=== PATIENT | female | born 2000 | race Caucasian/White ===

== ENCOUNTER → 2023-11-25 12:58 | Outpatient (CLI) | payer OTHER, MEDICAID, SELFPAY ==
--- NOTE | 2023-11-25 13:00 | DI.US.S_ITS ---
PROCEDURE: US THYROID INDICATIONS: Hx of thyroid nodules TECHNIQUE: Real-time scanning was performed of the thyroid gland, with image documentation. COMPARISON: None. FINDINGS: Right: Thyroid lobe measures 5.7 x 1.5 x 1.9 cm, and is homogeneous in echotexture. Left: Thyroid lobe measures 5.4 x 1.6 x 1.0 cm, and is homogenous in echotexture. Isthmus: 1.5 cm thick. IMPRESSION: No nodules for follow-up identified. ACR TI-RADS definitions and recommendations: TI-RADS 1 (benign): 0 points. FNA not needed. TI-RADS 2 (not suspicious): 2 points. FNA not needed. TI-RADS 3 (mildly suspicious): 3 points. * FNA if 2.5 cm or larger, follow up if 1.5 cm or larger (at 1, 3, and 5 years). TI-RADS 4 (moderately suspicious): 4-6 points. * FNA if 1.5 cm or larger, follow up if 1 cm or larger (at 1, 2, 3, and 5 years). TI-RADS 5 (highly suspicious): 7 points or more. * FNA if 1 cm or larger, follow up if 0.5 cm or larger (every year for 5 years). Dictated by: Terri Bolivar M.D. on 11/25/2023 at 16:39 Approved by: Terri Bolivar M.D. on 11/25/2023 at 16:56
== END ==
PROVIDERS: Family Provider Registered Nurse; PCP Family Medicine; Referring Provider Family Medicine; Visit Provider Family Medicine
DX: E04.1 Nontoxic single thyroid nodule (principal)
CPT/HCPCS: 76536

== ENCOUNTER → 2024-05-28 14:07 | Outpatient (CLI) | payer OTHER, MEDICAID, SELFPAY ==
[2024-05-28 15:11] LABS: Add Manual Diff / Slide Review NO; Basophils Absolute Auto 0 /uL (0-100); Basophils Percent Auto 0.5 % (0-2); Eosinophils Absolute Auto 100 /uL (0-450); Eosinophils Percent Auto 1.1 % (2-4); Hematocrit 38.1 % (36-46); Hemoglobin 13.2 g/dL (12.0-16.0); Lymphocytes Absolute Auto 2400 /uL (1100-4500); Lymphocytes Percent Auto 34.6 % (25-40); Mean Corpuscular HGB Conc 34.7 % (30-36); Mean Corpuscular Hemoglobin 29.9 PG (26-34); Mean Corpuscular Volume 86.2 fL (80-100); Monocytes Absolute Auto 500 /uL (0-900); Monocytes Percent Auto 7.1 % (3-14); Neutrophils Absolute Auto 3800 /uL (1500-7000); Neutrophils Percent Auto 56.7 % (50-75); Platelet Count 253 X10^3/uL (150-400); Red Blood Cell Count 4.42 X10^6/uL (4.0-5.2); White Blood Cell Count 6.8 X10^3/uL (4.5-11.0)
[2024-05-28 15:26] LABS: HEMOLYSIS < 15 (0-50); Iron 80 ug/dL (37-170)
[2024-05-28 15:31] LABS: C-Reactive Protein Quant < 0.5 mg/dL (<1.0)
[2024-05-28 15:34] LABS: Transferrin 256 mg/dL (206-381)
[2024-05-28 15:44] LABS: Prolactin 19.6 ng/mL (3.0-18.6)
[2024-05-28 16:20] LABS: Erythrocyte Sedimentation Rate 41 MM/HR (0-20)
[2024-05-30 03:12] LABS: Percent Iron Saturation 24 % (15-50); Total Iron Binding Capacity 338 ug/dL (265-497)
== END ==
LOC: LAB 14:08
PROVIDERS: Family Provider Registered Nurse; PCP Family Medicine; Referring Provider Family Medicine; Visit Provider Family Medicine
DX: R79.89 Other specified abnormal findings of blood chemistry (principal); E04.1 Nontoxic single thyroid nodule; R79.82 Elevated C-reactive protein (CRP); R70.0 Elevated erythrocyte sedimentation rate; F41.9 Anxiety disorder, unspecified; R55 Syncope and collapse
CPT/HCPCS: 83540; 83550; 84146; 85025; 85651; 86140

== ENCOUNTER → 2024-07-13 08:08 | Outpatient (CLI) | payer OTHER, MEDICAID, SELFPAY ==
--- NOTE | 2024-07-13 08:09 | DI.RAD.S_ITS ---
PROCEDURE: XR HIP W PEL IF DONE RT 2V INDICATIONS: right hip pain TECHNIQUE: AP pelvis with lateral view of the right hip. COMPARISON: None. FINDINGS: 4 mm round calcific density projected at the level of the right ischial superior-laterally commonly may represent enostosis/bone island versus soft tissue or other calcification. T-shaped metallic intrauterine device projects at the central aspect of the pelvis. No radiographic evidence of fracture, dislocation. Bilateral hip joint space is within normal limits without joint space narrowing or osteophytes. IMPRESSION: No radiographic evidence of acute abnormality as discussed above. If symptoms persist or worsen, MRI could be performed . Dictated by: Gunnar Pepe M.D. on 07/13/2024 at 9:14 Approved by: Gunnar Pepe M.D. on 07/13/2024 at 9:20
== END ==
PROVIDERS: Family Provider Registered Nurse; PCP Family Medicine; Referring Provider Family Medicine; Visit Provider Family Medicine
DX: M25.551 Pain in right hip (principal)
CPT/HCPCS: 73502

== ENCOUNTER 2024-07-13 10:30 | Outpatient (RCR) | payer OTHER, MEDICAID, SELFPAY ==
--- NOTE | 2023-12-04 17:05 | PT.OIE ---
Current Diagnoses Other specified postprocedural states (12/04/23) Past Medical History (Last Updated 12/03/23 @ 20:21 by Cammie Quezada) Anxiety (~2015) Flat feet Past Surgical History (Last Updated 12/03/23 @ 20:21 by Cammie Quezada) (~11/2022) Anesthesia S/P ACL surgery (~06/2023) Visit Care Team Role Provider Type LUCIEN Palmer Family Provider Advanced Pathology Tech Specialty: Emergency Medicine Address: [address] [place] [address], [facility], [place], [address] Email: [email or web address] Kerry Thomas DO Attending Provider Physician Primary Care Provider Referring Provider Specialty: Family Practice Address: [address] [place] [address], [address], [place], [address] Email: [email or web address] Physical Therapy Initial Evaluation PT-OP-A Visit Information Start: 11/28/23 10:13 Freq: Status: Active Protocol: Document 12/04/23 14:31 NM (Rec: 12/04/23 16:19 NM [id number]) Out-Patient Physical Therapy Visit Information Visit Information Visit Type Initial Evaluation Visit Note 12 visits max Visit Start Time 14:31 Visit Stop Time 15:20 Visit Number 1 Evaluation Information Evaluation Date 12/04/23 Precautions Precautions L ACL Hamstring graft, DOS 06/14 5 months: 12/13/23, 6 months: 01/13/24 PT-OP-B Current Condition Start: 11/28/23 10:13 Freq: Status: Active Protocol: Document 12/04/23 14:31 NM (Rec: 12/04/23 16:19 NM [id number]) Current Condition History of Current Condition Onset Date June 2023 Current Complaints knee flexion ROM, stiffness, pain with exercise, return to function History of Current Condition Pt had L knee ACL reconstruction in June 14, 2023 with hamstring graft. She tore her ACL while performing a ninja warrior course when moving laterally into L knee extension. No complications she's aware of with surgery, no complications with previous PT. She just moved to [facility]. She has been compliant with HEP since stopping PT in August when she moved. Prior to ACL tear, pt was not very active and did not exercise regularly. Currently, she is walking daily (1/4 mi). She is having a 2nd x ray follow up to assess surgical results and pt reported new bony prominence of L tibial plateau . Pt reports pain with supine quad sets laterally/ant knee, stiff when sitting for too long. 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 Pt states knee feels stable, no instances of locking/popping/giving out Prior Treatments and Tests Prior PT post op until move in 08/2023. Provided protocol from surgeon in [place], Dr. 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, lifting up to 20#) Functional Limitations- Recreation/ Hiking Hobbies PT-OP-C Subjective Start: 11/28/23 10:13 Freq: Status: Active Protocol: Document 12/04/23 14:31 NM (Rec: 12/04/23 16:19 NM [id number]) OP-PT Subjective Patient Comments Patient Comments see hx above for pt report Patient Questionnaires Lower Extremity Functional Scale LEFS Score 61/80 OP-PT Pain Assessment Pain Assessment Grid Paper Pain Assessment Grid Completed Yes Location L knee Pain Location Details lateral near ITB, anterior tibial plateau Intensity 1 Scale Used Numeric (0 - 10) Description Pressure,Sharp Description- Other 2 (worst pain with activity) Frequency Intermittent Pain Duration with reps Pain Aggravating Factors Exercise,Sitting Pain Alleviating Factors None Home Pain Medication Use Pain Medications Used No PT-OP-D Balance Start: 11/28/23 10:13 Freq: Status: Active Protocol: Document 12/04/23 14:31 NM (Rec: 12/04/23 16:19 NM [id number]) Balance Tests Single Limb Standing Single Limb- Right 30 sec Single Limb- Left 15 sec; not painful, increased ankle sway PT-OP-E Functional Tests Start: 11/28/23 10:13 Freq: Status: Active Protocol: Document 12/04/23 14:31 NM (Rec: 12/04/23 16:19 NM [id number]) Functional Tests Squat Test Score 10 Comments slight R deviation at hips/ knees, no valgus, no heel rise Single Leg Squat Test Score 1 Comment L knee valgus, trendelenburg, decreased hip hinge, not painful; UE support PT-OP-F Manual Assessment Start: 11/28/23 10:13 Freq: Status: Active Protocol: Document 12/04/23 14:31 NM (Rec: 12/04/23 16:19 NM [id number]) Manual Assessments Soft Tissue Assessment Soft Tissue Mobility Assessment L calf atrophy, minimal quad atrophy Joint Mobility Assessment Joint Mobility Assessment No clicking, locking, or other signs of L knee instability PT-OP-G Mobility & Gait Start: 11/28/23 10:13 Freq: Status: Active Protocol: Document 12/04/23 14:31 NM (Rec: 12/04/23 16:19 NM [id number]) OP Gait Assessment Gait Gait Assistance Required: Independent Distance (Feet) 200 Assistive Devices Assistive Device None Gait Deviations General Gait Pattern Within Normal Limits,Narrow Based Gait Factors Limiting Gait Function Factors Limiting Gait Function Decreased Activity Tolerance, Decreased Sensation,Limited Range of Motion Comments Gait Comments Gait is not quad avoidant. Slight trunk deviation toward L side with stance, in addition to slight LLE circumduction vs L knee flexion. Stair Climbing Evaluation Evaluation Level of Assist On Stairs Independent Devices Stair Climbing Assistive Devices None Technique/Endurance Stair Climbing Direction Ascend and Descend Stair Climbing Technique Step Over Step Number of Steps Climbed 4 Stair Climbing Set # Repetitions (reps) 2 Comments Stair Climbing Comments Slight R hip drop with L eccentric step down. Not painful. L knee translation directly over L foot. Able to lead with LLE ascending PT-OP-H Neuro Start: 11/28/23 10:13 Freq: Status: Active Protocol: Document 12/04/23 14:31 NM (Rec: 12/04/23 16:19 NM [id number]) Sensation Evaluation Gross Sensation Gross Sensation Left LE Impaired Comments Summary Comments Decreased light touch sensation of LLE along anterior tibia, scars PT-OP-J Posture/Palpation/Skin Start: 11/28/23 10:13 Freq: Status: Active Protocol: Document 12/04/23 14:31 NM (Rec: 12/04/23 16:19 NM [id number]) Posture Evaluation Position Standing Head/C-Spine Posture Forward Head L-Spine Posture Increased Lordosis Pelvis Posture Anteriorly Tilted Weight Distribution Balanced Hip Posture (L) Externally Rotated,(R) Externally Rotated Knee Posture (L) Genu Valgus,(R) Genu Valgus Patellar Posture (L) Superior,(R) Superior Ankle/Foot Posture (L) Pronated,(R) Pronated Comments Posture Comments R knee hyperextension in stance. L knee neutral extension Palpation Assessment Location L knee Palpation Location posterior knee, anterior knee, joint lines, femoral condyles , ITB Palpation Findings Tenderness Palpation Details Minimal tenderness along posterior knee near popliteal fold. No tenderness along joint lines. Minimal tenderness at anterior tibia and tibial tubercle, lateral femoral condyle. No tenderness along ITB despite pt reports Skin Assessment Incisional Assessment Incision Appearance/Comments Incisions intact, not infected . Minimal adhesion to underlying skin PT-OP-K Range of Motion Start: 11/28/23 10:13 Freq: Status: Active Protocol: Document 12/04/23 14:31 NM (Rec: 12/04/23 16:19 NM [id number]) Hip Goniometric Range of Motion Hip Left Flexion w/Knee Flexed 95 Extension 8 Abduction 25 Right Flexion w/Knee Flexed 95 Extension 8 Abduction 25 Knee Goniometric Range of Motion Knee Right Flexion Active (degrees) 133 Flexion Passive (degrees) 135 Hyper-Extension Active 5 Left Flexion Active (degrees) 122 Flexion Passive (degrees) 127 Extension Active (degrees) 0 Hyper-Extension Active 2 Comments Pain in posterior knee with end range passive extension Knee ROM Limitations Knee ROM Limitations Soft Tissue Tightness Comments L knee flexion limited PT-OP-M Strength Start: 11/28/23 10:13 Freq: Status: Active Protocol: Document 12/04/23 14:31 NM (Rec: 12/04/23 16:19 NM [id number]) Hip Strength Hip Manual Muscle Testing Right Flexion (L2) 4+ Good+ Extension (S1) 4 Good Abduction 4 Good Adduction 4+ Good+ External Rotation 4+ Good+ Internal Rotation 4+ Good+ Left Flexion (L2) 4+ Good+ Extension (S1) 4 Good Abduction 4 Good Adduction 4+ Good+ External Rotation 4+ Good+ Internal Rotation 4+ Good+ Knee Strength Knee Manual Muscle Testing Right Flexion (S2) 4+ Good+ Extension (L3) 4+ Good+ Left Flexion (S2) 4 Good Extension (L3) 4- Good- Comments no pain with resisted motion Ankle/Foot Strength Ankle and Foot Manual Muscle Testing Right Dorsiflexion (L4) 4+ Good+ Plantarflexion (S1) 4 Good Comments 5 single heel raises with UE support Left Dorsiflexion (L4) 4+ Good+ Plantarflexion (S1) 4 Good Comments 5 single heel raises with UE support PT-OP-Q Treatments Start: 11/28/23 10:13 Freq: Status: Active Protocol: Document 12/04/23 14:31 NM (Rec: 12/04/23 16:19 NM [id number]) Therapeutic Exercises Supine Exercises single leg bridge Side left Resistance AROM Equipment Used mat on floor Reps/Minutes 1x10 Comments cued for level pelvis, foot on floor; monitored for pain Sitting Exercises LAQ Side left Resistance lvl 3 iqugmiut green band Reps/Minutes 1x10 Comments no pain with knee ext; cued full TKE; monitored for pain Standing Exercises Monster walks Standing Exercise Name forward and retro walking Side bilateral Resistance iqugmiut green lvl 3 band Equipment Used around ankles Reps/Minutes 2x10 ft Comments cued for squat position; monitored for pain side steps Side bilateral Resistance iqugmiut green lvl 3 band Equipment Used around ankles Reps/Minutes 2x10 ft Comments cued for squat position; monitored for pain Self-Care/Home Management Treatment Education Patient Education Home Exercise Program,Joint Protection,Safety Other Education Educated on exam findings, POC , current HEP. Review pt protocol and past HEP, discontinued except for seated flexion stretch, side steps. HEP: single leg bridge with foot on floor, LAQ with low resistance band, fwd and reverse monster walk. Pt verbalizes understanding. 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 Short Term Goal (STG) Pt will demonstrate ability to lift 20# from squat position with good body mechanics and ambulate x 20 ft without knee pain or compensation in order to perform all functions of job STG Duration 5 weeks Mailer Goal (LTG) Pt will report no difficulty with performing job functions due to L knee pain in order to demonstrate return to PLOF LTG Duration 10 weeks Four Impairment strength, plyometrics Short Term Goal (STG) Pt will be able to perform at least 10 reps of double leg hop from floor without compensation or pain and safe landing in order to demonstrate improved L knee strength and control during plyometrics STG Duration 5 weeks Mailer Goal (LTG) Pt will be able to perform vertical jump test or single leg hop test at least 80% of R leg if appropriate in order to demonstrate improved L knee strength and control during plyometrics LTG Duration 10 weeks Three Impairment strength Impairment 1 L single leg squat Short Term Goal (STG) Pt will perform at least 8 single leg squats using LLE without pain or compensation in order to demonstrate improved L quad control and strength for return to PLOF STG Duration 5 weeks Residential Goal (LTG) Pt will perform at least 10 single leg squats using LLE without pain or compensation in order to demonstrate improved L quad control and strength for return to PLOF LTG Duration 10 weeks Two Impairment activity Impairment LEFS 61/80 Short Term Goal (STG) Pt will improve LEFS score to >65/80 in order to demonstrate improved activity tolerance and return to higher level of function STG Duration 5 weeks Mailer Goal (LTG) Pt will improve LEFS score to >70/80 (1 MCID) in order to demonstrate improved activity tolerance and return to higher level of function LTG Duration 10 weeks One Impairment AROM Impairment L knee flex 127 deg Residential Goal (LTG) Pt will improve L knee flexion AROM to > 130 deg without compensation in order to be comparable to R knee flexion for bike and stairs. LTG Duration 10 weeks Assessment Summary Assessment Pt is a 23 y.o. female s/p L ACL repair with hamstring graft in June 2023. She is currently 5.5 months post- op (25 weeks). Pt recently moved from [place], and is getting established with PT; she attended PT until August 2023 in [place] and reports compliance with previous PT HEP. Pt provided surgeon's protocol and HEP. Currently, pt reports 1/10 lateral and anterior L knee pain with quad sets; occasionally, pt reports pain in same area with activity (e.g. single leg bridges, squats) but decreased as number of repetitions occurs. Currently, pt has 127 deg L knee AROM and 0 deg L knee ext. R knee hyperextends and is 133 deg flexion. She also has decreased L quad and hamstring strength compared to RLE (4-/5) with MMT, but no pain with resisted motion. Pt demos slight L quad and calf atrophy compared to RLE. Pt able to perform bilateral squats with slight deviation to R side and is challenged by L single leg squat with increased knee valgus and trendelenburg compensations. Gait is near normal mechanics with quad function, however demonstrates slight LLE circumduction. Initiated single leg bridges, forward/ retro and side steps, and LAQ with light resistance band. PT educated pt on exam findings, POC, attendance policy, and issued HEP. Due to limitations from insurance (12 visits), pt will have fewer visits with longer POC unless can receive more visits. Pt would benefit from skilled PT for progressive LLE strengthening, mobility, and stabilization training for improved activity tolerance and return to PLOF. Physical Therapy Plan Frequency and Duration Frequency of Treatment 1-2/wk Duration of treatment (weeks) 10 Plan of Care Start Date 12/04/23 Plan of Care End Date 02/14/24 Therapeutic Interventions Therapeutic Interventions Aquatic Therapy,Balance Training,Coordination Training ,Gait Training,Home Exercise Program,Joint Mobilizations, Manual Therapy,Neuromuscular Re-education,Orthotic/ Prosthetic Management,Patient/ Caregiver Education,Self-Care/ Home Management,Sensory Integration,Soft Tissue Mobilization,Taping, Therapeutic Activities, Therapeutic Exercises Modalities Biofeedback,Cold Pack/Ice Massage,Electric Stimulation, Hot Packs,Ultrasound, Vasopneumatic Devices Next Visit Focus/Plan Next Note Type Treatment Note Next Visit Plan Progress per protocol Initiate leg press, bike vs elliptical, open chain strengthening, deadlift AROM, single leg squat, B squat, lunge
--- NOTE | 2023-12-04 17:06 | PT.OPPOC ---
Physical, Occupational & Speech Therapy At [facility] Current Diagnoses Other specified postprocedural states (12/04/23) Visit Care Team Role Provider Type LUCIEN Palmer Family Provider Advanced Foot Drill Operator Specialty: Emergency Medicine Address: [address] [facility], [address], [place], [address] Email: [email or web address] Kerry Thomas DO Attending Provider Physician Primary Care Provider Referring Provider Specialty: Family Practice Address: [address] [place] [address], [address], [place], [address] Email: [email or web address] Plan Of Care PT-OP-T Assessment and Plan Start: 11/28/23 10:13 Freq: Status: Active Protocol: Document 12/04/23 14:31 NM (Rec: 12/04/23 16:19 NM [id number]) Physical Therapy Assessment Rehab Potential Rehabilitation Potential Good Evaluation Complexity Number of Personal Factors/Comorbidities 1-2 Number of Body Systems Impaired 1-2 Clinical Presentation at Evaluation Stable Impairments Impairments Activity Tolerance,Balance, Coordination,Edema,Functional Activities,Functional Mobility ,Gait,Integument,Pain,Posture, ROM,Sensation,Soft Tissue Mobility,Strength Goals Five Impairment 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 Short Term Goal (STG) Pt will demonstrate ability to lift 20# from squat position with good body mechanics and ambulate x 20 ft without knee pain or compensation in order to perform all functions of job STG Duration 5 weeks Harp Regulator Goal (LTG) Pt will report no difficulty with performing job functions due to L knee pain in order to demonstrate return to PLOF LTG Duration 10 weeks Four Impairment strength, plyometrics Short Term Goal (STG) Pt will be able to perform at least 10 reps of double leg hop from floor without compensation or pain and safe landing in order to demonstrate improved L knee strength and control during plyometrics STG Duration 5 weeks Harp Regulator Goal (LTG) Pt will be able to perform vertical jump test or single leg hop test at least 80% of R leg if appropriate in order to demonstrate improved L knee strength and control during plyometrics LTG Duration 10 weeks Three Impairment strength Impairment 1 L single leg squat Short Term Goal (STG) Pt will perform at least 8 single leg squats using LLE without pain or compensation in order to demonstrate improved L quad control and strength for return to PLOF STG Duration 5 weeks Harp Regulator Goal (LTG) Pt will perform at least 10 single leg squats using LLE without pain or compensation in order to demonstrate improved L quad control and strength for return to PLOF LTG Duration 10 weeks Two Impairment activity Impairment LEFS 61/80 Short Term Goal (STG) Pt will improve LEFS score to >65/80 in order to demonstrate improved activity tolerance and return to higher level of function STG Duration 5 weeks Long-Term Goal (LTG) Pt will improve LEFS score to >70/80 (1 MCID) in order to demonstrate improved activity tolerance and return to higher level of function LTG Duration 10 weeks One Impairment AROM Impairment L knee flex 127 deg Harp Regulator Goal (LTG) Pt will improve L knee flexion AROM to > 130 deg without compensation in order to be comparable to R knee flexion for bike and stairs. LTG Duration 10 weeks Assessment Summary Assessment Pt is a 23 y.o. female s/p L ACL repair with hamstring graft in June 2023. She is currently 5.5 months post- op (25 weeks). Pt recently moved from [place], and is getting established with PT; she attended PT until August 2023 in [place] and reports compliance with previous PT HEP. Pt provided surgeon's protocol and HEP. Currently, pt reports 1/10 lateral and anterior L knee pain with quad sets; occasionally, pt reports pain in same area with activity (e.g. single leg bridges, squats) but decreased as number of repetitions occurs. Currently, pt has 127 deg L knee AROM and 0 deg L knee ext. R knee hyperextends and is 133 deg flexion. She also has decreased L quad and hamstring strength compared to RLE (4-/5) with MMT, but no pain with resisted motion. Pt demos slight L quad and calf atrophy compared to RLE. Pt able to perform bilateral squats with slight deviation to R side and is challenged by L single leg squat with increased knee valgus and trendelenburg compensations. Gait is near normal mechanics with quad function, however demonstrates slight LLE circumduction. Initiated single leg bridges, forward/ retro and side steps, and LAQ with light resistance band. PT educated pt on exam findings, POC, attendance policy, and issued HEP. Due to limitations from insurance (12 visits), pt will have fewer visits with longer POC unless can receive more visits. Pt would benefit from skilled PT for progressive LLE strengthening, mobility, and stabilization training for improved activity tolerance and return to PLOF. Physical Therapy Plan Frequency and Duration Frequency of Treatment 1-2/wk Duration of treatment (weeks) 10 Plan of Care Start Date 12/04/23 Plan of Care End Date 02/14/24 Therapeutic Interventions Therapeutic Interventions Aquatic Therapy,Balance Training,Coordination Training ,Gait Training,Home Exercise Program,Joint Mobilizations, Manual Therapy,Neuromuscular Re-education,Orthotic/ Prosthetic Management,Patient/ Caregiver Education,Self-Care/ Home Management,Sensory Integration,Soft Tissue Mobilization,Taping, Therapeutic Activities, Therapeutic Exercises Modalities Biofeedback,Cold Pack/Ice Massage,Electric Stimulation, Hot Packs,Ultrasound, Vasopneumatic Devices Next Visit Focus/Plan Next Note Type Treatment Note Next Visit Plan Progress per protocol Initiate leg press, bike vs elliptical, open chain strengthening, deadlift AROM, single leg squat, B squat, lunge Plan of Care Dates Plan of Care Start Date 12/04/23 Plan of Care End Date 02/14/24 Electronically Signed by: Roxann Trinidad, PT 12/05/23 1936 If you are in agreement with this Plan of Care, please return a signed and dated copy. I have reviewed this Plan of Care and certify that the skilled therapy services above are required to meet the patient?s needs. Physician Signature Date Printed Name and Credentials Clinical Instructor Signature Printed Name and Credentials
--- NOTE | 2023-12-06 17:06 | PT.OTN ---
Current Diagnoses Other abnormalities of gait and mobility (12/06/23) Weakness (12/06/23) Other specified postprocedural states (12/06/23) Physical Therapy Treatment Note PT-OP-A Visit Information Start: 11/28/23 10:13 Freq: Status: Active Protocol: Document 12/06/23 09:01 NM (Rec: 12/06/23 09:50 NM [id number]) Out-Patient Physical Therapy Visit Information Visit Information Visit Type Treatment Note Visit Note 12 visits max Visit Start Time 09:03 Visit Stop Time 09:45 Visit Number 11/25 Evaluation Information Evaluation Date 12/04/23 Precautions Precautions L ACL Hamstring graft, DOS 06/14 5 months: 12/13/23, 6 months: 01/13/24 PT-OP-B Current Condition Start: 11/28/23 10:13 Freq: Status: Active Protocol: Document 12/04/23 14:31 NM (Rec: 12/04/23 16:19 NM [id number]) Current Condition History of Current Condition Onset Date June 2023 Current Complaints knee flexion ROM, stiffness, pain with exercise, return to function History of Current Condition Pt had L knee ACL reconstruction in June 14, 2023 with hamstring graft. She tore her ACL while performing a [place] course when moving laterally into L knee extension. No complications she's aware of with surgery, no complications with previous PT. She just moved to [facility]. She has been compliant with HEP since stopping PT in August when she moved. Prior to ACL tear, pt was not very active and did not exercise regularly. Currently, she is walking daily (1/4 mi). She is having a 2nd x ray follow up to assess surgical results and pt reported new bony prominence of L tibial plateau . Pt reports pain with supine quad sets laterally/ant knee, stiff when sitting for too long. 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 Pt states knee feels stable, no instances of locking/popping/giving out Prior Treatments and Tests Prior PT post op until move in 08/2023. Provided protocol from surgeon in [place], Dr. 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 Reports no pain with any exercises, but has questions so will review. She is planning on starting her job soon. She states she reread her employment requirements again, and it's actually 50# PT-OP-D Balance Start: 11/28/23 10:13 Freq: Status: Active Protocol: Document 12/04/23 14:31 NM (Rec: 12/04/23 16:19 NM [id number]) Balance Tests Single Limb Standing Single Limb- Right 30 sec Single Limb- Left 15 sec; not painful, increased ankle sway PT-OP-E Functional Tests Start: 11/28/23 10:13 Freq: Status: Active Protocol: Document 12/04/23 14:31 NM (Rec: 12/04/23 16:19 NM [id number]) Functional Tests Squat Test Score 10 Comments slight R deviation at hips/ knees, no valgus, no heel rise Single Leg Squat Test Score 1 Comment L knee valgus, trendelenburg, decreased hip hinge, not painful; UE support PT-OP-F Manual Assessment Start: 11/28/23 10:13 Freq: Status: Active Protocol: Document 12/04/23 14:31 NM (Rec: 12/04/23 16:19 NM [id number]) Manual Assessments Soft Tissue Assessment Soft Tissue Mobility Assessment L calf atrophy, minimal quad atrophy Joint Mobility Assessment Joint Mobility Assessment No clicking, locking, or other signs of L knee instability PT-OP-G Mobility & Gait Start: 11/28/23 10:13 Freq: Status: Active Protocol: Document 12/04/23 14:31 NM (Rec: 12/04/23 16:19 NM [id number]) OP Gait Assessment Gait Gait Assistance Required: Independent Distance (Feet) 200 Assistive Devices Assistive Device None Gait Deviations General Gait Pattern Within Normal Limits,Narrow Based Gait Factors Limiting Gait Function Factors Limiting Gait Function Decreased Activity Tolerance, Decreased Sensation,Limited Range of Motion Comments Gait Comments Gait is not quad avoidant. Slight trunk deviation toward L side with stance, in addition to slight LLE circumduction vs L knee flexion. Stair Climbing Evaluation Evaluation Level of Assist On Stairs Independent Devices Stair Climbing Assistive Devices None Technique/Endurance Stair Climbing Direction Ascend and Descend Stair Climbing Technique Step Over Step Number of Steps Climbed 4 Stair Climbing Set # Repetitions (reps) 2 Comments Stair Climbing Comments Slight R hip drop with L eccentric step down. Not painful. L knee translation directly over L foot. Able to lead with LLE ascending PT-OP-H Neuro Start: 11/28/23 10:13 Freq: Status: Active Protocol: Document 12/04/23 14:31 NM (Rec: 12/04/23 16:19 NM [id number]) Sensation Evaluation Gross Sensation Gross Sensation Left LE Impaired Comments Summary Comments Decreased light touch sensation of LLE along anterior tibia, scars PT-OP-J Posture/Palpation/Skin Start: 11/28/23 10:13 Freq: Status: Active Protocol: Document 12/04/23 14:31 NM (Rec: 12/04/23 16:19 NM [id number]) Posture Evaluation Position Standing Head/C-Spine Posture Forward Head L-Spine Posture Increased Lordosis Pelvis Posture Anteriorly Tilted Weight Distribution Balanced Hip Posture (L) Externally Rotated,(R) Externally Rotated Knee Posture (L) Genu Valgus,(R) Genu Valgus Patellar Posture (L) Superior,(R) Superior Ankle/Foot Posture (L) Pronated,(R) Pronated Comments Posture Comments R knee hyperextension in stance. L knee neutral extension Palpation Assessment Location L knee Palpation Location posterior knee, anterior knee, joint lines, femoral condyles , ITB Palpation Findings Tenderness Palpation Details Minimal tenderness along posterior knee near popliteal fold. No tenderness along joint lines. Minimal tenderness at anterior tibia and tibial tubercle, lateral femoral condyle. No tenderness along ITB despite pt reports Skin Assessment Incisional Assessment Incision Appearance/Comments Incisions intact, not infected . Minimal adhesion to underlying skin PT-OP-K Range of Motion Start: 11/28/23 10:13 Freq: Status: Active Protocol: Document 12/04/23 14:31 NM (Rec: 12/04/23 16:19 NM [id number]) Hip Goniometric Range of Motion Hip Left Flexion w/Knee Flexed 95 Extension 8 Abduction 25 Right Flexion w/Knee Flexed 95 Extension 8 Abduction 25 Knee Goniometric Range of Motion Knee Right Flexion Active (degrees) 133 Flexion Passive (degrees) 135 Hyper-Extension Active 5 Left Flexion Active (degrees) 122 Flexion Passive (degrees) 127 Extension Active (degrees) 0 Hyper-Extension Active 2 Comments Pain in posterior knee with end range passive extension Knee ROM Limitations Knee ROM Limitations Soft Tissue Tightness Comments L knee flexion limited PT-OP-M Strength Start: 11/28/23 10:13 Freq: Status: Active Protocol: Document 12/04/23 14:31 NM (Rec: 12/04/23 16:19 NM [id number]) Hip Strength Hip Manual Muscle Testing Right Flexion (L2) 4+ Good+ Extension (S1) 4 Good Abduction 4 Good Adduction 4+ Good+ External Rotation 4+ Good+ Internal Rotation 4+ Good+ Left Flexion (L2) 4+ Good+ Extension (S1) 4 Good Abduction 4 Good Adduction 4+ Good+ External Rotation 4+ Good+ Internal Rotation 4+ Good+ Knee Strength Knee Manual Muscle Testing Right Flexion (S2) 4+ Good+ Extension (L3) 4+ Good+ Left Flexion (S2) 4 Good Extension (L3) 4- Good- Comments no pain with resisted motion Ankle/Foot Strength Ankle and Foot Manual Muscle Testing Right Dorsiflexion (L4) 4+ Good+ Plantarflexion (S1) 4 Good Comments 5 single heel raises with UE support Left Dorsiflexion (L4) 4+ Good+ Plantarflexion (S1) 4 Good Comments 5 single heel raises with UE support PT-OP-Q Treatments Start: 11/28/23 10:13 Freq: Status: Active Protocol: Document 12/06/23 09:01 NM (Rec: 12/06/23 09:50 NM [id number]) Cardio Equipment Bicycle (Upright) Duration (Minutes) 5 Resistance 0 Seat Position 3 Other warm up Therapeutic Exercises Sitting Exercises LAQ Side left Resistance AROM> 2# ankle weight, trialed 4# Reps/Minutes 1x12 with 3 hold AROM>1x12 wtih 3 2#, 1x5 with 3 4# Comments has TKE with cueing, fatiguing but good form Standing Exercises step downs Standing Exercise Name step backs Side left Resistance AROM Equipment Used 4 step, lvl 3 band around thighs for lvl hips, mirror for vc Reps/Minutes 2x10 Comments cued for lvl hips, no L trunk tilt step ups Standing Exercise Name 6 Side left Resistance AROM Equipment Used lvl 3 band around thighs for lvl hips Reps/Minutes 2x10 Comments cued for lvl hips, upright posture, center knee over ankle to dec valgus squat Standing Exercise Name to chair (tap) Side bilateral Resistance lvl 3 band around thighs Equipment Used mirror for visual cues Reps/Minutes 2x10 Comments cued to prevent R shift with descent HSC Standing Exercise Name trialed 2# ankle weight but reports pain, none with AROM or light blue band Side left Resistance AROM > lvl 1 light blue tb around ankles Equipment Used hand support on table, no pain with reps Reps/Minutes 1x10 AROM, 2x10 band Comments cued more hip ext vs hip flex, kick ot butt, controlled motion side steps Side bilateral Resistance [facility] lvl 3 band Equipment Used around ankles Reps/Minutes 2x10 ft Comments cued for squat position, increased glute activation; monitored for pain Neuro Re-Education Treatment Balance Activities SLS Surface stable Equipment no UE support Reps/Duration 2x30 Comments for time Self-Care/Home Management Treatment Education Patient Education Home Exercise Program Other Education 3 minutes- reviewed previous HEP, issued current HEP: B squat to chair, standing hamstring curls, step up, single leg stance, side steps with band at ankles PT-OP-T Assessment and Plan Start: 11/28/23 10:13 Freq: Status: Active Protocol: Document 12/06/23 09:01 NM (Rec: 12/06/23 09:50 NM [id number]) Physical Therapy Assessment Goals Five Impairment 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 Short Term Goal (STG) Pt will demonstrate ability to lift 20# from squat position with good body mechanics and ambulate x 20 ft without knee pain or compensation in order to perform all functions of job STG Duration 5 weeks [employer] Goal (LTG) Pt will report no difficulty with performing job functions due to L knee pain in order to demonstrate return to PLOF LTG Duration 10 weeks Four Impairment strength, plyometrics Short Term Goal (STG) Pt will be able to perform at least 10 reps of double leg hop from floor without compensation or pain and safe landing in order to demonstrate improved L knee strength and control during plyometrics STG Duration 5 weeks [employer] Goal (LTG) Pt will be able to perform vertical jump test or single leg hop test at least 80% of R leg if appropriate in order to demonstrate improved L knee strength and control during plyometrics LTG Duration 10 weeks Three Impairment strength Impairment 1 L single leg squat Short Term Goal (STG) Pt will perform at least 8 single leg squats using LLE without pain or compensation in order to demonstrate improved L quad control and strength for return to PLOF STG Duration 5 weeks [employer] Goal (LTG) Pt will perform at least 10 single leg squats using LLE without pain or compensation in order to demonstrate improved L quad control and strength for return to PLOF LTG Duration 10 weeks Two Impairment activity Impairment LEFS 61/80 Short Term Goal (STG) Pt will improve LEFS score to >65/80 in order to demonstrate improved activity tolerance and return to higher level of function STG Duration 5 weeks [employer] Goal (LTG) Pt will improve LEFS score to >70/80 (1 MCID) in order to demonstrate improved activity tolerance and return to higher level of function LTG Duration 10 weeks One Impairment AROM Impairment L knee flex 127 deg [employer] Goal (LTG) Pt will improve L knee flexion AROM to > 130 deg without compensation in order to be comparable to R knee flexion for bike and stairs. LTG Duration 10 weeks Assessment Summary Assessment Pt tolerated session well, no reports of pain; however, requires increased time with activities. Continued bilateral squats to chair. Mirror for visual cues and PT cueing pt to limit R weight shift. Improved with reps. Initiated 6 step up and 4 step down for improved quad and glute control. Band for tactile cue to limit knee valgus and for level pelvis to prevent hip drop. PT providing verbal cues; pt with better form with visual cues. Pt would benefit from further glute and quad strengthening before progressing to more single leg activities. Initiated single leg stance without UE assist for balance; pt with good stability, will progress balance as pt quad/ glute strength progress. No pain with resisted hamstring curls. Pt complains of lateral knee pain with initial LAQ but decreased with reps using isometric without resistance. Pt would benefit from skilled PT for progressive LLE quad/ glute strengthening for improved control, stability and return to PLOF. Physical Therapy Plan Frequency and Duration Frequency of Treatment 1-2/wk Duration of treatment (weeks) 10 Plan of Care Start Date 12/04/23 Plan of Care End Date 02/14/24 Therapeutic Interventions Therapeutic Interventions Aquatic Therapy,Balance Training,Coordination Training ,Gait Training,Home Exercise Program,Joint Mobilizations, Manual Therapy,Neuromuscular Re-education,Orthotic/ Prosthetic Management,Patient/ Caregiver Education,Self-Care/ Home Management,Sensory Integration,Soft Tissue Mobilization,Taping, Therapeutic Activities, Therapeutic Exercises Modalities Biofeedback,Cold Pack/Ice Massage,Electric Stimulation, Hot Packs,Ultrasound, Vasopneumatic Devices Next Visit Focus/Plan Next Note Type Treatment Note Next Visit Plan Progress per protocol (see folder) Initiate leg press B and U squat (limit knee flex AROM to at/above 90 deg, resistance to tolerance), step up/down/ lateral, initiate single leg squat as able, open chain exercises
--- NOTE | 2023-12-12 11:32 | PT.OTN ---
Current Diagnoses Other abnormalities of gait and mobility (12/12/23) Weakness (12/12/23) Other specified postprocedural states (12/12/23) Physical Therapy Treatment Note PT-OP-A Visit Information Start: 11/28/23 10:13 Freq: Status: Active Protocol: Document 12/12/23 10:32 NM (Rec: 12/12/23 11:32 NM [id number]) Out-Patient Physical Therapy Visit Information Visit Information Visit Type Treatment Note Visit Note 12 visits max Visit Start Time 10:32 Visit Stop Time 11:15 Visit Number 3/12 Evaluation Information Evaluation Date 12/04/23 PT-OP-B Current Condition Start: 11/28/23 10:13 Freq: Status: Active Protocol: Document 12/04/23 14:31 NM (Rec: 12/04/23 16:19 NM [id number]) Current Condition History of Current Condition Onset Date June 2023 Current Complaints knee flexion ROM, stiffness, pain with exercise, return to function History of Current Condition Pt had L knee ACL reconstruction in June 14, 2023 with hamstring graft. She tore her ACL while performing a [employer] course when moving laterally into L knee extension. No complications she's aware of with surgery, no complications with previous PT. She just moved to [facility]. She has been compliant with HEP since stopping PT in August when she moved. Prior to ACL tear, pt was not very active and did not exercise regularly. Currently, she is walking daily (1/4 mi). She is having a 2nd x ray follow up to assess surgical results and pt reported new bony prominence of L tibial plateau . Pt reports pain with supine quad sets laterally/ant knee, stiff when sitting for too long. 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 Pt states knee feels stable, no instances of locking/popping/giving out Prior Treatments and Tests Prior PT post op until move in 08/2023. Provided protocol from surgeon in [place], Dr. 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 She has begun training for her job. She reports no difficulty with the exercises. PT-OP-D Balance Start: 11/28/23 10:13 Freq: Status: Active Protocol: Document 12/04/23 14:31 NM (Rec: 12/04/23 16:19 NM [id number]) Balance Tests Single Limb Standing Single Limb- Right 30 sec Single Limb- Left 15 sec; not painful, increased ankle sway PT-OP-E Functional Tests Start: 11/28/23 10:13 Freq: Status: Active Protocol: Document 12/04/23 14:31 NM (Rec: 12/04/23 16:19 NM [id number]) Functional Tests Squat Test Score 10 Comments slight R deviation at hips/ knees, no valgus, no heel rise Single Leg Squat Test Score 1 Comment L knee valgus, trendelenburg, decreased hip hinge, not painful; UE support PT-OP-F Manual Assessment Start: 11/28/23 10:13 Freq: Status: Active Protocol: Document 12/04/23 14:31 NM (Rec: 12/04/23 16:19 NM [id number]) Manual Assessments Soft Tissue Assessment Soft Tissue Mobility Assessment L calf atrophy, minimal quad atrophy Joint Mobility Assessment Joint Mobility Assessment No clicking, locking, or other signs of L knee instability PT-OP-G Mobility & Gait Start: 11/28/23 10:13 Freq: Status: Active Protocol: Document 12/04/23 14:31 NM (Rec: 12/04/23 16:19 NM [id number]) OP Gait Assessment Gait Gait Assistance Required: Independent Distance (Feet) 200 Assistive Devices Assistive Device None Gait Deviations General Gait Pattern Within Normal Limits,Narrow Based Gait Factors Limiting Gait Function Factors Limiting Gait Function Decreased Activity Tolerance, Decreased Sensation,Limited Range of Motion Comments Gait Comments Gait is not quad avoidant. Slight trunk deviation toward L side with stance, in addition to slight LLE circumduction vs L knee flexion. Stair Climbing Evaluation Evaluation Level of Assist On Stairs Independent Devices Stair Climbing Assistive Devices None Technique/Endurance Stair Climbing Direction Ascend and Descend Stair Climbing Technique Step Over Step Number of Steps Climbed 4 Stair Climbing Set # Repetitions (reps) 2 Comments Stair Climbing Comments Slight R hip drop with L eccentric step down. Not painful. L knee translation directly over L foot. Able to lead with LLE ascending PT-OP-H Neuro Start: 11/28/23 10:13 Freq: Status: Active Protocol: Document 12/04/23 14:31 NM (Rec: 12/04/23 16:19 NM [id number]) Sensation Evaluation Gross Sensation Gross Sensation Left LE Impaired Comments Summary Comments Decreased light touch sensation of LLE along anterior tibia, scars PT-OP-J Posture/Palpation/Skin Start: 11/28/23 10:13 Freq: Status: Active Protocol: Document 12/04/23 14:31 NM (Rec: 12/04/23 16:19 NM [id number]) Posture Evaluation Position Standing Head/C-Spine Posture Forward Head L-Spine Posture Increased Lordosis Pelvis Posture Anteriorly Tilted Weight Distribution Balanced Hip Posture (L) Externally Rotated,(R) Externally Rotated Knee Posture (L) Genu Valgus,(R) Genu Valgus Patellar Posture (L) Superior,(R) Superior Ankle/Foot Posture (L) Pronated,(R) Pronated Comments Posture Comments R knee hyperextension in stance. L knee neutral extension Palpation Assessment Location L knee Palpation Location posterior knee, anterior knee, joint lines, femoral condyles , ITB Palpation Findings Tenderness Palpation Details Minimal tenderness along posterior knee near popliteal fold. No tenderness along joint lines. Minimal tenderness at anterior tibia and tibial tubercle, lateral femoral condyle. No tenderness along ITB despite pt reports Skin Assessment Incisional Assessment Incision Appearance/Comments Incisions intact, not infected . Minimal adhesion to underlying skin PT-OP-K Range of Motion Start: 11/28/23 10:13 Freq: Status: Active Protocol: Document 12/04/23 14:31 NM (Rec: 12/04/23 16:19 NM [id number]) Hip Goniometric Range of Motion Hip Left Flexion w/Knee Flexed 95 Extension 8 Abduction 25 Right Flexion w/Knee Flexed 95 Extension 8 Abduction 25 Knee Goniometric Range of Motion Knee Right Flexion Active (degrees) 133 Flexion Passive (degrees) 135 Hyper-Extension Active 5 Left Flexion Active (degrees) 122 Flexion Passive (degrees) 127 Extension Active (degrees) 0 Hyper-Extension Active 2 Comments Pain in posterior knee with end range passive extension Knee ROM Limitations Knee ROM Limitations Soft Tissue Tightness Comments L knee flexion limited PT-OP-M Strength Start: 11/28/23 10:13 Freq: Status: Active Protocol: Document 12/04/23 14:31 NM (Rec: 12/04/23 16:19 NM [id number]) Hip Strength Hip Manual Muscle Testing Right Flexion (L2) 4+ Good+ Extension (S1) 4 Good Abduction 4 Good Adduction 4+ Good+ External Rotation 4+ Good+ Internal Rotation 4+ Good+ Left Flexion (L2) 4+ Good+ Extension (S1) 4 Good Abduction 4 Good Adduction 4+ Good+ External Rotation 4+ Good+ Internal Rotation 4+ Good+ Knee Strength Knee Manual Muscle Testing Right Flexion (S2) 4+ Good+ Extension (L3) 4+ Good+ Left Flexion (S2) 4 Good Extension (L3) 4- Good- Comments no pain with resisted motion Ankle/Foot Strength Ankle and Foot Manual Muscle Testing Right Dorsiflexion (L4) 4+ Good+ Plantarflexion (S1) 4 Good Comments 5 single heel raises with UE support Left Dorsiflexion (L4) 4+ Good+ Plantarflexion (S1) 4 Good Comments 5 single heel raises with UE support PT-OP-Q Treatments Start: 11/28/23 10:13 Freq: Status: Active Protocol: Document 12/12/23 10:32 NM (Rec: 12/12/23 11:32 NM [id number]) Cardio Equipment Bicycle (Upright) Duration (Minutes) 3 Resistance 5 Seat Position 2 Other warm up Gym Equipment Shuttle Recovery R squat Resistance 50# (2 navy) Shuttle Recovery Platform Stable Reps/Time 1x10 L squat Details cued TKE w/o locking; medium- hard @ 63# Resistance 50# (2 navy), 63# Shuttle Recovery Platform Stable Reps/Time 1x10 50#, 1x10 63# B squat Details cued TKE w/o locking; medium difficulty Resistance 75# (3 navy) > 88# 2nd set Shuttle Recovery Platform Stable Reps/Time 2x12 Therapeutic Exercises Standing Exercises kickstand RDL Standing Exercise Name trialed Side left Resistance 5# Equipment Used mirror visual cue; RLE kickstand at toe Reps/Minutes 1x8 Comments difficulty coordinating; regressed to bilateral deadlift deadlift Standing Exercise Name knees slightly flexed Side bilateral Resistance 5# db Equipment Used lvl 1 tb around thighs for abd cue to limit valgus; mirror for visual cue Reps/Minutes 2x10 Comments cued for neutral spine, hinge; PT facilitating at hips calf stretch Side left Equipment Used foot elevated, heel on ground Reps/Minutes 2x30 slider Standing Exercise Name Y: fwd, lateral/ext, ext/add Side left Resistance lvl 1 tb around thighs for cue limit valgus Equipment Used mirror for visual cue; slider under R foot Reps/Minutes 1x10 ea direction Comments cued for lvl pelvis, squat/ hinge, knee over midfoot step downs Standing Exercise Name 1. step back, 2. eccentric step fwd Side left Resistance AROM Equipment Used 4 step, lvl 1 tb around thighs; mirror visual cues Reps/Minutes 1x15 ea Comments cued level hips, PT hand on lateral L knee for stability cue step ups Standing Exercise Name 8 fwd, 6 lateral Side left Resistance AROM Equipment Used mirror for visual cues Reps/Minutes 2x10 ea Comments cued to limit knee valgus, center knee over ankle for stability Monster walks Standing Exercise Name HEP review Side bilateral Resistance chitina green lvl 3 band Equipment Used around ankles Reps/Minutes 1x20 ft Comments cued for squat position; monitored for pain PT-OP-T Assessment and Plan Start: 11/28/23 10:13 Freq: Status: Active Protocol: Document 12/12/23 10:32 NM (Rec: 12/12/23 11:32 NM [id number]) Physical Therapy Assessment Goals Five Impairment 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 Short Term Goal (STG) Pt will demonstrate ability to lift 20# from squat position with good body mechanics and ambulate x 20 ft without knee pain or compensation in order to perform all functions of job STG Duration 5 weeks [employer] Worker Goal (LTG) Pt will report no difficulty with performing job functions due to L knee pain in order to demonstrate return to PLOF LTG Duration 10 weeks Four Impairment strength, plyometrics Short Term Goal (STG) Pt will be able to perform at least 10 reps of double leg hop from floor without compensation or pain and safe landing in order to demonstrate improved L knee strength and control during plyometrics STG Duration 5 weeks [employer] Worker Goal (LTG) Pt will be able to perform vertical jump test or single leg hop test at least 80% of R leg if appropriate in order to demonstrate improved L knee strength and control during plyometrics LTG Duration 10 weeks Three Impairment strength Impairment 1 L single leg squat Short Term Goal (STG) Pt will perform at least 8 single leg squats using LLE without pain or compensation in order to demonstrate improved L quad control and strength for return to PLOF STG Duration 5 weeks [employer] Tr[employer] Worker Goal (LTG) Pt will perform at least 10 single leg squats using LLE without pain or compensation in order to demonstrate improved L quad control and strength for return to PLOF LTG Duration 10 weeks Two Impairment activity Impairment LEFS 61/80 Short Term Goal (STG) Pt will improve LEFS score to >65/80 in order to demonstrate improved activity tolerance and return to higher level of function STG Duration 5 weeks [employer] Worker Goal (LTG) Pt will improve LEFS score to >70/80 (1 MCID) in order to demonstrate improved activity tolerance and return to higher level of function LTG Duration 10 weeks One Impairment AROM Impairment L knee flex 127 deg [employer]ing [employer] Worker Goal (LTG) Pt will improve L knee flexion AROM to > 130 deg without compensation in order to be comparable to R knee flexion for bike and stairs. LTG Duration 10 weeks Assessment Summary Assessment Pt tolerated session well with no reports of L knee pain during or after session. Requires increased time with activities. Initiated bilateral and unilateral resisted squats on leg press; pt cued for terminal knee extension without locking L knee. Reports no knee pain or hamstring discomfort with activity. Will progress resistance in future sessions, but pt demos signs of fatigue at current resistance/sets. Continued with step ups for glute/quad strengthening, initiated lateral step ups for hip abduction strengthening. Pt cued for knee stability, center over ankle and bands used to limit knee valgus. Pt with hip abduction weakness, demonstrates R hip drop with LLE activity. Initiated deadlift for hamstring lengthening and strengthening. Unable to progress to kickstand RDL for increased challenge due to lack of coordination of hinge, knee stability with slight single leg squat. HEP added: calf stretch, lateral step up and step backs. Pt would benefit from skilled PT for progressive L knee strengthening and stability in order to improve activity tolerance and return to PLOF. Physical Therapy Plan Frequency and Duration Frequency of Treatment 1-2/wk Duration of treatment (weeks) 10 Plan of Care Start Date 12/04/23 Plan of Care End Date 02/14/24 Therapeutic Interventions Therapeutic Interventions Aquatic Therapy,Balance Training,Coordination Training ,Gait Training,Home Exercise Program,Joint Mobilizations, Manual Therapy,Neuromuscular Re-education,Orthotic/ Prosthetic Management,Patient/ Caregiver Education,Self-Care/ Home Management,Sensory Integration,Soft Tissue Mobilization,Taping, Therapeutic Activities, Therapeutic Exercises Modalities Biofeedback,Cold Pack/Ice Massage,Electric Stimulation, Hot Packs,Ultrasound, Vasopneumatic Devices Next Visit Focus/Plan Next Note Type Treatment Note Next Visit Plan Progress per protocol (see folder) Continue and progress leg press B and U squat (limit knee flex AROM to at/above 90 deg, resistance to tolerance), step up/down/lateral, single leg squat as able, open chain exercises (progress LAQ). Take knee AROM. Y drill/slider. Trial elliptical
--- NOTE | 2023-12-17 15:27 | PT.OTN ---
Current Diagnoses Other abnormalities of gait and mobility (12/17/23) Weakness (12/17/23) Other specified postprocedural states (12/17/23) Physical Therapy Treatment Note PT-OP-A Visit Information Start: 11/28/23 10:13 Freq: Status: Active Protocol: Document 12/17/23 10:34 NM (Rec: 12/17/23 11:16 NM [id number]) Out-Patient Physical Therapy Visit Information Visit Information Visit Type Treatment Note Visit Note 12 visits max Visit Start Time 10:32 Visit Stop Time 11:15 Visit Number 4 Evaluation Information Evaluation Date 12/04/23 Precautions Precautions L ACL Hamstring graft, DOS 06/14 6 months: 12/13/23 PT-OP-B Current Condition Start: 11/28/23 10:13 Freq: Status: Active Protocol: Document 12/04/23 14:31 NM (Rec: 12/04/23 16:19 NM [id number]) Current Condition History of Current Condition Onset Date June 2023 Current Complaints knee flexion ROM, stiffness, pain with exercise, return to function History of Current Condition Pt had L knee ACL reconstruction in June 14, 2023 with hamstring graft. She tore her ACL while performing a [employer] course when moving laterally into L knee extension. No complications she's aware of with surgery, no complications with previous PT. She just moved to [facility]. She has been compliant with HEP since stopping PT in August when she moved. Prior to ACL tear, pt was not very active and did not exercise regularly. Currently, she is walking daily (1/4 mi). She is having a 2nd x ray follow up to assess surgical results and pt reported new bony prominence of L tibial plateau . Pt reports pain with supine quad sets laterally/ant knee, stiff when sitting for too long. 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 Pt states knee feels stable, no instances of locking/popping/giving out Prior Treatments and Tests Prior PT post op until move in 08/2023. Provided protocol from surgeon in [place], Dr. 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 Reports compliance with HEP. Feels single leg bridges in back not glutes PT-OP-D Balance Start: 11/28/23 10:13 Freq: Status: Active Protocol: Document 12/04/23 14:31 NM (Rec: 12/04/23 16:19 NM [id number]) Balance Tests Single Limb Standing Single Limb- Right 30 sec Single Limb- Left 15 sec; not painful, increased ankle sway PT-OP-E Functional Tests Start: 11/28/23 10:13 Freq: Status: Active Protocol: Document 12/04/23 14:31 NM (Rec: 12/04/23 16:19 NM [id number]) Functional Tests Squat Test Score 10 Comments slight R deviation at hips/ knees, no valgus, no heel rise Single Leg Squat Test Score 1 Comment L knee valgus, trendelenburg, decreased hip hinge, not painful; UE support PT-OP-F Manual Assessment Start: 11/28/23 10:13 Freq: Status: Active Protocol: Document 12/04/23 14:31 NM (Rec: 12/04/23 16:19 NM [id number]) Manual Assessments Soft Tissue Assessment Soft Tissue Mobility Assessment L calf atrophy, minimal quad atrophy Joint Mobility Assessment Joint Mobility Assessment No clicking, locking, or other signs of L knee instability PT-OP-G Mobility & Gait Start: 11/28/23 10:13 Freq: Status: Active Protocol: Document 12/04/23 14:31 NM (Rec: 12/04/23 16:19 NM [id number]) OP Gait Assessment Gait Gait Assistance Required: Independent Distance (Feet) 200 Assistive Devices Assistive Device None Gait Deviations General Gait Pattern Within Normal Limits,Narrow Based Gait Factors Limiting Gait Function Factors Limiting Gait Function Decreased Activity Tolerance, Decreased Sensation,Limited Range of Motion Comments Gait Comments Gait is not quad avoidant. Slight trunk deviation toward L side with stance, in addition to slight LLE circumduction vs L knee flexion. Stair Climbing Evaluation Evaluation Level of Assist On Stairs Independent Devices Stair Climbing Assistive Devices None Technique/Endurance Stair Climbing Direction Ascend and Descend Stair Climbing Technique Step Over Step Number of Steps Climbed 4 Stair Climbing Set # Repetitions (reps) 2 Comments Stair Climbing Comments Slight R hip drop with L eccentric step down. Not painful. L knee translation directly over L foot. Able to lead with LLE ascending PT-OP-H Neuro Start: 11/28/23 10:13 Freq: Status: Active Protocol: Document 12/04/23 14:31 NM (Rec: 12/04/23 16:19 NM [id number]) Sensation Evaluation Gross Sensation Gross Sensation Left LE Impaired Comments Summary Comments Decreased light touch sensation of LLE along anterior tibia, scars PT-OP-J Posture/Palpation/Skin Start: 11/28/23 10:13 Freq: Status: Active Protocol: Document 12/04/23 14:31 NM (Rec: 12/04/23 16:19 NM [id number]) Posture Evaluation Position Standing Head/C-Spine Posture Forward Head L-Spine Posture Increased Lordosis Pelvis Posture Anteriorly Tilted Weight Distribution Balanced Hip Posture (L) Externally Rotated,(R) Externally Rotated Knee Posture (L) Genu Valgus,(R) Genu Valgus Patellar Posture (L) Superior,(R) Superior Ankle/Foot Posture (L) Pronated,(R) Pronated Comments Posture Comments R knee hyperextension in stance. L knee neutral extension Palpation Assessment Location L knee Palpation Location posterior knee, anterior knee, joint lines, femoral condyles , ITB Palpation Findings Tenderness Palpation Details Minimal tenderness along posterior knee near popliteal fold. No tenderness along joint lines. Minimal tenderness at anterior tibia and tibial tubercle, lateral femoral condyle. No tenderness along ITB despite pt reports Skin Assessment Incisional Assessment Incision Appearance/Comments Incisions intact, not infected . Minimal adhesion to underlying skin PT-OP-K Range of Motion Start: 11/28/23 10:13 Freq: Status: Active Protocol: Document 12/04/23 14:31 NM (Rec: 12/04/23 16:19 NM [id number]) Hip Goniometric Range of Motion Hip Left Flexion w/Knee Flexed 95 Extension 8 Abduction 25 Right Flexion w/Knee Flexed 95 Extension 8 Abduction 25 Knee Goniometric Range of Motion Knee Right Flexion Active (degrees) 133 Flexion Passive (degrees) 135 Hyper-Extension Active 5 Left Flexion Active (degrees) 122 Flexion Passive (degrees) 127 Extension Active (degrees) 0 Hyper-Extension Active 2 Comments Pain in posterior knee with end range passive extension Knee ROM Limitations Knee ROM Limitations Soft Tissue Tightness Comments L knee flexion limited PT-OP-M Strength Start: 11/28/23 10:13 Freq: Status: Active Protocol: Document 12/04/23 14:31 NM (Rec: 12/04/23 16:19 NM [id number]) Hip Strength Hip Manual Muscle Testing Right Flexion (L2) 4+ Good+ Extension (S1) 4 Good Abduction 4 Good Adduction 4+ Good+ External Rotation 4+ Good+ Internal Rotation 4+ Good+ Left Flexion (L2) 4+ Good+ Extension (S1) 4 Good Abduction 4 Good Adduction 4+ Good+ External Rotation 4+ Good+ Internal Rotation 4+ Good+ Knee Strength Knee Manual Muscle Testing Right Flexion (S2) 4+ Good+ Extension (L3) 4+ Good+ Left Flexion (S2) 4 Good Extension (L3) 4- Good- Comments no pain with resisted motion Ankle/Foot Strength Ankle and Foot Manual Muscle Testing Right Dorsiflexion (L4) 4+ Good+ Plantarflexion (S1) 4 Good Comments 5 single heel raises with UE support Left Dorsiflexion (L4) 4+ Good+ Plantarflexion (S1) 4 Good Comments 5 single heel raises with UE support PT-OP-Q Treatments Start: 11/28/23 10:13 Freq: Status: Active Protocol: Document 12/17/23 10:34 NM (Rec: 12/17/23 11:16 NM [id number]) Cardio Equipment Elliptical Duration (Minutes) 3 Resistance 0 Other trialed: warm up; cued more LLE propulsion Gym Equipment Shuttle Recovery L squat Details cued TKE w/o locking; medium , fatigues Resistance 63# (2 navy) Shuttle Recovery Platform Stable Reps/Time 2x10 B squat Details cued TKE w/o locking; medium difficulty Resistance 88# (3 navy) Shuttle Recovery Platform Stable Reps/Time 2x10 Therapeutic Exercises Supine Exercises straight leg raise Supine Exercise Name 1. neutral hip, 2. hip IR Side left Resistance AROM Reps/Minutes 1x8 ea Comments for ITB; cued TKE entire set single leg bridge Supine Exercise Name HEP review Side bilateral Resistance AROM Equipment Used mat on floor Reps/Minutes 1x10 ea Comments cued ppt for more glute involvement Sidelying Exercises quad stretch Sidelying Exercise Name initiated in PT Side left Equipment Used R assisting L with strap, L sidelying Reps/Minutes 2x30 Comments cued hip ext with stretch, no hip rotation, decreased ROM Standing Exercises single leg heel raise Standing Exercise Name initiated in PT Side left Equipment Used 1 hand support for balance Reps/Minutes 1x15 Comments cued for full AROM; for calf atrophy single leg squat Standing Exercise Name trialed Side left Resistance AROM Equipment Used R hand support (flat) on chair , mirror for visual cues Reps/Minutes 2x5 Comments cued level pelvis (R), no valgus at knee, sit back as if chair kickstand RDL Standing Exercise Name trialed single leg RDL Side left Resistance 5# db in hands Equipment Used mirror visual cue, prn PT facilitation at hips Reps/Minutes 1x8 Comments improved 1 leg vs kickstand, challenged coord deadlift Standing Exercise Name knees slightly flexed Side bilateral Resistance 5# db Equipment Used lvl 1 tb around thighs for abd cue to limit valgus; mirror for visual cue Reps/Minutes 1x15 Comments cued for neutral spine, hinge; PT facilitating at hips slider Standing Exercise Name Y: fwd, lateral/ext, ext/add Side left Resistance lvl 1 tb around thighs for cue limit valgus Equipment Used mirror for visual cue; slider under R foot Reps/Minutes 1x5 ea direction Comments cued for lvl pelvis, squat for glute, knee over midfoot; improved SL squat Other Exercises stretch Other Exercise Name pretzel/piriformis Side left Reps/Minutes 1x60 Comments for ITB; reports good stretch Foam roller Other Exercise Name HS/calf, glute, TFL Side left Equipment Used foam roller, mat Reps/Minutes 2 Comments for ITB, soft tissue release Self-Care/Home Management Treatment Education Patient Education Home Exercise Program,Joint Protection,Pain Management, Posture Other Education 8 minutes: Educated on foam rolling for soft tissue relief . Educated on joint protection , safety during upcoming start to job. PT educated pt on safety during activities (e.g. 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 Pt verbalizes understanding. Estabilished current HEP. Educated on glute vs quad activation for squat, cues for form. HEP: IT band pretzel stretch, Y drill, bilateral dumbbell deadlift. 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 Short Term Goal (STG) Pt will demonstrate ability to lift 20# from squat position with good body mechanics and ambulate x 20 ft without knee pain or compensation in order to perform all functions of job STG Duration 5 weeks Appliance Service Technician Goal (LTG) Pt will report no difficulty with performing job functions due to L knee pain in order to demonstrate return to PLOF LTG Duration 10 weeks Four Impairment strength, plyometrics Short Term Goal (STG) Pt will be able to perform at least 10 reps of double leg hop from floor without compensation or pain and safe landing in order to demonstrate improved L knee strength and control during plyometrics STG Duration 5 weeks Longterm Goal (LTG) Pt will be able to perform vertical jump test or single leg hop test at least 80% of R leg if appropriate in order to demonstrate improved L knee strength and control during plyometrics LTG Duration 10 weeks Three Impairment strength Impairment 1 L single leg squat Short Term Goal (STG) Pt will perform at least 8 single leg squats using LLE without pain or compensation in order to demonstrate improved L quad control and strength for return to PLOF STG Duration 5 weeks Longterm Goal (LTG) Pt will perform at least 10 single leg squats using LLE without pain or compensation in order to demonstrate improved L quad control and strength for return to PLOF LTG Duration 10 weeks Two Impairment activity Impairment LEFS 61/80 Short Term Goal (STG) Pt will improve LEFS score to >65/80 in order to demonstrate improved activity tolerance and return to higher level of function STG Duration 5 weeks Longterm Goal (LTG) Pt will improve LEFS score to >70/80 (1 MCID) in order to demonstrate improved activity tolerance and return to higher level of function LTG Duration 10 weeks One Impairment AROM Impairment L knee flex 127 deg Longterm Goal (LTG) Pt will improve L knee flexion AROM to > 130 deg without compensation in order to be comparable to R knee flexion for bike and stairs. LTG Duration 10 weeks Assessment Summary Assessment Pt tolerated session well without any pain during activity. Now 6 months out from surgery. She is beginning her job tomorrow, so PT educated pt on safety during activities (e.g. 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 Pt verbalizes understanding. Session emphasis on improving L glute/hip abd/quad strength. Initiated L single leg squats with chair for hand support; pt cued verbally and visually for level pelvis, no knee valgus. Demos improved quad control with reps, but continues to emphasize quad activation vs utilizing glutes . Continues to be challenged by single leg RDL, particularly with coordination . Cued for deadlift execution, hip hinge. Would benefit from further hamstring strengthening as well. Progressed resistance on leg press for bilateral and unilateral squat. Pt also exhibiting likely IT band related discomfort along lateral knee; educated on foam rolling muscles related to IT band, stretching, and continued strengthening. Trialed elliptical for increased ROM, impact, reciprocal motion; pt able to perform without pain or discomfort in L knee. Pt would benefit from skilled PT for progressive LLE strengthening, stability, and balance in order to improve activity tolerance, return to PLOF. Physical Therapy Plan Frequency and Duration Frequency of Treatment 1-2/wk Duration of treatment (weeks) 10 Plan of Care Start Date 12/04/23 Plan of Care End Date 02/14/24 Therapeutic Interventions Therapeutic Interventions Aquatic Therapy,Balance Training,Coordination Training ,Gait Training,Home Exercise Program,Joint Mobilizations, Manual Therapy,Neuromuscular Re-education,Orthotic/ Prosthetic Management,Patient/ Caregiver Education,Self-Care/ Home Management,Sensory Integration,Soft Tissue Mobilization,Taping, Therapeutic Activities, Therapeutic Exercises Modalities Biofeedback,Cold Pack/Ice Massage,Electric Stimulation, Hot Packs,Ultrasound, Vasopneumatic Devices Next Visit Focus/Plan Next Note Type Treatment Note Next Visit Plan Progress per protocol (see folder) Elliptical warm up; Continue and progress leg press B and U squat (limit knee flex AROM to at/above 90 deg, resistance to tolerance), step up/down/ lateral, lateral touch down, single leg squat, Y drill/ slider > clock. Manual PRN: patellar mobilizations, ITB
--- NOTE | 2023-12-25 11:46 | PT.OTN ---
Current Diagnoses Other abnormalities of gait and mobility (12/25/23) Weakness (12/25/23) Other specified postprocedural states (12/25/23) Physical Therapy Treatment Note PT-OP-A Visit Information Start: 11/28/23 10:13 Freq: Status: Active Protocol: Document 12/25/23 09:02 AB (Rec: 12/25/23 11:45 AB [id number]) Out-Patient Physical Therapy Visit Information Visit Information Visit Type Treatment Note Visit Note 12 visit max Visit Start Time 10:42 Visit Stop Time 11:15 Visit Number 02/22 Evaluation Information Evaluation Date 12/04/23 Precautions Precautions L ACL Hamstring graft, DOS 06/14 6 months: 12/13/23 PT-OP-B Current Condition Start: 11/28/23 10:13 Freq: Status: Active Protocol: Document 12/04/23 14:31 NM (Rec: 12/04/23 16:19 NM [id number]) Current Condition History of Current Condition Onset Date June 2023 Current Complaints knee flexion ROM, stiffness, pain with exercise, return to function History of Current Condition Pt had L knee ACL reconstruction in June 14, 2023 with hamstring graft. She tore her ACL while performing a Nordicplan course when moving laterally into L knee extension. No complications she's aware of with surgery, no complications with previous PT. She just moved to [facility]. She has been compliant with HEP since stopping PT in August when she moved. Prior to ACL tear, pt was not very active and did not exercise regularly. Currently, she is walking daily (1/4 mi). She is having a 2nd x ray follow up to assess surgical results and pt reported new bony prominence of L tibial plateau . Pt reports pain with supine quad sets laterally/ant knee, stiff when sitting for too long. 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 Pt states knee feels stable, no instances of locking/popping/giving out Prior Treatments and Tests Prior PT post op until move in 08/2023. Provided protocol from surgeon in [place], Dr. 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 minimal dynamic valgus with SLS PT-OP-D Balance Start: 11/28/23 10:13 Freq: Status: Active Protocol: Document 12/04/23 14:31 NM (Rec: 12/04/23 16:19 NM [id number]) Balance Tests Single Limb Standing Single Limb- Right 30 sec Single Limb- Left 15 sec; not painful, increased ankle sway PT-OP-E Functional Tests Start: 11/28/23 10:13 Freq: Status: Active Protocol: Document 12/04/23 14:31 NM (Rec: 12/04/23 16:19 NM [id number]) Functional Tests Squat Test Score 10 Comments slight R deviation at hips/ knees, no valgus, no heel rise Single Leg Squat Test Score 1 Comment L knee valgus, trendelenburg, decreased hip hinge, not painful; UE support PT-OP-F Manual Assessment Start: 11/28/23 10:13 Freq: Status: Active Protocol: Document 12/04/23 14:31 NM (Rec: 12/04/23 16:19 NM [id number]) Manual Assessments Soft Tissue Assessment Soft Tissue Mobility Assessment L calf atrophy, minimal quad atrophy Joint Mobility Assessment Joint Mobility Assessment No clicking, locking, or other signs of L knee instability PT-OP-G Mobility & Gait Start: 11/28/23 10:13 Freq: Status: Active Protocol: Document 12/04/23 14:31 NM (Rec: 12/04/23 16:19 NM [id number]) OP Gait Assessment Gait Gait Assistance Required: Independent Distance (Feet) 200 Assistive Devices Assistive Device None Gait Deviations General Gait Pattern Within Normal Limits,Narrow Based Gait Factors Limiting Gait Function Factors Limiting Gait Function Decreased Activity Tolerance, Decreased Sensation,Limited Range of Motion Comments Gait Comments Gait is not quad avoidant. Slight trunk deviation toward L side with stance, in addition to slight LLE circumduction vs L knee flexion. Stair Climbing Evaluation Evaluation Level of Assist On Stairs Independent Devices Stair Climbing Assistive Devices None Technique/Endurance Stair Climbing Direction Ascend and Descend Stair Climbing Technique Step Over Step Number of Steps Climbed 4 Stair Climbing Set # Repetitions (reps) 2 Comments Stair Climbing Comments Slight R hip drop with L eccentric step down. Not painful. L knee translation directly over L foot. Able to lead with LLE ascending PT-OP-H Neuro Start: 11/28/23 10:13 Freq: Status: Active Protocol: Document 12/04/23 14:31 NM (Rec: 12/04/23 16:19 NM [id number]) Sensation Evaluation Gross Sensation Gross Sensation Left LE Impaired Comments Summary Comments Decreased light touch sensation of LLE along anterior tibia, scars PT-OP-J Posture/Palpation/Skin Start: 11/28/23 10:13 Freq: Status: Active Protocol: Document 12/04/23 14:31 NM (Rec: 12/04/23 16:19 NM [id number]) Posture Evaluation Position Standing Head/C-Spine Posture Forward Head L-Spine Posture Increased Lordosis Pelvis Posture Anteriorly Tilted Weight Distribution Balanced Hip Posture (L) Externally Rotated,(R) Externally Rotated Knee Posture (L) Genu Valgus,(R) Genu Valgus Patellar Posture (L) Superior,(R) Superior Ankle/Foot Posture (L) Pronated,(R) Pronated Comments Posture Comments R knee hyperextension in stance. L knee neutral extension Palpation Assessment Location L knee Palpation Location posterior knee, anterior knee, joint lines, femoral condyles , ITB Palpation Findings Tenderness Palpation Details Minimal tenderness along posterior knee near popliteal fold. No tenderness along joint lines. Minimal tenderness at anterior tibia and tibial tubercle, lateral femoral condyle. No tenderness along ITB despite pt reports Skin Assessment Incisional Assessment Incision Appearance/Comments Incisions intact, not infected . Minimal adhesion to underlying skin PT-OP-K Range of Motion Start: 11/28/23 10:13 Freq: Status: Active Protocol: Document 12/04/23 14:31 NM (Rec: 12/04/23 16:19 NM [id number]) Hip Goniometric Range of Motion Hip Left Flexion w/Knee Flexed 95 Extension 8 Abduction 25 Right Flexion w/Knee Flexed 95 Extension 8 Abduction 25 Knee Goniometric Range of Motion Knee Right Flexion Active (degrees) 133 Flexion Passive (degrees) 135 Hyper-Extension Active 5 Left Flexion Active (degrees) 122 Flexion Passive (degrees) 127 Extension Active (degrees) 0 Hyper-Extension Active 2 Comments Pain in posterior knee with end range passive extension Knee ROM Limitations Knee ROM Limitations Soft Tissue Tightness Comments L knee flexion limited PT-OP-M Strength Start: 11/28/23 10:13 Freq: Status: Active Protocol: Document 12/04/23 14:31 NM (Rec: 12/04/23 16:19 NM [id number]) Hip Strength Hip Manual Muscle Testing Right Flexion (L2) 4+ Good+ Extension (S1) 4 Good Abduction 4 Good Adduction 4+ Good+ External Rotation 4+ Good+ Internal Rotation 4+ Good+ Left Flexion (L2) 4+ Good+ Extension (S1) 4 Good Abduction 4 Good Adduction 4+ Good+ External Rotation 4+ Good+ Internal Rotation 4+ Good+ Knee Strength Knee Manual Muscle Testing Right Flexion (S2) 4+ Good+ Extension (L3) 4+ Good+ Left Flexion (S2) 4 Good Extension (L3) 4- Good- Comments no pain with resisted motion Ankle/Foot Strength Ankle and Foot Manual Muscle Testing Right Dorsiflexion (L4) 4+ Good+ Plantarflexion (S1) 4 Good Comments 5 single heel raises with UE support Left Dorsiflexion (L4) 4+ Good+ Plantarflexion (S1) 4 Good Comments 5 single heel raises with UE support PT-OP-Q Treatments Start: 11/28/23 10:13 Freq: Status: Active Protocol: Document 12/25/23 09:02 AB (Rec: 12/25/23 11:45 AB [id number]) Therapeutic Exercises Sitting Exercises hamstring stretch Reps/Minutes 60 seconds X 2 Comments post manual therapy, verbal and visual cues Standing Exercises glute med activation Standing Exercise Name standing at wall Side bilateral Reps/Minutes one minute each side Comments Verbal and visual cues slider Standing Exercise Name Y: fwd, lateral/ext, ext/add Side left Reps/Minutes 1x3 ea direction Comments minimal drop end ROM squat Standing Exercise Name to chair (tap) raised to height to prevent flexion past 90 deg Side bilateral Resistance lvl 3 band around thighs 5 lb in each UE Reps/Minutes 3x10 Comments monitored for pain. Patient ed to perform every other day Therapeutic Activity Therapeutic Activity lift Reps/Minutes X4 Comments without weight, verbal and visual cues and review of self tactile cues for hip hinge, monitored for form squat with hip hinge Reps/Minutes X3 Comments Patient ed use of self tactile cues for hip hinge lunges Reps/Minutes X10 Comments Patient ed rationale of using lunge alternating when reaching for items on low shelf, Verbal and visual cues for hip hinge. Patient ed able to reach ~ one foot from floor without flexing Manual Therapy Treatment Soft Tissue Mobilization STM left knee Body Location hamstring, lateral knee and quad Mobilization Type Cross-Friction,Rolling Intensity/Depth Moderate Body Position Hooklying Comments monitored for pain, patient ed to perform self STM to area of increased tissue density decreased tissue mobility Self-Care/Home Management Treatment Activities Self-Care/Home Management Activities Standing glute med activation added to HEP as well as mini lunge 3X a week with instructions to skip if lunging at work for work duties. 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 Short Term Goal (STG) Pt will demonstrate ability to lift 20# from squat position with good body mechanics and ambulate x 20 ft without knee pain or compensation in order to perform all functions of job STG Duration 5 weeks Correction Goal (LTG) Pt will report no difficulty with performing job functions due to L knee pain in order to demonstrate return to PLOF LTG Duration 10 weeks Four Impairment strength, plyometrics Short Term Goal (STG) Pt will be able to perform at least 10 reps of double leg hop from floor without compensation or pain and safe landing in order to demonstrate improved L knee strength and control during plyometrics STG Duration 5 weeks Correction Goal (LTG) Pt will be able to perform vertical jump test or single leg hop test at least 80% of R leg if appropriate in order to demonstrate improved L knee strength and control during plyometrics LTG Duration 10 weeks Three Impairment strength Impairment 1 L single leg squat Short Term Goal (STG) Pt will perform at least 8 single leg squats using LLE without pain or compensation in order to demonstrate improved L quad control and strength for return to PLOF STG Duration 5 weeks Correction Goal (LTG) Pt will perform at least 10 single leg squats using LLE without pain or compensation in order to demonstrate improved L quad control and strength for return to PLOF LTG Duration 10 weeks Two Impairment activity Impairment LEFS 61/80 Short Term Goal (STG) Pt will improve LEFS score to >65/80 in order to demonstrate improved activity tolerance and return to higher level of function STG Duration 5 weeks Sterile Preparation Technician Goal (LTG) Pt will improve LEFS score to >70/80 (1 MCID) in order to demonstrate improved activity tolerance and return to higher level of function LTG Duration 10 weeks One Impairment AROM Impairment L knee flex 127 deg Sterile Preparation Technician Goal (LTG) Pt will improve L knee flexion AROM to > 130 deg without compensation in order to be comparable to R knee flexion for bike and stairs. LTG Duration 10 weeks Assessment Summary Assessment Very slight dynamic valgus left LE with single leg squat post glute med activation, good return demonstration for hip hinge with lunge, squat and lift. Physical Therapy Plan Frequency and Duration Frequency of Treatment 1-2/wk Duration of treatment (weeks) 10 Plan of Care Start Date 12/04/23 Plan of Care End Date 02/14/24 Next Visit Focus/Plan Next Note Type Treatment Note Next Visit Plan Progress per protocol (see folder) Elliptical warm up; Continue and progress leg press B and U squat (limit knee flex AROM to at/above 90 deg, resistance to tolerance), step up/down/ lateral, lateral touch down, single leg squat, Y drill/ slider > clock. Manual PRN: patellar mobilizations, ITB Possibly trial of bilateral jump slow jog if able to perform single leg squat X 5 without dynamic valgus or single leg squat with band to HEP.
--- NOTE | 2023-12-25 11:47 | PT.OTN ---
Current Diagnoses Other abnormalities of gait and mobility (12/25/23) Weakness (12/25/23) Other specified postprocedural states (12/25/23) Physical Therapy Treatment Note PT-OP-A Visit Information Start: 11/28/23 10:13 Freq: Status: Active Protocol: Document 12/25/23 09:02 AB (Rec: 12/25/23 11:45 AB [id number]) Out-Patient Physical Therapy Visit Information Visit Information Visit Type Treatment Note Visit Note 12 visit max Visit Start Time 10:42 Visit Stop Time 11:15 Visit Number 02/22 Evaluation Information Evaluation Date 12/04/23 Precautions Precautions L ACL Hamstring graft, DOS 06/14 6 months: 12/13/23 PT-OP-B Current Condition Start: 11/28/23 10:13 Freq: Status: Active Protocol: Document 12/04/23 14:31 NM (Rec: 12/04/23 16:19 NM [id number]) Current Condition History of Current Condition Onset Date June 2023 Current Complaints knee flexion ROM, stiffness, pain with exercise, return to function History of Current Condition Pt had L knee ACL reconstruction in June 14, 2023 with hamstring graft. She tore her ACL while performing a Flaviar course when moving laterally into L knee extension. No complications she's aware of with surgery, no complications with previous PT. She just moved to [facility]. She has been compliant with HEP since stopping PT in August when she moved. Prior to ACL tear, pt was not very active and did not exercise regularly. Currently, she is walking daily (1/4 mi). She is having a 2nd x ray follow up to assess surgical results and pt reported new bony prominence of L tibial plateau . Pt reports pain with supine quad sets laterally/ant knee, stiff when sitting for too long. 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 Pt states knee feels stable, no instances of locking/popping/giving out Prior Treatments and Tests Prior PT post op until move in 08/2023. Provided protocol from surgeon in [place], Dr. 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 minimal dynamic valgus with SLS PT-OP-D Balance Start: 11/28/23 10:13 Freq: Status: Active Protocol: Document 12/04/23 14:31 NM (Rec: 12/04/23 16:19 NM [id number]) Balance Tests Single Limb Standing Single Limb- Right 30 sec Single Limb- Left 15 sec; not painful, increased ankle sway PT-OP-E Functional Tests Start: 11/28/23 10:13 Freq: Status: Active Protocol: Document 12/04/23 14:31 NM (Rec: 12/04/23 16:19 NM [id number]) Functional Tests Squat Test Score 10 Comments slight R deviation at hips/ knees, no valgus, no heel rise Single Leg Squat Test Score 1 Comment L knee valgus, trendelenburg, decreased hip hinge, not painful; UE support PT-OP-F Manual Assessment Start: 11/28/23 10:13 Freq: Status: Active Protocol: Document 12/04/23 14:31 NM (Rec: 12/04/23 16:19 NM [id number]) Manual Assessments Soft Tissue Assessment Soft Tissue Mobility Assessment L calf atrophy, minimal quad atrophy Joint Mobility Assessment Joint Mobility Assessment No clicking, locking, or other signs of L knee instability PT-OP-G Mobility & Gait Start: 11/28/23 10:13 Freq: Status: Active Protocol: Document 12/04/23 14:31 NM (Rec: 12/04/23 16:19 NM [id number]) OP Gait Assessment Gait Gait Assistance Required: Independent Distance (Feet) 200 Assistive Devices Assistive Device None Gait Deviations General Gait Pattern Within Normal Limits,Narrow Based Gait Factors Limiting Gait Function Factors Limiting Gait Function Decreased Activity Tolerance, Decreased Sensation,Limited Range of Motion Comments Gait Comments Gait is not quad avoidant. Slight trunk deviation toward L side with stance, in addition to slight LLE circumduction vs L knee flexion. Stair Climbing Evaluation Evaluation Level of Assist On Stairs Independent Devices Stair Climbing Assistive Devices None Technique/Endurance Stair Climbing Direction Ascend and Descend Stair Climbing Technique Step Over Step Number of Steps Climbed 4 Stair Climbing Set # Repetitions (reps) 2 Comments Stair Climbing Comments Slight R hip drop with L eccentric step down. Not painful. L knee translation directly over L foot. Able to lead with LLE ascending PT-OP-H Neuro Start: 11/28/23 10:13 Freq: Status: Active Protocol: Document 12/04/23 14:31 NM (Rec: 12/04/23 16:19 NM [id number]) Sensation Evaluation Gross Sensation Gross Sensation Left LE Impaired Comments Summary Comments Decreased light touch sensation of LLE along anterior tibia, scars PT-OP-J Posture/Palpation/Skin Start: 11/28/23 10:13 Freq: Status: Active Protocol: Document 12/04/23 14:31 NM (Rec: 12/04/23 16:19 NM [id number]) Posture Evaluation Position Standing Head/C-Spine Posture Forward Head L-Spine Posture Increased Lordosis Pelvis Posture Anteriorly Tilted Weight Distribution Balanced Hip Posture (L) Externally Rotated,(R) Externally Rotated Knee Posture (L) Genu Valgus,(R) Genu Valgus Patellar Posture (L) Superior,(R) Superior Ankle/Foot Posture (L) Pronated,(R) Pronated Comments Posture Comments R knee hyperextension in stance. L knee neutral extension Palpation Assessment Location L knee Palpation Location posterior knee, anterior knee, joint lines, femoral condyles , ITB Palpation Findings Tenderness Palpation Details Minimal tenderness along posterior knee near popliteal fold. No tenderness along joint lines. Minimal tenderness at anterior tibia and tibial tubercle, lateral femoral condyle. No tenderness along ITB despite pt reports Skin Assessment Incisional Assessment Incision Appearance/Comments Incisions intact, not infected . Minimal adhesion to underlying skin PT-OP-K Range of Motion Start: 11/28/23 10:13 Freq: Status: Active Protocol: Document 12/04/23 14:31 NM (Rec: 12/04/23 16:19 NM [id number]) Hip Goniometric Range of Motion Hip Left Flexion w/Knee Flexed 95 Extension 8 Abduction 25 Right Flexion w/Knee Flexed 95 Extension 8 Abduction 25 Knee Goniometric Range of Motion Knee Right Flexion Active (degrees) 133 Flexion Passive (degrees) 135 Hyper-Extension Active 5 Left Flexion Active (degrees) 122 Flexion Passive (degrees) 127 Extension Active (degrees) 0 Hyper-Extension Active 2 Comments Pain in posterior knee with end range passive extension Knee ROM Limitations Knee ROM Limitations Soft Tissue Tightness Comments L knee flexion limited PT-OP-M Strength Start: 11/28/23 10:13 Freq: Status: Active Protocol: Document 12/04/23 14:31 NM (Rec: 12/04/23 16:19 NM [id number]) Hip Strength Hip Manual Muscle Testing Right Flexion (L2) 4+ Good+ Extension (S1) 4 Good Abduction 4 Good Adduction 4+ Good+ External Rotation 4+ Good+ Internal Rotation 4+ Good+ Left Flexion (L2) 4+ Good+ Extension (S1) 4 Good Abduction 4 Good Adduction 4+ Good+ External Rotation 4+ Good+ Internal Rotation 4+ Good+ Knee Strength Knee Manual Muscle Testing Right Flexion (S2) 4+ Good+ Extension (L3) 4+ Good+ Left Flexion (S2) 4 Good Extension (L3) 4- Good- Comments no pain with resisted motion Ankle/Foot Strength Ankle and Foot Manual Muscle Testing Right Dorsiflexion (L4) 4+ Good+ Plantarflexion (S1) 4 Good Comments 5 single heel raises with UE support Left Dorsiflexion (L4) 4+ Good+ Plantarflexion (S1) 4 Good Comments 5 single heel raises with UE support PT-OP-Q Treatments Start: 11/28/23 10:13 Freq: Status: Active Protocol: Document 12/25/23 09:02 AB (Rec: 12/25/23 11:45 AB [id number]) Therapeutic Exercises Sitting Exercises hamstring stretch Reps/Minutes 60 seconds X 2 Comments post manual therapy, verbal and visual cues Standing Exercises glute med activation Standing Exercise Name standing at wall Side bilateral Reps/Minutes one minute each side Comments Verbal and visual cues slider Standing Exercise Name Y: fwd, lateral/ext, ext/add Side left Reps/Minutes 1x3 ea direction Comments minimal drop end ROM squat Standing Exercise Name to chair (tap) raised to height to prevent flexion past 90 deg Side bilateral Resistance lvl 3 band around thighs 5 lb in each UE Reps/Minutes 3x10 Comments monitored for pain. Patient ed to perform every other day Therapeutic Activity Therapeutic Activity lift Reps/Minutes X4 Comments without weight, verbal and visual cues and review of self tactile cues for hip hinge, monitored for form squat with hip hinge Reps/Minutes X3 Comments Patient ed use of self tactile cues for hip hinge lunges Reps/Minutes X10 Comments Patient ed rationale of using lunge alternating when reaching for items on low shelf, Verbal and visual cues for hip hinge. Patient ed able to reach ~ one foot from floor without flexing Manual Therapy Treatment Soft Tissue Mobilization STM left knee Body Location hamstring, lateral knee and quad Mobilization Type Cross-Friction,Rolling Intensity/Depth Moderate Body Position Hooklying Comments monitored for pain, patient ed to perform self STM to area of increased tissue density decreased tissue mobility Self-Care/Home Management Treatment Activities Self-Care/Home Management Activities Standing glute med activation added to HEP as well as mini lunge 3X a week with instructions to skip if lunging at work for work duties. 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 Short Term Goal (STG) Pt will demonstrate ability to lift 20# from squat position with good body mechanics and ambulate x 20 ft without knee pain or compensation in order to perform all functions of job STG Duration 5 weeks Fpc Goal (LTG) Pt will report no difficulty with performing job functions due to L knee pain in order to demonstrate return to PLOF LTG Duration 10 weeks Four Impairment strength, plyometrics Short Term Goal (STG) Pt will be able to perform at least 10 reps of double leg hop from floor without compensation or pain and safe landing in order to demonstrate improved L knee strength and control during plyometrics STG Duration 5 weeks Fpc Goal (LTG) Pt will be able to perform vertical jump test or single leg hop test at least 80% of R leg if appropriate in order to demonstrate improved L knee strength and control during plyometrics LTG Duration 10 weeks Three Impairment strength Impairment 1 L single leg squat Short Term Goal (STG) Pt will perform at least 8 single leg squats using LLE without pain or compensation in order to demonstrate improved L quad control and strength for return to PLOF STG Duration 5 weeks Fpc Goal (LTG) Pt will perform at least 10 single leg squats using LLE without pain or compensation in order to demonstrate improved L quad control and strength for return to PLOF LTG Duration 10 weeks Two Impairment activity Impairment LEFS 61/80 Short Term Goal (STG) Pt will improve LEFS score to >65/80 in order to demonstrate improved activity tolerance and return to higher level of function STG Duration 5 weeks Strategy Specialist Goal (LTG) Pt will improve LEFS score to >70/80 (1 MCID) in order to demonstrate improved activity tolerance and return to higher level of function LTG Duration 10 weeks One Impairment AROM Impairment L knee flex 127 deg Strategy Specialist Goal (LTG) Pt will improve L knee flexion AROM to > 130 deg without compensation in order to be comparable to R knee flexion for bike and stairs. LTG Duration 10 weeks Assessment Summary Assessment Very slight dynamic valgus left LE with single leg squat post glute med activation, good return demonstration for hip hinge with lunge, squat and lift. Physical Therapy Plan Frequency and Duration Frequency of Treatment 1-2/wk Duration of treatment (weeks) 10 Plan of Care Start Date 12/04/23 Plan of Care End Date 02/14/24 Next Visit Focus/Plan Next Note Type Treatment Note Next Visit Plan Progress per protocol (see folder) Elliptical warm up; Continue and progress leg press B and U squat (limit knee flex AROM to at/above 90 deg, resistance to tolerance), step up/down/ lateral, lateral touch down, single leg squat, Y drill/ slider > clock. Manual PRN: patellar mobilizations, ITB Possibly trial of bilateral jump slow jog if able to perform single leg squat X 5 without dynamic valgus or single leg squat with band to HEP.
--- NOTE | 2023-12-25 16:38 | PT-OP ANOTE ---
Phoned patient regarding letter she requested regarding her appointments for physical therapy. Spoke with Alessandra and she has been made aware her letter will be at the [employer] [facility] [employer].
--- NOTE | 2024-01-01 12:57 | PT.OTN ---
Current Diagnoses Other abnormalities of gait and mobility (01/01/24) Weakness (01/01/24) Other specified postprocedural states (01/01/24) Physical Therapy Treatment Note PT-OP-A Visit Information Start: 11/28/23 10:13 Freq: Status: Active Protocol: Document 01/01/24 09:45 NM (Rec: 01/01/24 10:30 NM [id number]) Out-Patient Physical Therapy Visit Information Visit Information Visit Type Treatment Note Visit Note 12 visit max Visit Start Time 09:46 Visit Stop Time 10:30 Visit Number 03/25 Evaluation Information Evaluation Date 12/04/23 Precautions Precautions L ACL Hamstring graft, DOS 06/14 6 months: 12/13/23 PT-OP-B Current Condition Start: 11/28/23 10:13 Freq: Status: Active Protocol: Document 12/04/23 14:31 NM (Rec: 12/04/23 16:19 NM [id number]) Current Condition History of Current Condition Onset Date June 2023 Current Complaints knee flexion ROM, stiffness, pain with exercise, return to function History of Current Condition Pt had L knee ACL reconstruction in June 14, 2023 with hamstring graft. She tore her ACL while performing a Cardiovascular Simulation course when moving laterally into L knee extension. No complications she's aware of with surgery, no complications with previous PT. She just moved to [facility]. She has been compliant with HEP since stopping PT in August when she moved. Prior to ACL tear, pt was not very active and did not exercise regularly. Currently, she is walking daily (1/4 mi). She is having a 2nd x ray follow up to assess surgical results and pt reported new bony prominence of L tibial plateau . Pt reports pain with supine quad sets laterally/ant knee, stiff when sitting for too long. 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 Pt states knee feels stable, no instances of locking/popping/giving out Prior Treatments and Tests Prior PT post op until move in 08/2023. Provided protocol from surgeon in [place], Dr. 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 States no L knee pain. Reports clicking return with LAQ PT-OP-D Balance Start: 11/28/23 10:13 Freq: Status: Active Protocol: Document 12/04/23 14:31 NM (Rec: 12/04/23 16:19 NM [id number]) Balance Tests Single Limb Standing Single Limb- Right 30 sec Single Limb- Left 15 sec; not painful, increased ankle sway PT-OP-E Functional Tests Start: 11/28/23 10:13 Freq: Status: Active Protocol: Document 12/04/23 14:31 NM (Rec: 12/04/23 16:19 NM [id number]) Functional Tests Squat Test Score 10 Comments slight R deviation at hips/ knees, no valgus, no heel rise Single Leg Squat Test Score 1 Comment L knee valgus, trendelenburg, decreased hip hinge, not painful; UE support PT-OP-F Manual Assessment Start: 11/28/23 10:13 Freq: Status: Active Protocol: Document 12/04/23 14:31 NM (Rec: 12/04/23 16:19 NM [id number]) Manual Assessments Soft Tissue Assessment Soft Tissue Mobility Assessment L calf atrophy, minimal quad atrophy Joint Mobility Assessment Joint Mobility Assessment No clicking, locking, or other signs of L knee instability PT-OP-G Mobility & Gait Start: 11/28/23 10:13 Freq: Status: Active Protocol: Document 12/04/23 14:31 NM (Rec: 12/04/23 16:19 NM [id number]) OP Gait Assessment Gait Gait Assistance Required: Independent Distance (Feet) 200 Assistive Devices Assistive Device None Gait Deviations General Gait Pattern Within Normal Limits,Narrow Based Gait Factors Limiting Gait Function Factors Limiting Gait Function Decreased Activity Tolerance, Decreased Sensation,Limited Range of Motion Comments Gait Comments Gait is not quad avoidant. Slight trunk deviation toward L side with stance, in addition to slight LLE circumduction vs L knee flexion. Stair Climbing Evaluation Evaluation Level of Assist On Stairs Independent Devices Stair Climbing Assistive Devices None Technique/Endurance Stair Climbing Direction Ascend and Descend Stair Climbing Technique Step Over Step Number of Steps Climbed 4 Stair Climbing Set # Repetitions (reps) 2 Comments Stair Climbing Comments Slight R hip drop with L eccentric step down. Not painful. L knee translation directly over L foot. Able to lead with LLE ascending PT-OP-H Neuro Start: 11/28/23 10:13 Freq: Status: Active Protocol: Document 12/04/23 14:31 NM (Rec: 12/04/23 16:19 NM [id number]) Sensation Evaluation Gross Sensation Gross Sensation Left LE Impaired Comments Summary Comments Decreased light touch sensation of LLE along anterior tibia, scars PT-OP-J Posture/Palpation/Skin Start: 11/28/23 10:13 Freq: Status: Active Protocol: Document 12/04/23 14:31 NM (Rec: 12/04/23 16:19 NM [id number]) Posture Evaluation Position Standing Head/C-Spine Posture Forward Head L-Spine Posture Increased Lordosis Pelvis Posture Anteriorly Tilted Weight Distribution Balanced Hip Posture (L) Externally Rotated,(R) Externally Rotated Knee Posture (L) Genu Valgus,(R) Genu Valgus Patellar Posture (L) Superior,(R) Superior Ankle/Foot Posture (L) Pronated,(R) Pronated Comments Posture Comments R knee hyperextension in stance. L knee neutral extension Palpation Assessment Location L knee Palpation Location posterior knee, anterior knee, joint lines, femoral condyles , ITB Palpation Findings Tenderness Palpation Details Minimal tenderness along posterior knee near popliteal fold. No tenderness along joint lines. Minimal tenderness at anterior tibia and tibial tubercle, lateral femoral condyle. No tenderness along ITB despite pt reports Skin Assessment Incisional Assessment Incision Appearance/Comments Incisions intact, not infected . Minimal adhesion to underlying skin PT-OP-K Range of Motion Start: 11/28/23 10:13 Freq: Status: Active Protocol: Document 12/04/23 14:31 NM (Rec: 12/04/23 16:19 NM [id number]) Hip Goniometric Range of Motion Hip Left Flexion w/Knee Flexed 95 Extension 8 Abduction 25 Right Flexion w/Knee Flexed 95 Extension 8 Abduction 25 Knee Goniometric Range of Motion Knee Right Flexion Active (degrees) 133 Flexion Passive (degrees) 135 Hyper-Extension Active 5 Left Flexion Active (degrees) 122 Flexion Passive (degrees) 127 Extension Active (degrees) 0 Hyper-Extension Active 2 Comments Pain in posterior knee with end range passive extension Knee ROM Limitations Knee ROM Limitations Soft Tissue Tightness Comments L knee flexion limited PT-OP-M Strength Start: 11/28/23 10:13 Freq: Status: Active Protocol: Document 12/04/23 14:31 NM (Rec: 12/04/23 16:19 NM [id number]) Hip Strength Hip Manual Muscle Testing Right Flexion (L2) 4+ Good+ Extension (S1) 4 Good Abduction 4 Good Adduction 4+ Good+ External Rotation 4+ Good+ Internal Rotation 4+ Good+ Left Flexion (L2) 4+ Good+ Extension (S1) 4 Good Abduction 4 Good Adduction 4+ Good+ External Rotation 4+ Good+ Internal Rotation 4+ Good+ Knee Strength Knee Manual Muscle Testing Right Flexion (S2) 4+ Good+ Extension (L3) 4+ Good+ Left Flexion (S2) 4 Good Extension (L3) 4- Good- Comments no pain with resisted motion Ankle/Foot Strength Ankle and Foot Manual Muscle Testing Right Dorsiflexion (L4) 4+ Good+ Plantarflexion (S1) 4 Good Comments 5 single heel raises with UE support Left Dorsiflexion (L4) 4+ Good+ Plantarflexion (S1) 4 Good Comments 5 single heel raises with UE support PT-OP-Q Treatments Start: 11/28/23 10:13 Freq: Status: Active Protocol: Document 01/01/24 09:45 NM (Rec: 01/01/24 10:30 NM [id number]) Cardio Equipment Elliptical Duration (Minutes) 3 Resistance 0 Other warm up; cued more LLE propulsion Gym Equipment Shuttle Recovery R squat Details testing: max number performed Resistance 63# (2 navy) Reps/Time 27 L squat Details testing: max number performed at 1 time Resistance 63# (2 navy) Reps/Time 12 Therapeutic Exercises Standing Exercises shuffling Standing Exercise Name feet on 1 ft squares Side bilateral Resistance slow shuffle Reps/Minutes 3x10ft Comments not cutting, slower speed; knee stays over foot lunges Standing Exercise Name 1. fwd stationary, 2. walking, 3. reverse Side bilateral Reps/Minutes 1. AROM 1x5 ea, 2. 2x10 ft, 3. 1x5 ea Comments cued both knee flex, wider DUC for stability glute med activation Standing Exercise Name standing at wall Side bilateral Reps/Minutes 60 ea side Comments demos fatigue; cued not to support at trunk, only hips single leg squat Standing Exercise Name performed 5 with R but hip drop/knee valgus Side bilateral Resistance AROM Reps/Minutes 1x5 Comments cued level pelvis; improved w cue to abd R thigh, wt on heel deadlift Standing Exercise Name knees slightly flexed Side bilateral Resistance 8# db Reps/Minutes 2x10 Comments cued for neutral spine, hinge; PT facilitating at hips slider Standing Exercise Name hip flex, abd, ext Side left Resistance lvl 3 tb around thighs Equipment Used mirror for visual feedback Reps/Minutes 1x5 ea Comments improved level pelvis, in valgus if R hip remains abd Self-Care/Home Management Treatment Education Patient Education Body Mechanics,Home Exercise Program,Joint Protection Other Education HEP: walking lunge, progress side steps to band around toes , single leg squat with hand support on chair 4 minutes: Educated on body mechanics for job, emphasizing hip hinge with lifting from lower surfaces and limiting any twisting movement at knee, using squat form PT-OP-T Assessment and Plan Start: 11/28/23 10:13 Freq: Status: Active Protocol: Document 01/01/24 09:45 NM (Rec: 01/01/24 10:30 NM [id number]) Physical Therapy Assessment Goals Five Impairment 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 Short Term Goal (STG) Pt will demonstrate ability to lift 20# from squat position with good body mechanics and ambulate x 20 ft without knee pain or compensation in order to perform all functions of job STG Duration 5 weeks Penitentiary Goal (LTG) Pt will report no difficulty with performing job functions due to L knee pain in order to demonstrate return to PLOF LTG Duration 10 weeks Four Impairment strength, plyometrics Short Term Goal (STG) Pt will be able to perform at least 10 reps of double leg hop from floor without compensation or pain and safe landing in order to demonstrate improved L knee strength and control during plyometrics STG Duration 5 weeks Penitentiary Goal (LTG) Pt will be able to perform vertical jump test or single leg hop test at least 80% of R leg if appropriate in order to demonstrate improved L knee strength and control during plyometrics LTG Duration 10 weeks Three Impairment strength Impairment 1 L single leg squat Short Term Goal (STG) Pt will perform at least 8 single leg squats using LLE without pain or compensation in order to demonstrate improved L quad control and strength for return to PLOF STG Duration 5 weeks Penitentiary Goal (LTG) Pt will perform at least 10 single leg squats using LLE without pain or compensation in order to demonstrate improved L quad control and strength for return to PLOF LTG Duration 10 weeks Two Impairment activity Impairment LEFS 61/80 Short Term Goal (STG) Pt will improve LEFS score to >65/80 in order to demonstrate improved activity tolerance and return to higher level of function STG Duration 5 weeks Engineering Professor Goal (LTG) Pt will improve LEFS score to >70/80 (1 MCID) in order to demonstrate improved activity tolerance and return to higher level of function LTG Duration 10 weeks One Impairment AROM Impairment L knee flex 127 deg Engineering Professor Goal (LTG) Pt will improve L knee flexion AROM to > 130 deg without compensation in order to be comparable to R knee flexion for bike and stairs. LTG Duration 10 weeks Assessment Summary Assessment Pt demos improved knee control with single leg squat; however, continues to demo glute medius weakness with single leg squat. Improved with cueing to maintain wider DUC. Performed comparison testing using leg press, LLE currently <50% strength of RLE glute/quad; however, performed following standing single leg activities so more predisposed to fatigue. Progressed to walking and reverse lunges to improve quad /glute strength. Pt demos good quad control during walking lunges, pain free during activities. Trialed shuffling to challenge stability during lateral movement without cutting or impact. Pt challenged with speed but demos good mechanics and stability. Pt would benefit from skilled PT for progressive LLE strengthening and stabilization in order to improve activity tolerance and return to PLOF. Physical Therapy Plan Frequency and Duration Frequency of Treatment 1-2/wk Duration of treatment (weeks) 10 Plan of Care Start Date 12/04/23 Plan of Care End Date 02/14/24 Therapeutic Interventions Therapeutic Interventions Aquatic Therapy,Balance Training,Coordination Training ,Gait Training,Home Exercise Program,Joint Mobilizations, Manual Therapy,Neuromuscular Re-education,Orthotic/ Prosthetic Management,Patient/ Caregiver Education,Self-Care/ Home Management,Sensory Integration,Soft Tissue Mobilization,Taping, Therapeutic Activities, Therapeutic Exercises Modalities Biofeedback,Cold Pack/Ice Massage,Electric Stimulation, Hot Packs,Ultrasound, Vasopneumatic Devices Next Visit Focus/Plan Next Note Type Progress Note Next Visit Plan Progress per protocol (see folder) Elliptical warm up; Continue and progress leg press B and U squat (limit knee flex AROM to at/above 90 deg, resistance to tolerance), step up/down/ lateral, lateral touch down, single leg squat, Y drill/ slider > clock. Manual PRN: patellar mobilizations, ITB Possibly trial of bilateral jump slow jog if able to perform single leg squat X 5 without dynamic valgus or single leg squat with band to HEP.
--- NOTE | 2024-01-09 15:41 | PT.OTN ---
Current Diagnoses Other abnormalities of gait and mobility (01/09/24) Weakness (01/09/24) Other specified postprocedural states (01/09/24) Physical Therapy Treatment Note PT-OP-A Visit Information Start: 11/28/23 10:13 Freq: Status: Active Protocol: Document 01/09/24 14:33 NM (Rec: 01/09/24 15:41 NM [id number]) Out-Patient Physical Therapy Visit Information Visit Information Visit Type Progress Note Visit Note 12 visit max Visit Start Time 14:33 Visit Stop Time 15:15 Visit Number 7 Evaluation Information Evaluation Date 12/04/23 Precautions Precautions L ACL Hamstring graft, DOS 06/14 6 months: 12/13/23 PT-OP-B Current Condition Start: 11/28/23 10:13 Freq: Status: Active Protocol: Document 12/04/23 14:31 NM (Rec: 12/04/23 16:19 NM [id number]) Current Condition History of Current Condition Onset Date June 2023 Current Complaints knee flexion ROM, stiffness, pain with exercise, return to function History of Current Condition Pt had L knee ACL reconstruction in June 14, 2023 with hamstring graft. She tore her ACL while performing a [employer] course when moving laterally into L knee extension. No complications she's aware of with surgery, no complications with previous PT. She just moved to [facility]. She has been compliant with HEP since stopping PT in August when she moved. Prior to ACL tear, pt was not very active and did not exercise regularly. Currently, she is walking daily (1/4 mi). She is having a 2nd x ray follow up to assess surgical results and pt reported new bony prominence of L tibial plateau . Pt reports pain with supine quad sets laterally/ant knee, stiff when sitting for too long. 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 Pt states knee feels stable, no instances of locking/popping/giving out Prior Treatments and Tests Prior PT post op until move in 08/2023. Provided protocol from surgeon in [place], Dr. 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 Pt has no pain at rest, but she has galloway pain with single leg RDLs. She reports she does not have any limitations related to her knee at work, but she does get soreness sometimes. PT-OP-D Balance Start: 11/28/23 10:13 Freq: Status: Active Protocol: Document 12/04/23 14:31 NM (Rec: 12/04/23 16:19 NM [id number]) Balance Tests Single Limb Standing Single Limb- Right 30 sec Single Limb- Left 15 sec; not painful, increased ankle sway PT-OP-E Functional Tests Start: 11/28/23 10:13 Freq: Status: Active Protocol: Document 12/04/23 14:31 NM (Rec: 12/04/23 16:19 NM [id number]) Functional Tests Squat Test Score 10 Comments slight R deviation at hips/ knees, no valgus, no heel rise Single Leg Squat Test Score 1 Comment L knee valgus, trendelenburg, decreased hip hinge, not painful; UE support PT-OP-F Manual Assessment Start: 11/28/23 10:13 Freq: Status: Active Protocol: Document 12/04/23 14:31 NM (Rec: 12/04/23 16:19 NM [id number]) Manual Assessments Soft Tissue Assessment Soft Tissue Mobility Assessment L calf atrophy, minimal quad atrophy Joint Mobility Assessment Joint Mobility Assessment No clicking, locking, or other signs of L knee instability PT-OP-G Mobility & Gait Start: 11/28/23 10:13 Freq: Status: Active Protocol: Document 12/04/23 14:31 NM (Rec: 12/04/23 16:19 NM [id number]) OP Gait Assessment Gait Gait Assistance Required: Independent Distance (Feet) 200 Assistive Devices Assistive Device None Gait Deviations General Gait Pattern Within Normal Limits,Narrow Based Gait Factors Limiting Gait Function Factors Limiting Gait Function Decreased Activity Tolerance, Decreased Sensation,Limited Range of Motion Comments Gait Comments Gait is not quad avoidant. Slight trunk deviation toward L side with stance, in addition to slight LLE circumduction vs L knee flexion. Stair Climbing Evaluation Evaluation Level of Assist On Stairs Independent Devices Stair Climbing Assistive Devices None Technique/Endurance Stair Climbing Direction Ascend and Descend Stair Climbing Technique Step Over Step Number of Steps Climbed 4 Stair Climbing Set # Repetitions (reps) 2 Comments Stair Climbing Comments Slight R hip drop with L eccentric step down. Not painful. L knee translation directly over L foot. Able to lead with LLE ascending PT-OP-H Neuro Start: 11/28/23 10:13 Freq: Status: Active Protocol: Document 12/04/23 14:31 NM (Rec: 12/04/23 16:19 NM [id number]) Sensation Evaluation Gross Sensation Gross Sensation Left LE Impaired Comments Summary Comments Decreased light touch sensation of LLE along anterior tibia, scars PT-OP-J Posture/Palpation/Skin Start: 11/28/23 10:13 Freq: Status: Active Protocol: Document 12/04/23 14:31 NM (Rec: 12/04/23 16:19 NM [id number]) Posture Evaluation Position Standing Head/C-Spine Posture Forward Head L-Spine Posture Increased Lordosis Pelvis Posture Anteriorly Tilted Weight Distribution Balanced Hip Posture (L) Externally Rotated,(R) Externally Rotated Knee Posture (L) Genu Valgus,(R) Genu Valgus Patellar Posture (L) Superior,(R) Superior Ankle/Foot Posture (L) Pronated,(R) Pronated Comments Posture Comments R knee hyperextension in stance. L knee neutral extension Palpation Assessment Location L knee Palpation Location posterior knee, anterior knee, joint lines, femoral condyles , ITB Palpation Findings Tenderness Palpation Details Minimal tenderness along posterior knee near popliteal fold. No tenderness along joint lines. Minimal tenderness at anterior tibia and tibial tubercle, lateral femoral condyle. No tenderness along ITB despite pt reports Skin Assessment Incisional Assessment Incision Appearance/Comments Incisions intact, not infected . Minimal adhesion to underlying skin PT-OP-K Range of Motion Start: 11/28/23 10:13 Freq: Status: Active Protocol: Document 01/09/24 14:33 NM (Rec: 01/09/24 15:41 NM [id number]) Knee Goniometric Range of Motion Knee Left Flexion Active (degrees) 122 Flexion Passive (degrees) 127 Extension Active (degrees) 0 Hyper-Extension Active 2 Comments Pain in posterior knee with end range passive extension 01/09/24: 0 deg ext, 120 deg flexion pre-stretch, 130 deg post stretching quad PT-OP-M Strength Start: 11/28/23 10:13 Freq: Status: Active Protocol: Document 01/09/24 14:33 NM (Rec: 01/09/24 15:41 NM [id number]) Hip Strength Hip Manual Muscle Testing Left Flexion (L2) 4+ Good+ Extension (S1) 4 Good Abduction 4 Good Adduction 4+ Good+ External Rotation 4+ Good+ Internal Rotation 4+ Good+ Comments 01/09/24: 4/5 ext, 4+ for all others; pain free Knee Strength Knee Manual Muscle Testing Left Flexion (S2) 4 Good Extension (L3) 4- Good- Comments no pain with resisted motion 01/09/24: 4+/5 flex, 4/5 extension; pain free PT-OP-Q Treatments Start: 11/28/23 10:13 Freq: Status: Active Protocol: Document 01/09/24 14:33 NM (Rec: 01/09/24 15:41 NM [id number]) Gym Equipment Shuttle Recovery L squat Details testing max Resistance 63# (2 navy) Reps/Time 30 B squat Details cued TKE w/o locking; medium difficulty Resistance 88# (3 navy)> 112# (4 navy) Shuttle Recovery Platform Stable Reps/Time 2x10 at 88#, 1x10 at 112# Therapeutic Exercises Standing Exercises standing clam Side bilateral Resistance lvl 2 tb at thigh Reps/Minutes 1x30 ea side Comments good knee stability, cued for form, pain free single leg RDL Side left Resistance AROM Equipment Used 2 finger support on chair for form Reps/Minutes 2x8 Comments pain free, improved form, lot easier this way single leg squat Standing Exercise Name performed 5 with R but hip drop/knee valgus Side bilateral Resistance AROM Reps/Minutes 2x5 Comments cued level pelvis; improved w cue to abd R thigh, wt on heel kickstand RDL Standing Exercise Name see single leg RDL squat Standing Exercise Name 20# box crab picker from floor > carry x20 ft ea (1 rep) Side bilateral Resistance 20# Equipment Used crate Reps/Minutes 1x10 reps squat, then 1 rep carry x 40 ft Comments pain free, demos good form w/o compensation in squat, carry Manual Therapy Treatment Soft Tissue Mobilization STM left knee Body Location hamstring, lateral knee and quad, calf Mobilization Type Instrument Assisted,Rolling Intensity/Depth Moderate Body Position Hooklying Comments Rolling of quad, hamstring, ITB, calf. Tightness of L quad , limits AROM. Reduced post mobilization, pain free. Manual Techniques quad stretch Body Position Sidelying Reps/Duration 1x60 Comments PT blocking hip, monitored for pain. Pt reports feels good, no anterior knee pain after stretching with knee flexion; performed STM Self-Care/Home Management Treatment Education Patient Education Body Mechanics,Home Exercise Program,Joint Protection Other Education Education on soft tissue mobilization prior to stretching, stretching more frequently to eliminate anterior galloway pain. 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 Short Term Goal (STG) Pt will demonstrate ability to lift 20# from squat position with good body mechanics and ambulate x 20 ft without knee pain or compensation in order to perform all functions of job 01/09/24: 20# squat box lift from floor, 1x10, then able to carry x20 ft STG Duration 5 weeks MET Mcc Goal (LTG) Pt will report no difficulty with performing job functions due to L knee pain in order to demonstrate return to PLOF LTG Duration 10 weeks Four Impairment strength, plyometrics Short Term Goal (STG) Pt will be able to perform at least 10 reps of double leg hop from floor without compensation or pain and safe landing in order to demonstrate improved L knee strength and control during plyometrics 01/09/24: not appropriate at this time STG Duration 5 weeks Mcc Goal (LTG) Pt will be able to perform vertical jump test or single leg hop test at least 80% of R leg if appropriate in order to demonstrate improved L knee strength and control during plyometrics LTG Duration 10 weeks Three Impairment strength Impairment 1 L single leg squat Short Term Goal (STG) Pt will perform at least 8 single leg squats using LLE without pain or compensation in order to demonstrate improved L quad control and strength for return to PLOF 01/09/24: 8 single leg squats without pain, occasional opp hip drop but improved form today, using chair for 2 finger support STG Duration 5 weeks PARTIALLY MET Mcc Goal (LTG) Pt will perform at least 10 single leg squats using LLE without pain or compensation in order to demonstrate improved L quad control and strength for return to PLOF LTG Duration 10 weeks Two Impairment activity Impairment LEFS 61/80 Short Term Goal (STG) Pt will improve LEFS score to >65/80 in order to demonstrate improved activity tolerance and return to higher level of function 01/09/24: 62/80 STG Duration 5 weeks NOT MET Mcc Goal (LTG) Pt will improve LEFS score to >70/80 (1 MCID) in order to demonstrate improved activity tolerance and return to higher level of function LTG Duration 10 weeks One Impairment AROM Impairment L knee flex 127 deg Mcc Goal (LTG) Pt will improve L knee flexion AROM to > 130 deg without compensation in order to be comparable to R knee flexion for bike and stairs. 01/09/24: 130 deg knee flex LTG Duration 10 weeks MET Assessment Summary Assessment Pt tolerated session well without any anterior knee pain or gallwoay pain after stretching and soft tissue mobilization to L quad/hamstring. PT educated pt on importance of creating muscle elongation prior to stretch and exercise, especially if painful; pt verbalizes understanding. Manual treatment consisting of rolling L thigh muscles especially quad to create relaxation and elongation, then manual stretching of L quad. Demos improved and pain free knee flexion AROM after stretching. Continued with strengthening glutes for stability and overall BLE strength. Progressed resistance on B squats and number of reps on L squat. Demos improved form with leg press, single leg squat; no instances of knee valgus and occasional R hip drop with single leg squat. Initiated single leg wall clam isometric for balance and hip abduction to create pelvic stability. Pt has been seen x6 visits since IE in 2023, she is 6 months post op (nearly 7 months). Pt demos improved knee flexion AROM and continues to have TKE. She does not report instances of instability at knee, and she is progressing with hip/knee strength. Pt continues to have less quad/glute strength on LLE than RLE during squats, deadlifts, and stairs. She is progressing toward goals and reports no difficulties at work related to her knee. At this time, she is not appropriate to begin running/ jumping until L quad stability improves and pt able to tolerate impact training. Pt would benefit from skilled PT for progressive L knee strengthening, stabilization, balance training in order to improve activity tolerance and return to PLOF. Physical Therapy Plan Frequency and Duration Frequency of Treatment 1-2/wk Duration of treatment (weeks) 10 Plan of Care Start Date 12/04/23 Plan of Care End Date 02/14/24 Therapeutic Interventions Therapeutic Interventions Aquatic Therapy,Balance Training,Coordination Training ,Gait Training,Home Exercise Program,Joint Mobilizations, Manual Therapy,Neuromuscular Re-education,Orthotic/ Prosthetic Management,Patient/ Caregiver Education,Self-Care/ Home Management,Sensory Integration,Soft Tissue Mobilization,Taping, Therapeutic Activities, Therapeutic Exercises Modalities Biofeedback,Cold Pack/Ice Massage,Electric Stimulation, Hot Packs,Ultrasound, Vasopneumatic Devices Next Visit Focus/Plan Next Note Type Treatment Note Next Visit Plan Progress per protocol (see folder) Elliptical warm up; Continue and progress leg press B and U squat, step up/down/lateral, lateral touch down, single leg squat, single leg RDL, balance (foam, rocker) Manual PRN: patellar mobilizations, ITB Possibly trial of bilateral jump slow jog if able to perform single leg squat X 5 without dynamic valgus or single leg squat with band to HEP.
--- NOTE | 2024-01-15 15:57 | PT.OTN ---
Current Diagnoses Other abnormalities of gait and mobility (01/15/24) Weakness (01/15/24) Other specified postprocedural states (01/15/24) Physical Therapy Treatment Note PT-OP-A Visit Information Start: 11/28/23 10:13 Freq: Status: Active Protocol: Document 01/15/24 09:49 NM (Rec: 01/15/24 10:31 NM [id number]) Out-Patient Physical Therapy Visit Information Visit Information Visit Type Treatment Note Visit Note 12 visit max Visit Start Time 09:50 Visit Stop Time 10:30 Visit Number 8/ PT-OP-B Current Condition Start: 11/28/23 10:13 Freq: Status: Active Protocol: Document 12/04/23 14:31 NM (Rec: 12/04/23 16:19 NM [id number]) Current Condition History of Current Condition Onset Date June 2023 Current Complaints knee flexion ROM, stiffness, pain with exercise, return to function History of Current Condition Pt had L knee ACL reconstruction in June 14, 2023 with hamstring graft. She tore her ACL while performing a [place] course when moving laterally into L knee extension. No complications she's aware of with surgery, no complications with previous PT. She just moved to [facility]. She has been compliant with HEP since stopping PT in August when she moved. Prior to ACL tear, pt was not very active and did not exercise regularly. Currently, she is walking daily (1/4 mi). She is having a 2nd x ray follow up to assess surgical results and pt reported new bony prominence of L tibial plateau . Pt reports pain with supine quad sets laterally/ant knee, stiff when sitting for too long. 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 Pt states knee feels stable, no instances of locking/popping/giving out Prior Treatments and Tests Prior PT post op until move in 08/2023. Provided protocol from surgeon in [place], Dr. 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 PT-OP-D Balance Start: 11/28/23 10:13 Freq: Status: Active Protocol: Document 12/04/23 14:31 NM (Rec: 12/04/23 16:19 NM [id number]) Balance Tests Single Limb Standing Single Limb- Right 30 sec Single Limb- Left 15 sec; not painful, increased ankle sway PT-OP-E Functional Tests Start: 11/28/23 10:13 Freq: Status: Active Protocol: Document 12/04/23 14:31 NM (Rec: 12/04/23 16:19 NM [id number]) Functional Tests Squat Test Score 10 Comments slight R deviation at hips/ knees, no valgus, no heel rise Single Leg Squat Test Score 1 Comment L knee valgus, trendelenburg, decreased hip hinge, not painful; UE support PT-OP-F Manual Assessment Start: 11/28/23 10:13 Freq: Status: Active Protocol: Document 12/04/23 14:31 NM (Rec: 12/04/23 16:19 NM [id number]) Manual Assessments Soft Tissue Assessment Soft Tissue Mobility Assessment L calf atrophy, minimal quad atrophy Joint Mobility Assessment Joint Mobility Assessment No clicking, locking, or other signs of L knee instability PT-OP-G Mobility & Gait Start: 11/28/23 10:13 Freq: Status: Active Protocol: Document 12/04/23 14:31 NM (Rec: 12/04/23 16:19 NM [id number]) OP Gait Assessment Gait Gait Assistance Required: Independent Distance (Feet) 200 Assistive Devices Assistive Device None Gait Deviations General Gait Pattern Within Normal Limits,Narrow Based Gait Factors Limiting Gait Function Factors Limiting Gait Function Decreased Activity Tolerance, Decreased Sensation,Limited Range of Motion Comments Gait Comments Gait is not quad avoidant. Slight trunk deviation toward L side with stance, in addition to slight LLE circumduction vs L knee flexion. Stair Climbing Evaluation Evaluation Level of Assist On Stairs Independent Devices Stair Climbing Assistive Devices None Technique/Endurance Stair Climbing Direction Ascend and Descend Stair Climbing Technique Step Over Step Number of Steps Climbed 4 Stair Climbing Set # Repetitions (reps) 2 Comments Stair Climbing Comments Slight R hip drop with L eccentric step down. Not painful. L knee translation directly over L foot. Able to lead with LLE ascending PT-OP-H Neuro Start: 11/28/23 10:13 Freq: Status: Active Protocol: Document 12/04/23 14:31 NM (Rec: 12/04/23 16:19 NM [id number]) Sensation Evaluation Gross Sensation Gross Sensation Left LE Impaired Comments Summary Comments Decreased light touch sensation of LLE along anterior tibia, scars PT-OP-J Posture/Palpation/Skin Start: 11/28/23 10:13 Freq: Status: Active Protocol: Document 12/04/23 14:31 NM (Rec: 12/04/23 16:19 NM [id number]) Posture Evaluation Position Standing Head/C-Spine Posture Forward Head L-Spine Posture Increased Lordosis Pelvis Posture Anteriorly Tilted Weight Distribution Balanced Hip Posture (L) Externally Rotated,(R) Externally Rotated Knee Posture (L) Genu Valgus,(R) Genu Valgus Patellar Posture (L) Superior,(R) Superior Ankle/Foot Posture (L) Pronated,(R) Pronated Comments Posture Comments R knee hyperextension in stance. L knee neutral extension Palpation Assessment Location L knee Palpation Location posterior knee, anterior knee, joint lines, femoral condyles , ITB Palpation Findings Tenderness Palpation Details Minimal tenderness along posterior knee near popliteal fold. No tenderness along joint lines. Minimal tenderness at anterior tibia and tibial tubercle, lateral femoral condyle. No tenderness along ITB despite pt reports Skin Assessment Incisional Assessment Incision Appearance/Comments Incisions intact, not infected . Minimal adhesion to underlying skin PT-OP-K Range of Motion Start: 11/28/23 10:13 Freq: Status: Active Protocol: Document 01/09/24 14:33 NM (Rec: 01/09/24 15:41 NM [id number]) Knee Goniometric Range of Motion Knee Left Flexion Active (degrees) 122 Flexion Passive (degrees) 127 Extension Active (degrees) 0 Hyper-Extension Active 2 Comments Pain in posterior knee with end range passive extension 01/09/24: 0 deg ext, 120 deg flexion pre-stretch, 130 deg post stretching quad PT-OP-M Strength Start: 02/15/24 10:13 Freq: Status: Active Protocol: Document 01/09/24 14:33 NM (Rec: 01/09/24 15:41 NM [id number]) Hip Strength Hip Manual Muscle Testing Left Flexion (L2) 4+ Good+ Extension (S1) 4 Good Abduction 4 Good Adduction 4+ Good+ External Rotation 4+ Good+ Internal Rotation 4+ Good+ Comments 01/09/24: 4/5 ext, 4+ for all others; pain free Knee Strength Knee Manual Muscle Testing Left Flexion (S2) 4 Good Extension (L3) 4- Good- Comments no pain with resisted motion 01/09/24: 4+/5 flex, 4/5 extension; pain free PT-OP-Q Treatments Start: 11/28/23 10:13 Freq: Status: Active Protocol: Document 01/15/24 09:49 NM (Rec: 01/15/24 10:31 NM [id number]) Therapeutic Exercises Standing Exercises single leg RDL Side left Resistance AROM Equipment Used to 8 step Reps/Minutes 2x8 Comments improved hip hinge with target , improved stability single leg squat Side left Resistance AROM Reps/Minutes 1x10 Comments improved pelvic control, but R drop with inc depth calf stretch Side left Equipment Used foot elevated, heel on ground Reps/Minutes 1x60 Comments pain free, post balance step downs Standing Exercise Name lateral tap down 4 Side left Resistance AROM Reps/Minutes 2x10 Comments cued level hips Other Exercises hamstring curl Other Exercise Name eccentric control (kneeling on pad, ~reverse nordic) Side bilateral Equipment Used to chair, PT stabilizing BLE Reps/Minutes 1x5 Comments challening; poor core strength , difficulty maintainign no hinge stretch Other Exercise Name 1/2 kneel hip flexor/quad stretch with strap Side bilateral Equipment Used foam pad under knee Reps/Minutes 1x60 Comments pain free, feels good to bend knee Manual Therapy Treatment Soft Tissue Mobilization STM left knee Body Location hamstring, lateral knee and quad, calf Mobilization Type Instrument Assisted,Rolling Intensity/Depth Moderate Body Position Hooklying Comments Rolling of quad, hamstring, ITB, calf. Tightness of L quad , limits AROM, sartorius thickened/blocked with rolling Joint Mobilizations L knee Joint patellar Direction Lat>/med, medial tilts, sup/ inf Grade III Body Position Supine Reps/Duration 1x10 ea Comments pain free, improved patellar mobility Neuro Re-Education Treatment Balance Activities bosu squats Details blue side up Surface unstable Reps/Duration 1x12 Comments use of PT hands to step on. pain free but requires cues for anterior weight shift. Requires increased time due to steadying, maintaining DUC SLS Surface stable Equipment no UE support Comments 1. stable, 1x60 ea 2. foam, 1x60 ea- requires prn hand support to stabilize Cued DUC over midfoot. 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 Short Term Goal (STG) Pt will demonstrate ability to lift 20# from squat position with good body mechanics and ambulate x 20 ft without knee pain or compensation in order to perform all functions of job 01/09/24: 20# squat box lift from floor, 1x10, then able to carry x20 ft STG Duration 5 weeks MET Alf Goal (LTG) Pt will report no difficulty with performing job functions due to L knee pain in order to demonstrate return to PLOF LTG Duration 10 weeks Four Impairment strength, plyometrics Short Term Goal (STG) Pt will be able to perform at least 10 reps of double leg hop from floor without compensation or pain and safe landing in order to demonstrate improved L knee strength and control during plyometrics 01/09/24: not appropriate at this time STG Duration 5 weeks Alf Goal (LTG) Pt will be able to perform vertical jump test or single leg hop test at least 80% of R leg if appropriate in order to demonstrate improved L knee strength and control during plyometrics LTG Duration 10 weeks Three Impairment strength Impairment 1 L single leg squat Short Term Goal (STG) Pt will perform at least 8 single leg squats using LLE without pain or compensation in order to demonstrate improved L quad control and strength for return to PLOF 01/09/24: 8 single leg squats without pain, occasional opp hip drop but improved form today, using chair for 2 finger support STG Duration 5 weeks PARTIALLY MET Pyrometer Mechanic Goal (LTG) Pt will perform at least 10 single leg squats using LLE without pain or compensation in order to demonstrate improved L quad control and strength for return to PLOF LTG Duration 10 weeks Two Impairment activity Impairment LEFS 61/80 Short Term Goal (STG) Pt will improve LEFS score to >65/80 in order to demonstrate improved activity tolerance and return to higher level of function 01/09/24: 62/80 STG Duration 5 weeks NOT MET Pyrometer Mechanic Goal (LTG) Pt will improve LEFS score to >70/80 (1 MCID) in order to demonstrate improved activity tolerance and return to higher level of function LTG Duration 10 weeks One Impairment AROM Impairment L knee flex 127 deg Alf Goal (LTG) Pt will improve L knee flexion AROM to > 130 deg without compensation in order to be comparable to R knee flexion for bike and stairs. 01/09/24: 130 deg knee flex LTG Duration 10 weeks MET Assessment Summary Assessment Pt demonstrates improvements in LLE stability with single leg RDL and single leg squat. She has occasional opposite hip drop, indicating glute medius weakness. However, improved hip hinge with external cues. Pt's medial knee discomfort not present during single leg activity today. Manual treatment to promote improved patellar mobility, decrease quad tightness. Pt demos less patellar mobility into medial direction. Trialed half kneel stretch for quad to assess kneeling, HS strength with eccentric lowering. Pt challenged with eccentric hamstring strength, maintaining stable core and good form. No pain with kneeling; improvements in quad length, tightness post manual treatment/stretching. Pt would benefit from skilled PT for L knee stabilization, proprioception, strengthening in order to return to PLOF. Physical Therapy Plan Frequency and Duration Frequency of Treatment 1-2/wk Duration of treatment (weeks) 10 Plan of Care Start Date 12/04/23 Plan of Care End Date 02/14/24 Therapeutic Interventions Therapeutic Interventions Aquatic Therapy,Balance Training,Coordination Training ,Gait Training,Home Exercise Program,Joint Mobilizations, Manual Therapy,Neuromuscular Re-education,Orthotic/ Prosthetic Management,Patient/ Caregiver Education,Self-Care/ Home Management,Sensory Integration,Soft Tissue Mobilization,Taping, Therapeutic Activities, Therapeutic Exercises Modalities Biofeedback,Cold Pack/Ice Massage,Electric Stimulation, Hot Packs,Ultrasound, Vasopneumatic Devices Next Visit Focus/Plan Next Note Type Treatment Note Next Visit Plan Progress per protocol (see folder) Next session: SL RDL, prioception training, single leg training, leg press ( increase reps/resistance), trial B hopping (low, on ground)/impact Elliptical warm up; Continue and progress leg press B and U squat, step up/down/lateral, lateral touch down, single leg squat, single leg RDL, balance (foam, rocker) Manual PRN: patellar mobilizations, ITB Possibly trial of bilateral jump slow jog if able to perform single leg squat X 5 without dynamic valgus or single leg squat with band to HEP.
--- NOTE | 2024-01-16 13:08 | PT-OP ANOTE ---
PT called pt at [phone] and left voicemail to inform pt about requesting more PT visits from PW. Informed pt that usually 12 is max, but sometimes the insurance company makes an exception if pt is post-operative. Recommended pt schedule remaining visits out of the 12, and PT informed pt that PT will inform pt yari if visits are approved
--- NOTE | 2024-01-22 11:37 | PT-OP ANOTE ---
NO SHOW- PT called pt at [phone] and left voicemail about missed appt today. Reminded pt of upcoming appt on 01/28 at 1030 and reminded pt of attendance policy. Additionally, informed pt that PT has not heard back about additional visits so likely limited to 12 at this time but will inform pt if find out otherwise
--- NOTE | 2024-01-29 13:39 | PT.OTN ---
Current Diagnoses Other abnormalities of gait and mobility (01/29/24) Weakness (01/29/24) Other specified postprocedural states (01/29/24) Physical Therapy Treatment Note PT-OP-A Visit Information Start: 11/28/23 10:13 Freq: Status: Active Protocol: Document 01/29/24 10:32 NM (Rec: 01/29/24 11:17 NM [id number]) Out-Patient Physical Therapy Visit Information Visit Information Visit Type Progress Note Visit Note 12 visit max Visit Start Time 10:33 Visit Stop Time 11:15 Visit Number 10 Evaluation Information Evaluation Date 12/04/23 Precautions Precautions L ACL Hamstring graft, DOS 06/14 6 months: 12/13/23 PT-OP-B Current Condition Start: 11/28/23 10:13 Freq: Status: Active Protocol: Document 12/04/23 14:31 NM (Rec: 12/04/23 16:19 NM [id number]) Current Condition History of Current Condition Onset Date June 2023 Current Complaints knee flexion ROM, stiffness, pain with exercise, return to function History of Current Condition Pt had L knee ACL reconstruction in June 14, 2023 with hamstring graft. She tore her ACL while performing a [employer] course when moving laterally into L knee extension. No complications she's aware of with surgery, no complications with previous PT. She just moved to [facility]. She has been compliant with HEP since stopping PT in August when she moved. Prior to ACL tear, pt was not very active and did not exercise regularly. Currently, she is walking daily (1/4 mi). She is having a 2nd x ray follow up to assess surgical results and pt reported new bony prominence of L tibial plateau . Pt reports pain with supine quad sets laterally/ant knee, stiff when sitting for too long. 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 Pt states knee feels stable, no instances of locking/popping/giving out Prior Treatments and Tests Prior PT post op until move in 08/2023. Provided protocol from surgeon in [place], Dr. 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 Wanting to continue PT, ok with scheduling out longer for last 2 visits. Reports pain on either side of patella with single leg squats, single leg RDL, clam, HS stretch in RDL. PT-OP-D Balance Start: 11/28/23 10:13 Freq: Status: Active Protocol: Document 12/04/23 14:31 NM (Rec: 12/04/23 16:19 NM [id number]) Balance Tests Single Limb Standing Single Limb- Right 30 sec Single Limb- Left 15 sec; not painful, increased ankle sway PT-OP-E Functional Tests Start: 11/28/23 10:13 Freq: Status: Active Protocol: Document 12/04/23 14:31 NM (Rec: 12/04/23 16:19 NM [id number]) Functional Tests Squat Test Score 10 Comments slight R deviation at hips/ knees, no valgus, no heel rise Single Leg Squat Test Score 1 Comment L knee valgus, trendelenburg, decreased hip hinge, not painful; UE support PT-OP-F Manual Assessment Start: 11/28/23 10:13 Freq: Status: Active Protocol: Document 12/04/23 14:31 NM (Rec: 12/04/23 16:19 NM [id number]) Manual Assessments Soft Tissue Assessment Soft Tissue Mobility Assessment L calf atrophy, minimal quad atrophy Joint Mobility Assessment Joint Mobility Assessment No clicking, locking, or other signs of L knee instability PT-OP-G Mobility & Gait Start: 11/28/23 10:13 Freq: Status: Active Protocol: Document 12/04/23 14:31 NM (Rec: 12/04/23 16:19 NM [id number]) OP Gait Assessment Gait Gait Assistance Required: Independent Distance (Feet) 200 Assistive Devices Assistive Device None Gait Deviations General Gait Pattern Within Normal Limits,Narrow Based Gait Factors Limiting Gait Function Factors Limiting Gait Function Decreased Activity Tolerance, Decreased Sensation,Limited Range of Motion Comments Gait Comments Gait is not quad avoidant. Slight trunk deviation toward L side with stance, in addition to slight LLE circumduction vs L knee flexion. Stair Climbing Evaluation Evaluation Level of Assist On Stairs Independent Devices Stair Climbing Assistive Devices None Technique/Endurance Stair Climbing Direction Ascend and Descend Stair Climbing Technique Step Over Step Number of Steps Climbed 4 Stair Climbing Set # Repetitions (reps) 2 Comments Stair Climbing Comments Slight R hip drop with L eccentric step down. Not painful. L knee translation directly over L foot. Able to lead with LLE ascending PT-OP-H Neuro Start: 11/28/23 10:13 Freq: Status: Active Protocol: Document 12/04/23 14:31 NM (Rec: 12/04/23 16:19 NM [id number]) Sensation Evaluation Gross Sensation Gross Sensation Left LE Impaired Comments Summary Comments Decreased light touch sensation of LLE along anterior tibia, scars PT-OP-J Posture/Palpation/Skin Start: 11/28/23 10:13 Freq: Status: Active Protocol: Document 12/04/23 14:31 NM (Rec: 12/04/23 16:19 NM [id number]) Posture Evaluation Position Standing Head/C-Spine Posture Forward Head L-Spine Posture Increased Lordosis Pelvis Posture Anteriorly Tilted Weight Distribution Balanced Hip Posture (L) Externally Rotated,(R) Externally Rotated Knee Posture (L) Genu Valgus,(R) Genu Valgus Patellar Posture (L) Superior,(R) Superior Ankle/Foot Posture (L) Pronated,(R) Pronated Comments Posture Comments R knee hyperextension in stance. L knee neutral extension Palpation Assessment Location L knee Palpation Location posterior knee, anterior knee, joint lines, femoral condyles , ITB Palpation Findings Tenderness Palpation Details Minimal tenderness along posterior knee near popliteal fold. No tenderness along joint lines. Minimal tenderness at anterior tibia and tibial tubercle, lateral femoral condyle. No tenderness along ITB despite pt reports Skin Assessment Incisional Assessment Incision Appearance/Comments Incisions intact, not infected . Minimal adhesion to underlying skin PT-OP-K Range of Motion Start: 11/28/23 10:13 Freq: Status: Active Protocol: Document 01/29/24 10:32 NM (Rec: 01/29/24 12:52 NM [id number]) Knee Goniometric Range of Motion Knee Left Flexion Active (degrees) 122 Flexion Passive (degrees) 127 Extension Active (degrees) 0 Hyper-Extension Active 2 Comments Pain in posterior knee with end range passive extension 01/09/24: 0 deg ext, 120 deg flexion pre-stretch, 130 deg post stretching quad 01/29/24: 125 deg flexion, 0 deg extension PT-OP-M Strength Start: 11/28/23 10:13 Freq: Status: Active Protocol: Document 01/29/24 10:32 NM (Rec: 01/29/24 12:52 NM [id number]) Hip Strength Hip Manual Muscle Testing Left Flexion (L2) 4+ Good+ Extension (S1) 4 Good Abduction 4 Good Adduction 4+ Good+ External Rotation 4+ Good+ Internal Rotation 4+ Good+ Comments 01/09/24: 4/5 ext, 4+ for all others; pain free 01/29/24: 4+/5 for hip flex/ext /abd; pain free Knee Strength Knee Manual Muscle Testing Left Flexion (S2) 4 Good Extension (L3) 4- Good- Comments no pain with resisted motion 01/09/24: 4+/5 flex, 4/5 extension; pain free 01/29/24: 4+/5 flex and extension; pain free PT-OP-Q Treatments Start: 11/28/23 10:13 Freq: Status: Active Protocol: Document 01/29/24 10:32 NM (Rec: 01/29/24 11:17 NM [id number]) Gym Equipment Shuttle Recovery L squat Details testing # reps Resistance 63# (2 navy) Reps/Time 20 total (end of session) Therapeutic Exercises Sitting Exercises HSC Sitting Exercise Name cables Side left Resistance lvl 3 plate Reps/Minutes 2x10 Comments pain free but challenging LAQ Sitting Exercise Name cables Side left Resistance lvl 1 cable Reps/Minutes 2x10 Comments challenging; cued TKE Standing Exercises single leg RDL Side left Resistance AROM Equipment Used to 8 step Reps/Minutes 2x10 PT tactile cue to ant L knee to prevent movement bwd Comments improved hip hinge with target , improved stability and form lunges Standing Exercise Name fwd stationary Side bilateral Reps/Minutes 1x10 ea Comments cued both knee flex, wider DUC for stability ~split squat single leg squat Side left Resistance AROM Equipment Used 2 finger support on chair Reps/Minutes 2x10 Comments improved pelvic control, but slight knee valgus w/ increased depth step ups Standing Exercise Name 1. step up with hip flexion, 2 . lateral Side bilateral Equipment Used 8 Reps/Minutes 1x8 ea Comments pain free, level hips side steps Standing Exercise Name 1. hip 3 way/ Y drill. 2. (did not perform but inc band lvl w/ HEP) Side bilateral Resistance lvl 2 Equipment Used single leg Reps/Minutes 1x5 ea Comments improved knee stab Therapeutic Activity Therapeutic Activity hopping/jumping Reps/Minutes 2x5 Comments Trialed in PT Pt using hip hinge, B squat positiong and performing small bilateral squats from ground qith equal landing. Cued to maintain equal weightbearing btwn BLE with landing, less with more hip hinge and less knee over toes. Mirror for visual cues, band around thighs for tactile cues to prevent knee valgus. Educated not to perform outside of PT at this time. Slight patellar discomfort at end of 2nd set Manual Therapy Treatment Joint Mobilizations L knee Joint patellar, flexion A-P with tibial IR Direction Lat>/med, medial tilts, sup/ inf Grade III Body Position Supine Reps/Duration 1x10 ea Comments Pain free, improved patellar mobility with mobilization. 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 Short Term Goal (STG) Pt will demonstrate ability to lift 20# from squat position with good body mechanics and ambulate x 20 ft without knee pain or compensation in order to perform all functions of job 01/09/24: 20# squat box lift from floor, 1x10, then able to carry x20 ft STG Duration 5 weeks MET Snf Goal (LTG) Pt will report no difficulty with performing job functions due to L knee pain in order to demonstrate return to PLOF 01/28/24: reports no limitations LTG Duration 10 weeks MET Four Impairment strength, plyometrics Short Term Goal (STG) Pt will be able to perform at least 10 reps of double leg hop from floor without compensation or pain and safe landing in order to demonstrate improved L knee strength and control during plyometrics 01/09/24: not appropriate at this time 01/29/24: Initiated today, 2x5 B hops with band for glute STG Duration 5 weeks PROGRESSING Au Pair Goal (LTG) Pt will be able to perform vertical jump test or single leg hop test at least 80% of R leg if appropriate in order to demonstrate improved L knee strength and control during plyometrics LTG Duration 10 weeks NOT APPROPRIATE AT THIS TIME Three Impairment strength Impairment 1 L single leg squat Short Term Goal (STG) Pt will perform at least 8 single leg squats using LLE without pain or compensation in order to demonstrate improved L quad control and strength for return to PLOF 01/09/24: 8 single leg squats without pain, occasional opp hip drop but improved form today, using chair for 2 finger support 01/29/24: 10 single leg squats with 2 finger support for balance, no pain during squat STG Duration 5 weeks MET Snf Goal (LTG) Pt will perform at least 10 single leg squats using LLE without pain or compensation in order to demonstrate improved L quad control and strength for return to PLOF 01/29/24: 10 single leg squats with 2 finger support for balance, no pain during squat but prn cues to prevent knee valgus with increased depth LTG Duration 10 weeks PROGRESSING Two Impairment activity Impairment LEFS 61/80 Short Term Goal (STG) Pt will improve LEFS score to >65/80 in order to demonstrate improved activity tolerance and return to higher level of function 01/09/24: 62/80 01/29/24: 62/80 STG Duration 5 weeks NOT MET Au Pair Goal (LTG) Pt will improve LEFS score to >70/80 (1 MCID) in order to demonstrate improved activity tolerance and return to higher level of function 01/29/24: 62/80 LTG Duration 10 weeks NOT MET One Impairment AROM Impairment L knee flex 127 deg Snf Goal (LTG) Pt will improve L knee flexion AROM to > 130 deg without compensation in order to be comparable to R knee flexion for bike and stairs. 01/09/24: 130 deg knee flex 01/29/24: 125 deg flex LTG Duration 10 weeks MET Assessment Summary Assessment Pt tolerated session well without peripatellar pain during single leg activities. She demonstrates improved single leg squat form, able to perform more reps but demos slight knee valgus with increased squat depth. Pt was performing single leg RDLs with extraneous knee flex/ext today with hip hinge; decreased when PT provided cue at anterior knee as target. Continues demonstrate decreased L single leg stability at knee/hip/ankle during static single leg activities; not present during step ups. Pt able to perform more reps of single leg squat on leg press more comparable to RLE at end of session; will address in further sessions. Added step ups with hip flexion at end range to further promote single leg stability. She has good patellar mobility with mobilization. Performed knee flexion mobilization in sitting with tibial IR to improve knee flexion mechanics and to address pt concerns in standing with less knee flexion LLE compared to RLE. PT educated pt on adding lifting at gym to supplement HEP since planning to decrease frequency of PT visits to maximize insurance benefits. Pt would benefit from skilled PT for LLE strengthening and to improve single leg stability. Physical Therapy Plan Frequency and Duration Frequency of Treatment 1x/Week Duration of treatment (weeks) 10 Plan of Care Start Date 01/29/24 Plan of Care End Date 04/10/24 Therapeutic Interventions Therapeutic Interventions Aquatic Therapy,Balance Training,Coordination Training ,Gait Training,Home Exercise Program,Joint Mobilizations, Manual Therapy,Neuromuscular Re-education,Orthotic/ Prosthetic Management,Patient/ Caregiver Education,Self-Care/ Home Management,Sensory Integration,Soft Tissue Mobilization,Taping, Therapeutic Activities, Therapeutic Exercises Modalities Biofeedback,Cold Pack/Ice Massage,Electric Stimulation, Hot Packs,Ultrasound, Vasopneumatic Devices Next Visit Focus/Plan Next Note Type Treatment Note Next Visit Plan Progress per protocol (see folder)- ISSUE GOOD/UPDATE HEP B/C LONGER BTWN SESSIONS Next session: SL RDL, prioception training, single leg training, leg press ( increase reps/resistance), trial B hopping (low, on ground)/impact Elliptical warm up; Continue and progress leg press B and U squat, step up/down/lateral, lateral touch down, single leg squat, single leg RDL, balance (foam, rocker) Manual PRN: patellar mobilizations, ITB Possibly trial of bilateral jump slow jog if able to perform single leg squat X 5 without dynamic valgus or single leg squat with band to HEP.
--- NOTE | 2024-01-29 13:39 | PT.OPPOC ---
Physical, Occupational & Speech Therapy At [facility] Current Diagnoses Other abnormalities of gait and mobility (01/29/24) Weakness (01/29/24) Other specified postprocedural states (01/29/24) Visit Care Team Role Provider Type LUCIEN Palmer Family Provider Advanced Armored Vehicle Officer Specialty: Emergency Medicine Address: [address] [place] [address], [address], [place], [address] Email: [email or web address] Attending Provider Physician Primary Care Provider Referring Provider Specialty: Family Practice Address: [address] [place] [address], [address], [place], [address] Email: [email or web address] Plan Of Care PT-OP-T Assessment and Plan Start: 11/28/23 10:13 Freq: Status: Active Protocol: Document 01/29/24 10:32 NM (Rec: 01/29/24 11:17 NM [id number]) Physical Therapy Assessment Goals Five Impairment 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 Short Term Goal (STG) Pt will demonstrate ability to lift 20# from squat position with good body mechanics and ambulate x 20 ft without knee pain or compensation in order to perform all functions of job 01/09/24: 20# squat box lift from floor, 1x10, then able to carry x20 ft STG Duration 5 weeks MET Mcfp Goal (LTG) Pt will report no difficulty with performing job functions due to L knee pain in order to demonstrate return to PLOF 01/28/24: reports no limitations LTG Duration 10 weeks MET Four Impairment strength, plyometrics Short Term Goal (STG) Pt will be able to perform at least 10 reps of double leg hop from floor without compensation or pain and safe landing in order to demonstrate improved L knee strength and control during plyometrics 01/09/24: not appropriate at this time 01/29/24: Initiated today, 2x5 B hops with band for glute STG Duration 5 weeks PROGRESSING Mcfp Goal (LTG) Pt will be able to perform vertical jump test or single leg hop test at least 80% of R leg if appropriate in order to demonstrate improved L knee strength and control during plyometrics LTG Duration 10 weeks NOT APPROPRIATE AT THIS TIME Three Impairment strength Impairment 1 L single leg squat Short Term Goal (STG) Pt will perform at least 8 single leg squats using LLE without pain or compensation in order to demonstrate improved L quad control and strength for return to PLOF 01/09/24: 8 single leg squats without pain, occasional opp hip drop but improved form today, using chair for 2 finger support 01/29/24: 10 single leg squats with 2 finger support for balance, no pain during squat STG Duration 5 weeks MET Mcfp Goal (LTG) Pt will perform at least 10 single leg squats using LLE without pain or compensation in order to demonstrate improved L quad control and strength for return to PLOF 01/29/24: 10 single leg squats with 2 finger support for balance, no pain during squat but prn cues to prevent knee valgus with increased depth LTG Duration 10 weeks PROGRESSING Two Impairment activity Impairment LEFS 61/80 Short Term Goal (STG) Pt will improve LEFS score to >65/80 in order to demonstrate improved activity tolerance and return to higher level of function 01/09/24: 62/80 01/29/24: 62/80 STG Duration 5 weeks NOT MET Quality Control Projectionist Goal (LTG) Pt will improve LEFS score to >70/80 (1 MCID) in order to demonstrate improved activity tolerance and return to higher level of function 01/29/24: 62/80 LTG Duration 10 weeks NOT MET One Impairment AROM Impairment L knee flex 127 deg Mcfp Goal (LTG) Pt will improve L knee flexion AROM to > 130 deg without compensation in order to be comparable to R knee flexion for bike and stairs. 01/09/24: 130 deg knee flex 01/29/24: 125 deg flex LTG Duration 10 weeks MET Assessment Summary Assessment Pt has been seen 9 visits since IE in November 2023 s/p L ACL repair with hamstring graft. She is currently 7 months post-op (06/14/23). Pt is progressing well toward goals . Her L squat on leg press is currently 27, which is same as RLE when last tested ( improved from 12). Pt's L knee flexion ROM is 125 deg, previously 130 deg when tested . Pt reports increased quad tightness and peripatellar discomfort with single leg activity (reduced with stretching). Her hip and knee strength is currently 4+/5 MMT . Pt recently began to trial B hopping from level surface, but she is not appropriate for vertical jump testing at this time; depending on single leg stability and strength, pt may not be appropriate for goal. She is not limited by her knee at her job and is able to perform all necessary job functions. PT has educated pt on body mechanics and safety in work place to protect knee. Pt wanting to continue PT at this time but has limited visits. She is compliant with HEP. PT recommended pt begin lifting using lower body machine weights at gym to improve strength and supplement PT HEP ; pt verbalizes agreement but states does not have time. Pt awaiting to hear if received any further auth for more visits. In meantime, planning on maximizing remaining visits with continued supplemental HEP and strengthening. Pt would benefit from skilled PT for LLE strengthening and to improve single leg stability in order to return to PLOF. Physical Therapy Plan Frequency and Duration Frequency of Treatment 1x/Week Duration of treatment (weeks) 10 Plan of Care Start Date 01/29/24 Plan of Care End Date 04/10/24 Therapeutic Interventions Therapeutic Interventions Aquatic Therapy,Balance Training,Coordination Training ,Gait Training,Home Exercise Program,Joint Mobilizations, Manual Therapy,Neuromuscular Re-education,Orthotic/ Prosthetic Management,Patient/ Caregiver Education,Self-Care/ Home Management,Sensory Integration,Soft Tissue Mobilization,Taping, Therapeutic Activities, Therapeutic Exercises Modalities Biofeedback,Cold Pack/Ice Massage,Electric Stimulation, Hot Packs,Ultrasound, Vasopneumatic Devices Next Visit Focus/Plan Next Note Type Treatment Note Next Visit Plan Progress per protocol (see folder)- ISSUE GOOD/UPDATE HEP B/C LONGER BTWN SESSIONS Next session: SL RDL, prioception training, single leg training, leg press ( increase reps/resistance), trial B hopping (low, on ground)/impact Elliptical warm up; Continue and progress leg press B and U squat, step up/down/lateral, lateral touch down, single leg squat, single leg RDL, balance (foam, rocker) Manual PRN: patellar mobilizations, ITB Possibly trial of bilateral jump slow jog if able to perform single leg squat X 5 without dynamic valgus or single leg squat with band to HEP. Plan of Care Dates Plan of Care Start Date 01/29/24 Plan of Care End Date 04/10/24 Electronically Signed by: Roxann Trinidad, PT 01/29/24 1588 If you are in agreement with this Plan of Care, please return a signed and dated copy. I have reviewed this Plan of Care and certify that the skilled therapy services above are required to meet the patient?s needs. Physician Signature Date Printed Name and Credentials Clinical Instructor Signature Printed Name and Credentials
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
--- NOTE | 2024-03-19 15:27 | PT.OTN ---
Current Diagnoses Other abnormalities of gait and mobility (03/19/24) Weakness (03/19/24) Other specified postprocedural states (03/19/24) Physical Therapy Treatment Note PT-OP-A Visit Information Start: 11/28/23 10:13 Freq: Status: Active Protocol: Document 03/19/24 09:04 NM (Rec: 03/19/24 09:46 NM [id number]) Out-Patient Physical Therapy Visit Information Visit Information Visit Type Progress Note Visit Note approved for new 12 visits in in 2 Visit Start Time 09:04 Visit Stop Time 09:45 Visit Number 08/25 Evaluation Information Evaluation Date 12/04/23 PT-OP-B Current Condition Start: 11/28/23 10:13 Freq: Status: Active Protocol: Document 12/04/23 14:31 NM (Rec: 12/04/23 16:19 NM [id number]) Current Condition History of Current Condition Onset Date June 2023 Current Complaints knee flexion ROM, stiffness, pain with exercise, return to function History of Current Condition Pt had L knee ACL reconstruction in June 14, 2023 with hamstring graft. She tore her ACL while performing a [employer] course when moving laterally into L knee extension. No complications she's aware of with surgery, no complications with previous PT. She just moved to [facility]. She has been compliant with HEP since stopping PT in August when she moved. Prior to ACL tear, pt was not very active and did not exercise regularly. Currently, she is walking daily (1/4 mi). She is having a 2nd x ray follow up to assess surgical results and pt reported new bony prominence of L tibial plateau . Pt reports pain with supine quad sets laterally/ant knee, stiff when sitting for too long. 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 Pt states knee feels stable, no instances of locking/popping/giving out Prior Treatments and Tests Prior PT post op until move in 08/2023. Provided protocol from surgeon in [place], Dr. 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 Gets less pain under knee cap with wall clams. HEP going well but still concerned about single leg RDL due to hip hinge mechanics PT-OP-D Balance Start: 11/28/23 10:13 Freq: Status: Active Protocol: Document 12/04/23 14:31 NM (Rec: 12/04/23 16:19 NM [id number]) Balance Tests Single Limb Standing Single Limb- Right 30 sec Single Limb- Left 15 sec; not painful, increased ankle sway PT-OP-E Functional Tests Start: 11/28/23 10:13 Freq: Status: Active Protocol: Document 12/04/23 14:31 NM (Rec: 12/04/23 16:19 NM [id number]) Functional Tests Squat Test Score 10 Comments slight R deviation at hips/ knees, no valgus, no heel rise Single Leg Squat Test Score 1 Comment L knee valgus, trendelenburg, decreased hip hinge, not painful; UE support PT-OP-F Manual Assessment Start: 11/28/23 10:13 Freq: Status: Active Protocol: Document 12/04/23 14:31 NM (Rec: 12/04/23 16:19 NM [id number]) Manual Assessments Soft Tissue Assessment Soft Tissue Mobility Assessment L calf atrophy, minimal quad atrophy Joint Mobility Assessment Joint Mobility Assessment No clicking, locking, or other signs of L knee instability PT-OP-G Mobility & Gait Start: 11/28/23 10:13 Freq: Status: Active Protocol: Document 12/04/23 14:31 NM (Rec: 12/04/23 16:19 NM [id number]) OP Gait Assessment Gait Gait Assistance Required: Independent Distance (Feet) 200 Assistive Devices Assistive Device None Gait Deviations General Gait Pattern Within Normal Limits,Narrow Based Gait Factors Limiting Gait Function Factors Limiting Gait Function Decreased Activity Tolerance, Decreased Sensation,Limited Range of Motion Comments Gait Comments Gait is not quad avoidant. Slight trunk deviation toward L side with stance, in addition to slight LLE circumduction vs L knee flexion. Stair Climbing Evaluation Evaluation Level of Assist On Stairs Independent Devices Stair Climbing Assistive Devices None Technique/Endurance Stair Climbing Direction Ascend and Descend Stair Climbing Technique Step Over Step Number of Steps Climbed 4 Stair Climbing Set # Repetitions (reps) 2 Comments Stair Climbing Comments Slight R hip drop with L eccentric step down. Not painful. L knee translation directly over L foot. Able to lead with LLE ascending PT-OP-H Neuro Start: 11/28/23 10:13 Freq: Status: Active Protocol: Document 12/04/23 14:31 NM (Rec: 12/04/23 16:19 NM [id number]) Sensation Evaluation Gross Sensation Gross Sensation Left LE Impaired Comments Summary Comments Decreased light touch sensation of LLE along anterior tibia, scars PT-OP-J Posture/Palpation/Skin Start: 11/28/23 10:13 Freq: Status: Active Protocol: Document 12/04/23 14:31 NM (Rec: 12/04/23 16:19 NM [id number]) Posture Evaluation Position Standing Head/C-Spine Posture Forward Head L-Spine Posture Increased Lordosis Pelvis Posture Anteriorly Tilted Weight Distribution Balanced Hip Posture (L) Externally Rotated,(R) Externally Rotated Knee Posture (L) Genu Valgus,(R) Genu Valgus Patellar Posture (L) Superior,(R) Superior Ankle/Foot Posture (L) Pronated,(R) Pronated Comments Posture Comments R knee hyperextension in stance. L knee neutral extension Palpation Assessment Location L knee Palpation Location posterior knee, anterior knee, joint lines, femoral condyles , ITB Palpation Findings Tenderness Palpation Details Minimal tenderness along posterior knee near popliteal fold. No tenderness along joint lines. Minimal tenderness at anterior tibia and tibial tubercle, lateral femoral condyle. No tenderness along ITB despite pt reports Skin Assessment Incisional Assessment Incision Appearance/Comments Incisions intact, not infected . Minimal adhesion to underlying skin PT-OP-K Range of Motion Start: 11/28/23 10:13 Freq: Status: Active Protocol: Document 03/19/24 09:04 NM (Rec: 03/19/24 09:46 NM [id number]) Knee Goniometric Range of Motion Knee Left Flexion Active (degrees) 130 Extension Active (degrees) 0 Hyper-Extension Active 1 Comments Pain in posterior knee with end range passive extension 01/09/24: 0 deg ext, 120 deg flexion pre-stretch, 130 deg post stretching quad 01/29/24: 125 deg flexion, 0 deg extension 03/02/24: 125 deg flexion, 0 deg ext, +1 hyper extension 03/19/24: 130 deg flexion, +1 deg hyperextension PT-OP-M Strength Start: 11/28/23 10:13 Freq: Status: Active Protocol: Document 03/19/24 09:04 NM (Rec: 03/19/24 09:46 NM [id number]) Hip Strength Hip Manual Muscle Testing Left Flexion (L2) 4+ Good+ Extension (S1) 4+ Good+ Abduction 4+ Good+ Adduction 4+ Good+ External Rotation 4+ Good+ Internal Rotation 4+ Good+ Comments 01/09/24: 4/5 ext, 4+ for all others; pain free 01/29/24: 4+/5 for hip flex/ext /abd; pain free 03/19/24, 03/02/24: 4+/5 for all Knee Strength Knee Manual Muscle Testing Left Flexion (S2) 4+ Good+ Extension (L3) 4+ Good+ Comments no pain with resisted motion 01/09/24: 4+/5 flex, 4/5 extension; pain free 01/29/24: 4+/5 flex and extension; pain free 03/02/24: 4+/5, pain free; LLE 75% of RLE with squat testing 03/19/24: 4+/5 PT-OP-Q Treatments Start: 11/28/23 10:13 Freq: Status: Active Protocol: Document 03/19/24 09:04 NM (Rec: 03/19/24 09:46 NM [id number]) Therapeutic Exercises Sitting Exercises HSC Sitting Exercise Name cables Side left Resistance lvl 4 plate Reps/Minutes 2x8 Comments fatiguing LAQ Sitting Exercise Name cables Side left Resistance lvl 2 plate > 1 plate Reps/Minutes 2x8 2 plate, 1x8 1 plate Comments fatigueing; cued TKE, ankle DF for max TKE Standing Exercises ankle dorsiflexion Standing Exercise Name neuromuscular control with gait Side bilateral Reps/Minutes 10 x 3 concentric, 3 hold end range, 3 eccentric lowering standing clam Standing Exercise Name isometric hold Side bilateral Equipment Used orange maltese ball into wall Reps/Minutes 2x30 ea single leg RDL Standing Exercise Name with foam roller for hand support prn Side left Resistance AROM Reps/Minutes 10 Comments cued for hinge Manual Therapy Treatment Soft Tissue Mobilization STM left knee Body Location quad, peripatellar Mobilization Type Instrument Assisted,Rolling Intensity/Depth Moderate Body Position Hooklying Comments For reduction in muscle tightness Joint Mobilizations L knee Joint patellar, flexion post glide with tibial IR Direction Lat>/med, medial tilts, sup/ inf Grade III Body Position Supine Reps/Duration 4x30 ea Comments 1. supine -Emphasis on inferior glide with various degrees of knee flexion in order to improve flexion ROM and patellar mobility 2. 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 Short Term Goal (STG) Pt will demonstrate ability to lift 20# from squat position with good body mechanics and ambulate x 20 ft without knee pain or compensation in order to perform all functions of job 01/09/24: 20# squat box lift from floor, 1x10, then able to carry x20 ft STG Duration 5 weeks MET Retirement Goal (LTG) Pt will report no difficulty with performing job functions due to L knee pain in order to demonstrate return to PLOF UPDATED GOAL- Pt will be able to tile picker weighted object from floor using half kneel stance with L knee on floor or foam pad in order to demonstrate increased knee flexion and comfort when performing lifting tasks for work from lower surface 01/28/24: reports no limitations LTG Duration 10 weeks MET 01/28/24; updated 03/19/24 Four Impairment strength, plyometrics Short Term Goal (STG) Pt will be able to perform at least 10 reps of double leg hop from floor without compensation or pain and safe landing in order to demonstrate improved L knee strength and control during plyometrics 01/09/24: not appropriate at this time 01/29/24: Initiated today, 2x5 B hops with band for glute STG Duration 5 weeks PROGRESSING Yarn Handler Goal (LTG) Pt will be able to perform vertical jump test or single leg hop test at least 80% of R leg if appropriate in order to demonstrate improved L knee strength and control during plyometrics 03/19/24, 03/02/24: initiated B hops and jumping; not appropriate for vertical or single leg jumping at this time LTG Duration 10 weeks NOT APPROPRIATE AT THIS TIME Three Impairment strength Impairment 1 L single leg squat Short Term Goal (STG) Pt will perform at least 8 single leg squats using LLE without pain or compensation in order to demonstrate improved L quad control and strength for return to PLOF 01/09/24: 8 single leg squats without pain, occasional opp hip drop but improved form today, using chair for 2 finger support 01/29/24: 10 single leg squats with 2 finger support for balance, no pain during squat STG Duration 5 weeks MET Retirement Goal (LTG) Pt will perform at least 10 single leg squats using LLE without pain or compensation in order to demonstrate improved L quad control and strength for return to PLOF 01/29/24: 10 single leg squats with 2 finger support for balance, no pain during squat but prn cues to prevent knee valgus with increased depth 03/02/24: Improved form with single leg squats, 2 finger support for balance. Progressed to single leg squat from chair and eccentric lowering, 1x3 on LLE LTG Duration 10 weeks PROGRESSING Two Impairment activity Impairment LEFS 61/80 Short Term Goal (STG) Pt will improve LEFS score to >65/80 in order to demonstrate improved activity tolerance and return to higher level of function 01/09/24: 62/80 01/29/24: 62/80 STG Duration 5 weeks NOT MET Retirement Goal (LTG) Pt will improve LEFS score to >65/80 (1 MCID) in order to demonstrate improved activity tolerance and return to higher level of function 01/29/24: 62/80 03/02/24: 64/80 LTG Duration 10 weeks NOT MET; GOAL UPDATED 03/19/24 One Impairment AROM Impairment L knee flex 127 deg Yarn Handler Goal (LTG) Pt will improve L knee flexion AROM to > 130 deg without compensation in order to be comparable to R knee flexion for bike and stairs. 01/09/24: 130 deg knee flex 01/29/24: 125 deg flex 03/02/24: 127 deg, 130 deg post mob 03/19/24: 130 deg knee flex LTG Duration 10 weeks MET Progress Towards Goals Progress Towards Goals Progressing Toward Goals,Goals Met Progress Comments goals updated Assessment Summary Assessment Pt tolerated session well, but requires increased time and continues to demonstrate muscle fatigue. Continued with emphasizing knee flexion ROM for pt's job requirements. Met 130 deg knee flexion today. Emphasis on tibial IR screwhome into flexion during manual treatment. Demonstrates improved patellar mobility, especially into inferior glide . PT educated pt on strength training of quad/hamstrings at gym, recommending pt trial membership 2-3x/wk to increase LLE strength. Progressed cable LAQ and HSC resistance today. Pt able to achieve TKE but challenged with increased resistance. Pt continues to require consistent cueing for correct form with single leg RDL, improved hip hinge with verbal and tactile cues using foam roller for hand support. Pt demonstrates improved single leg stability with standing clams today. Physical Therapy Plan Frequency and Duration Frequency of Treatment 1x/Week Duration of treatment (weeks) 12 Plan of Care Start Date 03/19/24 Plan of Care End Date 06/12/24 Therapeutic Interventions Therapeutic Interventions Aquatic Therapy,Balance Training,Coordination Training ,Gait Training,Home Exercise Program,Joint Mobilizations, Manual Therapy,Neuromuscular Re-education,Orthotic/ Prosthetic Management,Patient/ Caregiver Education,Self-Care/ Home Management,Sensory Integration,Soft Tissue Mobilization,Taping, Therapeutic Activities, Therapeutic Exercises Modalities Biofeedback,Cold Pack/Ice Massage,Electric Stimulation, Hot Packs,Ultrasound, Vasopneumatic Devices Next Visit Focus/Plan Next Note Type Progress Note Next Visit Plan Progress per protocol (see folder)- ISSUE GOOD/UPDATE HEP B/C LONGER BTWN SESSIONS Next session: trial jog, hopping > DL vertical jump, skater Y, kneeling and floor transfers, Jumping, box drops (4), single leg stability, bosu squats, leg press, proprioception, jog, triple ext Continue and progress leg press B and U squat, step up/ down/lateral, lateral touch down, single leg squat, single leg RDL, balance (foam, rocker) Manual PRN: patellar mobilizations, ITB Possibly trial of bilateral jump slow jog if able to perform single leg squat X 5 without dynamic valgus or single leg squat with band to HEP
--- NOTE | 2024-03-19 15:28 | PT.OTN ---
Current Diagnoses Other abnormalities of gait and mobility (03/19/24) Weakness (03/19/24) Other specified postprocedural states (03/19/24) Physical Therapy Treatment Note PT-OP-A Visit Information Start: 11/28/23 10:13 Freq: Status: Active Protocol: Document 03/19/24 09:04 NM (Rec: 03/19/24 09:46 NM [id number]) Out-Patient Physical Therapy Visit Information Visit Information Visit Type Progress Note Visit Note approved for new 12 visits in in 2 Visit Start Time 09:04 Visit Stop Time 09:45 Visit Number 08/25 Evaluation Information Evaluation Date 12/04/23 PT-OP-B Current Condition Start: 11/28/23 10:13 Freq: Status: Active Protocol: Document 12/04/23 14:31 NM (Rec: 12/04/23 16:19 NM [id number]) Current Condition History of Current Condition Onset Date June 2023 Current Complaints knee flexion ROM, stiffness, pain with exercise, return to function History of Current Condition Pt had L knee ACL reconstruction in June 14, 2023 with hamstring graft. She tore her ACL while performing a [place] course when moving laterally into L knee extension. No complications she's aware of with surgery, no complications with previous PT. She just moved to [facility]. She has been compliant with HEP since stopping PT in August when she moved. Prior to ACL tear, pt was not very active and did not exercise regularly. Currently, she is walking daily (1/4 mi). She is having a 2nd x ray follow up to assess surgical results and pt reported new bony prominence of L tibial plateau . Pt reports pain with supine quad sets laterally/ant knee, stiff when sitting for too long. 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 Pt states knee feels stable, no instances of locking/popping/giving out Prior Treatments and Tests Prior PT post op until move in 08/2023. Provided protocol from surgeon in [place], Dr. 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 Gets less pain under knee cap with wall clams. HEP going well but still concerned about single leg RDL due to hip hinge mechanics PT-OP-D Balance Start: 11/28/23 10:13 Freq: Status: Active Protocol: Document 12/04/23 14:31 NM (Rec: 12/04/23 16:19 NM [id number]) Balance Tests Single Limb Standing Single Limb- Right 30 sec Single Limb- Left 15 sec; not painful, increased ankle sway PT-OP-E Functional Tests Start: 11/28/23 10:13 Freq: Status: Active Protocol: Document 12/04/23 14:31 NM (Rec: 12/04/23 16:19 NM [id number]) Functional Tests Squat Test Score 10 Comments slight R deviation at hips/ knees, no valgus, no heel rise Single Leg Squat Test Score 1 Comment L knee valgus, trendelenburg, decreased hip hinge, not painful; UE support PT-OP-F Manual Assessment Start: 11/28/23 10:13 Freq: Status: Active Protocol: Document 12/04/23 14:31 NM (Rec: 12/04/23 16:19 NM [id number]) Manual Assessments Soft Tissue Assessment Soft Tissue Mobility Assessment L calf atrophy, minimal quad atrophy Joint Mobility Assessment Joint Mobility Assessment No clicking, locking, or other signs of L knee instability PT-OP-G Mobility & Gait Start: 11/28/23 10:13 Freq: Status: Active Protocol: Document 12/04/23 14:31 NM (Rec: 12/04/23 16:19 NM [id number]) OP Gait Assessment Gait Gait Assistance Required: Independent Distance (Feet) 200 Assistive Devices Assistive Device None Gait Deviations General Gait Pattern Within Normal Limits,Narrow Based Gait Factors Limiting Gait Function Factors Limiting Gait Function Decreased Activity Tolerance, Decreased Sensation,Limited Range of Motion Comments Gait Comments Gait is not quad avoidant. Slight trunk deviation toward L side with stance, in addition to slight LLE circumduction vs L knee flexion. Stair Climbing Evaluation Evaluation Level of Assist On Stairs Independent Devices Stair Climbing Assistive Devices None Technique/Endurance Stair Climbing Direction Ascend and Descend Stair Climbing Technique Step Over Step Number of Steps Climbed 4 Stair Climbing Set # Repetitions (reps) 2 Comments Stair Climbing Comments Slight R hip drop with L eccentric step down. Not painful. L knee translation directly over L foot. Able to lead with LLE ascending PT-OP-H Neuro Start: 11/28/23 10:13 Freq: Status: Active Protocol: Document 12/04/23 14:31 NM (Rec: 12/04/23 16:19 NM [id number]) Sensation Evaluation Gross Sensation Gross Sensation Left LE Impaired Comments Summary Comments Decreased light touch sensation of LLE along anterior tibia, scars PT-OP-J Posture/Palpation/Skin Start: 11/28/23 10:13 Freq: Status: Active Protocol: Document 12/04/23 14:31 NM (Rec: 12/04/23 16:19 NM [id number]) Posture Evaluation Position Standing Head/C-Spine Posture Forward Head L-Spine Posture Increased Lordosis Pelvis Posture Anteriorly Tilted Weight Distribution Balanced Hip Posture (L) Externally Rotated,(R) Externally Rotated Knee Posture (L) Genu Valgus,(R) Genu Valgus Patellar Posture (L) Superior,(R) Superior Ankle/Foot Posture (L) Pronated,(R) Pronated Comments Posture Comments R knee hyperextension in stance. L knee neutral extension Palpation Assessment Location L knee Palpation Location posterior knee, anterior knee, joint lines, femoral condyles , ITB Palpation Findings Tenderness Palpation Details Minimal tenderness along posterior knee near popliteal fold. No tenderness along joint lines. Minimal tenderness at anterior tibia and tibial tubercle, lateral femoral condyle. No tenderness along ITB despite pt reports Skin Assessment Incisional Assessment Incision Appearance/Comments Incisions intact, not infected . Minimal adhesion to underlying skin PT-OP-K Range of Motion Start: 11/28/23 10:13 Freq: Status: Active Protocol: Document 03/19/24 09:04 NM (Rec: 03/19/24 09:46 NM [id number]) Knee Goniometric Range of Motion Knee Left Flexion Active (degrees) 130 Extension Active (degrees) 0 Hyper-Extension Active 1 Comments Pain in posterior knee with end range passive extension 01/09/24: 0 deg ext, 120 deg flexion pre-stretch, 130 deg post stretching quad 01/29/24: 125 deg flexion, 0 deg extension 03/02/24: 125 deg flexion, 0 deg ext, +1 hyper extension 03/19/24: 130 deg flexion, +1 deg hyperextension PT-OP-M Strength Start: 11/28/23 10:13 Freq: Status: Active Protocol: Document 03/19/24 09:04 NM (Rec: 03/19/24 09:46 NM [id number]) Hip Strength Hip Manual Muscle Testing Left Flexion (L2) 4+ Good+ Extension (S1) 4+ Good+ Abduction 4+ Good+ Adduction 4+ Good+ External Rotation 4+ Good+ Internal Rotation 4+ Good+ Comments 01/09/24: 4/5 ext, 4+ for all others; pain free 01/29/24: 4+/5 for hip flex/ext /abd; pain free 03/19/24, 03/02/24: 4+/5 for all Knee Strength Knee Manual Muscle Testing Left Flexion (S2) 4+ Good+ Extension (L3) 4+ Good+ Comments no pain with resisted motion 01/09/24: 4+/5 flex, 4/5 extension; pain free 01/29/24: 4+/5 flex and extension; pain free 03/02/24: 4+/5, pain free; LLE 75% of RLE with squat testing 03/19/24: 4+/5 PT-OP-Q Treatments Start: 11/28/23 10:13 Freq: Status: Active Protocol: Document 03/19/24 09:04 NM (Rec: 03/19/24 09:46 NM [id number]) Therapeutic Exercises Sitting Exercises HSC Sitting Exercise Name cables Side left Resistance lvl 4 plate Reps/Minutes 2x8 Comments fatiguing LAQ Sitting Exercise Name cables Side left Resistance lvl 2 plate > 1 plate Reps/Minutes 2x8 2 plate, 1x8 1 plate Comments fatigueing; cued TKE, ankle DF for max TKE Standing Exercises ankle dorsiflexion Standing Exercise Name neuromuscular control with gait Side bilateral Reps/Minutes 10 x 3 concentric, 3 hold end range, 3 eccentric lowering standing clam Standing Exercise Name isometric hold Side bilateral Equipment Used orange taiwanese ball into wall Reps/Minutes 2x30 ea single leg RDL Standing Exercise Name with foam roller for hand support prn Side left Resistance AROM Reps/Minutes 10 Comments cued for hinge Manual Therapy Treatment Soft Tissue Mobilization STM left knee Body Location quad, peripatellar Mobilization Type Instrument Assisted,Rolling Intensity/Depth Moderate Body Position Hooklying Comments For reduction in muscle tightness Joint Mobilizations L knee Joint patellar, flexion post glide with tibial IR Direction Lat>/med, medial tilts, sup/ inf Grade III Body Position Supine Reps/Duration 4x30 ea Comments 1. supine -Emphasis on inferior glide with various degrees of knee flexion in order to improve flexion ROM and patellar mobility 2. 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 Short Term Goal (STG) Pt will demonstrate ability to lift 20# from squat position with good body mechanics and ambulate x 20 ft without knee pain or compensation in order to perform all functions of job 01/09/24: 20# squat box lift from floor, 1x10, then able to carry x20 ft STG Duration 5 weeks MET Care Home Goal (LTG) Pt will report no difficulty with performing job functions due to L knee pain in order to demonstrate return to PLOF UPDATED GOAL- Pt will be able to supervisor picking crew weighted object from floor using half kneel stance with L knee on floor or foam pad in order to demonstrate increased knee flexion and comfort when performing lifting tasks for work from lower surface 01/28/24: reports no limitations LTG Duration 10 weeks MET 01/28/24; updated 03/19/24 Four Impairment strength, plyometrics Short Term Goal (STG) Pt will be able to perform at least 10 reps of double leg hop from floor without compensation or pain and safe landing in order to demonstrate improved L knee strength and control during plyometrics 01/09/24: not appropriate at this time 01/29/24: Initiated today, 2x5 B hops with band for glute STG Duration 5 weeks PROGRESSING Operations Support Coordinator Goal (LTG) Pt will be able to perform vertical jump test or single leg hop test at least 80% of R leg if appropriate in order to demonstrate improved L knee strength and control during plyometrics 03/19/24, 03/02/24: initiated B hops and jumping; not appropriate for vertical or single leg jumping at this time LTG Duration 10 weeks NOT APPROPRIATE AT THIS TIME Three Impairment strength Impairment 1 L single leg squat Short Term Goal (STG) Pt will perform at least 8 single leg squats using LLE without pain or compensation in order to demonstrate improved L quad control and strength for return to PLOF 01/09/24: 8 single leg squats without pain, occasional opp hip drop but improved form today, using chair for 2 finger support 01/29/24: 10 single leg squats with 2 finger support for balance, no pain during squat STG Duration 5 weeks MET Care Home Goal (LTG) Pt will perform at least 10 single leg squats using LLE without pain or compensation in order to demonstrate improved L quad control and strength for return to PLOF 01/29/24: 10 single leg squats with 2 finger support for balance, no pain during squat but prn cues to prevent knee valgus with increased depth 03/02/24: Improved form with single leg squats, 2 finger support for balance. Progressed to single leg squat from chair and eccentric lowering, 1x3 on LLE LTG Duration 10 weeks PROGRESSING Two Impairment activity Impairment LEFS 61/80 Short Term Goal (STG) Pt will improve LEFS score to >65/80 in order to demonstrate improved activity tolerance and return to higher level of function 01/09/24: 62/80 01/29/24: 62/80 STG Duration 5 weeks NOT MET Care Home Goal (LTG) Pt will improve LEFS score to >65/80 (1 MCID) in order to demonstrate improved activity tolerance and return to higher level of function 01/29/24: 62/80 03/02/24: 64/80 LTG Duration 10 weeks NOT MET; GOAL UPDATED 03/19/24 One Impairment AROM Impairment L knee flex 127 deg Operations Support Coordinator Goal (LTG) Pt will improve L knee flexion AROM to > 130 deg without compensation in order to be comparable to R knee flexion for bike and stairs. 01/09/24: 130 deg knee flex 01/29/24: 125 deg flex 03/02/24: 127 deg, 130 deg post mob 03/19/24: 130 deg knee flex LTG Duration 10 weeks MET Progress Towards Goals Progress Towards Goals Progressing Toward Goals,Goals Met Progress Comments goals updated Assessment Summary Assessment Pt tolerated session well, but requires increased time and continues to demonstrate muscle fatigue. Continued with emphasizing knee flexion ROM for pt's job requirements. Met 130 deg knee flexion today. Emphasis on tibial IR screwhome into flexion during manual treatment. Demonstrates improved patellar mobility, especially into inferior glide . PT educated pt on strength training of quad/hamstrings at gym, recommending pt trial membership 2-3x/wk to increase LLE strength. Progressed cable LAQ and HSC resistance today. Pt able to achieve TKE but challenged with increased resistance. Pt continues to require consistent cueing for correct form with single leg RDL, improved hip hinge with verbal and tactile cues using foam roller for hand support. Pt demonstrates improved single leg stability with standing clams today. Physical Therapy Plan Frequency and Duration Frequency of Treatment 1x/Week Duration of treatment (weeks) 12 Plan of Care Start Date 03/19/24 Plan of Care End Date 06/12/24 Therapeutic Interventions Therapeutic Interventions Aquatic Therapy,Balance Training,Coordination Training ,Gait Training,Home Exercise Program,Joint Mobilizations, Manual Therapy,Neuromuscular Re-education,Orthotic/ Prosthetic Management,Patient/ Caregiver Education,Self-Care/ Home Management,Sensory Integration,Soft Tissue Mobilization,Taping, Therapeutic Activities, Therapeutic Exercises Modalities Biofeedback,Cold Pack/Ice Massage,Electric Stimulation, Hot Packs,Ultrasound, Vasopneumatic Devices Next Visit Focus/Plan Next Note Type Treatment Note Next Visit Plan Progress per protocol (see folder)- ISSUE GOOD/UPDATE HEP B/C LONGER BTWN SESSIONS Next session: trial jog, hopping > DL vertical jump, skater Y, kneeling and floor transfers, Jumping, box drops (4), single leg stability, bosu squats, leg press, proprioception, jog, triple ext Continue and progress leg press B and U squat, step up/ down/lateral, lateral touch down, single leg squat, single leg RDL, balance (foam, rocker) Manual PRN: patellar mobilizations, ITB Possibly trial of bilateral jump slow jog if able to perform single leg squat X 5 without dynamic valgus or single leg squat with band to HEP
--- NOTE | 2024-03-19 15:29 | PT.OPPOC ---
Physical, Occupational & Speech Therapy At [facility] Current Diagnoses Other abnormalities of gait and mobility (03/19/24) Weakness (03/19/24) Other specified postprocedural states (03/19/24) Visit Care Team Role Provider Type LUCIEN Palmer Family Provider Advanced Edge Plugger Specialty: Emergency Medicine Address: [address] [place] [address], [address], [place], [address] Email: [email or web address] Attending Provider Physician Primary Care Provider Referring Provider Specialty: Family Practice Address: [address] [place] [address], [address], [place], [address] Email: [email or web address] Plan Of Care PT-OP-T Assessment and Plan Start: 11/28/23 10:13 Freq: Status: Active Protocol: Document 03/19/24 09:04 NM (Rec: 03/19/24 09:46 NM [id number]) Physical Therapy Assessment Goals Five Impairment 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 Short Term Goal (STG) Pt will demonstrate ability to lift 20# from squat position with good body mechanics and ambulate x 20 ft without knee pain or compensation in order to perform all functions of job 01/09/24: 20# squat box lift from floor, 1x10, then able to carry x20 ft STG Duration 5 weeks MET Mcc Goal (LTG) Pt will report no difficulty with performing job functions due to L knee pain in order to demonstrate return to PLOF UPDATED GOAL- Pt will be able to pick pulling machine tender weighted object from floor using half kneel stance with L knee on floor or foam pad in order to demonstrate increased knee flexion and comfort when performing lifting tasks for work from lower surface 01/28/24: reports no limitations LTG Duration 10 weeks MET 01/28/24; updated 03/19/24 Four Impairment strength, plyometrics Short Term Goal (STG) Pt will be able to perform at least 10 reps of double leg hop from floor without compensation or pain and safe landing in order to demonstrate improved L knee strength and control during plyometrics 01/09/24: not appropriate at this time 01/29/24: Initiated today, 2x5 B hops with band for glute STG Duration 5 weeks PROGRESSING Residential Interior Designer Goal (LTG) Pt will be able to perform vertical jump test or single leg hop test at least 80% of R leg if appropriate in order to demonstrate improved L knee strength and control during plyometrics 03/19/24, 03/02/24: initiated B hops and jumping; not appropriate for vertical or single leg jumping at this time LTG Duration 10 weeks NOT APPROPRIATE AT THIS TIME Three Impairment strength Impairment 1 L single leg squat Short Term Goal (STG) Pt will perform at least 8 single leg squats using LLE without pain or compensation in order to demonstrate improved L quad control and strength for return to PLOF 01/09/24: 8 single leg squats without pain, occasional opp hip drop but improved form today, using chair for 2 finger support 01/29/24: 10 single leg squats with 2 finger support for balance, no pain during squat STG Duration 5 weeks MET Mcc Goal (LTG) Pt will perform at least 10 single leg squats using LLE without pain or compensation in order to demonstrate improved L quad control and strength for return to PLOF 01/29/24: 10 single leg squats with 2 finger support for balance, no pain during squat but prn cues to prevent knee valgus with increased depth 03/02/24: Improved form with single leg squats, 2 finger support for balance. Progressed to single leg squat from chair and eccentric lowering, 1x3 on LLE LTG Duration 10 weeks PROGRESSING Two Impairment activity Impairment LEFS 61/80 Short Term Goal (STG) Pt will improve LEFS score to >65/80 in order to demonstrate improved activity tolerance and return to higher level of function 01/09/24: 62/80 01/29/24: 62/80 STG Duration 5 weeks NOT MET Mcc Goal (LTG) Pt will improve LEFS score to >65/80 (1 MCID) in order to demonstrate improved activity tolerance and return to higher level of function 01/29/24: 62/80 03/02/24: 64/80 LTG Duration 10 weeks NOT MET; GOAL UPDATED 03/19/24 One Impairment AROM Impairment L knee flex 127 deg Residential Interior Designer Goal (LTG) Pt will improve L knee flexion AROM to > 130 deg without compensation in order to be comparable to R knee flexion for bike and stairs. 01/09/24: 130 deg knee flex 01/29/24: 125 deg flex 03/02/24: 127 deg, 130 deg post mob 03/19/24: 130 deg knee flex LTG Duration 10 weeks MET Progress Towards Goals Progress Towards Goals Progressing Toward Goals,Goals Met Progress Comments goals updated Assessment Summary Assessment Pt has been seen x11 times since November 2023 s/p L ACL repair with hamstring graft. Pt is progressing toward goals and has met several. Goals updated to reflect pt's current functional and ADL status. Although progressing with quad and glute strength, pt continues to have weakness compared to RLE. PT recommended pt perform most updated HEP vs older ones and for pt to begin using knee ext /flex and leg press machines in gym. Pt reports minimal pain, occasionally with knee flexion or with maintaining single leg squat position. She is progressing with single leg stability exercises and recently transitioned into jumping. Pt would benefit from skilled PT for LLE strengthening, mobility, and single leg stability training in order to improve ability to perform job and participate in recreational activities. Physical Therapy Plan Frequency and Duration Frequency of Treatment 1x/Week Duration of treatment (weeks) 12 Plan of Care Start Date 03/19/24 Plan of Care End Date 06/12/24 Therapeutic Interventions Therapeutic Interventions Aquatic Therapy,Balance Training,Coordination Training ,Gait Training,Home Exercise Program,Joint Mobilizations, Manual Therapy,Neuromuscular Re-education,Orthotic/ Prosthetic Management,Patient/ Caregiver Education,Self-Care/ Home Management,Sensory Integration,Soft Tissue Mobilization,Taping, Therapeutic Activities, Therapeutic Exercises Modalities Biofeedback,Cold Pack/Ice Massage,Electric Stimulation, Hot Packs,Ultrasound, Vasopneumatic Devices Next Visit Focus/Plan Next Note Type Treatment Note Next Visit Plan Progress per protocol (see folder)- ISSUE GOOD/UPDATE HEP B/C LONGER BTWN SESSIONS Next session: trial jog, hopping > DL vertical jump, skater Y, kneeling and floor transfers, Jumping, box drops (4), single leg stability, bosu squats, leg press, proprioception, jog, triple ext Continue and progress leg press B and U squat, step up/ down/lateral, lateral touch down, single leg squat, single leg RDL, balance (foam, rocker) Manual PRN: patellar mobilizations, ITB Possibly trial of bilateral jump slow jog if able to perform single leg squat X 5 without dynamic valgus or single leg squat with band to HEP Plan of Care Dates Plan of Care Start Date 03/19/24 Plan of Care End Date 06/12/24 Electronically Signed by: Roxann Trinidad, PT 03/19/24 [id number] If you are in agreement with this Plan of Care, please return a signed and dated copy. I have reviewed this Plan of Care and certify that the skilled therapy services above are required to meet the patient?s needs. Physician Signature Date Printed Name and Credentials Clinical Instructor Signature Printed Name and Credentials
--- NOTE | 2024-04-03 16:13 | PT-OP ANOTE ---
Pt called and cancelled <24 hrs due to called into work, unable make appt.
--- NOTE | 2024-04-07 12:43 | PT.OTN ---
Current Diagnoses Other abnormalities of gait and mobility (04/07/24) Weakness (04/07/24) Other specified postprocedural states (04/07/24) Physical Therapy Treatment Note PT-OP-A Visit Information Start: 11/28/23 10:13 Freq: Status: Active Protocol: Document 04/07/24 10:33 NM (Rec: 04/07/24 11:14 NM [id number]) Out-Patient Physical Therapy Visit Information Visit Information Visit Type Treatment Note Visit Start Time 10:33 Visit Stop Time 11:13 Visit Number 10/25 Evaluation Information Evaluation Date 12/04/23 PT-OP-B Current Condition Start: 11/28/23 10:13 Freq: Status: Active Protocol: Document 12/04/23 14:31 NM (Rec: 12/04/23 16:19 NM [id number]) Current Condition History of Current Condition Onset Date June 2023 Current Complaints knee flexion ROM, stiffness, pain with exercise, return to function History of Current Condition Pt had L knee ACL reconstruction in June 14, 2023 with hamstring graft. She tore her ACL while performing a [employer] course when moving laterally into L knee extension. No complications she's aware of with surgery, no complications with previous PT. She just moved to [facility]. She has been compliant with HEP since stopping PT in August when she moved. Prior to ACL tear, pt was not very active and did not exercise regularly. Currently, she is walking daily (1/4 mi). She is having a 2nd x ray follow up to assess surgical results and pt reported new bony prominence of L tibial plateau . Pt reports pain with supine quad sets laterally/ant knee, stiff when sitting for too long. 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 Pt states knee feels stable, no instances of locking/popping/giving out Prior Treatments and Tests Prior PT post op until move in 08/2023. Provided protocol from surgeon in [place], Dr. 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 Still has prn galloway pain PT-OP-D Balance Start: 11/28/23 10:13 Freq: Status: Active Protocol: Document 12/04/23 14:31 NM (Rec: 12/04/23 16:19 NM [id number]) Balance Tests Single Limb Standing Single Limb- Right 30 sec Single Limb- Left 15 sec; not painful, increased ankle sway PT-OP-E Functional Tests Start: 11/28/23 10:13 Freq: Status: Active Protocol: Document 12/04/23 14:31 NM (Rec: 12/04/23 16:19 NM [id number]) Functional Tests Squat Test Score 10 Comments slight R deviation at hips/ knees, no valgus, no heel rise Single Leg Squat Test Score 1 Comment L knee valgus, trendelenburg, decreased hip hinge, not painful; UE support PT-OP-F Manual Assessment Start: 11/28/23 10:13 Freq: Status: Active Protocol: Document 12/04/23 14:31 NM (Rec: 12/04/23 16:19 NM [id number]) Manual Assessments Soft Tissue Assessment Soft Tissue Mobility Assessment L calf atrophy, minimal quad atrophy Joint Mobility Assessment Joint Mobility Assessment No clicking, locking, or other signs of L knee instability PT-OP-G Mobility & Gait Start: 11/28/23 10:13 Freq: Status: Active Protocol: Document 12/04/23 14:31 NM (Rec: 12/04/23 16:19 NM [id number]) OP Gait Assessment Gait Gait Assistance Required: Independent Distance (Feet) 200 Assistive Devices Assistive Device None Gait Deviations General Gait Pattern Within Normal Limits,Narrow Based Gait Factors Limiting Gait Function Factors Limiting Gait Function Decreased Activity Tolerance, Decreased Sensation,Limited Range of Motion Comments Gait Comments Gait is not quad avoidant. Slight trunk deviation toward L side with stance, in addition to slight LLE circumduction vs L knee flexion. Stair Climbing Evaluation Evaluation Level of Assist On Stairs Independent Devices Stair Climbing Assistive Devices None Technique/Endurance Stair Climbing Direction Ascend and Descend Stair Climbing Technique Step Over Step Number of Steps Climbed 4 Stair Climbing Set # Repetitions (reps) 2 Comments Stair Climbing Comments Slight R hip drop with L eccentric step down. Not painful. L knee translation directly over L foot. Able to lead with LLE ascending PT-OP-H Neuro Start: 11/28/23 10:13 Freq: Status: Active Protocol: Document 12/04/23 14:31 NM (Rec: 12/04/23 16:19 NM [id number]) Sensation Evaluation Gross Sensation Gross Sensation Left LE Impaired Comments Summary Comments Decreased light touch sensation of LLE along anterior tibia, scars PT-OP-J Posture/Palpation/Skin Start: 11/28/23 10:13 Freq: Status: Active Protocol: Document 12/04/23 14:31 NM (Rec: 12/04/23 16:19 NM [id number]) Posture Evaluation Position Standing Head/C-Spine Posture Forward Head L-Spine Posture Increased Lordosis Pelvis Posture Anteriorly Tilted Weight Distribution Balanced Hip Posture (L) Externally Rotated,(R) Externally Rotated Knee Posture (L) Genu Valgus,(R) Genu Valgus Patellar Posture (L) Superior,(R) Superior Ankle/Foot Posture (L) Pronated,(R) Pronated Comments Posture Comments R knee hyperextension in stance. L knee neutral extension Palpation Assessment Location L knee Palpation Location posterior knee, anterior knee, joint lines, femoral condyles , ITB Palpation Findings Tenderness Palpation Details Minimal tenderness along posterior knee near popliteal fold. No tenderness along joint lines. Minimal tenderness at anterior tibia and tibial tubercle, lateral femoral condyle. No tenderness along ITB despite pt reports Skin Assessment Incisional Assessment Incision Appearance/Comments Incisions intact, not infected . Minimal adhesion to underlying skin PT-OP-K Range of Motion Start: 11/28/23 10:13 Freq: Status: Active Protocol: Document 03/19/24 09:04 NM (Rec: 03/19/24 09:46 NM [id number]) Knee Goniometric Range of Motion Knee Left Flexion Active (degrees) 130 Extension Active (degrees) 0 Hyper-Extension Active 1 Comments Pain in posterior knee with end range passive extension 01/09/24: 0 deg ext, 120 deg flexion pre-stretch, 130 deg post stretching quad 01/29/24: 125 deg flexion, 0 deg extension 03/02/24: 125 deg flexion, 0 deg ext, +1 hyper extension 03/19/24: 130 deg flexion, +1 deg hyperextension PT-OP-M Strength Start: 11/28/23 10:13 Freq: Status: Active Protocol: Document 03/19/24 09:04 NM (Rec: 03/19/24 09:46 NM [id number]) Hip Strength Hip Manual Muscle Testing Left Flexion (L2) 4+ Good+ Extension (S1) 4+ Good+ Abduction 4+ Good+ Adduction 4+ Good+ External Rotation 4+ Good+ Internal Rotation 4+ Good+ Comments 01/09/24: 4/5 ext, 4+ for all others; pain free 01/29/24: 4+/5 for hip flex/ext /abd; pain free 03/19/24, 03/02/24: 4+/5 for all Knee Strength Knee Manual Muscle Testing Left Flexion (S2) 4+ Good+ Extension (L3) 4+ Good+ Comments no pain with resisted motion 01/09/24: 4+/5 flex, 4/5 extension; pain free 01/29/24: 4+/5 flex and extension; pain free 03/02/24: 4+/5, pain free; LLE 75% of RLE with squat testing 03/19/24: 4+/5 PT-OP-Q Treatments Start: 11/28/23 10:13 Freq: Status: Active Protocol: Document 04/07/24 10:33 NM (Rec: 04/07/24 11:14 NM [id number]) Cardio Equipment Elliptical Duration (Minutes) 2 Resistance 0 Other warm up Gym Equipment Shuttle Recovery R squat Details testing: max number performed Resistance 75# (3 navy) Reps/Time 14 (*27 at 63#, *18@75#) L squat Details testing # reps (max # reps performed) Resistance 75# (3 navy) Reps/Time 10 (*12@ 75#) Therapeutic Exercises Standing Exercises single leg RDL Side bilateral Resistance 5# db in same hand Reps/Minutes 10 ea Comments improved hinge; cued not to put foot down glute med activation Standing Exercise Name long lever arm Side bilateral Resistance level 1 band around ankles, 5# db for counter balance Equipment Used 8 step, mirror for visual cues Reps/Minutes 30 ea Comments good alignment HSC Side left Resistance 4# ankle weights Reps/Minutes 2x10 Comments pain free, slightly less on L side than R side Neuro Re-Education Treatment Balance Activities hopping Comments 1. fwd and bwd hop, 10 ea direction over line Cued soft landing, improved with reps; pain free on knee 2. B vertical jumping, 10 ea Cues softer landing, more squat to slow impact 3. lateral hops over line, 10 ea direction Cued to prevent hip shift with landing, improved with visual and verbal cues SLS Details L leg only Comments 1. Ball toss, 10 ea without foam fwd and lateral cross body and same side (30 total) 2. 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 Short Term Goal (STG) Pt will demonstrate ability to lift 20# from squat position with good body mechanics and ambulate x 20 ft without knee pain or compensation in order to perform all functions of job 01/09/24: 20# squat box lift from floor, 1x10, then able to carry x20 ft STG Duration 5 weeks MET Jail Goal (LTG) Pt will report no difficulty with performing job functions due to L knee pain in order to demonstrate return to PLOF UPDATED GOAL- Pt will be able to pickling operator weighted object from floor using half kneel stance with L knee on floor or foam pad in order to demonstrate increased knee flexion and comfort when performing lifting tasks for work from lower surface 01/28/24: reports no limitations LTG Duration 10 weeks MET 01/28/24; updated 03/19/24 Four Impairment strength, plyometrics Short Term Goal (STG) Pt will be able to perform at least 10 reps of double leg hop from floor without compensation or pain and safe landing in order to demonstrate improved L knee strength and control during plyometrics 01/09/24: not appropriate at this time 01/29/24: Initiated today, 2x5 B hops with band for glute STG Duration 5 weeks PROGRESSING Credit Collector Goal (LTG) Pt will be able to perform vertical jump test or single leg hop test at least 80% of R leg if appropriate in order to demonstrate improved L knee strength and control during plyometrics 03/19/24, 03/02/24: initiated B hops and jumping; not appropriate for vertical or single leg jumping at this time LTG Duration 10 weeks NOT APPROPRIATE AT THIS TIME Three Impairment strength Impairment 1 L single leg squat Short Term Goal (STG) Pt will perform at least 8 single leg squats using LLE without pain or compensation in order to demonstrate improved L quad control and strength for return to PLOF 01/09/24: 8 single leg squats without pain, occasional opp hip drop but improved form today, using chair for 2 finger support 01/29/24: 10 single leg squats with 2 finger support for balance, no pain during squat STG Duration 5 weeks MET Credit Collector Goal (LTG) Pt will perform at least 10 single leg squats using LLE without pain or compensation in order to demonstrate improved L quad control and strength for return to PLOF 01/29/24: 10 single leg squats with 2 finger support for balance, no pain during squat but prn cues to prevent knee valgus with increased depth 03/02/24: Improved form with single leg squats, 2 finger support for balance. Progressed to single leg squat from chair and eccentric lowering, 1x3 on LLE LTG Duration 10 weeks PROGRESSING Two Impairment activity Impairment LEFS 61/80 Short Term Goal (STG) Pt will improve LEFS score to >65/80 in order to demonstrate improved activity tolerance and return to higher level of function 01/09/24: 62/80 01/29/24: 62/80 STG Duration 5 weeks NOT MET Credit Collector Goal (LTG) Pt will improve LEFS score to >65/80 (1 MCID) in order to demonstrate improved activity tolerance and return to higher level of function 01/29/24: 62/80 03/02/24: 64/80 LTG Duration 10 weeks NOT MET; GOAL UPDATED 03/19/24 One Impairment AROM Impairment L knee flex 127 deg Credit Collector Goal (LTG) Pt will improve L knee flexion AROM to > 130 deg without compensation in order to be comparable to R knee flexion for bike and stairs. 01/09/24: 130 deg knee flex 01/29/24: 125 deg flex 03/02/24: 127 deg, 130 deg post mob 03/19/24: 130 deg knee flex LTG Duration 10 weeks MET Assessment Summary Assessment Pt tolerated session well and demonstrates improved single leg strength but still challenging. Able to tolerate longer lever arm with single leg activities. Initiated bilateral hopping in multiple directions. Pt initially requires cues for softer landing, but demonstrates no knee instability and does not have knee valgus when hopping. No pain with gentle impact. Able to progress single leg RDL without hand support and with small weight and improved form, with less cueing. Pt would benefit from skilled PT for jumping/impact progression in addition to L hip/quad strengthening in order to improve L knee stability and strength for ADLs/return to PLOF. Physical Therapy Plan Frequency and Duration Frequency of Treatment 1x/Week Duration of treatment (weeks) 12 Plan of Care Start Date 03/19/24 Plan of Care End Date 06/12/24 Therapeutic Interventions Therapeutic Interventions Aquatic Therapy,Balance Training,Coordination Training ,Gait Training,Home Exercise Program,Joint Mobilizations, Manual Therapy,Neuromuscular Re-education,Orthotic/ Prosthetic Management,Patient/ Caregiver Education,Self-Care/ Home Management,Sensory Integration,Soft Tissue Mobilization,Taping, Therapeutic Activities, Therapeutic Exercises Modalities Biofeedback,Cold Pack/Ice Massage,Electric Stimulation, Hot Packs,Ultrasound, Vasopneumatic Devices Next Visit Focus/Plan Next Note Type Treatment Note Next Visit Plan Trial jog and continue hopping on stable surface double leg (trial small box up/down)- focus on form, single leg stability (roxanne on uneven surface), skater squat with slider, pulse squat (split squat) trial jog, hopping > DL vertical jump, skater Y, kneeling and floor transfers, Jumping, box drops (4), single leg stability, bosu squats, leg press, proprioception, jog, triple ext Continue and progress leg press B and U squat, step up/ down/lateral, lateral touch down, single leg squat, single leg RDL, balance (foam, rocker) Manual PRN: patellar mobilizations, ITB Possibly trial of bilateral jump slow jog if able to perform single leg squat X 5 without dynamic valgus or single leg squat with band to HEP
--- NOTE | 2024-04-13 12:13 | PT.OTN ---
Current Diagnoses Other abnormalities of gait and mobility (04/13/24) Weakness (04/13/24) Other specified postprocedural states (04/13/24) Physical Therapy Treatment Note PT-OP-A Visit Information Start: 11/28/23 10:13 Freq: Status: Active Protocol: Document 04/13/24 11:20 NM (Rec: 04/13/24 12:04 NM [id number]) Out-Patient Physical Therapy Visit Information Visit Information Visit Type Treatment Note Visit Start Time 11:20 Visit Stop Time 12:00 Visit Number 11/25 Evaluation Information Evaluation Date 12/04/23 PT-OP-B Current Condition Start: 11/28/23 10:13 Freq: Status: Active Protocol: Document 12/04/23 14:31 NM (Rec: 12/04/23 16:19 NM [id number]) Current Condition History of Current Condition Onset Date June 2023 Current Complaints knee flexion ROM, stiffness, pain with exercise, return to function History of Current Condition Pt had L knee ACL reconstruction in June 14, 2023 with hamstring graft. She tore her ACL while performing a [employer] course when moving laterally into L knee extension. No complications she's aware of with surgery, no complications with previous PT. She just moved to [facility]. She has been compliant with HEP since stopping PT in August when she moved. Prior to ACL tear, pt was not very active and did not exercise regularly. Currently, she is walking daily (1/4 mi). She is having a 2nd x ray follow up to assess surgical results and pt reported new bony prominence of L tibial plateau . Pt reports pain with supine quad sets laterally/ant knee, stiff when sitting for too long. 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 Pt states knee feels stable, no instances of locking/popping/giving out Prior Treatments and Tests Prior PT post op until move in 08/2023. Provided protocol from surgeon in [place], Dr. 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 Reports still struggling with RDLs, did not try hiking PT-OP-D Balance Start: 11/28/23 10:13 Freq: Status: Active Protocol: Document 12/04/23 14:31 NM (Rec: 12/04/23 16:19 NM [id number]) Balance Tests Single Limb Standing Single Limb- Right 30 sec Single Limb- Left 15 sec; not painful, increased ankle sway PT-OP-E Functional Tests Start: 11/28/23 10:13 Freq: Status: Active Protocol: Document 12/04/23 14:31 NM (Rec: 12/04/23 16:19 NM [id number]) Functional Tests Squat Test Score 10 Comments slight R deviation at hips/ knees, no valgus, no heel rise Single Leg Squat Test Score 1 Comment L knee valgus, trendelenburg, decreased hip hinge, not painful; UE support PT-OP-F Manual Assessment Start: 11/28/23 10:13 Freq: Status: Active Protocol: Document 12/04/23 14:31 NM (Rec: 12/04/23 16:19 NM [id number]) Manual Assessments Soft Tissue Assessment Soft Tissue Mobility Assessment L calf atrophy, minimal quad atrophy Joint Mobility Assessment Joint Mobility Assessment No clicking, locking, or other signs of L knee instability PT-OP-G Mobility & Gait Start: 11/28/23 10:13 Freq: Status: Active Protocol: Document 12/04/23 14:31 NM (Rec: 12/04/23 16:19 NM [id number]) OP Gait Assessment Gait Gait Assistance Required: Independent Distance (Feet) 200 Assistive Devices Assistive Device None Gait Deviations General Gait Pattern Within Normal Limits,Narrow Based Gait Factors Limiting Gait Function Factors Limiting Gait Function Decreased Activity Tolerance, Decreased Sensation,Limited Range of Motion Comments Gait Comments Gait is not quad avoidant. Slight trunk deviation toward L side with stance, in addition to slight LLE circumduction vs L knee flexion. Stair Climbing Evaluation Evaluation Level of Assist On Stairs Independent Devices Stair Climbing Assistive Devices None Technique/Endurance Stair Climbing Direction Ascend and Descend Stair Climbing Technique Step Over Step Number of Steps Climbed 4 Stair Climbing Set # Repetitions (reps) 2 Comments Stair Climbing Comments Slight R hip drop with L eccentric step down. Not painful. L knee translation directly over L foot. Able to lead with LLE ascending PT-OP-H Neuro Start: 11/28/23 10:13 Freq: Status: Active Protocol: Document 12/04/23 14:31 NM (Rec: 12/04/23 16:19 NM [id number]) Sensation Evaluation Gross Sensation Gross Sensation Left LE Impaired Comments Summary Comments Decreased light touch sensation of LLE along anterior tibia, scars PT-OP-J Posture/Palpation/Skin Start: 11/28/23 10:13 Freq: Status: Active Protocol: Document 12/04/23 14:31 NM (Rec: 12/04/23 16:19 NM [id number]) Posture Evaluation Position Standing Head/C-Spine Posture Forward Head L-Spine Posture Increased Lordosis Pelvis Posture Anteriorly Tilted Weight Distribution Balanced Hip Posture (L) Externally Rotated,(R) Externally Rotated Knee Posture (L) Genu Valgus,(R) Genu Valgus Patellar Posture (L) Superior,(R) Superior Ankle/Foot Posture (L) Pronated,(R) Pronated Comments Posture Comments R knee hyperextension in stance. L knee neutral extension Palpation Assessment Location L knee Palpation Location posterior knee, anterior knee, joint lines, femoral condyles , ITB Palpation Findings Tenderness Palpation Details Minimal tenderness along posterior knee near popliteal fold. No tenderness along joint lines. Minimal tenderness at anterior tibia and tibial tubercle, lateral femoral condyle. No tenderness along ITB despite pt reports Skin Assessment Incisional Assessment Incision Appearance/Comments Incisions intact, not infected . Minimal adhesion to underlying skin PT-OP-K Range of Motion Start: 11/28/23 10:13 Freq: Status: Active Protocol: Document 03/19/24 09:04 NM (Rec: 03/19/24 09:46 NM [id number]) Knee Goniometric Range of Motion Knee Left Flexion Active (degrees) 130 Extension Active (degrees) 0 Hyper-Extension Active 1 Comments Pain in posterior knee with end range passive extension 01/09/24: 0 deg ext, 120 deg flexion pre-stretch, 130 deg post stretching quad 01/29/24: 125 deg flexion, 0 deg extension 03/02/24: 125 deg flexion, 0 deg ext, +1 hyper extension 03/19/24: 130 deg flexion, +1 deg hyperextension PT-OP-M Strength Start: 11/28/23 10:13 Freq: Status: Active Protocol: Document 03/19/24 09:04 NM (Rec: 03/19/24 09:46 NM [id number]) Hip Strength Hip Manual Muscle Testing Left Flexion (L2) 4+ Good+ Extension (S1) 4+ Good+ Abduction 4+ Good+ Adduction 4+ Good+ External Rotation 4+ Good+ Internal Rotation 4+ Good+ Comments 01/09/24: 4/5 ext, 4+ for all others; pain free 01/29/24: 4+/5 for hip flex/ext /abd; pain free 03/19/24, 03/02/24: 4+/5 for all Knee Strength Knee Manual Muscle Testing Left Flexion (S2) 4+ Good+ Extension (L3) 4+ Good+ Comments no pain with resisted motion 01/09/24: 4+/5 flex, 4/5 extension; pain free 01/29/24: 4+/5 flex and extension; pain free 03/02/24: 4+/5, pain free; LLE 75% of RLE with squat testing 03/19/24: 4+/5 PT-OP-Q Treatments Start: 11/28/23 10:13 Freq: Status: Active Protocol: Document 04/13/24 11:20 NM (Rec: 04/13/24 12:04 NM [id number]) Cardio Equipment Bicycle (Upright) Duration (Minutes) 2 Resistance 5 Seat Position 2 Therapeutic Exercises Standing Exercises single leg squat Standing Exercise Name 1. 1 hand support, 2. from chair Side bilateral Resistance AROM Equipment Used 2 finger support on chair, mirror for visual feedback Reps/Minutes 1. 10, 2. 5 Comments no hip drop today with hand support; slight ipsi trunk lean w/ stance squat Standing Exercise Name 1. split squat, 2. pulse squats (prior to jogging) Side bilateral Resistance 5# db ea hand Equipment Used mirror for visual feedback Reps/Minutes 1. 2x15, 2. 30 sec ea Comments good knee behind toe alignment ; pain free, knee to floor Therapeutic Activity Therapeutic Activity cutting/turning Comments 1. lateral ball squat rolls, 2x10 ea then on PT command for 60 seconds total Good directional changes without twisting at knee, neutral foot position 2. square drill: side slides, back pedal, fwd jog; 3 reps ea direction Speed slower jogging Reps/Minutes 6x50ft Comments Demos limited hip flexion, extends knee forward when running vs extending backward. Pain free with jogging. Cued softer landing with knee, foot placement in every other square to elongate stride length vs pt very narrow and limited step length hopping/jumping Reps/Minutes 30 ea Comments Plyometric toe taps on 4 step , alternating post jogging to promote softer landing and quick reaction time Self-Care/Home Management Treatment Education Patient Education Home Exercise Program Other Education HEP: split squat, squat/sit to stand from chair PT-OP-T Assessment and Plan Start: 11/28/23 10:13 Freq: Status: Active Protocol: Document 04/13/24 11:20 NM (Rec: 04/13/24 12:04 NM [id number]) Physical Therapy Assessment Goals Five Impairment 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 Short Term Goal (STG) Pt will demonstrate ability to lift 20# from squat position with good body mechanics and ambulate x 20 ft without knee pain or compensation in order to perform all functions of job 01/09/24: 20# squat box lift from floor, 1x10, then able to carry x20 ft STG Duration 5 weeks MET Care Home Goal (LTG) Pt will report no difficulty with performing job functions due to L knee pain in order to demonstrate return to PLOF UPDATED GOAL- 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 using half kneel stance with L knee on floor or foam pad in order to demonstrate increased knee flexion and comfort when performing lifting tasks for work from lower surface 01/28/24: reports no limitations LTG Duration 10 weeks MET 01/28/24; updated 03/19/24 Four Impairment strength, plyometrics Short Term Goal (STG) Pt will be able to perform at least 10 reps of double leg hop from floor without compensation or pain and safe landing in order to demonstrate improved L knee strength and control during plyometrics 01/09/24: not appropriate at this time 01/29/24: Initiated today, 2x5 B hops with band for glute STG Duration 5 weeks PROGRESSING Care Home Goal (LTG) Pt will be able to perform vertical jump test or single leg hop test at least 80% of R leg if appropriate in order to demonstrate improved L knee strength and control during plyometrics 03/19/24, 03/02/24: initiated B hops and jumping; not appropriate for vertical or single leg jumping at this time LTG Duration 10 weeks NOT APPROPRIATE AT THIS TIME Three Impairment strength Impairment 1 L single leg squat Short Term Goal (STG) Pt will perform at least 8 single leg squats using LLE without pain or compensation in order to demonstrate improved L quad control and strength for return to PLOF 01/09/24: 8 single leg squats without pain, occasional opp hip drop but improved form today, using chair for 2 finger support 01/29/24: 10 single leg squats with 2 finger support for balance, no pain during squat STG Duration 5 weeks MET Care Home Goal (LTG) Pt will perform at least 10 single leg squats using LLE without pain or compensation in order to demonstrate improved L quad control and strength for return to PLOF 01/29/24: 10 single leg squats with 2 finger support for balance, no pain during squat but prn cues to prevent knee valgus with increased depth 03/02/24: Improved form with single leg squats, 2 finger support for balance. Progressed to single leg squat from chair and eccentric lowering, 1x3 on LLE LTG Duration 10 weeks PROGRESSING Two Impairment activity Impairment LEFS 61/80 Short Term Goal (STG) Pt will improve LEFS score to >65/80 in order to demonstrate improved activity tolerance and return to higher level of function 01/09/24: 62/80 01/29/24: 62/80 STG Duration 5 weeks NOT MET Care Home Goal (LTG) Pt will improve LEFS score to >65/80 (1 MCID) in order to demonstrate improved activity tolerance and return to higher level of function 01/29/24: 62/80 03/02/24: 64/80 LTG Duration 10 weeks NOT MET; GOAL UPDATED 03/19/24 One Impairment AROM Impairment L knee flex 127 deg Internal Sales Goal (LTG) Pt will improve L knee flexion AROM to > 130 deg without compensation in order to be comparable to R knee flexion for bike and stairs. 01/09/24: 130 deg knee flex 01/29/24: 125 deg flex 03/02/24: 127 deg, 130 deg post mob 03/19/24: 130 deg knee flex LTG Duration 10 weeks MET Assessment Summary Assessment Pt tolerated session well and continues to make progress with glute/quad/hamstring strength. Initiated single leg squat from seated position on chair, which pt only able to perform for 5 reps; however, she no longer requires hand support due to increase glute/ quad strength. Progressed to split squat with good form, able to reach floor with knee. However, pt has limited hip mobility, which influences knee flexion depth. Trialed jogging today. Pt demonstrates knee hip/flexion with jogging and maintains knee extension; however, improved with cues for softer knee and visual feedback to improve stride length. Initiated cutting/ turning with ball and directional changes. Pt demonstrates some hesitancy but performed well and slowly. Pt would benefit from skilled PT for global BLE strengthening and progressing toward jogging and running/ cutting in order to improve activity tolerance and return to recreational activities. Physical Therapy Plan Frequency and Duration Frequency of Treatment 1x/Week Duration of treatment (weeks) 12 Plan of Care Start Date 03/19/24 Plan of Care End Date 06/12/24 Therapeutic Interventions Therapeutic Interventions Aquatic Therapy,Balance Training,Coordination Training ,Gait Training,Home Exercise Program,Joint Mobilizations, Manual Therapy,Neuromuscular Re-education,Orthotic/ Prosthetic Management,Patient/ Caregiver Education,Self-Care/ Home Management,Sensory Integration,Soft Tissue Mobilization,Taping, Therapeutic Activities, Therapeutic Exercises Modalities Biofeedback,Cold Pack/Ice Massage,Electric Stimulation, Hot Packs,Ultrasound, Vasopneumatic Devices Next Visit Focus/Plan Next Note Type Treatment Note Next Visit Plan Continue jog, trial paragu[place] split squat on chair, review single leg squat from chair, move to unstable surface continue hopping on stable surface double leg (trial small box up/down)-focus on form, single leg stability ( roxanne on uneven surface), skater squat with slider, pulse squat (split squat) trial jog, hopping > DL vertical jump, skater Y, kneeling and floor transfers, Jumping, box drops Manual PRN: patellar mobilizations, ITB
--- NOTE | 2024-04-20 15:31 | PT.OTN ---
Current Diagnoses Other abnormalities of gait and mobility (04/20/24) Weakness (04/20/24) Other specified postprocedural states (04/20/24) Physical Therapy Treatment Note PT-OP-A Visit Information Start: 11/28/23 10:13 Freq: Status: Active Protocol: Document 04/20/24 13:47 NM (Rec: 04/20/24 14:35 NM [id number]) Out-Patient Physical Therapy Visit Information Visit Information Visit Type Treatment Note Visit Start Time 13:48 Visit Stop Time 14:30 Visit Number 12/23 Evaluation Information Evaluation Date 12/04/23 PT-OP-B Current Condition Start: 11/28/23 10:13 Freq: Status: Active Protocol: Document 12/04/23 14:31 NM (Rec: 12/04/23 16:19 NM [id number]) Current Condition History of Current Condition Onset Date June 2023 Current Complaints knee flexion ROM, stiffness, pain with exercise, return to function History of Current Condition Pt had L knee ACL reconstruction in June 14, 2023 with hamstring graft. She tore her ACL while performing a [employer] course when moving laterally into L knee extension. No complications she's aware of with surgery, no complications with previous PT. She just moved to [facility]. She has been compliant with HEP since stopping PT in August when she moved. Prior to ACL tear, pt was not very active and did not exercise regularly. Currently, she is walking daily (1/4 mi). She is having a 2nd x ray follow up to assess surgical results and pt reported new bony prominence of L tibial plateau . Pt reports pain with supine quad sets laterally/ant knee, stiff when sitting for too long. 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 Pt states knee feels stable, no instances of locking/popping/giving out Prior Treatments and Tests Prior PT post op until move in 08/2023. Provided protocol from surgeon in [place], Dr. 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 Pt has xray and meeting with surgeon at [facility], 06/05. PT-OP-D Balance Start: 11/28/23 10:13 Freq: Status: Active Protocol: Document 12/04/23 14:31 NM (Rec: 12/04/23 16:19 NM [id number]) Balance Tests Single Limb Standing Single Limb- Right 30 sec Single Limb- Left 15 sec; not painful, increased ankle sway PT-OP-E Functional Tests Start: 11/28/23 10:13 Freq: Status: Active Protocol: Document 12/04/23 14:31 NM (Rec: 12/04/23 16:19 NM [id number]) Functional Tests Squat Test Score 10 Comments slight R deviation at hips/ knees, no valgus, no heel rise Single Leg Squat Test Score 1 Comment L knee valgus, trendelenburg, decreased hip hinge, not painful; UE support PT-OP-F Manual Assessment Start: 11/28/23 10:13 Freq: Status: Active Protocol: Document 12/04/23 14:31 NM (Rec: 12/04/23 16:19 NM [id number]) Manual Assessments Soft Tissue Assessment Soft Tissue Mobility Assessment L calf atrophy, minimal quad atrophy Joint Mobility Assessment Joint Mobility Assessment No clicking, locking, or other signs of L knee instability PT-OP-G Mobility & Gait Start: 11/28/23 10:13 Freq: Status: Active Protocol: Document 12/04/23 14:31 NM (Rec: 12/04/23 16:19 NM [id number]) OP Gait Assessment Gait Gait Assistance Required: Independent Distance (Feet) 200 Assistive Devices Assistive Device None Gait Deviations General Gait Pattern Within Normal Limits,Narrow Based Gait Factors Limiting Gait Function Factors Limiting Gait Function Decreased Activity Tolerance, Decreased Sensation,Limited Range of Motion Comments Gait Comments Gait is not quad avoidant. Slight trunk deviation toward L side with stance, in addition to slight LLE circumduction vs L knee flexion. Stair Climbing Evaluation Evaluation Level of Assist On Stairs Independent Devices Stair Climbing Assistive Devices None Technique/Endurance Stair Climbing Direction Ascend and Descend Stair Climbing Technique Step Over Step Number of Steps Climbed 4 Stair Climbing Set # Repetitions (reps) 2 Comments Stair Climbing Comments Slight R hip drop with L eccentric step down. Not painful. L knee translation directly over L foot. Able to lead with LLE ascending PT-OP-H Neuro Start: 11/28/23 10:13 Freq: Status: Active Protocol: Document 12/04/23 14:31 NM (Rec: 12/04/23 16:19 NM [id number]) Sensation Evaluation Gross Sensation Gross Sensation Left LE Impaired Comments Summary Comments Decreased light touch sensation of LLE along anterior tibia, scars PT-OP-J Posture/Palpation/Skin Start: 11/28/23 10:13 Freq: Status: Active Protocol: Document 12/04/23 14:31 NM (Rec: 12/04/23 16:19 NM [id number]) Posture Evaluation Position Standing Head/C-Spine Posture Forward Head L-Spine Posture Increased Lordosis Pelvis Posture Anteriorly Tilted Weight Distribution Balanced Hip Posture (L) Externally Rotated,(R) Externally Rotated Knee Posture (L) Genu Valgus,(R) Genu Valgus Patellar Posture (L) Superior,(R) Superior Ankle/Foot Posture (L) Pronated,(R) Pronated Comments Posture Comments R knee hyperextension in stance. L knee neutral extension Palpation Assessment Location L knee Palpation Location posterior knee, anterior knee, joint lines, femoral condyles , ITB Palpation Findings Tenderness Palpation Details Minimal tenderness along posterior knee near popliteal fold. No tenderness along joint lines. Minimal tenderness at anterior tibia and tibial tubercle, lateral femoral condyle. No tenderness along ITB despite pt reports Skin Assessment Incisional Assessment Incision Appearance/Comments Incisions intact, not infected . Minimal adhesion to underlying skin PT-OP-K Range of Motion Start: 11/28/23 10:13 Freq: Status: Active Protocol: Document 03/19/24 09:04 NM (Rec: 03/19/24 09:46 NM [id number]) Knee Goniometric Range of Motion Knee Left Flexion Active (degrees) 130 Extension Active (degrees) 0 Hyper-Extension Active 1 Comments Pain in posterior knee with end range passive extension 01/09/24: 0 deg ext, 120 deg flexion pre-stretch, 130 deg post stretching quad 01/29/24: 125 deg flexion, 0 deg extension 03/02/24: 125 deg flexion, 0 deg ext, +1 hyper extension 03/19/24: 130 deg flexion, +1 deg hyperextension PT-OP-M Strength Start: 11/28/23 10:13 Freq: Status: Active Protocol: Document 03/19/24 09:04 NM (Rec: 03/19/24 09:46 NM [id number]) Hip Strength Hip Manual Muscle Testing Left Flexion (L2) 4+ Good+ Extension (S1) 4+ Good+ Abduction 4+ Good+ Adduction 4+ Good+ External Rotation 4+ Good+ Internal Rotation 4+ Good+ Comments 01/09/24: 4/5 ext, 4+ for all others; pain free 01/29/24: 4+/5 for hip flex/ext /abd; pain free 03/19/24, 03/02/24: 4+/5 for all Knee Strength Knee Manual Muscle Testing Left Flexion (S2) 4+ Good+ Extension (L3) 4+ Good+ Comments no pain with resisted motion 01/09/24: 4+/5 flex, 4/5 extension; pain free 01/29/24: 4+/5 flex and extension; pain free 03/02/24: 4+/5, pain free; LLE 75% of RLE with squat testing 03/19/24: 4+/5 PT-OP-Q Treatments Start: 11/28/23 10:13 Freq: Status: Active Protocol: Document 04/20/24 13:47 NM (Rec: 04/20/24 14:35 NM [id number]) Cardio Equipment Bicycle (Upright) Duration (Minutes) 2 Resistance 5 Seat Position 2 Therapeutic Exercises Supine Exercises HSC Supine Exercise Name on ecuadorean ball with bridge hip ext Side bilateral Equipment Used mat on floor; orange ecuadorean ball Reps/Minutes 2x8 Standing Exercises squat Standing Exercise Name peruvian split squat Side bilateral Resistance AROM Reps/Minutes 2x8 Comments good knee behind toe, hip hinge; pain free; demos slight R lean Therapeutic Activity Therapeutic Activity cutting/turning Comments 1. plant & turn, 5 ea direction 2. plant & turn w/ propulsion x5 ea direction & jog x10 ft 3. back pedal, 4x25 ft Cued slight trunk lean anterior, hip ext during back pedal. Slow speed with cutting and turn; educated on jogging Comments 1. treadmill: 4.0 mph for 2x60 , 2x60 @ 3.8 mph 2. outside, 4x25 ft Fatiguing but pain free in L knee. Heavy midfoot strike, good hip and quad stability hopping/jumping Comments 1. fwd single leg hopping, 2x10 ft in square Cued softer landing 2. 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 Short Term Goal (STG) Pt will demonstrate ability to lift 20# from squat position with good body mechanics and ambulate x 20 ft without knee pain or compensation in order to perform all functions of job 01/09/24: 20# squat box lift from floor, 1x10, then able to carry x20 ft STG Duration 5 weeks MET Detention Goal (LTG) Pt will report no difficulty with performing job functions due to L knee pain in order to demonstrate return to PLOF UPDATED GOAL- Pt will be able to apple picker weighted object from floor using half kneel stance with L knee on floor or foam pad in order to demonstrate increased knee flexion and comfort when performing lifting tasks for work from lower surface 01/28/24: reports no limitations LTG Duration 10 weeks MET 01/28/24; updated 03/19/24 Four Impairment strength, plyometrics Short Term Goal (STG) Pt will be able to perform at least 10 reps of double leg hop from floor without compensation or pain and safe landing in order to demonstrate improved L knee strength and control during plyometrics 01/09/24: not appropriate at this time 01/29/24: Initiated today, 2x5 B hops with band for glute STG Duration 5 weeks PROGRESSING Detention Goal (LTG) Pt will be able to perform vertical jump test or single leg hop test at least 80% of R leg if appropriate in order to demonstrate improved L knee strength and control during plyometrics 03/19/24, 03/02/24: initiated B hops and jumping; not appropriate for vertical or single leg jumping at this time LTG Duration 10 weeks NOT APPROPRIATE AT THIS TIME Three Impairment strength Impairment 1 L single leg squat Short Term Goal (STG) Pt will perform at least 8 single leg squats using LLE without pain or compensation in order to demonstrate improved L quad control and strength for return to PLOF 01/09/24: 8 single leg squats without pain, occasional opp hip drop but improved form today, using chair for 2 finger support 01/29/24: 10 single leg squats with 2 finger support for balance, no pain during squat STG Duration 5 weeks MET Industrial Technician Goal (LTG) Pt will perform at least 10 single leg squats using LLE without pain or compensation in order to demonstrate improved L quad control and strength for return to PLOF 01/29/24: 10 single leg squats with 2 finger support for balance, no pain during squat but prn cues to prevent knee valgus with increased depth 03/02/24: Improved form with single leg squats, 2 finger support for balance. Progressed to single leg squat from chair and eccentric lowering, 1x3 on LLE LTG Duration 10 weeks PROGRESSING Two Impairment activity Impairment LEFS 61/80 Short Term Goal (STG) Pt will improve LEFS score to >65/80 in order to demonstrate improved activity tolerance and return to higher level of function 01/09/24: 62/80 01/29/24: 62/80 STG Duration 5 weeks NOT MET Industrial Technician Goal (LTG) Pt will improve LEFS score to >65/80 (1 MCID) in order to demonstrate improved activity tolerance and return to higher level of function 01/29/24: 62/80 03/02/24: 64/80 LTG Duration 10 weeks NOT MET; GOAL UPDATED 03/19/24 One Impairment AROM Impairment L knee flex 127 deg Industrial Technician Goal (LTG) Pt will improve L knee flexion AROM to > 130 deg without compensation in order to be comparable to R knee flexion for bike and stairs. 01/09/24: 130 deg knee flex 01/29/24: 125 deg flex 03/02/24: 127 deg, 130 deg post mob 03/19/24: 130 deg knee flex LTG Duration 10 weeks MET Assessment Summary Assessment Pt tolerated session well, demonstrates improved single leg stability during jogging and cutting/turning. Pt able to jog on both treadmill and outdoors on level surface for short distances. Has no knee pain and demonstrates good stability; however, has very heavy midfoot strike. Progressed to planting and quick multi-directional change with explosive movement. Continued with single leg hopping short distances both forward and laterally. Pt requires cues for softer landing, but improves with reps. Also pain free in her knee. Progressed to rear- elevated split squat on chair and bilateral supine hamstring curl with bridge. Pt wanting further assessment by ortho for possible scar tissue build up and occasional knee pain with end range flexion, in late May; pt wanting to move to every other week instead to maximize visits. Pt would benefit from skilled PT for L hip/knee strengthening and functional impact training in order to return to PLOF and improve activity tolerance . Physical Therapy Plan Frequency and Duration Frequency of Treatment 1x/Week Duration of treatment (weeks) 12 Plan of Care Start Date 03/19/24 Plan of Care End Date 06/12/24 Therapeutic Interventions Therapeutic Interventions Aquatic Therapy,Balance Training,Coordination Training ,Gait Training,Home Exercise Program,Joint Mobilizations, Manual Therapy,Neuromuscular Re-education,Orthotic/ Prosthetic Management,Patient/ Caregiver Education,Self-Care/ Home Management,Sensory Integration,Soft Tissue Mobilization,Taping, Therapeutic Activities, Therapeutic Exercises Modalities Biofeedback,Cold Pack/Ice Massage,Electric Stimulation, Hot Packs,Ultrasound, Vasopneumatic Devices Next Visit Focus/Plan Next Note Type Progress Note Next Visit Plan Review peruvian split squat, SLS from chair, box jumping progression, unstable surface and SLS continue hopping on stable surface double leg (trial small box up/down)-focus on form, single leg stability ( roxanne on uneven surface), skater squat with slider, pulse squat (split squat) trial jog, hopping > DL vertical jump, skater Y, kneeling and floor transfers, Jumping, box drops Manual PRN: patellar mobilizations, ITB
--- NOTE | 2024-04-27 13:01 | PT.OTN ---
Current Diagnoses Other abnormalities of gait and mobility (04/27/24) Weakness (04/27/24) Other specified postprocedural states (04/27/24) Physical Therapy Treatment Note PT-OP-A Visit Information Start: 11/28/23 10:13 Freq: Status: Active Protocol: Document 04/27/24 10:38 NM (Rec: 04/27/24 11:17 NM [id number]) Out-Patient Physical Therapy Visit Information Visit Information Visit Type Progress Note Visit Start Time 10:37 Visit Stop Time 11:15 Visit Number 01/23 Evaluation Information Evaluation Date 12/04/23 PT-OP-B Current Condition Start: 11/28/23 10:13 Freq: Status: Active Protocol: Document 12/04/23 14:31 NM (Rec: 12/04/23 16:19 NM [id number]) Current Condition History of Current Condition Onset Date June 2023 Current Complaints knee flexion ROM, stiffness, pain with exercise, return to function History of Current Condition Pt had L knee ACL reconstruction in June 14, 2023 with hamstring graft. She tore her ACL while performing a [employer] course when moving laterally into L knee extension. No complications she's aware of with surgery, no complications with previous PT. She just moved to [facility]. She has been compliant with HEP since stopping PT in August when she moved. Prior to ACL tear, pt was not very active and did not exercise regularly. Currently, she is walking daily (1/4 mi). She is having a 2nd x ray follow up to assess surgical results and pt reported new bony prominence of L tibial plateau . Pt reports pain with supine quad sets laterally/ant knee, stiff when sitting for too long. 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 Pt states knee feels stable, no instances of locking/popping/giving out Prior Treatments and Tests Prior PT post op until move in 08/2023. Provided protocol from surgeon in [place], Dr. 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 Has ortho appt on 06/05. Has appt with PCP for hip PT-OP-D Balance Start: 11/28/23 10:13 Freq: Status: Active Protocol: Document 12/04/23 14:31 NM (Rec: 12/04/23 16:19 NM [id number]) Balance Tests Single Limb Standing Single Limb- Right 30 sec Single Limb- Left 15 sec; not painful, increased ankle sway PT-OP-E Functional Tests Start: 11/28/23 10:13 Freq: Status: Active Protocol: Document 12/04/23 14:31 NM (Rec: 12/04/23 16:19 NM [id number]) Functional Tests Squat Test Score 10 Comments slight R deviation at hips/ knees, no valgus, no heel rise Single Leg Squat Test Score 1 Comment L knee valgus, trendelenburg, decreased hip hinge, not painful; UE support PT-OP-F Manual Assessment Start: 11/28/23 10:13 Freq: Status: Active Protocol: Document 12/04/23 14:31 NM (Rec: 12/04/23 16:19 NM [id number]) Manual Assessments Soft Tissue Assessment Soft Tissue Mobility Assessment L calf atrophy, minimal quad atrophy Joint Mobility Assessment Joint Mobility Assessment No clicking, locking, or other signs of L knee instability PT-OP-G Mobility & Gait Start: 11/28/23 10:13 Freq: Status: Active Protocol: Document 12/04/23 14:31 NM (Rec: 12/04/23 16:19 NM [id number]) OP Gait Assessment Gait Gait Assistance Required: Independent Distance (Feet) 200 Assistive Devices Assistive Device None Gait Deviations General Gait Pattern Within Normal Limits,Narrow Based Gait Factors Limiting Gait Function Factors Limiting Gait Function Decreased Activity Tolerance, Decreased Sensation,Limited Range of Motion Comments Gait Comments Gait is not quad avoidant. Slight trunk deviation toward L side with stance, in addition to slight LLE circumduction vs L knee flexion. Stair Climbing Evaluation Evaluation Level of Assist On Stairs Independent Devices Stair Climbing Assistive Devices None Technique/Endurance Stair Climbing Direction Ascend and Descend Stair Climbing Technique Step Over Step Number of Steps Climbed 4 Stair Climbing Set # Repetitions (reps) 2 Comments Stair Climbing Comments Slight R hip drop with L eccentric step down. Not painful. L knee translation directly over L foot. Able to lead with LLE ascending PT-OP-H Neuro Start: 11/28/23 10:13 Freq: Status: Active Protocol: Document 12/04/23 14:31 NM (Rec: 12/04/23 16:19 NM [id number]) Sensation Evaluation Gross Sensation Gross Sensation Left LE Impaired Comments Summary Comments Decreased light touch sensation of LLE along anterior tibia, scars PT-OP-J Posture/Palpation/Skin Start: 11/28/23 10:13 Freq: Status: Active Protocol: Document 12/04/23 14:31 NM (Rec: 12/04/23 16:19 NM [id number]) Posture Evaluation Position Standing Head/C-Spine Posture Forward Head L-Spine Posture Increased Lordosis Pelvis Posture Anteriorly Tilted Weight Distribution Balanced Hip Posture (L) Externally Rotated,(R) Externally Rotated Knee Posture (L) Genu Valgus,(R) Genu Valgus Patellar Posture (L) Superior,(R) Superior Ankle/Foot Posture (L) Pronated,(R) Pronated Comments Posture Comments R knee hyperextension in stance. L knee neutral extension Palpation Assessment Location L knee Palpation Location posterior knee, anterior knee, joint lines, femoral condyles , ITB Palpation Findings Tenderness Palpation Details Minimal tenderness along posterior knee near popliteal fold. No tenderness along joint lines. Minimal tenderness at anterior tibia and tibial tubercle, lateral femoral condyle. No tenderness along ITB despite pt reports Skin Assessment Incisional Assessment Incision Appearance/Comments Incisions intact, not infected . Minimal adhesion to underlying skin PT-OP-K Range of Motion Start: 11/28/23 10:13 Freq: Status: Active Protocol: Document 04/27/24 10:38 NM (Rec: 04/27/24 13:00 NM [id number]) Knee Goniometric Range of Motion Knee Left Flexion Active (degrees) 130 Extension Active (degrees) 0 Hyper-Extension Active 1 Comments Pain in posterior knee with end range passive extension 01/09/24: 0 deg ext, 120 deg flexion pre-stretch, 130 deg post stretching quad 4/17/24: 125 deg flexion, 0 deg extension 03/02/24: 125 deg flexion, 0 deg ext, +1 hyper extension 04/27/24, 03/19/24: 130 deg flexion, +1 deg hyperextension PT-OP-M Strength Start: 11/28/23 10:13 Freq: Status: Active Protocol: Document 04/27/24 10:38 NM (Rec: 04/27/24 13:00 NM [id number]) Hip Strength Hip Manual Muscle Testing Left Flexion (L2) 4+ Good+ Extension (S1) 4+ Good+ Abduction 4+ Good+ Adduction 4+ Good+ External Rotation 4+ Good+ Internal Rotation 4+ Good+ Comments 01/09/24: 4/5 ext, 4+ for all others; pain free 01/29/24: 4+/5 for hip flex/ext /abd; pain free 04/27/24, 03/19/24, 03/02/24: 4+/5 for all Knee Strength Knee Manual Muscle Testing Left Flexion (S2) 4+ Good+ Extension (L3) 4+ Good+ Comments no pain with resisted motion 01/09/24: 4+/5 flex, 4/5 extension; pain free 01/29/24: 4+/5 flex and extension; pain free 03/02/24: 4+/5, pain free; LLE 75% of RLE with squat testing 04/27/24, 03/19/24: 4+/5 PT-OP-Q Treatments Start: 11/28/23 10:13 Freq: Status: Active Protocol: Document 04/27/24 10:38 NM (Rec: 04/27/24 11:17 NM [id number]) Cardio Equipment Elliptical Duration (Minutes) 2 Resistance 4 Other warm up Therapeutic Exercises Supine Exercises HSC Supine Exercise Name DL bridge with single HSC Side bilateral Reps/Minutes 2x8 ea Comments challenging but unable to perform with B HSC Standing Exercises single leg squat Standing Exercise Name from chair Side bilateral Resistance AROM Equipment Used mesh chair, visual feedback Reps/Minutes 10 ea Comments improved control at hips, SLS still challenging as rise squat Standing Exercise Name 1. split squat to floor, 2. thai split squat Side bilateral Resistance 1. 10# db ea hand Equipment Used 2. from 12 step Reps/Minutes 1. 2x10 ea, 2. 10 ea Comments good alignment, pain free Neuro Re-Education Treatment Balance Activities box jumps Surface 8 box Equipment mirror for visual feedback Reps/Duration 8 minutes total Comments 1. fwd DL jump, 10 ea 2. depth DL jump, 10 ea 3. SL drop > DL, 5 ea Cued for softer jump, squat landing. Demos good equal landing, pain free. 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 Short Term Goal (STG) Pt will demonstrate ability to lift 20# from squat position with good body mechanics and ambulate x 20 ft without knee pain or compensation in order to perform all functions of job 01/09/24: 20# squat box lift from floor, 1x10, then able to carry x20 ft STG Duration 5 weeks MET Medical Billing Assistant Goal (LTG) Pt will report no difficulty with performing job functions due to L knee pain in order to demonstrate return to PLOF UPDATED GOAL- 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 using half kneel stance with L knee on floor or foam pad in order to demonstrate increased knee flexion and comfort when performing lifting tasks for work from lower surface 01/28/24: reports no limitations 04/27/24: split squats with 10# db in ea hand from floor w/o pain or compensation LTG Duration 10 weeks MET 01/28/24; updated 03/19/24, MET 04/27 Four Impairment strength, plyometrics Short Term Goal (STG) Pt will be able to perform at least 10 reps of double leg hop from floor without compensation or pain and safe landing in order to demonstrate improved L knee strength and control during plyometrics 01/09/24: not appropriate at this time 01/29/24: Initiated today, 2x5 B hops with band for glute 04/27/24: In previous sessions and today session, performs several reps of B hop from floor and on box STG Duration 5 weeks MET Medical Billing Assistant Goal (LTG) Pt will be able to perform vertical jump test or single leg hop test at least 80% of R leg if appropriate in order to demonstrate improved L knee strength and control during plyometrics 03/19/24, 03/02/24: initiated B hops and jumping; not appropriate for vertical or single leg jumping at this time 04/27/24: single leg vertical hop R 78 and L 72, pain free ; initiated box jumps, depth jumps, single leg hops, running, all without pain LTG Duration 10 weeks PROGRESSING Three Impairment strength Impairment 1 L single leg squat Short Term Goal (STG) Pt will perform at least 8 single leg squats using LLE without pain or compensation in order to demonstrate improved L quad control and strength for return to PLOF 01/09/24: 8 single leg squats without pain, occasional opp hip drop but improved form today, using chair for 2 finger support 01/29/24: 10 single leg squats with 2 finger support for balance, no pain during squat STG Duration 5 weeks MET Medical Billing Assistant Goal (LTG) Pt will perform at least 10 single leg squats using LLE without pain or compensation in order to demonstrate improved L quad control and strength for return to PLOF 01/29/24: 10 single leg squats with 2 finger support for balance, no pain during squat but prn cues to prevent knee valgus with increased depth 03/02/24: Improved form with single leg squats, 2 finger support for balance. Progressed to single leg squat from chair and eccentric lowering, 1x3 on LLE 04/27/24: able to perform SLS from chair 10 reps with level hips, prn foot support or trunk lean due to instability LTG Duration 10 weeks PROGRESSING; PARTIALLY MET Two Impairment activity Impairment LEFS 61/80 Short Term Goal (STG) Pt will improve LEFS score to >65/80 in order to demonstrate improved activity tolerance and return to higher level of function 01/09/24: 62/80 01/29/24: 62/80 STG Duration 5 weeks NOT MET Penitentiary Goal (LTG) Pt will improve LEFS score to >65/80 (1 MCID) in order to demonstrate improved activity tolerance and return to higher level of function 01/29/24: 62/80 03/02/24: 64/80 04/27/24: 72/80 LTG Duration 10 weeks NOT MET; GOAL UPDATED 03/19/24, MET 04/27/24 One Impairment AROM Impairment L knee flex 127 deg Penitentiary Goal (LTG) Pt will improve L knee flexion AROM to > 130 deg without compensation in order to be comparable to R knee flexion for bike and stairs. 01/09/24: 130 deg knee flex 01/29/24: 125 deg flex 03/02/24: 127 deg, 130 deg post mob 03/19/24: 130 deg knee flex LTG Duration 10 weeks MET Progress Towards Goals Progress Towards Goals Progressing Toward Goals,Goals Met Assessment Summary Assessment Pt tolerated session well, especially with progressions in strengthening of quad/ glutes/hamstrings. Pt demonstrates improved form with jumping, progressing to box drops and depths jumps today. She is able to land equally on BLE without pain and with good form. Requires cueing occasionally for softer landing. Initiated single leg hop for vertical height today , which pt able to perform at 90% of height of contralateral limb. Progressed supine HSC to slider with bridge, which pt able to perform with difficulty due to hamstring weakness in shortened position . Pt with good form and improved tolerance for quad- dominant thai split squat from lower surface for rear limb compared to previous session, demonstrating increased knee flexion and no pain in anterior knee Physical Therapy Plan Frequency and Duration Frequency of Treatment 1x/Week Duration of treatment (weeks) 12 Plan of Care Start Date 04/27/24 Plan of Care End Date 07/24/24 Therapeutic Interventions Therapeutic Interventions Aquatic Therapy,Balance Training,Coordination Training ,Gait Training,Home Exercise Program,Joint Mobilizations, Manual Therapy,Neuromuscular Re-education,Orthotic/ Prosthetic Management,Patient/ Caregiver Education,Self-Care/ Home Management,Sensory Integration,Soft Tissue Mobilization,Taping, Therapeutic Activities, Therapeutic Exercises Modalities Biofeedback,Cold Pack/Ice Massage,Electric Stimulation, Hot Packs,Ultrasound, Vasopneumatic Devices Next Visit Focus/Plan Next Note Type Treatment Note Next Visit Plan Cupping for scar mobilization and knee mobilization, single leg strength and hopping, HSC strength, box jumping progression, unstable surface and SLS Manual PRN: patellar mobilizations, ITB
--- NOTE | 2024-04-27 13:02 | PT.OPPOC ---
Physical, Occupational & Speech Therapy At [facility] Current Diagnoses Other abnormalities of gait and mobility (04/27/24) Weakness (04/27/24) Other specified postprocedural states (04/27/24) Visit Care Team Role Provider Type LUCIEN Palmer Family Provider Advanced Vice President Diversity Specialty: Emergency Medicine Address: [address] [place] [address], [address], [place], [address] Email: Kerry Thomas DO Attending Provider Physician Primary Care Provider Referring Provider Specialty: Family Practice Address: [address] [place] [address], [address], [place], [address] Email: [email or web address] Plan Of Care PT-OP-T Assessment and Plan Start: 11/28/23 10:13 Freq: Status: Active Protocol: Document 04/27/24 10:38 NM (Rec: 04/27/24 11:17 NM [id number]) Physical Therapy Assessment Goals Five Impairment 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 Short Term Goal (STG) Pt will demonstrate ability to lift 20# from squat position with good body mechanics and ambulate x 20 ft without knee pain or compensation in order to perform all functions of job 01/09/24: 20# squat box lift from floor, 1x10, then able to carry x20 ft STG Duration 5 weeks MET Detention Goal (LTG) Pt will report no difficulty with performing job functions due to L knee pain in order to demonstrate return to PLOF UPDATED GOAL- 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 using half kneel stance with L knee on floor or foam pad in order to demonstrate increased knee flexion and comfort when performing lifting tasks for work from lower surface 01/28/24: reports no limitations 04/27/24: split squats with 10# db in ea hand from floor w/o pain or compensation LTG Duration 10 weeks MET 01/28/24; updated 03/19/24, MET 04/27 Four Impairment strength, plyometrics Short Term Goal (STG) Pt will be able to perform at least 10 reps of double leg hop from floor without compensation or pain and safe landing in order to demonstrate improved L knee strength and control during plyometrics 01/09/24: not appropriate at this time 01/29/24: Initiated today, 2x5 B hops with band for glute 04/27/24: In previous sessions and today session, performs several reps of B hop from floor and on box STG Duration 5 weeks MET Hat Renovator Goal (LTG) Pt will be able to perform vertical jump test or single leg hop test at least 80% of R leg if appropriate in order to demonstrate improved L knee strength and control during plyometrics 03/19/24, 03/02/24: initiated B hops and jumping; not appropriate for vertical or single leg jumping at this time 04/27/24: single leg vertical hop R 78 and L 72, pain free ; initiated box jumps, depth jumps, single leg hops, running, all without pain LTG Duration 10 weeks PROGRESSING Three Impairment strength Impairment 1 L single leg squat Short Term Goal (STG) Pt will perform at least 8 single leg squats using LLE without pain or compensation in order to demonstrate improved L quad control and strength for return to PLOF 01/09/24: 8 single leg squats without pain, occasional opp hip drop but improved form today, using chair for 2 finger support 01/29/24: 10 single leg squats with 2 finger support for balance, no pain during squat STG Duration 5 weeks MET Hat Renovator Goal (LTG) Pt will perform at least 10 single leg squats using LLE without pain or compensation in order to demonstrate improved L quad control and strength for return to PLOF 01/29/24: 10 single leg squats with 2 finger support for balance, no pain during squat but prn cues to prevent knee valgus with increased depth 03/02/24: Improved form with single leg squats, 2 finger support for balance. Progressed to single leg squat from chair and eccentric lowering, 1x3 on LLE 04/27/24: able to perform SLS from chair 10 reps with level hips, prn foot support or trunk lean due to instability LTG Duration 10 weeks PROGRESSING; PARTIALLY MET Two Impairment activity Impairment LEFS 61/80 Short Term Goal (STG) Pt will improve LEFS score to >65/80 in order to demonstrate improved activity tolerance and return to higher level of function 01/09/24: 62/80 01/29/24: 62/80 STG Duration 5 weeks NOT MET Detention Goal (LTG) Pt will improve LEFS score to >65/80 (1 MCID) in order to demonstrate improved activity tolerance and return to higher level of function 01/29/24: 62/80 03/02/24: 64/80 04/27/24: 72/80 LTG Duration 10 weeks NOT MET; GOAL UPDATED 03/19/24, MET 04/27/24 One Impairment AROM Impairment L knee flex 127 deg Detention Goal (LTG) Pt will improve L knee flexion AROM to > 130 deg without compensation in order to be comparable to R knee flexion for bike and stairs. 01/09/24: 130 deg knee flex 01/29/24: 125 deg flex 03/02/24: 127 deg, 130 deg post mob 03/19/24: 130 deg knee flex LTG Duration 10 weeks MET Progress Towards Goals Progress Towards Goals Progressing Toward Goals,Goals Met Assessment Summary Assessment Pt has been seen since November 2023 s/p L ACL repair with hamstring graft. Pt is progressing well toward goals, meeting several. She has full L knee ROM and hip/knee strength with muscle testing. Pt recently initiating jogging , jumping, hopping, single leg work, and more high level activity in order to return to hiking, jogging, and gym. She would benefit from more single leg stability and strengthening exercises, which continue to be challenging for pt's balance. Pt reports no limitations at work due to her knee, but she report that she feels like a mental block is present when she is trying to use her LLE for stocking or squatting even though there are no limitations or pain, and pt is able to perform well without pain or compensations in session. Currently, pt reports 72/80 on LEFS. She is wanting to have a follow up with an ortho due occasional pain over scar area and due to occasional limitations in knee flexion comparable to RLE, which is not present with activity during sessions, only occasionally during HEP. Due to limitations in insurance and at pt request, pt plan will now be seen every other week. Pt would benefit from skilled PT for progressive strengthening and single leg training in order to maximize activity tolerance and ability to perform all work/ recreational tasks without limitation. Physical Therapy Plan Frequency and Duration Frequency of Treatment 1x/Week Duration of treatment (weeks) 12 Plan of Care Start Date 04/27/24 Plan of Care End Date 07/24/24 Therapeutic Interventions Therapeutic Interventions Aquatic Therapy,Balance Training,Coordination Training ,Gait Training,Home Exercise Program,Joint Mobilizations, Manual Therapy,Neuromuscular Re-education,Orthotic/ Prosthetic Management,Patient/ Caregiver Education,Self-Care/ Home Management,Sensory Integration,Soft Tissue Mobilization,Taping, Therapeutic Activities, Therapeutic Exercises Modalities Biofeedback,Cold Pack/Ice Massage,Electric Stimulation, Hot Packs,Ultrasound, Vasopneumatic Devices Next Visit Focus/Plan Next Note Type Treatment Note Next Visit Plan Cupping for scar mobilization and knee mobilization, single leg strength and hopping, HSC strength, box jumping progression, unstable surface and SLS Manual PRN: patellar mobilizations, ITB Plan of Care Dates Plan of Care Start Date 04/27/24 Plan of Care End Date 07/24/24 Electronically Signed by: Roxann Trinidad, PT 04/27/24 1240 If you are in agreement with this Plan of Care, please return a signed and dated copy. I have reviewed this Plan of Care and certify that the skilled therapy services above are required to meet the patient?s needs. Physician Signature Date Printed Name and Credentials Clinical Instructor Signature Printed Name and Credentials
--- NOTE | 2024-05-11 12:58 | PT.OTN ---
Current Diagnoses Other abnormalities of gait and mobility (05/11/24) Weakness (05/11/24) Other specified postprocedural states (05/11/24) Physical Therapy Treatment Note PT-OP-A Visit Information Start: 11/28/23 10:13 Freq: Status: Active Protocol: Document 05/11/24 10:33 NM (Rec: 05/11/24 11:19 NM [id number]) Out-Patient Physical Therapy Visit Information Visit Information Visit Type Treatment Note Visit Start Time 10:33 Visit Stop Time 11:15 Visit Number 02/22 Evaluation Information Evaluation Date 12/04/23 Precautions Precautions L ACL Hamstring graft, DOS 06/14 6 months: 12/13/23 PT-OP-B Current Condition Start: 11/28/23 10:13 Freq: Status: Active Protocol: Document 12/04/23 14:31 NM (Rec: 12/04/23 16:19 NM [id number]) Current Condition History of Current Condition Onset Date June 2023 Current Complaints knee flexion ROM, stiffness, pain with exercise, return to function History of Current Condition Pt had L knee ACL reconstruction in June 14, 2023 with hamstring graft. She tore her ACL while performing a Microbion course when moving laterally into L knee extension. No complications she's aware of with surgery, no complications with previous PT. She just moved to [facility]. She has been compliant with HEP since stopping PT in August when she moved. Prior to ACL tear, pt was not very active and did not exercise regularly. Currently, she is walking daily (1/4 mi). She is having a 2nd x ray follow up to assess surgical results and pt reported new bony prominence of L tibial plateau . Pt reports pain with supine quad sets laterally/ant knee, stiff when sitting for too long. 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 Pt states knee feels stable, no instances of locking/popping/giving out Prior Treatments and Tests Prior PT post op until move in 08/2023. Provided protocol from surgeon in [place], Dr. 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 States she only gets 5/10 pain with end range knee flexion when bending forward to reach bottom shelf. Reports not doing exercises recently due to business at work. PT-OP-D Balance Start: 11/28/23 10:13 Freq: Status: Active Protocol: Document 12/04/23 14:31 NM (Rec: 12/04/23 16:19 NM [id number]) Balance Tests Single Limb Standing Single Limb- Right 30 sec Single Limb- Left 15 sec; not painful, increased ankle sway PT-OP-E Functional Tests Start: 11/28/23 10:13 Freq: Status: Active Protocol: Document 12/04/23 14:31 NM (Rec: 12/04/23 16:19 NM [id number]) Functional Tests Squat Test Score 10 Comments slight R deviation at hips/ knees, no valgus, no heel rise Single Leg Squat Test Score 1 Comment L knee valgus, trendelenburg, decreased hip hinge, not painful; UE support PT-OP-F Manual Assessment Start: 11/28/23 10:13 Freq: Status: Active Protocol: Document 12/04/23 14:31 NM (Rec: 12/04/23 16:19 NM [id number]) Manual Assessments Soft Tissue Assessment Soft Tissue Mobility Assessment L calf atrophy, minimal quad atrophy Joint Mobility Assessment Joint Mobility Assessment No clicking, locking, or other signs of L knee instability PT-OP-G Mobility & Gait Start: 11/28/23 10:13 Freq: Status: Active Protocol: Document 12/04/23 14:31 NM (Rec: 12/04/23 16:19 NM [id number]) OP Gait Assessment Gait Gait Assistance Required: Independent Distance (Feet) 200 Assistive Devices Assistive Device None Gait Deviations General Gait Pattern Within Normal Limits,Narrow Based Gait Factors Limiting Gait Function Factors Limiting Gait Function Decreased Activity Tolerance, Decreased Sensation,Limited Range of Motion Comments Gait Comments Gait is not quad avoidant. Slight trunk deviation toward L side with stance, in addition to slight LLE circumduction vs L knee flexion. Stair Climbing Evaluation Evaluation Level of Assist On Stairs Independent Devices Stair Climbing Assistive Devices None Technique/Endurance Stair Climbing Direction Ascend and Descend Stair Climbing Technique Step Over Step Number of Steps Climbed 4 Stair Climbing Set # Repetitions (reps) 2 Comments Stair Climbing Comments Slight R hip drop with L eccentric step down. Not painful. L knee translation directly over L foot. Able to lead with LLE ascending PT-OP-H Neuro Start: 11/28/23 10:13 Freq: Status: Active Protocol: Document 12/04/23 14:31 NM (Rec: 12/04/23 16:19 NM [id number]) Sensation Evaluation Gross Sensation Gross Sensation Left LE Impaired Comments Summary Comments Decreased light touch sensation of LLE along anterior tibia, scars PT-OP-J Posture/Palpation/Skin Start: 11/28/23 10:13 Freq: Status: Active Protocol: Document 12/04/23 14:31 NM (Rec: 12/04/23 16:19 NM [id number]) Posture Evaluation Position Standing Head/C-Spine Posture Forward Head L-Spine Posture Increased Lordosis Pelvis Posture Anteriorly Tilted Weight Distribution Balanced Hip Posture (L) Externally Rotated,(R) Externally Rotated Knee Posture (L) Genu Valgus,(R) Genu Valgus Patellar Posture (L) Superior,(R) Superior Ankle/Foot Posture (L) Pronated,(R) Pronated Comments Posture Comments R knee hyperextension in stance. L knee neutral extension Palpation Assessment Location L knee Palpation Location posterior knee, anterior knee, joint lines, femoral condyles , ITB Palpation Findings Tenderness Palpation Details Minimal tenderness along posterior knee near popliteal fold. No tenderness along joint lines. Minimal tenderness at anterior tibia and tibial tubercle, lateral femoral condyle. No tenderness along ITB despite pt reports Skin Assessment Incisional Assessment Incision Appearance/Comments Incisions intact, not infected . Minimal adhesion to underlying skin PT-OP-K Range of Motion Start: 11/28/23 10:13 Freq: Status: Active Protocol: Document 04/27/24 10:38 NM (Rec: 04/27/24 13:00 NM [id number]) Knee Goniometric Range of Motion Knee Left Flexion Active (degrees) 130 Extension Active (degrees) 0 Hyper-Extension Active 1 Comments Pain in posterior knee with end range passive extension 01/09/24: 0 deg ext, 120 deg flexion pre-stretch, 130 deg post stretching quad 01/29/24: 125 deg flexion, 0 deg extension 03/02/24: 125 deg flexion, 0 deg ext, +1 hyper extension 04/27/24, 03/19/24: 130 deg flexion, +1 deg hyperextension PT-OP-M Strength Start: 11/28/23 10:13 Freq: Status: Active Protocol: Document 04/27/24 10:38 NM (Rec: 04/27/24 13:00 NM [id number]) Hip Strength Hip Manual Muscle Testing Left Flexion (L2) 4+ Good+ Extension (S1) 4+ Good+ Abduction 4+ Good+ Adduction 4+ Good+ External Rotation 4+ Good+ Internal Rotation 4+ Good+ Comments 01/09/24: 4/5 ext, 4+ for all others; pain free 01/29/24: 4+/5 for hip flex/ext /abd; pain free 04/27/24, 03/19/24, 03/02/24: 4+/5 for all Knee Strength Knee Manual Muscle Testing Left Flexion (S2) 4+ Good+ Extension (L3) 4+ Good+ Comments no pain with resisted motion 01/09/24: 4+/5 flex, 4/5 extension; pain free 01/29/24: 4+/5 flex and extension; pain free 03/02/24: 4+/5, pain free; LLE 75% of RLE with squat testing 04/27/24, 03/19/24: 4+/5 PT-OP-Q Treatments Start: 11/28/23 10:13 Freq: Status: Active Protocol: Document 05/11/24 10:33 NM (Rec: 05/11/24 11:19 NM [id number]) Therapeutic Exercises Standing Exercises single leg RDL Standing Exercise Name cone tap Equipment Used 4 cones Reps/Minutes 15 ea Comments requires increased time single leg squat Standing Exercise Name from low plinth Side bilateral Resistance AROM Reps/Minutes 15 ea Comments improved control and SLS deadlift Standing Exercise Name short > tall knee deadlift Equipment Used foam pad Reps/Minutes 20 Comments discomfort along lateral knee but no knee pain, reports improve w/ reps Other Exercises [place] curl Other Exercise Name Assisted; for HS strength and end range flexion Side bilateral Equipment Used foam pad under knees Reps/Minutes 5 close to plinth, 10 from 90 deg flexion ~1ft from plinth Comments PT holding ankles; pain free, increased L HS activation Manual Therapy Treatment Consent Patient gave verbal consent for manual Yes treatment Soft Tissue Mobilization STM left knee Body Location HS, quads, peripatellar Mobilization Type Instrument Assisted,Rolling, Other Intensity/Depth Moderate Body Position supine,prone Comments Rolling with rolling pin of HS , quads, peripatellar. Performed also cupping of anterior scar, patellar tendon , and along lateral patellar region and tibia prior to trialing kneeling. Monitored for pain Joint Mobilizations L knee Joint tibiofemoral, patellar, tibial ER Direction post on tibfem, inf patellar for flex, ER at tibia Grade III Body Position Supine Reps/Duration 10 ea Comments For flexion ROM, end range flexion. 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 Short Term Goal (STG) Pt will demonstrate ability to lift 20# from squat position with good body mechanics and ambulate x 20 ft without knee pain or compensation in order to perform all functions of job 01/09/24: 20# squat box lift from floor, 1x10, then able to carry x20 ft STG Duration 5 weeks MET Pan Puller Goal (LTG) Pt will report no difficulty with performing job functions due to L knee pain in order to demonstrate return to PLOF UPDATED GOAL- Pt will be able to burr picker weighted object from floor using half kneel stance with L knee on floor or foam pad in order to demonstrate increased knee flexion and comfort when performing lifting tasks for work from lower surface 01/28/24: reports no limitations 04/27/24: split squats with 10# db in ea hand from floor w/o pain or compensation LTG Duration 10 weeks MET 01/28/24; updated 03/19/24, MET 04/27 Four Impairment strength, plyometrics Short Term Goal (STG) Pt will be able to perform at least 10 reps of double leg hop from floor without compensation or pain and safe landing in order to demonstrate improved L knee strength and control during plyometrics 01/09/24: not appropriate at this time 01/29/24: Initiated today, 2x5 B hops with band for glute 04/27/24: In previous sessions and today session, performs several reps of B hop from floor and on box STG Duration 5 weeks MET Nursing Home Goal (LTG) Pt will be able to perform vertical jump test or single leg hop test at least 80% of R leg if appropriate in order to demonstrate improved L knee strength and control during plyometrics 03/19/24, 03/02/24: initiated B hops and jumping; not appropriate for vertical or single leg jumping at this time 04/27/24: single leg vertical hop R 78 and L 72, pain free ; initiated box jumps, depth jumps, single leg hops, running, all without pain LTG Duration 10 weeks PROGRESSING Three Impairment strength Impairment 1 L single leg squat Short Term Goal (STG) Pt will perform at least 8 single leg squats using LLE without pain or compensation in order to demonstrate improved L quad control and strength for return to PLOF 01/09/24: 8 single leg squats without pain, occasional opp hip drop but improved form today, using chair for 2 finger support 01/29/24: 10 single leg squats with 2 finger support for balance, no pain during squat STG Duration 5 weeks MET Nursing Home Goal (LTG) Pt will perform at least 10 single leg squats using LLE without pain or compensation in order to demonstrate improved L quad control and strength for return to PLOF 01/29/24: 10 single leg squats with 2 finger support for balance, no pain during squat but prn cues to prevent knee valgus with increased depth 03/02/24: Improved form with single leg squats, 2 finger support for balance. Progressed to single leg squat from chair and eccentric lowering, 1x3 on LLE 04/27/24: able to perform SLS from chair 10 reps with level hips, prn foot support or trunk lean due to instability LTG Duration 10 weeks PROGRESSING; PARTIALLY MET Two Impairment activity Impairment LEFS 61/80 Short Term Goal (STG) Pt will improve LEFS score to >65/80 in order to demonstrate improved activity tolerance and return to higher level of function 01/09/24: 62/80 01/29/24: 62/80 STG Duration 5 weeks NOT MET Nursing Home Goal (LTG) Pt will improve LEFS score to >65/80 (1 MCID) in order to demonstrate improved activity tolerance and return to higher level of function 01/29/24: 62/80 03/02/24: 64/80 04/27/24: 72/80 LTG Duration 10 weeks NOT MET; GOAL UPDATED 03/19/24, MET 04/27/24 One Impairment AROM Impairment L knee flex 127 deg Pan Puller Goal (LTG) Pt will improve L knee flexion AROM to > 130 deg without compensation in order to be comparable to R knee flexion for bike and stairs. 01/09/24: 130 deg knee flex 01/29/24: 125 deg flex 03/02/24: 127 deg, 130 deg post mob 03/19/24: 130 deg knee flex LTG Duration 10 weeks MET Assessment Summary Assessment Pt tolerated session well, reporting no knee pain with kneeling following manual treatment. Emphasis on L knee flexion, pt 128 deg at start of session and 130 at end of session. Trialed cupping over scar on anterior knee and along lateral patella/tibia for improve Emphasis on improving L tibial rotation to screwhome, in addition to end range knee flexion. Trial nordic curls for maximal hamstring strengthening and end range flexion. Pt tolerated well without any L hamstring discomfort. Able to perform single leg squats from lower plinth with increased effort, but without discomfort or compensation when cued to place foot slightly more medial to support body weight. Pt would benefit from skilled PT for L knee end range flexion and BLE strengthening in addition to progression through impact training for return to PLOF. Physical Therapy Plan Frequency and Duration Frequency of Treatment 1x/Week Duration of treatment (weeks) 12 Plan of Care Start Date 04/27/24 Plan of Care End Date 07/24/24 Therapeutic Interventions Therapeutic Interventions Aquatic Therapy,Balance Training,Coordination Training ,Gait Training,Home Exercise Program,Joint Mobilizations, Manual Therapy,Neuromuscular Re-education,Orthotic/ Prosthetic Management,Patient/ Caregiver Education,Self-Care/ Home Management,Sensory Integration,Soft Tissue Mobilization,Taping, Therapeutic Activities, Therapeutic Exercises Modalities Biofeedback,Cold Pack/Ice Massage,Electric Stimulation, Hot Packs,Ultrasound, Vasopneumatic Devices Next Visit Focus/Plan Next Note Type Treatment Note Next Visit Plan Banded (level 6) knee mobilization and fibular mobilization, single leg strength and hopping, HSC strength, box jumping progression, unstable surface and SLS Y drill Manual PRN: patellar mobilizations, ITB
--- NOTE | 2024-05-25 12:09 | PT.OTN ---
Current Diagnoses Other abnormalities of gait and mobility (05/25/24) Weakness (05/25/24) Other specified postprocedural states (05/25/24) Physical Therapy Treatment Note PT-OP-A Visit Information Start: 11/28/23 10:13 Freq: Status: Active Protocol: Document 05/25/24 10:34 NM (Rec: 05/25/24 11:18 NM [id number]) Out-Patient Physical Therapy Visit Information Visit Information Visit Type Treatment Note Visit Start Time 10:35 Visit Stop Time 11:15 Visit Number 03/25 Evaluation Information Evaluation Date 12/04/23 Precautions Precautions L ACL Hamstring graft, DOS 06/14 6 months: 12/13/23 PT-OP-B Current Condition Start: 11/28/23 10:13 Freq: Status: Active Protocol: Document 12/04/23 14:31 NM (Rec: 12/04/23 16:19 NM [id number]) Current Condition History of Current Condition Onset Date June 2023 Current Complaints knee flexion ROM, stiffness, pain with exercise, return to function History of Current Condition Pt had L knee ACL reconstruction in June 14, 2023 with hamstring graft. She tore her ACL while performing a [employer] course when moving laterally into L knee extension. No complications she's aware of with surgery, no complications with previous PT. She just moved to [facility]. She has been compliant with HEP since stopping PT in August when she moved. Prior to ACL tear, pt was not very active and did not exercise regularly. Currently, she is walking daily (1/4 mi). She is having a 2nd x ray follow up to assess surgical results and pt reported new bony prominence of L tibial plateau . Pt reports pain with supine quad sets laterally/ant knee, stiff when sitting for too long. 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 Pt states knee feels stable, no instances of locking/popping/giving out Prior Treatments and Tests Prior PT post op until move in 08/2023. Provided protocol from surgeon in [place], Dr. 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 States no change, only discomfort with end range knee flexion. Has ortho appt on . PT-OP-D Balance Start: 11/28/23 10:13 Freq: Status: Active Protocol: Document 12/04/23 14:31 NM (Rec: 12/04/23 16:19 NM [id number]) Balance Tests Single Limb Standing Single Limb- Right 30 sec Single Limb- Left 15 sec; not painful, increased ankle sway PT-OP-E Functional Tests Start: 11/28/23 10:13 Freq: Status: Active Protocol: Document 12/04/23 14:31 NM (Rec: 12/04/23 16:19 NM [id number]) Functional Tests Squat Test Score 10 Comments slight R deviation at hips/ knees, no valgus, no heel rise Single Leg Squat Test Score 1 Comment L knee valgus, trendelenburg, decreased hip hinge, not painful; UE support PT-OP-F Manual Assessment Start: 11/28/23 10:13 Freq: Status: Active Protocol: Document 12/04/23 14:31 NM (Rec: 12/04/23 16:19 NM [id number]) Manual Assessments Soft Tissue Assessment Soft Tissue Mobility Assessment L calf atrophy, minimal quad atrophy Joint Mobility Assessment Joint Mobility Assessment No clicking, locking, or other signs of L knee instability PT-OP-G Mobility & Gait Start: 11/28/23 10:13 Freq: Status: Active Protocol: Document 12/04/23 14:31 NM (Rec: 12/04/23 16:19 NM [id number]) OP Gait Assessment Gait Gait Assistance Required: Independent Distance (Feet) 200 Assistive Devices Assistive Device None Gait Deviations General Gait Pattern Within Normal Limits,Narrow Based Gait Factors Limiting Gait Function Factors Limiting Gait Function Decreased Activity Tolerance, Decreased Sensation,Limited Range of Motion Comments Gait Comments Gait is not quad avoidant. Slight trunk deviation toward L side with stance, in addition to slight LLE circumduction vs L knee flexion. Stair Climbing Evaluation Evaluation Level of Assist On Stairs Independent Devices Stair Climbing Assistive Devices None Technique/Endurance Stair Climbing Direction Ascend and Descend Stair Climbing Technique Step Over Step Number of Steps Climbed 4 Stair Climbing Set # Repetitions (reps) 2 Comments Stair Climbing Comments Slight R hip drop with L eccentric step down. Not painful. L knee translation directly over L foot. Able to lead with LLE ascending PT-OP-H Neuro Start: 11/28/23 10:13 Freq: Status: Active Protocol: Document 12/04/23 14:31 NM (Rec: 12/04/23 16:19 NM [id number]) Sensation Evaluation Gross Sensation Gross Sensation Left LE Impaired Comments Summary Comments Decreased light touch sensation of LLE along anterior tibia, scars PT-OP-J Posture/Palpation/Skin Start: 11/28/23 10:13 Freq: Status: Active Protocol: Document 12/04/23 14:31 NM (Rec: 12/04/23 16:19 NM [id number]) Posture Evaluation Position Standing Head/C-Spine Posture Forward Head L-Spine Posture Increased Lordosis Pelvis Posture Anteriorly Tilted Weight Distribution Balanced Hip Posture (L) Externally Rotated,(R) Externally Rotated Knee Posture (L) Genu Valgus,(R) Genu Valgus Patellar Posture (L) Superior,(R) Superior Ankle/Foot Posture (L) Pronated,(R) Pronated Comments Posture Comments R knee hyperextension in stance. L knee neutral extension Palpation Assessment Location L knee Palpation Location posterior knee, anterior knee, joint lines, femoral condyles , ITB Palpation Findings Tenderness Palpation Details Minimal tenderness along posterior knee near popliteal fold. No tenderness along joint lines. Minimal tenderness at anterior tibia and tibial tubercle, lateral femoral condyle. No tenderness along ITB despite pt reports Skin Assessment Incisional Assessment Incision Appearance/Comments Incisions intact, not infected . Minimal adhesion to underlying skin PT-OP-K Range of Motion Start: 11/28/23 10:13 Freq: Status: Active Protocol: Document 05/25/24 10:34 NM (Rec: 05/25/24 11:18 NM [id number]) Knee Goniometric Range of Motion Knee Left Flexion Active (degrees) 130 Extension Active (degrees) 0 Hyper-Extension Active 1 Comments Pain in posterior knee with end range passive extension 01/09/24: 0 deg ext, 120 deg flexion pre-stretch, 130 deg post stretching quad 01/29/24: 125 deg flexion, 0 deg extension 03/02/24: 125 deg flexion, 0 deg ext, +1 hyper extension 04/27/24, 03/19/24: 130 deg flexion, +1 deg hyperextension 05/25/24: PT-OP-M Strength Start: 11/28/23 10:13 Freq: Status: Active Protocol: Document 04/27/24 10:38 NM (Rec: 04/27/24 13:00 NM [id number]) Hip Strength Hip Manual Muscle Testing Left Flexion (L2) 4+ Good+ Extension (S1) 4+ Good+ Abduction 4+ Good+ Adduction 4+ Good+ External Rotation 4+ Good+ Internal Rotation 4+ Good+ Comments 01/09/24: 4/5 ext, 4+ for all others; pain free 01/29/24: 4+/5 for hip flex/ext /abd; pain free 04/27/24, 03/19/24, 03/02/24: 4+/5 for all Knee Strength Knee Manual Muscle Testing Left Flexion (S2) 4+ Good+ Extension (L3) 4+ Good+ Comments no pain with resisted motion 01/09/24: 4+/5 flex, 4/5 extension; pain free 01/29/24: 4+/5 flex and extension; pain free 03/02/24: 4+/5, pain free; LLE 75% of RLE with squat testing 04/27/24, 03/19/24: 4+/5 PT-OP-Q Treatments Start: 11/28/23 10:13 Freq: Status: Active Protocol: Document 05/25/24 10:34 NM (Rec: 05/25/24 11:18 NM [id number]) Therapeutic Exercises Supine Exercises saul stretch Side bilateral Reps/Minutes 60 Prone Exercises HSC Side left Resistance level 2 at ankle Reps/Minutes 15 Comments demos tight hip flexors Standing Exercises deadlift Standing Exercise Name short > tall knee deadlift Equipment Used foam pad Reps/Minutes 20 Comments states does not hurt knee today, L heel touching buttock squat Standing Exercise Name SL on 8 step: 1. fwd, 2. lateral Side left Equipment Used 8 step, hands on hips for level pelvis Reps/Minutes 15 ea Comments pain free, good quad control HSC Side left Resistance level 2 band Reps/Minutes 2x10 Other Exercises [place] curl Other Exercise Name Assisted; for HS strength and end range flexion Side bilateral Equipment Used foam pad under knees Reps/Minutes 10 Comments PT holding ankles; pain free, increased L HS activation self mobilization Other Exercise Name quadruped knee flexion mobilization (post glide) Side left Resistance level 6 band Reps/Minutes 30 Comments added to HEP (no HO) stretch Other Exercise Name standing hip flexor stretch Side bilateral Equipment Used 8 Reps/Minutes 60 ea Manual Therapy Treatment Consent Patient gave verbal consent for manual Yes treatment Soft Tissue Mobilization STM left knee Body Location HS, quads, peripatellar Mobilization Type Instrument Assisted,Rolling, Other Intensity/Depth Moderate Body Position supine,prone Comments Rolling with rolling pin of HS , quads, peripatellar. Increased L quad tightness. Monitored for pain Joint Mobilizations L knee Joint tibiofemoral, patellar Direction post on tibiofemoral, inf patellar for flex Grade III Body Position Supine Reps/Duration 4x30 Comments For flexion ROM, end range flexion. 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 Short Term Goal (STG) Pt will demonstrate ability to lift 20# from squat position with good body mechanics and ambulate x 20 ft without knee pain or compensation in order to perform all functions of job 01/09/24: 20# squat box lift from floor, 1x10, then able to carry x20 ft STG Duration 5 weeks MET Intermediate Goal (LTG) Pt will report no difficulty with performing job functions due to L knee pain in order to demonstrate return to PLOF UPDATED GOAL- Pt will be able to order picker weighted object from floor using half kneel stance with L knee on floor or foam pad in order to demonstrate increased knee flexion and comfort when performing lifting tasks for work from lower surface 01/28/24: reports no limitations 04/27/24: split squats with 10# db in ea hand from floor w/o pain or compensation LTG Duration 10 weeks MET 01/28/24; updated 6/6/24, MET 04/27 Four Impairment strength, plyometrics Short Term Goal (STG) Pt will be able to perform at least 10 reps of double leg hop from floor without compensation or pain and safe landing in order to demonstrate improved L knee strength and control during plyometrics 01/09/24: not appropriate at this time 01/29/24: Initiated today, 2x5 B hops with band for glute 04/27/24: In previous sessions and today session, performs several reps of B hop from floor and on box STG Duration 5 weeks MET Intermediate Goal (LTG) Pt will be able to perform vertical jump test or single leg hop test at least 80% of R leg if appropriate in order to demonstrate improved L knee strength and control during plyometrics 03/19/24, 03/02/24: initiated B hops and jumping; not appropriate for vertical or single leg jumping at this time 04/27/24: single leg vertical hop R 78 and L 72, pain free ; initiated box jumps, depth jumps, single leg hops, running, all without pain LTG Duration 10 weeks PROGRESSING Three Impairment strength Impairment 1 L single leg squat Short Term Goal (STG) Pt will perform at least 8 single leg squats using LLE without pain or compensation in order to demonstrate improved L quad control and strength for return to PLOF 01/09/24: 8 single leg squats without pain, occasional opp hip drop but improved form today, using chair for 2 finger support 01/29/24: 10 single leg squats with 2 finger support for balance, no pain during squat STG Duration 5 weeks MET Earth Mover Goal (LTG) Pt will perform at least 10 single leg squats using LLE without pain or compensation in order to demonstrate improved L quad control and strength for return to PLOF 01/29/24: 10 single leg squats with 2 finger support for balance, no pain during squat but prn cues to prevent knee valgus with increased depth 03/02/24: Improved form with single leg squats, 2 finger support for balance. Progressed to single leg squat from chair and eccentric lowering, 1x3 on LLE 04/27/24: able to perform SLS from chair 10 reps with level hips, prn foot support or trunk lean due to instability LTG Duration 10 weeks PROGRESSING; PARTIALLY MET Two Impairment activity Impairment LEFS 61/80 Short Term Goal (STG) Pt will improve LEFS score to >65/80 in order to demonstrate improved activity tolerance and return to higher level of function 01/09/24: 62/80 01/29/24: 62/80 STG Duration 5 weeks NOT MET Intermediate Goal (LTG) Pt will improve LEFS score to >65/80 (1 MCID) in order to demonstrate improved activity tolerance and return to higher level of function 01/29/24: 62/80 03/02/24: 64/80 04/27/24: 72/80 LTG Duration 10 weeks NOT MET; GOAL UPDATED 03/19/24, MET 04/27/24 One Impairment AROM Impairment L knee flex 127 deg Earth Mover Goal (LTG) Pt will improve L knee flexion AROM to > 130 deg without compensation in order to be comparable to R knee flexion for bike and stairs. 01/09/24: 130 deg knee flex 01/29/24: 125 deg flex 03/02/24: 127 deg, 130 deg post mob 03/19/24: 130 deg knee flex LTG Duration 10 weeks MET Assessment Summary Assessment Pt tolerated session well. Improved L knee flexion from 126 deg at start of session to 130 deg at end of session following mobilization. Trialed self knee flexion mobilization with band in quadruped, which pt tolerated well and able to kneel with heel touching buttock without knee pain afterward, a necessary function for her job . Remainder of session spent on improving L hamstring strength. Pt able to do nordic curls with greater ROM today but still demos weakness while in shortened range. Demos improved single leg quad stability, able to progress to 8 step down and touch ground . Pt would benefit from skilled PT for L knee mobility and global LLE strengthening to improve ability to perform job requirements. Physical Therapy Plan Frequency and Duration Frequency of Treatment 1x/Week Duration of treatment (weeks) 12 Plan of Care Start Date 04/27/24 Plan of Care End Date 07/24/24 Therapeutic Interventions Therapeutic Interventions Aquatic Therapy,Balance Training,Coordination Training ,Gait Training,Home Exercise Program,Joint Mobilizations, Manual Therapy,Neuromuscular Re-education,Orthotic/ Prosthetic Management,Patient/ Caregiver Education,Self-Care/ Home Management,Sensory Integration,Soft Tissue Mobilization,Taping, Therapeutic Activities, Therapeutic Exercises Modalities Biofeedback,Cold Pack/Ice Massage,Electric Stimulation, Hot Packs,Ultrasound, Vasopneumatic Devices Next Visit Focus/Plan Next Note Type Treatment Note Next Visit Plan Retrial split squat, HS curl, Banded (level 6) knee mobilization and fibular mobilization, single leg strength and hopping, HSC strength, box jumping progression, unstable surface and SLS Y drill Manual PRN: patellar mobilizations, ITB
--- NOTE | 2024-06-08 12:49 | PT.OTN ---
Current Diagnoses Other abnormalities of gait and mobility (06/08/24) Weakness (06/08/24) Other specified postprocedural states (06/08/24) Physical Therapy Treatment Note PT-OP-A Visit Information Start: 11/28/23 10:13 Freq: Status: Active Protocol: Document 06/08/24 10:36 NM (Rec: 06/08/24 11:18 NM [id number]) Out-Patient Physical Therapy Visit Information Visit Information Visit Type Treatment Note Visit Start Time 10:41 Visit Stop Time 11:15 Visit Number 04/24 Evaluation Information Evaluation Date 12/04/23 Precautions Precautions L ACL Hamstring graft, DOS 06/14 6 months: 12/13/23 PT-OP-B Current Condition Start: 11/28/23 10:13 Freq: Status: Active Protocol: Document 12/04/23 14:31 NM (Rec: 12/04/23 16:19 NM [id number]) Current Condition History of Current Condition Onset Date June 2023 Current Complaints knee flexion ROM, stiffness, pain with exercise, return to function History of Current Condition Pt had L knee ACL reconstruction in June 14, 2023 with hamstring graft. She tore her ACL while performing a [employer] course when moving laterally into L knee extension. No complications she's aware of with surgery, no complications with previous PT. She just moved to [facility]. She has been compliant with HEP since stopping PT in August when she moved. Prior to ACL tear, pt was not very active and did not exercise regularly. Currently, she is walking daily (1/4 mi). She is having a 2nd x ray follow up to assess surgical results and pt reported new bony prominence of L tibial plateau . Pt reports pain with supine quad sets laterally/ant knee, stiff when sitting for too long. 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 Pt states knee feels stable, no instances of locking/popping/giving out Prior Treatments and Tests Prior PT post op until move in 08/2023. Provided protocol from surgeon in [place], Dr. 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 Xrays look good, exam well, lack of flexion may be due to swelling or muscle. Ortho states that there doesn't feel like scar tissue. States that she feels like she starts over every time with knee flexion mobilization because swelling from work or stiffness. Pt also went to PCP for hip pain, was given home HEP; states helping a little. Compliant with HEP for knee. PT-OP-D Balance Start: 11/28/23 10:13 Freq: Status: Active Protocol: Document 12/04/23 14:31 NM (Rec: 12/04/23 16:19 NM [id number]) Balance Tests Single Limb Standing Single Limb- Right 30 sec Single Limb- Left 15 sec; not painful, increased ankle sway PT-OP-E Functional Tests Start: 11/28/23 10:13 Freq: Status: Active Protocol: Document 12/04/23 14:31 NM (Rec: 12/04/23 16:19 NM [id number]) Functional Tests Squat Test Score 10 Comments slight R deviation at hips/ knees, no valgus, no heel rise Single Leg Squat Test Score 1 Comment L knee valgus, trendelenburg, decreased hip hinge, not painful; UE support PT-OP-F Manual Assessment Start: 11/28/23 10:13 Freq: Status: Active Protocol: Document 12/04/23 14:31 NM (Rec: 12/04/23 16:19 NM [id number]) Manual Assessments Soft Tissue Assessment Soft Tissue Mobility Assessment L calf atrophy, minimal quad atrophy Joint Mobility Assessment Joint Mobility Assessment No clicking, locking, or other signs of L knee instability PT-OP-G Mobility & Gait Start: 11/28/23 10:13 Freq: Status: Active Protocol: Document 12/04/23 14:31 NM (Rec: 12/04/23 16:19 NM [id number]) OP Gait Assessment Gait Gait Assistance Required: Independent Distance (Feet) 200 Assistive Devices Assistive Device None Gait Deviations General Gait Pattern Within Normal Limits,Narrow Based Gait Factors Limiting Gait Function Factors Limiting Gait Function Decreased Activity Tolerance, Decreased Sensation,Limited Range of Motion Comments Gait Comments Gait is not quad avoidant. Slight trunk deviation toward L side with stance, in addition to slight LLE circumduction vs L knee flexion. Stair Climbing Evaluation Evaluation Level of Assist On Stairs Independent Devices Stair Climbing Assistive Devices None Technique/Endurance Stair Climbing Direction Ascend and Descend Stair Climbing Technique Step Over Step Number of Steps Climbed 4 Stair Climbing Set # Repetitions (reps) 2 Comments Stair Climbing Comments Slight R hip drop with L eccentric step down. Not painful. L knee translation directly over L foot. Able to lead with LLE ascending PT-OP-H Neuro Start: 11/28/23 10:13 Freq: Status: Active Protocol: Document 12/04/23 14:31 NM (Rec: 12/04/23 16:19 NM [id number]) Sensation Evaluation Gross Sensation Gross Sensation Left LE Impaired Comments Summary Comments Decreased light touch sensation of LLE along anterior tibia, scars PT-OP-J Posture/Palpation/Skin Start: 11/28/23 10:13 Freq: Status: Active Protocol: Document 12/04/23 14:31 NM (Rec: 12/04/23 16:19 NM [id number]) Posture Evaluation Position Standing Head/C-Spine Posture Forward Head L-Spine Posture Increased Lordosis Pelvis Posture Anteriorly Tilted Weight Distribution Balanced Hip Posture (L) Externally Rotated,(R) Externally Rotated Knee Posture (L) Genu Valgus,(R) Genu Valgus Patellar Posture (L) Superior,(R) Superior Ankle/Foot Posture (L) Pronated,(R) Pronated Comments Posture Comments R knee hyperextension in stance. L knee neutral extension Palpation Assessment Location L knee Palpation Location posterior knee, anterior knee, joint lines, femoral condyles , ITB Palpation Findings Tenderness Palpation Details Minimal tenderness along posterior knee near popliteal fold. No tenderness along joint lines. Minimal tenderness at anterior tibia and tibial tubercle, lateral femoral condyle. No tenderness along ITB despite pt reports Skin Assessment Incisional Assessment Incision Appearance/Comments Incisions intact, not infected . Minimal adhesion to underlying skin PT-OP-K Range of Motion Start: 11/28/23 10:13 Freq: Status: Active Protocol: Document 05/25/24 10:34 NM (Rec: 05/25/24 11:18 NM [id number]) Knee Goniometric Range of Motion Knee Left Flexion Active (degrees) 130 Extension Active (degrees) 0 Hyper-Extension Active 1 Comments Pain in posterior knee with end range passive extension 01/09/24: 0 deg ext, 120 deg flexion pre-stretch, 130 deg post stretching quad 01/29/24: 125 deg flexion, 0 deg extension 03/02/24: 125 deg flexion, 0 deg ext, +1 hyper extension 04/27/24, 03/19/24: 130 deg flexion, +1 deg hyperextension 05/25/24: PT-OP-M Strength Start: 11/28/23 10:13 Freq: Status: Active Protocol: Document 04/27/24 10:38 NM (Rec: 04/27/24 13:00 NM [id number]) Hip Strength Hip Manual Muscle Testing Left Flexion (L2) 4+ Good+ Extension (S1) 4+ Good+ Abduction 4+ Good+ Adduction 4+ Good+ External Rotation 4+ Good+ Internal Rotation 4+ Good+ Comments 01/09/24: 4/5 ext, 4+ for all others; pain free 01/29/24: 4+/5 for hip flex/ext /abd; pain free 04/27/24, 03/19/24, 03/02/24: 4+/5 for all Knee Strength Knee Manual Muscle Testing Left Flexion (S2) 4+ Good+ Extension (L3) 4+ Good+ Comments no pain with resisted motion 01/09/24: 4+/5 flex, 4/5 extension; pain free 01/29/24: 4+/5 flex and extension; pain free 03/02/24: 4+/5, pain free; LLE 75% of RLE with squat testing 04/27/24, 03/19/24: 4+/5 PT-OP-Q Treatments Start: 11/28/23 10:13 Freq: Status: Active Protocol: Document 06/08/24 10:36 NM (Rec: 06/08/24 11:18 NM [id number]) Therapeutic Exercises Standing Exercises squat Standing Exercise Name 1. split w/ rear elevated, 2. SL squat on 8 step: (a) fwd, (b) side Side bilateral Resistance 8# db Reps/Minutes 1. 2x15, 2. 10 ea (lateral SL squat on step- HEP) Comments pain free, good quad control HSC Side left Resistance 4# ankle wt Reps/Minutes 2x15 Comments following mobilization Other Exercises plank Other Exercise Name 1. modified plank w/ hip ext, 2. modified side plank w/ hip abd Side bilateral Equipment Used mat on floor Reps/Minutes HEP: 1. 10 ea, 2. 10 ea Comments cued for form; challenging for pt self mobilization Other Exercise Name quadruped knee flexion mobilization (post glide) Side left Resistance level 6 band Reps/Minutes 10 Comments warm up Neuro Re-Education Treatment Balance Activities SLS Comments 1. A/P rockerboard, 30 ea leg (a) w/o perturbations (b) w/ perturbations 2. 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 Short Term Goal (STG) Pt will demonstrate ability to lift 20# from squat position with good body mechanics and ambulate x 20 ft without knee pain or compensation in order to perform all functions of job 01/09/24: 20# squat box lift from floor, 1x10, then able to carry x20 ft STG Duration 5 weeks MET Color Technician Goal (LTG) Pt will report no difficulty with performing job functions due to L knee pain in order to demonstrate return to PLOF UPDATED GOAL- Pt will be able to pepper picker weighted object from floor using half kneel stance with L knee on floor or foam pad in order to demonstrate increased knee flexion and comfort when performing lifting tasks for work from lower surface 01/28/24: reports no limitations 04/27/24: split squats with 10# db in ea hand from floor w/o pain or compensation LTG Duration 10 weeks MET 01/28/24; updated 03/19/24, MET 04/27 Four Impairment strength, plyometrics Short Term Goal (STG) Pt will be able to perform at least 10 reps of double leg hop from floor without compensation or pain and safe landing in order to demonstrate improved L knee strength and control during plyometrics 01/09/24: not appropriate at this time 01/29/24: Initiated today, 2x5 B hops with band for glute 04/27/24: In previous sessions and today session, performs several reps of B hop from floor and on box STG Duration 5 weeks MET Detention Goal (LTG) Pt will be able to perform vertical jump test or single leg hop test at least 80% of R leg if appropriate in order to demonstrate improved L knee strength and control during plyometrics 03/19/24, 03/02/24: initiated B hops and jumping; not appropriate for vertical or single leg jumping at this time 04/27/24: single leg vertical hop R 78 and L 72, pain free ; initiated box jumps, depth jumps, single leg hops, running, all without pain LTG Duration 10 weeks PROGRESSING Three Impairment strength Impairment 1 L single leg squat Short Term Goal (STG) Pt will perform at least 8 single leg squats using LLE without pain or compensation in order to demonstrate improved L quad control and strength for return to PLOF 01/09/24: 8 single leg squats without pain, occasional opp hip drop but improved form today, using chair for 2 finger support 01/29/24: 10 single leg squats with 2 finger support for balance, no pain during squat STG Duration 5 weeks MET Detention Goal (LTG) Pt will perform at least 10 single leg squats using LLE without pain or compensation in order to demonstrate improved L quad control and strength for return to PLOF 01/29/24: 10 single leg squats with 2 finger support for balance, no pain during squat but prn cues to prevent knee valgus with increased depth 03/02/24: Improved form with single leg squats, 2 finger support for balance. Progressed to single leg squat from chair and eccentric lowering, 1x3 on LLE 04/27/24: able to perform SLS from chair 10 reps with level hips, prn foot support or trunk lean due to instability LTG Duration 10 weeks PROGRESSING; PARTIALLY MET Two Impairment activity Impairment LEFS 61/80 Short Term Goal (STG) Pt will improve LEFS score to >65/80 in order to demonstrate improved activity tolerance and return to higher level of function 01/09/24: 62/80 01/29/24: 62/80 STG Duration 5 weeks NOT MET Detention Goal (LTG) Pt will improve LEFS score to >65/80 (1 MCID) in order to demonstrate improved activity tolerance and return to higher level of function 01/29/24: 62/80 03/02/24: 64/80 04/27/24: 72/80 LTG Duration 10 weeks NOT MET; GOAL UPDATED 03/19/24, MET 04/27/24 One Impairment AROM Impairment L knee flex 127 deg Detention Goal (LTG) Pt will improve L knee flexion AROM to > 130 deg without compensation in order to be comparable to R knee flexion for bike and stairs. 01/09/24: 130 deg knee flex 01/29/24: 125 deg flex 03/02/24: 127 deg, 130 deg post mob 03/19/24: 130 deg knee flex LTG Duration 10 weeks MET Assessment Summary Assessment Pt tolerated session well. Decreased time because pt late . Continued with knee flexion mobilization and facilitating hamstring strength within newly available ROM. Demonstrates improved form with good knee stability, closer to achieving full knee flexion ROM during split squat with rear leg elevated and able to perform with small resistance. RLE is more challenged for stability than LLE. Able to progress to added resistance during forward and lateral 8 single leg squats without loss of form. PT educated pt to form all activities bilaterally to continue strengthening RLE comparably as well. Pt challenged by modified core with hip exercises. Good stability at knee with and without perturbation on unstable surfaces. Pt would benefit from progressive BLE strengthening and impact training to improve confidence with return to activity and to facilitate maximal stability during activity with minimal limitations. Physical Therapy Plan Frequency and Duration Frequency of Treatment 1x/Week Duration of treatment (weeks) 12 Plan of Care Start Date 04/27/24 Plan of Care End Date 07/24/24 Therapeutic Interventions Therapeutic Interventions Aquatic Therapy,Balance Training,Coordination Training ,Gait Training,Home Exercise Program,Joint Mobilizations, Manual Therapy,Neuromuscular Re-education,Orthotic/ Prosthetic Management,Patient/ Caregiver Education,Self-Care/ Home Management,Sensory Integration,Soft Tissue Mobilization,Taping, Therapeutic Activities, Therapeutic Exercises Modalities Biofeedback,Cold Pack/Ice Massage,Electric Stimulation, Hot Packs,Ultrasound, Vasopneumatic Devices Next Visit Focus/Plan Next Note Type Progress Note Next Visit Plan rocker board SLS w/ ball toss, trial SLS on rocker,, retest comparable squat btwn legs, trial sport cord, vertical hop ; proprioception, HS curl, Banded (level 6) knee mobilization and fibular mobilization, single leg strength and hopping, HSC strength, box jumping progression, unstable surface and SLS Y drill Manual PRN: patellar mobilizations, ITB
--- NOTE | 2024-06-22 10:45 | PT-OP ANOTE ---
PT called and left voicemail for patient updating pt on current authorization. Pt has not attended last 2 scheduled appt but has not canceled until day-of appt. Pt currently has 3 visits scheduled within available authorization. Due to current progression with PT toward goals, PT informed pt that will not pursue further auth. However, can be discussed with PT at upcoming appt. Reminded of upcoming appts and requested pt call if have concerns.
--- NOTE | 2024-06-29 13:34 | PT.OTN ---
Current Diagnoses Other abnormalities of gait and mobility (06/29/24) Weakness (06/29/24) Other specified postprocedural states (06/29/24) Physical Therapy Treatment Note PT-OP-A Visit Information Start: 11/28/23 10:13 Freq: Status: Active Protocol: Document 06/29/24 10:32 NM (Rec: 06/29/24 11:16 NM [id number]) Out-Patient Physical Therapy Visit Information Visit Information Visit Type Progress Note Visit Start Time 10:33 Visit Stop Time 11:13 Visit Number 05/25 Evaluation Information Evaluation Date 12/04/23 Precautions Precautions L ACL Hamstring graft, DOS 06/14 6 months: 12/13/23 PT-OP-B Current Condition Start: 11/28/23 10:13 Freq: Status: Active Protocol: Document 12/04/23 14:31 NM (Rec: 12/04/23 16:19 NM [id number]) Current Condition History of Current Condition Onset Date June 2023 Current Complaints knee flexion ROM, stiffness, pain with exercise, return to function History of Current Condition Pt had L knee ACL reconstruction in June 14, 2023 with hamstring graft. She tore her ACL while performing a [employer] course when moving laterally into L knee extension. No complications she's aware of with surgery, no complications with previous PT. She just moved to [facility]. She has been compliant with HEP since stopping PT in August when she moved. Prior to ACL tear, pt was not very active and did not exercise regularly. Currently, she is walking daily (1/4 mi). She is having a 2nd x ray follow up to assess surgical results and pt reported new bony prominence of L tibial plateau . Pt reports pain with supine quad sets laterally/ant knee, stiff when sitting for too long. 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 Pt states knee feels stable, no instances of locking/popping/giving out Prior Treatments and Tests Prior PT post op until move in 08/2023. Provided protocol from surgeon in [place], Dr. 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 She also has concern about with eccentric step down, states challenging and unsure of doing it right. 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 Reports still havingn a little trouble with bending down at work buts states that she feels it on her R knee when bending. Has been using LLE more when bending down to floor. Reports ok to d/c next time with strengthening vs asking for more visits. Reports interested in dancing. PT-OP-D Balance Start: 11/28/23 10:13 Freq: Status: Active Protocol: Document 12/04/23 14:31 NM (Rec: 12/04/23 16:19 NM [id number]) Balance Tests Single Limb Standing Single Limb- Right 30 sec Single Limb- Left 15 sec; not painful, increased ankle sway PT-OP-E Functional Tests Start: 11/28/23 10:13 Freq: Status: Active Protocol: Document 12/04/23 14:31 NM (Rec: 12/04/23 16:19 NM [id number]) Functional Tests Squat Test Score 10 Comments slight R deviation at hips/ knees, no valgus, no heel rise Single Leg Squat Test Score 1 Comment L knee valgus, trendelenburg, decreased hip hinge, not painful; UE support PT-OP-F Manual Assessment Start: 11/28/23 10:13 Freq: Status: Active Protocol: Document 12/04/23 14:31 NM (Rec: 12/04/23 16:19 NM [id number]) Manual Assessments Soft Tissue Assessment Soft Tissue Mobility Assessment L calf atrophy, minimal quad atrophy Joint Mobility Assessment Joint Mobility Assessment No clicking, locking, or other signs of L knee instability PT-OP-G Mobility & Gait Start: 11/28/23 10:13 Freq: Status: Active Protocol: Document 12/04/23 14:31 NM (Rec: 12/04/23 16:19 NM [id number]) OP Gait Assessment Gait Gait Assistance Required: Independent Distance (Feet) 200 Assistive Devices Assistive Device None Gait Deviations General Gait Pattern Within Normal Limits,Narrow Based Gait Factors Limiting Gait Function Factors Limiting Gait Function Decreased Activity Tolerance, Decreased Sensation,Limited Range of Motion Comments Gait Comments Gait is not quad avoidant. Slight trunk deviation toward L side with stance, in addition to slight LLE circumduction vs L knee flexion. Stair Climbing Evaluation Evaluation Level of Assist On Stairs Independent Devices Stair Climbing Assistive Devices None Technique/Endurance Stair Climbing Direction Ascend and Descend Stair Climbing Technique Step Over Step Number of Steps Climbed 4 Stair Climbing Set # Repetitions (reps) 2 Comments Stair Climbing Comments Slight R hip drop with L eccentric step down. Not painful. L knee translation directly over L foot. Able to lead with LLE ascending PT-OP-H Neuro Start: 11/28/23 10:13 Freq: Status: Active Protocol: Document 12/04/23 14:31 NM (Rec: 12/04/23 16:19 NM [id number]) Sensation Evaluation Gross Sensation Gross Sensation Left LE Impaired Comments Summary Comments Decreased light touch sensation of LLE along anterior tibia, scars PT-OP-J Posture/Palpation/Skin Start: 11/28/23 10:13 Freq: Status: Active Protocol: Document 12/04/23 14:31 NM (Rec: 12/04/23 16:19 NM [id number]) Posture Evaluation Position Standing Head/C-Spine Posture Forward Head L-Spine Posture Increased Lordosis Pelvis Posture Anteriorly Tilted Weight Distribution Balanced Hip Posture (L) Externally Rotated,(R) Externally Rotated Knee Posture (L) Genu Valgus,(R) Genu Valgus Patellar Posture (L) Superior,(R) Superior Ankle/Foot Posture (L) Pronated,(R) Pronated Comments Posture Comments R knee hyperextension in stance. L knee neutral extension Palpation Assessment Location L knee Palpation Location posterior knee, anterior knee, joint lines, femoral condyles , ITB Palpation Findings Tenderness Palpation Details Minimal tenderness along posterior knee near popliteal fold. No tenderness along joint lines. Minimal tenderness at anterior tibia and tibial tubercle, lateral femoral condyle. No tenderness along ITB despite pt reports Skin Assessment Incisional Assessment Incision Appearance/Comments Incisions intact, not infected . Minimal adhesion to underlying skin PT-OP-K Range of Motion Start: 11/28/23 10:13 Freq: Status: Active Protocol: Document 06/29/24 10:32 NM (Rec: 06/29/24 11:16 NM [id number]) Knee Goniometric Range of Motion Knee Left Flexion Active (degrees) 131 Extension Active (degrees) 0 Hyper-Extension Active 1 Comments Pain in posterior knee with end range passive extension 01/09/24: 0 deg ext, 120 deg flexion pre-stretch, 130 deg post stretching quad 01/29/24: 125 deg flexion, 0 deg extension 03/02/24: 125 deg flexion, 0 deg ext, +1 hyper extension 04/27/24, 03/19/24: 130 deg flexion, +1 deg hyperextension 06/29/24: 131 deg knee flex, +1 deg ext PT-OP-M Strength Start: 11/28/23 10:13 Freq: Status: Active Protocol: Document 06/29/24 10:32 NM (Rec: 06/29/24 11:16 NM [id number]) Hip Strength Hip Manual Muscle Testing Right Flexion (L2) 4+ Good+ Extension (S1) 4 Good Abduction 4 Good Adduction 4+ Good+ External Rotation 4+ Good+ Internal Rotation 4+ Good+ Left Flexion (L2) 4+ Good+ Extension (S1) 4+ Good+ Abduction 4+ Good+ Adduction 4+ Good+ External Rotation 4+ Good+ Internal Rotation 4+ Good+ Comments 01/09/24: 4/5 ext, 4+ for all others; pain free 01/29/24: 4+/5 for hip flex/ext /abd; pain free 04/27/24, 03/19/24, 03/02/24: 4+/5 for all 06/29/24: 4+ for all Knee Strength Knee Manual Muscle Testing Left Flexion (S2) 4+ Good+ Extension (L3) 4+ Good+ Comments no pain with resisted motion 01/09/24: 4+/5 flex, 4/5 extension; pain free 01/29/24: 4+/5 flex and extension; pain free 03/02/24: 4+/5, pain free; LLE 75% of RLE with squat testing 04/27/24, 03/19/24: 4+/5 06/29/24: 4+/5 for all, no pain PT-OP-Q Treatments Start: 11/28/23 10:13 Freq: Status: Active Protocol: Document 06/29/24 10:32 NM (Rec: 06/29/24 11:16 NM [id number]) Gym Equipment Shuttle Recovery R squat Details testing: max number performed Resistance 75# (3 navy) Reps/Time 37 (; 14 last time,*27 at 63#, *18@75#) L squat Details testing # reps (max # reps performed) Resistance 75# (3 navy) Reps/Time 37 (10 last time, *12@ 75#) Therapeutic Exercises Supine Exercises HS stretch Side left Reps/Minutes 60 Comments following manual Standing Exercises step downs Standing Exercise Name eccentric step down Side bilateral Equipment Used 8 Reps/Minutes 15 ea Comments pain free; cued knee can come toe Therapeutic Activity Therapeutic Activity pivoting Comments 1. B leg pivot w/ ball toss, 60 ea 2. lunge w/ pivot and ball toss, 10 ea 3. twin hills pivots w/ planting zeenat, 2x 8 reps ea 4. pivots w/ opp leg on slider , level 4 band to tension and create perturbation at knee, 10 ea direction cutting/turning Reps/Minutes 4 reps x 25 ft Comments lateral shuffle pivot turn and jog, ea direction hopping/jumping Comments Vertical hop single leg Self-Care/Home Management Treatment Education Patient Education Joint Protection,Safety Other Education PT educated pt on importance of strengthening program with pt interest in higher level activities in future, e.g. skiing. 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 Short Term Goal (STG) Pt will demonstrate ability to lift 20# from squat position with good body mechanics and ambulate x 20 ft without knee pain or compensation in order to perform all functions of job 01/09/24: 20# squat box lift from floor, 1x10, then able to carry x20 ft STG Duration 5 weeks MET Classification Inspector Goal (LTG) Pt will report no difficulty with performing job functions due to L knee pain in order to demonstrate return to PLOF UPDATED GOAL- Pt will be able to parts picker weighted object from floor using half kneel stance with L knee on floor or foam pad in order to demonstrate increased knee flexion and comfort when performing lifting tasks for work from lower surface 01/28/24: reports no limitations 04/27/24: split squats with 10# db in ea hand from floor w/o pain or compensation 06/29/24: pt reports no pain or difficulty in L knee with job requirements, only occasional soreness after working LTG Duration 10 weeks MET 01/28/24; updated 03/19/24, MET 04/27 Four Impairment strength, plyometrics Short Term Goal (STG) Pt will be able to perform at least 10 reps of double leg hop from floor without compensation or pain and safe landing in order to demonstrate improved L knee strength and control during plyometrics 01/09/24: not appropriate at this time 01/29/24: Initiated today, 2x5 B hops with band for glute 04/27/24: In previous sessions and today session, performs several reps of B hop from floor and on box STG Duration 5 weeks MET Longterm Goal (LTG) Pt will be able to perform vertical jump test or single leg hop test at least 80% of R leg if appropriate in order to demonstrate improved L knee strength and control during plyometrics 03/19/24, 03/02/24: initiated B hops and jumping; not appropriate for vertical or single leg jumping at this time 04/27/24: single leg vertical hop R 78 and L 72, pain free ; initiated box jumps, depth jumps, single leg hops, running, all without pain 06/29/24: single leg vertical hop R: 82, L: 80 LTG Duration 10 weeks MET Three Impairment strength Impairment 1 L single leg squat Short Term Goal (STG) Pt will perform at least 8 single leg squats using LLE without pain or compensation in order to demonstrate improved L quad control and strength for return to PLOF 01/09/24: 8 single leg squats without pain, occasional opp hip drop but improved form today, using chair for 2 finger support 01/29/24: 10 single leg squats with 2 finger support for balance, no pain during squat STG Duration 5 weeks MET Classification Inspector Goal (LTG) Pt will perform at least 10 single leg squats using LLE without pain or compensation in order to demonstrate improved L quad control and strength for return to PLOF 01/29/24: 10 single leg squats with 2 finger support for balance, no pain during squat but prn cues to prevent knee valgus with increased depth 03/02/24: Improved form with single leg squats, 2 finger support for balance. Progressed to single leg squat from chair and eccentric lowering, 1x3 on LLE 04/27/24: able to perform SLS from chair 10 reps with level hips, prn foot support or trunk lean due to instability 06/29/24: able to perform SL squats from chair for multiple reps in previous sessions with minimal compensations LTG Duration 10 weeks MET Two Impairment activity Impairment LEFS 61/80 Short Term Goal (STG) Pt will improve LEFS score to >65/80 in order to demonstrate improved activity tolerance and return to higher level of function 01/09/24: 62/80 01/29/24: 62/80 STG Duration 5 weeks NOT MET Longterm Goal (LTG) Pt will improve LEFS score to >65/80 (1 MCID) in order to demonstrate improved activity tolerance and return to higher level of function 01/29/24: 62/80 03/02/24: 64/80 04/27/24: 72/80 06/29/24: 75/80 LTG Duration 10 weeks NOT MET; GOAL UPDATED 03/19/24, MET 04/27/24 One Impairment AROM Impairment L knee flex 127 deg Longterm Goal (LTG) Pt will improve L knee flexion AROM to > 130 deg without compensation in order to be comparable to R knee flexion for bike and stairs. 01/09/24: 130 deg knee flex 01/29/24: 125 deg flex 03/02/24: 127 deg, 130 deg post mob 03/19/24: 130 deg knee flex 06/29/24: 131 deg knee flexion LTG Duration 10 weeks MET Progress Towards Goals Progress Towards Goals Progressing Toward Goals,Goals Met Assessment Summary Assessment Pt tolerated session well. Emphasis on pivoting and cutting, while pt maintains stability on LLE. Pt requires cues initially for safety during execution and joint protection, cueing to maintain slight knee flexion. Pt initially hesitant but able to improve with reps and cueing for speed. Demos improved quad control, knee flexion, and form with eccentric step down; progressed up to 8 with pt almost able to touch floor. Demos increased reps at 75#, able to maintain full ROM during single leg squat on leg press and work up to fatigue on ea leg. Did not progress resistance due to testing. Pt able to achieve 100% of RLE strength on LLE using same weight, which was challenging for pt. Physical Therapy Plan Frequency and Duration Frequency of Treatment 1x/Week Duration of treatment (weeks) 12 Plan of Care Start Date 04/27/24 Plan of Care End Date 07/24/24 Therapeutic Interventions Therapeutic Interventions Aquatic Therapy,Balance Training,Coordination Training ,Gait Training,Home Exercise Program,Joint Mobilizations, Manual Therapy,Neuromuscular Re-education,Orthotic/ Prosthetic Management,Patient/ Caregiver Education,Self-Care/ Home Management,Sensory Integration,Soft Tissue Mobilization,Taping, Therapeutic Activities, Therapeutic Exercises Modalities Biofeedback,Cold Pack/Ice Massage,Electric Stimulation, Hot Packs,Ultrasound, Vasopneumatic Devices Next Visit Focus/Plan Next Note Type Treatment Note Next Visit Plan ask tolerance for jumping and pivoting rocker board SLS w/ ball toss, trial SLS on rocker, retest SLS comparable ea leg from chair; proprioception, HS curl , Banded (level 6) knee mobilization and fibular mobilization as needed, single leg strength and hopping, box jumping progression Cont w/ split squat with band for external perturbation, eccentric step down 4 with external perturbation Manual PRN: patellar mobilizations, ITB as needed
--- NOTE | 2024-07-13 12:55 | PT.OTN ---
Current Diagnoses Other abnormalities of gait and mobility (07/13/24) Weakness (07/13/24) Other specified postprocedural states (07/13/24) Physical Therapy Treatment Note PT-OP-A Visit Information Start: 11/28/23 10:13 Freq: Status: Active Protocol: Document 07/13/24 10:28 NM (Rec: 07/13/24 11:15 NM [id number]) Out-Patient Physical Therapy Visit Information Visit Information Visit Type Discharge Summary Visit Start Time 10:30 Visit Stop Time 11:15 Visit Number 06/25 Evaluation Information Evaluation Date 12/04/23 Precautions Precautions L ACL Hamstring graft, DOS 06/14 6 months: 12/13/23 PT-OP-B Current Condition Start: 11/28/23 10:13 Freq: Status: Active Protocol: Document 12/04/23 14:31 NM (Rec: 12/04/23 16:19 NM [id number]) Current Condition History of Current Condition Onset Date June 2023 Current Complaints knee flexion ROM, stiffness, pain with exercise, return to function History of Current Condition Pt had L knee ACL reconstruction in June 14, 2023 with hamstring graft. She tore her ACL while performing a [employer] course when moving laterally into L knee extension. No complications she's aware of with surgery, no complications with previous PT. She just moved to [facility]. She has been compliant with HEP since stopping PT in August when she moved. Prior to ACL tear, pt was not very active and did not exercise regularly. Currently, she is walking daily (1/4 mi). She is having a 2nd x ray follow up to assess surgical results and pt reported new bony prominence of L tibial plateau . Pt reports pain with supine quad sets laterally/ant knee, stiff when sitting for too long. 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 Pt states knee feels stable, no instances of locking/popping/giving out Prior Treatments and Tests Prior PT post op until move in 08/2023. Provided protocol from surgeon in [place], Dr. 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 Pt reports ok to discharge from PT today, still doing HEP without limitation or issues, especially with hip pain. Pt reports no limitations with work, ADLs, recreational activities, or HEP due to L knee. PT-OP-D Balance Start: 11/28/23 10:13 Freq: Status: Active Protocol: Document 12/04/23 14:31 NM (Rec: 12/04/23 16:19 NM [id number]) Balance Tests Single Limb Standing Single Limb- Right 30 sec Single Limb- Left 15 sec; not painful, increased ankle sway PT-OP-E Functional Tests Start: 11/28/23 10:13 Freq: Status: Active Protocol: Document 12/04/23 14:31 NM (Rec: 12/04/23 16:19 NM [id number]) Functional Tests Squat Test Score 10 Comments slight R deviation at hips/ knees, no valgus, no heel rise Single Leg Squat Test Score 1 Comment L knee valgus, trendelenburg, decreased hip hinge, not painful; UE support PT-OP-F Manual Assessment Start: 11/28/23 10:13 Freq: Status: Active Protocol: Document 12/04/23 14:31 NM (Rec: 12/04/23 16:19 NM [id number]) Manual Assessments Soft Tissue Assessment Soft Tissue Mobility Assessment L calf atrophy, minimal quad atrophy Joint Mobility Assessment Joint Mobility Assessment No clicking, locking, or other signs of L knee instability PT-OP-G Mobility & Gait Start: 11/28/23 10:13 Freq: Status: Active Protocol: Document 12/04/23 14:31 NM (Rec: 12/04/23 16:19 NM [id number]) OP Gait Assessment Gait Gait Assistance Required: Independent Distance (Feet) 200 Assistive Devices Assistive Device None Gait Deviations General Gait Pattern Within Normal Limits,Narrow Based Gait Factors Limiting Gait Function Factors Limiting Gait Function Decreased Activity Tolerance, Decreased Sensation,Limited Range of Motion Comments Gait Comments Gait is not quad avoidant. Slight trunk deviation toward L side with stance, in addition to slight LLE circumduction vs L knee flexion. Stair Climbing Evaluation Evaluation Level of Assist On Stairs Independent Devices Stair Climbing Assistive Devices None Technique/Endurance Stair Climbing Direction Ascend and Descend Stair Climbing Technique Step Over Step Number of Steps Climbed 4 Stair Climbing Set # Repetitions (reps) 2 Comments Stair Climbing Comments Slight R hip drop with L eccentric step down. Not painful. L knee translation directly over L foot. Able to lead with LLE ascending PT-OP-H Neuro Start: 11/28/23 10:13 Freq: Status: Active Protocol: Document 12/04/23 14:31 NM (Rec: 12/04/23 16:19 NM [id number]) Sensation Evaluation Gross Sensation Gross Sensation Left LE Impaired Comments Summary Comments Decreased light touch sensation of LLE along anterior tibia, scars PT-OP-J Posture/Palpation/Skin Start: 11/28/23 10:13 Freq: Status: Active Protocol: Document 12/04/23 14:31 NM (Rec: 12/04/23 16:19 NM [id number]) Posture Evaluation Position Standing Head/C-Spine Posture Forward Head L-Spine Posture Increased Lordosis Pelvis Posture Anteriorly Tilted Weight Distribution Balanced Hip Posture (L) Externally Rotated,(R) Externally Rotated Knee Posture (L) Genu Valgus,(R) Genu Valgus Patellar Posture (L) Superior,(R) Superior Ankle/Foot Posture (L) Pronated,(R) Pronated Comments Posture Comments R knee hyperextension in stance. L knee neutral extension Palpation Assessment Location L knee Palpation Location posterior knee, anterior knee, joint lines, femoral condyles , ITB Palpation Findings Tenderness Palpation Details Minimal tenderness along posterior knee near popliteal fold. No tenderness along joint lines. Minimal tenderness at anterior tibia and tibial tubercle, lateral femoral condyle. No tenderness along ITB despite pt reports Skin Assessment Incisional Assessment Incision Appearance/Comments Incisions intact, not infected . Minimal adhesion to underlying skin PT-OP-K Range of Motion Start: 11/28/23 10:13 Freq: Status: Active Protocol: Document 07/13/24 10:28 NM (Rec: 07/13/24 11:15 NM [id number]) Knee Goniometric Range of Motion Knee Left Flexion Active (degrees) 135 Extension Active (degrees) 0 Hyper-Extension Active 1 Comments Pain in posterior knee with end range passive extension 01/09/24: 0 deg ext, 120 deg flexion pre-stretch, 130 deg post stretching quad 01/29/24: 125 deg flexion, 0 deg extension 03/02/24: 125 deg flexion, 0 deg ext, +1 hyper extension 04/27/24, 03/19/24: 130 deg flexion, +1 deg hyperextension 06/29/24: 131 deg knee flex, +1 deg ext 07/13/24: 135 deg knee flexion + 1 deg hyperextension PT-OP-M Strength Start: 11/28/23 10:13 Freq: Status: Active Protocol: Document 07/13/24 10:28 NM (Rec: 07/13/24 11:15 NM [id number]) Hip Strength Hip Manual Muscle Testing Left Flexion (L2) 4+ Good+ Extension (S1) 4+ Good+ Abduction 4+ Good+ Adduction 4+ Good+ External Rotation 4+ Good+ Internal Rotation 4+ Good+ Comments 01/09/24: 4/5 ext, 4+ for all others; pain free 01/29/24: 4+/5 for hip flex/ext /abd; pain free 04/27/24, 03/19/24, 03/02/24: 4+/5 for all 07/13/24, 06/29/24: 4+ for all Knee Strength Knee Manual Muscle Testing Left Flexion (S2) 4+ Good+ Extension (L3) 4+ Good+ Comments no pain with resisted motion 01/09/24: 4+/5 flex, 4/5 extension; pain free 01/29/24: 4+/5 flex and extension; pain free 03/02/24: 4+/5, pain free; LLE 75% of RLE with squat testing 04/27/24, 03/19/24: 4+/5 07/13/24, 06/29/24: 4+/5 for all , no pain PT-OP-Q Treatments Start: 11/28/23 10:13 Freq: Status: Active Protocol: Document 07/13/24 10:28 NM (Rec: 07/13/24 11:15 NM [id number]) Therapeutic Exercises Supine Exercises HSC Supine Exercise Name single leg Side bilateral Reps/Minutes 2x5 ea Standing Exercises hip 3 way Standing Exercise Name hip flex, ext, abd (Y drill) w / single leg squat Side bilateral Resistance level 3 band at ankles Reps/Minutes 10 ea Comments good stability single leg RDL Side bilateral Resistance 5# Reps/Minutes 20 ea single leg squat Standing Exercise Name to standard chair Side bilateral Reps/Minutes 2x10 Other Exercises plank Other Exercise Name 1. modified plank w/ hip ext, 2. modified side plank w/ hip abd Side bilateral Resistance AROM > level 1 band Equipment Used mat on floor Reps/Minutes 2x10 ea Comments cued for form; challenging for pt Self-Care/Home Management Treatment Education Patient Education Home Exercise Program,Safety Other Education 8 minutes- Answered pt questions about HEP and educated again on importance of continued strengthening for ACL rehabilitation, not only with maintenance program but recommended resistance training as well. 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 Short Term Goal (STG) Pt will demonstrate ability to lift 20# from squat position with good body mechanics and ambulate x 20 ft without knee pain or compensation in order to perform all functions of job 01/09/24: 20# squat box lift from floor, 1x10, then able to carry x20 ft STG Duration 5 weeks MET Care Home Goal (LTG) Pt will report no difficulty with performing job functions due to L knee pain in order to demonstrate return to PLOF UPDATED GOAL- Pt will be able to shredder picker weighted object from floor using half kneel stance with L knee on floor or foam pad in order to demonstrate increased knee flexion and comfort when performing lifting tasks for work from lower surface 01/28/24: reports no limitations 04/27/24: split squats with 10# db in ea hand from floor w/o pain or compensation 06/29/24: pt reports no pain or difficulty in L knee with job requirements, only occasional soreness after working LTG Duration 10 weeks MET 01/28/24; updated 03/19/24, MET 04/27 Four Impairment strength, plyometrics Short Term Goal (STG) Pt will be able to perform at least 10 reps of double leg hop from floor without compensation or pain and safe landing in order to demonstrate improved L knee strength and control during plyometrics 01/09/24: not appropriate at this time 01/29/24: Initiated today, 2x5 B hops with band for glute 04/27/24: In previous sessions and today session, performs several reps of B hop from floor and on box STG Duration 5 weeks MET Executive Coordinator Goal (LTG) Pt will be able to perform vertical jump test or single leg hop test at least 80% of R leg if appropriate in order to demonstrate improved L knee strength and control during plyometrics 03/19/24, 03/02/24: initiated B hops and jumping; not appropriate for vertical or single leg jumping at this time 04/27/24: single leg vertical hop R 78 and L 72, pain free ; initiated box jumps, depth jumps, single leg hops, running, all without pain 06/29/24: single leg vertical hop R: 82, L: 80 LTG Duration 10 weeks MET Three Impairment strength Impairment 1 L single leg squat Short Term Goal (STG) Pt will perform at least 8 single leg squats using LLE without pain or compensation in order to demonstrate improved L quad control and strength for return to PLOF 01/09/24: 8 single leg squats without pain, occasional opp hip drop but improved form today, using chair for 2 finger support 01/29/24: 10 single leg squats with 2 finger support for balance, no pain during squat STG Duration 5 weeks MET Executive Coordinator Goal (LTG) Pt will perform at least 10 single leg squats using LLE without pain or compensation in order to demonstrate improved L quad control and strength for return to PLOF 01/29/24: 10 single leg squats with 2 finger support for balance, no pain during squat but prn cues to prevent knee valgus with increased depth 03/02/24: Improved form with single leg squats, 2 finger support for balance. Progressed to single leg squat from chair and eccentric lowering, 1x3 on LLE 04/27/24: able to perform SLS from chair 10 reps with level hips, prn foot support or trunk lean due to instability 06/29/24: able to perform SL squats from chair for multiple reps in previous sessions with minimal compensations LTG Duration 10 weeks MET Two Impairment activity Impairment LEFS 61/80 Short Term Goal (STG) Pt will improve LEFS score to >65/80 in order to demonstrate improved activity tolerance and return to higher level of function 01/09/24: 62/80 01/29/24: 62/80 STG Duration 5 weeks NOT MET Executive Coordinator Goal (LTG) Pt will improve LEFS score to >65/80 (1 MCID) in order to demonstrate improved activity tolerance and return to higher level of function 01/29/24: 62/80 03/02/24: 64/80 04/27/24: 72/80 06/29/24: 75/80 LTG Duration 10 weeks NOT MET; GOAL UPDATED 03/19/24, MET 04/27/24 One Impairment AROM Impairment L knee flex 127 deg Care Home Goal (LTG) Pt will improve L knee flexion AROM to > 130 deg without compensation in order to be comparable to R knee flexion for bike and stairs. 01/09/24: 130 deg knee flex 01/29/24: 125 deg flex 03/02/24: 127 deg, 130 deg post mob 03/19/24: 130 deg knee flex 06/29/24: 131 deg knee flexion LTG Duration 10 weeks MET Progress Towards Goals Progress Towards Goals Goals Met Assessment Summary Assessment Pt tolerated session well. Session spent answering pt questions and establishing maintenance strengthening program. PT and pt discussed discharge in previous session, both in agreement as pt has met all goals and reports minimal limitations with work, recreational activities, and ADLs due her L knee. Continues to demonstrate improved single leg stance and control, especially during single leg squats and hip 3 way. Still requires occasional cue to prevent slight knee flexion with single leg RDL. Pt's balance especially with ankle stability is most limiting factor for single leg exercises. Physical Therapy Plan Frequency and Duration Frequency of Treatment 1x/Week Duration of treatment (weeks) 12 Plan of Care Start Date 04/27/24 Plan of Care End Date 07/24/24 Therapeutic Interventions Therapeutic Interventions Aquatic Therapy,Balance Training,Coordination Training ,Gait Training,Home Exercise Program,Joint Mobilizations, Manual Therapy,Neuromuscular Re-education,Orthotic/ Prosthetic Management,Patient/ Caregiver Education,Self-Care/ Home Management,Sensory Integration,Soft Tissue Mobilization,Taping, Therapeutic Activities, Therapeutic Exercises Modalities Biofeedback,Cold Pack/Ice Massage,Electric Stimulation, Hot Packs,Ultrasound, Vasopneumatic Devices Discharge Physical Therapy Discharge Reasons Goals Met Discharge Comments Authorization period ends 07/13 . Pt has met all PT goals and is safe to discharge to maintenance program for strengthening, in addition to independent resistance training Next Visit Focus/Plan Next Note Type Discharge Summary Next Visit Plan discharge from PT
== END 2024-07-16 14:46 | disposition home or self-care (01) ==
LOC: PHYS 10:30
PROVIDERS: Family Provider Registered Nurse; PCP Family Medicine; Referring Provider Family Medicine; Visit Provider Family Medicine
DX: Z98.890 Other specified postprocedural states (principal); R53.1 Weakness; R26.89 Other abnormalities of gait and mobility
CPT/HCPCS: 97110; 97112; 97140; 97161; 97162; 97530; 97535

== ENCOUNTER 2024-11-23 13:00 | Outpatient (RCR) | payer OTHER, SELFPAY ==
--- NOTE | 2024-09-14 15:46 | PT.OIE ---
Current Diagnoses Pain in right hip (09/14/24) Stiffness of right hip, not elsewhere classified (09/14/24) Other lack of coordination (09/14/24) Weakness (09/14/24) Past Medical History (Last Updated 12/03/23 @ 20:21 by Cammie Quezada) Anxiety (~2016) Flat feet Past Surgical History (Last Updated 12/03/23 @ 20:21 by Cammie Quezada) (~11/2022) Anesthesia S/P ACL surgery (~06/2023) Visit Care Team Role Provider Type Kerry Thomas DO Attending Provider Physician Family Provider Primary Care Provider Referring Provider Specialty: Family Practice Address: [address] [place] [address], [address], [facility] Email: [email or web address] Physical Therapy Initial Evaluation PT-OP-A Visit Information Start: 09/11/24 13:55 Freq: Status: Active Protocol: Document 09/14/24 11:28 NM (Rec: 09/14/24 12:24 NM [id number]) Out-Patient Physical Therapy Visit Information Visit Information Visit Type Initial Evaluation Visit Start Time 11:30 Visit Stop Time 12:15 Visit Number 1 Evaluation Information Evaluation Date 09/14/24 Precautions Precautions Hx L ACL repair PT-OP-B Current Condition Start: 09/11/24 13:55 Freq: Status: Active Protocol: Document 09/14/24 11:28 NM (Rec: 09/14/24 12:24 NM [id number]) Current Condition History of Current Condition Onset Date November 2023 Current Complaints pain, clicking History of Current Condition Pt presents with R hip pain since November 2023, worsening since December-January. Occurred when she began working. Pain is worse with picking up totes from squatting position, then has to carry. She states that the R leg occasionally feels like will give out. Reports pain with R SIJ, travels to front of hip to front of leg. Usually just SIJ pain, but when flared will get the radicular pain. She has had to use wall for support. She reports tightness, relief with L lateral flex but has to have a crack in her back before gets relief. She states that worse day, report that has difficulty with ambulating . Hx of falling down the stairs at age 14, injured coccyx. Reports did have back pain. She has chronic neck and back tightness. She reports clicking with walking w/ extension, worse with walking fast. No numbness/tingling. 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 Pt reports that RLE slightly longer, has been measured and has radiographs to support Prior Treatments and Tests Radiograph R hip 06/2024: Impression- No radiographic evidence of acute abnormality as discussed above ('4 mm round calcific density at level of R ischial superior- laterally commonly my represent enostosis/bone island vs soft tissue or other calcification'). If symptoms persist or worsen, MRI could be performed. PT-OP-C Subjective Start: 09/11/24 13:55 Freq: Status: Active Protocol: Document 09/14/24 11:28 NM (Rec: 09/14/24 12:24 NM [id number]) OP-PT Subjective Patient Comments Patient Comments Pt consents to participate in evaluation Patient Questionnaires Lower Extremity Functional Scale LEFS Score 70/80 OP-PT Pain Assessment Location R hip Pain Location Details glute, SIJ, C associate team physician> hip laterally to ant thigh Intensity 5 Scale Used Numeric (0 - 10) Description Aching,Dull Frequency Frequent Variations/Patterns worse w/ work, 1/10 if not working Pain Aggravating Factors ADL's,Activity,Exercise, Standing,Walking,Lifting Other Pain Aggravating Factors squatting; hip ER, supine w/ tilt, clicks w/ walk if in ext Pain Alleviating Factors Medication Other Pain Alleviating Factors ibuprofen PT-OP-E Functional Tests Start: 09/11/24 13:55 Freq: Status: Active Protocol: Document 09/14/24 11:28 NM (Rec: 09/14/24 12:57 NM [id number]) Functional Tests Squat Test Score 5 (AROM and w/ 20#) Comments buttock pain reproduced in buttock w/ lifting PT-OP-F Manual Assessment Start: 09/11/24 13:55 Freq: Status: Active Protocol: Document 09/14/24 11:28 NM (Rec: 09/14/24 12:57 NM [id number]) Manual Assessments Soft Tissue Assessment Soft Tissue Mobility Assessment Tightness of hip flexors, glutes, TFL, ITB Joint Mobility Assessment Joint Mobility Assessment Clicking at R hip during hip ext in stance- felt ant hip No clicking or reproduction with labral or scour testing at joint. Less R hip mobility into IR, ext PT-OP-G Mobility & Gait Start: 09/11/24 13:55 Freq: Status: Active Protocol: Document 09/14/24 11:28 NM (Rec: 09/14/24 12:24 NM [id number]) OP Gait Assessment Gait Gait Assistance Required: Independent Distance (Feet) 200 Assistive Devices Assistive Device None Comments Gait Comments Demos more trunk ext with R stance, as pt moves into R hip ext and has audible and palpable clicking with R hip ext but only if pt is ambulating quickly PT-OP-J Posture/Palpation/Skin Start: 09/11/24 13:55 Freq: Status: Active Protocol: Document 09/14/24 11:28 NM (Rec: 09/14/24 12:24 NM [id number]) Posture Evaluation Position Standing Head/C-Spine Posture Forward Head Pelvis Posture Anteriorly Tilted,(R) PSIS Posterior Palpation Assessment Location R hip Palpation Details No tenderness to palpation at groin, glute, hip flexors, piriformis Mild tenderness over R SIJ, TFL. No tenderness at lumbar spinous processes PT-OP-K Range of Motion Start: 09/11/24 13:55 Freq: Status: Active Protocol: Document 09/14/24 11:28 NM (Rec: 09/14/24 12:24 NM [id number]) Lumbar Spine Range of Motion Lumbar Spine Active Percentage Flexion 100 Extension 75 Rotation Left 100 Rotation Right 75 Lateral Flexion Left 100 Lateral Flexion Right 100 Comments tightness w/ flex, mild pain with flex and R LF, R rot Hip Goniometric Range of Motion Hip Right Flexion w/Knee Flexed 120 Extension 10 Abduction 25 Internal Rotation 20 External Rotation 33 Comments tightness with IR and flexion; no pain reproduction with AROM 150 deg HS Left Flexion w/Knee Flexed 112 Abduction 25 Internal Rotation 38 External Rotation 40 Comments 160 deg HS PT-OP-L Special Tests Start: 09/11/24 13:55 Freq: Status: Active Protocol: Document 09/14/24 11:28 NM (Rec: 09/14/24 12:24 NM [id number]) Special Tests Lumbar Spine Special Tests Prone Instability Test Test Results - Hip Special Tests Scour Test Results - Labral tests Test Results - FADIR Test Results + KEN Test Results + PT-OP-M Strength Start: 09/11/24 13:55 Freq: Status: Active Protocol: Document 09/14/24 11:28 NM (Rec: 09/14/24 12:24 NM [id number]) Trunk Strength Trunk Manual Muscle Testing Flexion 3+ Fair+ Extension 3+ Fair+ Rotation Left 4 Good Rotation Right 4 Good Lateral Flexion Left 4 Good Lateral Flexion Right 4 Good Hip Strength Hip Manual Muscle Testing Right Flexion (L2) 4 Good Extension (S1) 4 Good Abduction 4- Good- Adduction 4 Good External Rotation 4 Good Internal Rotation 4- Good- Left Flexion (L2) 4 Good Extension (S1) 4 Good Abduction 4 Good Adduction 4 Good External Rotation 4 Good Internal Rotation 4 Good Knee Strength Knee Manual Muscle Testing Right Flexion (S2) 4 Good Extension (L3) 4 Good Left Flexion (S2) 4 Good Extension (L3) 4 Good Ankle/Foot Strength Ankle and Foot Manual Muscle Testing Right Dorsiflexion (L4) 4 Good Plantarflexion (S1) 4 Good Comments tested in sitting Left Dorsiflexion (L4) 4 Good Plantarflexion (S1) 4 Good Comments tested in sitting PT-OP-T Assessment and Plan Start: 09/11/24 13:55 Freq: Status: Active Protocol: Document 09/14/24 11:28 NM (Rec: 09/14/24 12:24 NM [id number]) Physical Therapy Assessment Rehab Potential Rehabilitation Potential Good Evaluation Complexity Number of Personal Factors/Comorbidities 1-2 Number of Body Systems Impaired 1-2 Clinical Presentation at Evaluation Stable Impairments Impairments Activity Tolerance,Balance, Functional Activities, Functional Mobility,Gait, Integument,Pain,Posture,ROM, Sensation,Soft Tissue Mobility ,Strength,Transfers Other Concerns Age Related Concerns PMH: L ACL repair 2022, injury to coccyx s/p fall ~10 years ago Barriers to Rehabilitation 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 Short Term Goal (STG) Pt will be educated on lifting mechanics and core bracing in order to improve stability during work related tasks STG Duration 4 weeks Choirmaster Goal (LTG) Pt will be able to lift at least 20# while demonstrating core bracing for at least 7/10 reps in order to demonstrate improved stability during work -related tasks LTG Duration 10 weeks Two Impairment pain with squatting and lifting Impairment . Short Term Goal (STG) Pt will report pain <3/10 in R hip with squatting at least 10 reps in order to demonstrate improved tolerance for work-related tasks STG Duration 6 weeks Choirmaster Goal (LTG) Pt will be able to squat and carry at least 20# for 5/10 reps without increase R hip pain in order to demonstrate improved tolerance for work- related tasks LTG Duration 10 weeks One Impairment not performing HEP due to pain Impairment . Shelter Goal (LTG) Pt will report compliance with HEP and be IND in order to maximize progression with PT to transition to maintenance program upon discharge LTG Duration 10 weeks Assessment Summary Assessment Pt vannesa 23 y.o. presenting R hip pain beginning in November 2023. Symptoms begin in her R glute and radiate to her R hip and anterior thigh, stopping at the knee. Most consistent with ischiofemoral impingement and piriformis syndrome. Her pain is exacerbated with work-related tasks, including lifting, carrying, ambulating quickly, and squatting. Pt has mild limitations in R hip AROM, especially into hip IR. Her R hip strength is comparable to L hip strength, but does demonstrate slight limitations into abduction and extension. Pain is reproduced with squatting with resistance, KEN, and FADIR testing. Pt has audible and palpable clicking in R hip with hip extension during ambulation, especially quick ambulation. Pt does not report locking or have symptoms with hip labral testing or lumbar prone instability testing. Pt does have mild limitations and brief symptom aggravation with lumbar spine AROM especially to R side, in addition to soft tissue restrictions affecting lumbar spine, SIJ, and R hip. Radiographic imaging of her R hip is normal, but she has not had imaging of her lumbar spine. Mild tenderness to palpation only at R SIJ. PT educated pt on exam findings and plan of care. Pt would benefit from skilled PT for progressive stabilization of her lumbopelvic spine and mobility of her L hip in order to improve symptom management during work-related tasks and ADLs. Physical Therapy Plan Frequency and Duration Frequency of Treatment 1-2x/wk Duration of treatment (weeks) 10 Plan of Care Start Date 09/14/24 Plan of Care End Date 11/27/24 Therapeutic Interventions Therapeutic Interventions Balance Training,Gait Training ,Home Exercise Program,Joint Mobilizations,Manual Therapy, Neuromuscular Re-education, Orthotic/Prosthetic Management ,Patient/Caregiver Education, Self-Care/Home Management, Sensory Integration,Soft Tissue Mobilization,Taping, Therapeutic Activities, Therapeutic Exercises Modalities Cold Pack/Ice Massage,Electric Stimulation,Hot Packs, Ultrasound Next Visit Focus/Plan Next Note Type Treatment Note Next Visit Plan Intiated HEP: trial bridge, SL bridge, pelvic mobility, core bracing, hip ER/Ir mobility
--- NOTE | 2024-09-17 13:59 | PT.OTN ---
Current Diagnoses Pain in right hip (09/17/24) Stiffness of right hip, not elsewhere classified (09/17/24) Other lack of coordination (09/17/24) Weakness (09/17/24) Physical Therapy Treatment Note PT-OP-A Visit Information Start: 09/11/24 13:55 Freq: Status: Active Protocol: Document 09/17/24 12:58 NM (Rec: 09/17/24 13:45 NM [id number]) Out-Patient Physical Therapy Visit Information Visit Information Visit Type Treatment Note Visit Start Time 13:01 Visit Stop Time 13:47 Visit Number 2 Evaluation Information Evaluation Date 09/14/24 Precautions Precautions Hx L ACL repair PT-OP-B Current Condition Start: 09/11/24 13:55 Freq: Status: Active Protocol: Document 09/14/24 11:28 NM (Rec: 09/14/24 12:24 NM [id number]) Current Condition History of Current Condition Onset Date November 2023 Current Complaints pain, clicking History of Current Condition Pt presents with R hip pain since November 2023, worsening since December-January. Occurred when she began working. Pain is worse with picking up totes from squatting position, then has to carry. She states that the R leg occasionally feels like will give out. Reports pain with R SIJ, travels to front of hip to front of leg. Usually just SIJ pain, but when flared will get the radicular pain. She has had to use wall for support. She reports tightness, relief with L lateral flex but has to have a crack in her back before gets relief. She states that worse day, report that has difficulty with ambulating . Hx of falling down the stairs at age 14, injured coccyx. Reports did have back pain. She has chronic neck and back tightness. She reports clicking with walking w/ extension, worse with walking fast. No numbness/tingling. 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 Pt reports that RLE slightly longer, has been measured and has radiographs to support Prior Treatments and Tests Radiograph R hip 06/2024: Impression- No radiographic evidence of acute abnormality as discussed above ('4 mm round calcific density at level of R ischial superior- laterally commonly my represent enostosis/bone island vs soft tissue or other calcification'). If symptoms persist or worsen, MRI could be performed. PT-OP-C Subjective Start: 09/11/24 13:55 Freq: Status: Active Protocol: Document 09/17/24 12:58 NM (Rec: 09/17/24 13:45 NM [id number]) OP-PT Subjective Patient Comments Patient Comments Pt reports no changes following evaluation. Has screen shots of xrays from RLE is slightly longer by 4 mm in May 2023. PT-OP-E Functional Tests Start: 09/11/24 13:55 Freq: Status: Active Protocol: Document 09/14/24 11:28 NM (Rec: 09/14/24 12:57 NM [id number]) Functional Tests Squat Test Score 5 (AROM and w/ 20#) Comments buttock pain reproduced in buttock w/ lifting PT-OP-F Manual Assessment Start: 09/11/24 13:55 Freq: Status: Active Protocol: Document 09/14/24 11:28 NM (Rec: 09/14/24 12:57 NM [id number]) Manual Assessments Soft Tissue Assessment Soft Tissue Mobility Assessment Tightness of hip flexors, glutes, TFL, ITB Joint Mobility Assessment Joint Mobility Assessment Clicking at R hip during hip ext in stance- felt ant hip No clicking or reproduction with labral or scour testing at joint. Less R hip mobility into IR, ext PT-OP-G Mobility & Gait Start: 09/11/24 13:55 Freq: Status: Active Protocol: Document 09/14/24 11:28 NM (Rec: 09/14/24 12:24 NM [id number]) OP Gait Assessment Gait Gait Assistance Required: Independent Distance (Feet) 200 Assistive Devices Assistive Device None Comments Gait Comments Demos more trunk ext with R stance, as pt moves into R hip ext and has audible and palpable clicking with R hip ext but only if pt is ambulating quickly PT-OP-J Posture/Palpation/Skin Start: 09/11/24 13:55 Freq: Status: Active Protocol: Document 09/14/24 11:28 NM (Rec: 09/14/24 12:24 NM [id number]) Posture Evaluation Position Standing Head/C-Spine Posture Forward Head Pelvis Posture Anteriorly Tilted,(R) PSIS Posterior Palpation Assessment Location R hip Palpation Details No tenderness to palpation at groin, glute, hip flexors, piriformis Mild tenderness over R SIJ, TFL. No tenderness at lumbar spinous processes PT-OP-K Range of Motion Start: 09/11/24 13:55 Freq: Status: Active Protocol: Document 09/14/24 11:28 NM (Rec: 09/14/24 12:24 NM [id number]) Lumbar Spine Range of Motion Lumbar Spine Active Percentage Flexion 100 Extension 75 Rotation Left 100 Rotation Right 75 Lateral Flexion Left 100 Lateral Flexion Right 100 Comments tightness w/ flex, mild pain with flex and R LF, R rot Hip Goniometric Range of Motion Hip Right Flexion w/Knee Flexed 120 Extension 10 Abduction 25 Internal Rotation 20 External Rotation 33 Comments tightness with IR and flexion; no pain reproduction with AROM 150 deg HS Left Flexion w/Knee Flexed 112 Abduction 25 Internal Rotation 38 External Rotation 40 Comments 160 deg HS PT-OP-L Special Tests Start: 09/11/24 13:55 Freq: Status: Active Protocol: Document 09/14/24 11:28 NM (Rec: 09/14/24 12:24 NM [id number]) Special Tests Lumbar Spine Special Tests Prone Instability Test Test Results - Hip Special Tests Scour Test Results - Labral tests Test Results - FADIR Test Results + KEN Test Results + PT-OP-M Strength Start: 09/11/24 13:55 Freq: Status: Active Protocol: Document 09/14/24 11:28 NM (Rec: 09/14/24 12:24 NM [id number]) Trunk Strength Trunk Manual Muscle Testing Flexion 3+ Fair+ Extension 3+ Fair+ Rotation Left 4 Good Rotation Right 4 Good Lateral Flexion Left 4 Good Lateral Flexion Right 4 Good Hip Strength Hip Manual Muscle Testing Right Flexion (L2) 4 Good Extension (S1) 4 Good Abduction 4- Good- Adduction 4 Good External Rotation 4 Good Internal Rotation 4- Good- Left Flexion (L2) 4 Good Extension (S1) 4 Good Abduction 4 Good Adduction 4 Good External Rotation 4 Good Internal Rotation 4 Good Knee Strength Knee Manual Muscle Testing Right Flexion (S2) 4 Good Extension (L3) 4 Good Left Flexion (S2) 4 Good Extension (L3) 4 Good Ankle/Foot Strength Ankle and Foot Manual Muscle Testing Right Dorsiflexion (L4) 4 Good Plantarflexion (S1) 4 Good Comments tested in sitting Left Dorsiflexion (L4) 4 Good Plantarflexion (S1) 4 Good Comments tested in sitting PT-OP-Q Treatments Start: 09/17/24 12:58 Freq: Status: Active Protocol: Document 09/17/24 12:58 NM (Rec: 09/17/24 13:45 NM [id number]) Therapeutic Exercises Supine Exercises hip stretching Supine Exercise Name 1. figure 4 w/ 90 deg hip flexion HEP, 2. piriformis cross body Side bilateral Reps/Minutes 60 ea sciatic nerve glide Supine Exercise Name 1. ankle AP only, 2. knee flex /ext w/ ankles HEP Side right Reps/Minutes 20 ea Comments no inc symptoms Sidelying Exercises reverse clams Sidelying Exercise Name HEP Side right Resistance AROM Equipment Used pillow between legs Reps/Minutes 2x10 w/3 hold at end range Comments cued form; no pain clams Sidelying Exercise Name HEP Side right Equipment Used pillow between legs Reps/Minutes 2x10 Comments cued form; tightness reported, no pain Other Exercises self soft tissue mobilization Other Exercise Name MWM of piriformis w/ hip flex/ ext and ER/IR Side bilateral Reps/Minutes 10 ea Comments HEP Manual Therapy Treatment Consent Patient gave verbal consent for manual Yes treatment Soft Tissue Mobilization R hip Body Location hip flexors, glute, piriformis , mid-distal HS Mobilization Type Rolling,Sustained Pressure Intensity/Depth Moderate Body Position hook/sidelying Comments Monitored for pain. No tenderness with mobiliziation. In sidelying, has pillow between legs Manual Techniques MET Type L ant innom rot, R post innom rot Reps/Duration 6x6 hold Comments L hip ext, R hip flex w/ dowel . Reassessed end of session PT-OP-T Assessment and Plan Start: 09/11/24 13:55 Freq: Status: Active Protocol: Document 09/17/24 12:58 NM (Rec: 09/17/24 13:45 NM [id number]) Physical Therapy Assessment Goals Four Impairment R hip IR 20 deg Java Lead Engineer Goal (LTG) Pt will improve R hip IR to at least 30 deg in order to increase hip mobility LTG Duration 10 weeks Three Impairment pain with lifting Impairment . Short Term Goal (STG) Pt will be educated on lifting mechanics and core bracing in order to improve stability during work related tasks STG Duration 4 weeks Fpc Goal (LTG) Pt will be able to lift at least 20# while demonstrating core bracing for at least 7/10 reps in order to demonstrate improved stability during work -related tasks LTG Duration 10 weeks Two Impairment pain with squatting and lifting Impairment . Short Term Goal (STG) Pt will report pain <3/10 in R hip with squatting at least 10 reps in order to demonstrate improved tolerance for work-related tasks STG Duration 6 weeks Java Lead Engineer Goal (LTG) Pt will be able to squat and carry at least 20# for 5/10 reps without increase R hip pain in order to demonstrate improved tolerance for work- related tasks LTG Duration 10 weeks One Impairment not performing HEP due to pain Impairment . Java Lead Engineer Goal (LTG) Pt will report compliance with HEP and be IND in order to maximize progression with PT to transition to maintenance program upon discharge LTG Duration 10 weeks Assessment Summary Assessment Pt tolerated session well. No R hip pain reported during session. Good response to MET for innominate rotation, cueing for correct execution. Pt demonstrates both tightness and weakness in hip ER, responds well to therapeutic exercise. Initiated neural gliding to facilitate better neural tension-length relationship. Pt would continue to benefit from skilled PT for progressive hip mobility and strengthening, in addition to flexibility and core bracing in order to improve symptom management and ability to perform work- related tasks. Physical Therapy Plan Frequency and Duration Frequency of Treatment 1-2x/wk Duration of treatment (weeks) 10 Plan of Care Start Date 09/14/24 Plan of Care End Date 11/27/24 Therapeutic Interventions Therapeutic Interventions Balance Training,Gait Training ,Home Exercise Program,Joint Mobilizations,Manual Therapy, Neuromuscular Re-education, Orthotic/Prosthetic Management ,Patient/Caregiver Education, Self-Care/Home Management, Sensory Integration,Soft Tissue Mobilization,Taping, Therapeutic Activities, Therapeutic Exercises Modalities Cold Pack/Ice Massage,Electric Stimulation,Hot Packs, Ultrasound Next Visit Focus/Plan Next Note Type Treatment Note Next Visit Plan Review HEP if needed. Cont with glute/hip ER ROM and strength. Trial quadruped hip mobility and strengthening. Femoral nerve glide. Hip joint mobilizations as needed. STM to R hip. MET if needed and pelvic realignment. trial bridge, SL bridge, pelvic mobility, core bracing, hip ER /Ir mobility. begin working into lifting and carrying mechanics for work, squat mechanics
--- NOTE | 2024-09-21 16:31 | PT.OTN ---
Current Diagnoses Pain in right hip (09/21/24) Stiffness of right hip, not elsewhere classified (09/21/24) Other lack of coordination (09/21/24) Weakness (09/21/24) Physical Therapy Treatment Note PT-OP-A Visit Information Start: 09/11/24 13:55 Freq: Status: Active Protocol: Document 09/21/24 12:41 AB (Rec: 09/21/24 13:48 AB [id number]) Out-Patient Physical Therapy Visit Information Visit Information Visit Type Treatment Note Visit Start Time 13:02 Visit Stop Time 13:47 Visit Number 3 Number of CHRONIC MANAGER Visits 1 Evaluation Information Evaluation Date 09/14/24 Precautions Precautions Hx L ACL repair PT-OP-B Current Condition Start: 09/11/24 13:55 Freq: Status: Active Protocol: Document 09/14/24 11:28 NM (Rec: 09/14/24 12:24 NM [id number]) Current Condition History of Current Condition Onset Date November 2023 Current Complaints pain, clicking History of Current Condition Pt presents with R hip pain since November 2023, worsening since December-January. Occurred when she began working. Pain is worse with picking up totes from squatting position, then has to carry. She states that the R leg occasionally feels like will give out. Reports pain with R SIJ, travels to front of hip to front of leg. Usually just SIJ pain, but when flared will get the radicular pain. She has had to use wall for support. She reports tightness, relief with L lateral flex but has to have a crack in her back before gets relief. She states that worse day, report that has difficulty with ambulating . Hx of falling down the stairs at age 14, injured coccyx. Reports did have back pain. She has chronic neck and back tightness. She reports clicking with walking w/ extension, worse with walking fast. No numbness/tingling. 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 Pt reports that RLE slightly longer, has been measured and has radiographs to support Prior Treatments and Tests Radiograph R hip 06/2024: Impression- No radiographic evidence of acute abnormality as discussed above ('4 mm round calcific density at level of R ischial superior- laterally commonly my represent enostosis/bone island vs soft tissue or other calcification'). If symptoms persist or worsen, MRI could be performed. PT-OP-C Subjective Start: 09/11/24 13:55 Freq: Status: Active Protocol: Document 09/21/24 12:41 AB (Rec: 09/21/24 13:48 AB [id number]) OP-PT Subjective Patient Comments Patient Comments Patient reports no pain seated at rest start of session, comments it is still early. PT-OP-E Functional Tests Start: 09/11/24 13:55 Freq: Status: Active Protocol: Document 09/14/24 11:28 NM (Rec: 09/14/24 12:57 NM [id number]) Functional Tests Squat Test Score 5 (AROM and w/ 20#) Comments buttock pain reproduced in buttock w/ lifting PT-OP-F Manual Assessment Start: 09/11/24 13:55 Freq: Status: Active Protocol: Document 09/14/24 11:28 NM (Rec: 09/14/24 12:57 NM [id number]) Manual Assessments Soft Tissue Assessment Soft Tissue Mobility Assessment Tightness of hip flexors, glutes, TFL, ITB Joint Mobility Assessment Joint Mobility Assessment Clicking at R hip during hip ext in stance- felt ant hip No clicking or reproduction with labral or scour testing at joint. Less R hip mobility into IR, ext PT-OP-G Mobility & Gait Start: 09/11/24 13:55 Freq: Status: Active Protocol: Document 09/14/24 11:28 NM (Rec: 09/14/24 12:24 NM [id number]) OP Gait Assessment Gait Gait Assistance Required: Independent Distance (Feet) 200 Assistive Devices Assistive Device None Comments Gait Comments Demos more trunk ext with R stance, as pt moves into R hip ext and has audible and palpable clicking with R hip ext but only if pt is ambulating quickly PT-OP-J Posture/Palpation/Skin Start: 09/11/24 13:55 Freq: Status: Active Protocol: Document 09/14/24 11:28 NM (Rec: 09/14/24 12:24 NM [id number]) Posture Evaluation Position Standing Head/C-Spine Posture Forward Head Pelvis Posture Anteriorly Tilted,(R) PSIS Posterior Palpation Assessment Location R hip Palpation Details No tenderness to palpation at groin, glute, hip flexors, piriformis Mild tenderness over R SIJ, TFL. No tenderness at lumbar spinous processes PT-OP-K Range of Motion Start: 09/11/24 13:55 Freq: Status: Active Protocol: Document 09/14/24 11:28 NM (Rec: 09/14/24 12:24 NM [id number]) Lumbar Spine Range of Motion Lumbar Spine Active Percentage Flexion 100 Extension 75 Rotation Left 100 Rotation Right 75 Lateral Flexion Left 100 Lateral Flexion Right 100 Comments tightness w/ flex, mild pain with flex and R LF, R rot Hip Goniometric Range of Motion Hip Right Flexion w/Knee Flexed 120 Extension 10 Abduction 25 Internal Rotation 20 External Rotation 33 Comments tightness with IR and flexion; no pain reproduction with AROM 150 deg HS Left Flexion w/Knee Flexed 112 Abduction 25 Internal Rotation 38 External Rotation 40 Comments 160 deg HS PT-OP-L Special Tests Start: 09/11/24 13:55 Freq: Status: Active Protocol: Document 09/14/24 11:28 NM (Rec: 09/14/24 12:24 NM [id number]) Special Tests Lumbar Spine Special Tests Prone Instability Test Test Results - Hip Special Tests Scour Test Results - Labral tests Test Results - FADIR Test Results + KEN Test Results + PT-OP-M Strength Start: 09/11/24 13:55 Freq: Status: Active Protocol: Document 09/14/24 11:28 NM (Rec: 09/14/24 12:24 NM [id number]) Trunk Strength Trunk Manual Muscle Testing Flexion 3+ Fair+ Extension 3+ Fair+ Rotation Left 4 Good Rotation Right 4 Good Lateral Flexion Left 4 Good Lateral Flexion Right 4 Good Hip Strength Hip Manual Muscle Testing Right Flexion (L2) 4 Good Extension (S1) 4 Good Abduction 4- Good- Adduction 4 Good External Rotation 4 Good Internal Rotation 4- Good- Left Flexion (L2) 4 Good Extension (S1) 4 Good Abduction 4 Good Adduction 4 Good External Rotation 4 Good Internal Rotation 4 Good Knee Strength Knee Manual Muscle Testing Right Flexion (S2) 4 Good Extension (L3) 4 Good Left Flexion (S2) 4 Good Extension (L3) 4 Good Ankle/Foot Strength Ankle and Foot Manual Muscle Testing Right Dorsiflexion (L4) 4 Good Plantarflexion (S1) 4 Good Comments tested in sitting Left Dorsiflexion (L4) 4 Good Plantarflexion (S1) 4 Good Comments tested in sitting PT-OP-Q Treatments Start: 09/17/24 12:58 Freq: Status: Active Protocol: Document 09/21/24 12:41 AB (Rec: 09/21/24 13:48 AB [id number]) Therapeutic Exercises Supine Exercises Modified Chaitanya stretch Side bilateral Reps/Minutes one minute right, 15 and 5 sec left Comments left reports sensation ITB area vs hip flexor area knee to chest with gapping Supine Exercise Name towel roll at groin Side bilateral Reps/Minutes 60 seconds X 2 each Comments assist for towel roll postioning, VC, monitored for loc of sens of stretch hip stretching Supine Exercise Name 1. figure 4 w/ 90 deg hip flexion HEP, 2. piriformis cross body Side bilateral Reps/Minutes 60 ea Standing Exercises lift Standing Exercise Name without weight Side bilateral Reps/Minutes X12 Comments Verbal and visual cues Pt ed use of self tactile cues ( rep feels R hamstr sit to stand Side bilateral Reps/Minutes X2 and X 10 Comments Verbal cues and PT ed self tactile cues for hip hinge Other Exercises child's pose Side bilateral Reps/Minutes X5 holding 5 breaths Comments verbal cues Manual Therapy Treatment Soft Tissue Mobilization R hip Body Location hip flexors, glute, piriformis , mid-distal HS Mobilization Type Cross-Friction,Rolling, Sustained Pressure Intensity/Depth Moderate Body Position hook/sidelying Comments Monitored for pain. In sidelying, has pillow between legs Joint Mobilizations bilateral hips Direction inf Body Position Hooklying Reps/Duration X10 X Manual Techniques MET Type left AI right PI and pubic shotgu Body Location SI Reps/Duration 6X6 each Comments L hip ext, R hip flex w/ dowel . PT-OP-T Assessment and Plan Start: 09/11/24 13:55 Freq: Status: Active Protocol: Document 09/21/24 12:41 AB (Rec: 09/21/24 13:48 AB [id number]) Physical Therapy Assessment Goals Four Impairment R hip IR 20 deg Digester Operator Helper Goal (LTG) Pt will improve R hip IR to at least 30 deg in order to increase hip mobility LTG Duration 10 weeks Three Impairment pain with lifting Impairment . Short Term Goal (STG) Pt will be educated on lifting mechanics and core bracing in order to improve stability during work related tasks STG Duration 4 weeks Digester Operator Helper Goal (LTG) Pt will be able to lift at least 20# while demonstrating core bracing for at least 7/10 reps in order to demonstrate improved stability during work -related tasks LTG Duration 10 weeks Two Impairment pain with squatting and lifting Impairment . Short Term Goal (STG) Pt will report pain <3/10 in R hip with squatting at least 10 reps in order to demonstrate improved tolerance for work-related tasks STG Duration 6 weeks Care Home Goal (LTG) Pt will be able to squat and carry at least 20# for 5/10 reps without increase R hip pain in order to demonstrate improved tolerance for work- related tasks LTG Duration 10 weeks One Impairment not performing HEP due to pain Impairment . Care Home Goal (LTG) Pt will report compliance with HEP and be IND in order to maximize progression with PT to transition to maintenance program upon discharge LTG Duration 10 weeks Assessment Summary Assessment Patient reports having no pain end of session. Reports and observed increased hip flexion with knee to chest prior to 3 /10 ant hip pain/discomfort post stretches with towel roll . Physical Therapy Plan Frequency and Duration Frequency of Treatment 1-2x/wk Duration of treatment (weeks) 10 Plan of Care Start Date 09/14/24 Plan of Care End Date 11/27/24 Next Visit Focus/Plan Next Note Type Treatment Note Next Visit Plan Review HEP if needed. Cont with glute/hip ER ROM and strength. Trial quadruped hip mobility and strengthening. Femoral nerve glide. Hip joint mobilizations as needed. STM to R hip. MET if needed and pelvic realignment. trial bridge, SL bridge, pelvic mobility, core bracing, hip ER /Ir mobility. begin working into lifting and carrying mechanics for work, squat mechanics
--- NOTE | 2024-10-08 11:04 | PT.OTN ---
Current Diagnoses Pain in right hip (10/08/24) Stiffness of right hip, not elsewhere classified (10/08/24) Other lack of coordination (10/08/24) Weakness (10/08/24) Physical Therapy Treatment Note PT-OP-A Visit Information Start: 09/11/24 13:55 Freq: Status: Active Protocol: Document 10/08/24 08:38 AB (Rec: 10/08/24 11:04 AB [id number]) Out-Patient Physical Therapy Visit Information Visit Information Visit Type Treatment Note Visit Note Access Code [email or web address] Visit Start Time 09:01 Visit Stop Time 09:45 Visit Number 4 Number of REALTY SPECIALIST Visits 2 Evaluation Information Evaluation Date 09/14/24 Precautions Precautions Hx L ACL repair PT-OP-B Current Condition Start: 09/11/24 13:55 Freq: Status: Active Protocol: Document 09/14/24 11:28 NM (Rec: 09/14/24 12:24 NM [id number]) Current Condition History of Current Condition Onset Date November 2023 Current Complaints pain, clicking History of Current Condition Pt presents with R hip pain since November 2023, worsening since December-January. Occurred when she began working. Pain is worse with picking up totes from squatting position, then has to carry. She states that the R leg occasionally feels like will give out. Reports pain with R SIJ, travels to front of hip to front of leg. Usually just SIJ pain, but when flared will get the radicular pain. She has had to use wall for support. She reports tightness, relief with L lateral flex but has to have a crack in her back before gets relief. She states that worse day, report that has difficulty with ambulating . Hx of falling down the stairs at age 14, injured coccyx. Reports did have back pain. She has chronic neck and back tightness. She reports clicking with walking w/ extension, worse with walking fast. No numbness/tingling. 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 Pt reports that RLE slightly longer, has been measured and has radiographs to support Prior Treatments and Tests Radiograph R hip 06/2024: Impression- No radiographic evidence of acute abnormality as discussed above ('4 mm round calcific density at level of R ischial superior- laterally commonly my represent enostosis/bone island vs soft tissue or other calcification'). If symptoms persist or worsen, MRI could be performed. PT-OP-C Subjective Start: 09/11/24 13:55 Freq: Status: Active Protocol: Document 10/08/24 08:38 AB (Rec: 10/08/24 11:04 AB [id number]) OP-PT Subjective Patient Comments Patient Comments Patient reports she was better post prev session, is the same now, but for a few days pain shifted to the other side . Patient rates pain 0/10 start of session. PT-OP-E Functional Tests Start: 09/11/24 13:55 Freq: Status: Active Protocol: Document 09/14/24 11:28 NM (Rec: 09/14/24 12:57 NM [id number]) Functional Tests Squat Test Score 5 (AROM and w/ 20#) Comments buttock pain reproduced in buttock w/ lifting PT-OP-F Manual Assessment Start: 09/11/24 13:55 Freq: Status: Active Protocol: Document 09/14/24 11:28 NM (Rec: 09/14/24 12:57 NM [id number]) Manual Assessments Soft Tissue Assessment Soft Tissue Mobility Assessment Tightness of hip flexors, glutes, TFL, ITB Joint Mobility Assessment Joint Mobility Assessment Clicking at R hip during hip ext in stance- felt ant hip No clicking or reproduction with labral or scour testing at joint. Less R hip mobility into IR, ext PT-OP-G Mobility & Gait Start: 09/11/24 13:55 Freq: Status: Active Protocol: Document 09/14/24 11:28 NM (Rec: 09/14/24 12:24 NM [id number]) OP Gait Assessment Gait Gait Assistance Required: Independent Distance (Feet) 200 Assistive Devices Assistive Device None Comments Gait Comments Demos more trunk ext with R stance, as pt moves into R hip ext and has audible and palpable clicking with R hip ext but only if pt is ambulating quickly PT-OP-J Posture/Palpation/Skin Start: 09/11/24 13:55 Freq: Status: Active Protocol: Document 09/14/24 11:28 NM (Rec: 09/14/24 12:24 NM [id number]) Posture Evaluation Position Standing Head/C-Spine Posture Forward Head Pelvis Posture Anteriorly Tilted,(R) PSIS Posterior Palpation Assessment Location R hip Palpation Details No tenderness to palpation at groin, glute, hip flexors, piriformis Mild tenderness over R SIJ, TFL. No tenderness at lumbar spinous processes PT-OP-K Range of Motion Start: 09/11/24 13:55 Freq: Status: Active Protocol: Document 09/14/24 11:28 NM (Rec: 09/14/24 12:24 NM [id number]) Lumbar Spine Range of Motion Lumbar Spine Active Percentage Flexion 100 Extension 75 Rotation Left 100 Rotation Right 75 Lateral Flexion Left 100 Lateral Flexion Right 100 Comments tightness w/ flex, mild pain with flex and R LF, R rot Hip Goniometric Range of Motion Hip Right Flexion w/Knee Flexed 120 Extension 10 Abduction 25 Internal Rotation 20 External Rotation 33 Comments tightness with IR and flexion; no pain reproduction with AROM 150 deg HS Left Flexion w/Knee Flexed 112 Abduction 25 Internal Rotation 38 External Rotation 40 Comments 160 deg HS PT-OP-L Special Tests Start: 09/11/24 13:55 Freq: Status: Active Protocol: Document 09/14/24 11:28 NM (Rec: 09/14/24 12:24 NM [id number]) Special Tests Lumbar Spine Special Tests Prone Instability Test Test Results - Hip Special Tests Scour Test Results - Labral tests Test Results - FADIR Test Results + KEN Test Results + PT-OP-M Strength Start: 09/11/24 13:55 Freq: Status: Active Protocol: Document 09/14/24 11:28 NM (Rec: 09/14/24 12:24 NM [id number]) Trunk Strength Trunk Manual Muscle Testing Flexion 3+ Fair+ Extension 3+ Fair+ Rotation Left 4 Good Rotation Right 4 Good Lateral Flexion Left 4 Good Lateral Flexion Right 4 Good Hip Strength Hip Manual Muscle Testing Right Flexion (L2) 4 Good Extension (S1) 4 Good Abduction 4- Good- Adduction 4 Good External Rotation 4 Good Internal Rotation 4- Good- Left Flexion (L2) 4 Good Extension (S1) 4 Good Abduction 4 Good Adduction 4 Good External Rotation 4 Good Internal Rotation 4 Good Knee Strength Knee Manual Muscle Testing Right Flexion (S2) 4 Good Extension (L3) 4 Good Left Flexion (S2) 4 Good Extension (L3) 4 Good Ankle/Foot Strength Ankle and Foot Manual Muscle Testing Right Dorsiflexion (L4) 4 Good Plantarflexion (S1) 4 Good Comments tested in sitting Left Dorsiflexion (L4) 4 Good Plantarflexion (S1) 4 Good Comments tested in sitting PT-OP-Q Treatments Start: 09/17/24 12:58 Freq: Status: Active Protocol: Document 10/08/24 08:38 AB (Rec: 10/08/24 11:04 AB [id number]) Therapeutic Exercises Supine Exercises Modified Chaitanya stretch Side bilateral Reps/Minutes 60 sec X 2 Comments verbal cues hip stretching Supine Exercise Name 1. figure 4 w/ 90 deg hip flexion HEP, Side bilateral Reps/Minutes 60 ea Comments post manual sciatic nerve glide Supine Exercise Name 1. ankle AP only, 2. knee flex /ext w/ ankles HEP Side bilateral Reps/Minutes 20 ea Prone Exercises femoral nerve glide Side bilateral Equipment Used HEP Reps/Minutes X10 Comments Verbal and visual cues knee flexion with ankle in DF Sidelying Exercises reverse clams Sidelying Exercise Name HEP Side bilateral Resistance level one band Reps/Minutes X10 Comments monitored form clams Sidelying Exercise Name HEP Side right Resistance level one band Reps/Minutes X10 Comments monitored form Standing Exercises mini squat Side bilateral Reps/Minutes X15 Comments verbal and visual cues for self tact cue for hip hinge, monitored for pain Other Exercises quadruped knee extension Side bilateral Reps/Minutes X5 Comments verbal cues, dowel for tactile cues Manual Therapy Treatment Soft Tissue Mobilization R hip Body Location hip flexors, glute, piriformis , mid-distal HS Mobilization Type Cross-Friction,Rolling, Sustained Pressure Intensity/Depth Moderate Body Position hook/sidelying Comments Monitored for pain. In sidelying, has pillow between legs Joint Mobilizations bilateral hips Direction inf Grade IV Body Position Hooklying Reps/Duration X10 X3 Manual Techniques MET Type left AI right PI and pubic shotgu Body Location SI Reps/Duration 6X6 each Comments L hip ext, R hip flex w/ dowel . PT-OP-T Assessment and Plan Start: 09/11/24 13:55 Freq: Status: Active Protocol: Document 10/08/24 08:38 AB (Rec: 10/08/24 11:04 AB [id number]) Physical Therapy Assessment Goals Four Impairment R hip IR 20 deg Pen Maker Goal (LTG) Pt will improve R hip IR to at least 30 deg in order to increase hip mobility LTG Duration 10 weeks Three Impairment pain with lifting Impairment . Short Term Goal (STG) Pt will be educated on lifting mechanics and core bracing in order to improve stability during work related tasks STG Duration 4 weeks [facility] Goal (LTG) Pt will be able to lift at least 20# while demonstrating core bracing for at least 7/10 reps in order to demonstrate improved stability during work -related tasks LTG Duration 10 weeks Two Impairment pain with squatting and lifting Impairment . Short Term Goal (STG) Pt will report pain <3/10 in R hip with squatting at least 10 reps in order to demonstrate improved tolerance for work-related tasks STG Duration 6 weeks [facility] Goal (LTG) Pt will be able to squat and carry at least 20# for 5/10 reps without increase R hip pain in order to demonstrate improved tolerance for work- related tasks LTG Duration 10 weeks One Impairment not performing HEP due to pain Impairment . [facility] Goal (LTG) Pt will report compliance with HEP and be IND in order to maximize progression with PT to transition to maintenance program upon discharge LTG Duration 10 weeks Assessment Summary Assessment Patient rates pain 0/10 end of session, able to perform mini squat this session with reports of no pain, good hip hinge/ but very minimal squat. Physical Therapy Plan Frequency and Duration Frequency of Treatment 1-2x/wk Duration of treatment (weeks) 10 Plan of Care Start Date 09/14/24 Plan of Care End Date 11/27/24 Therapeutic Interventions Therapeutic Interventions Balance Training,Gait Training ,Home Exercise Program,Joint Mobilizations,Manual Therapy, Neuromuscular Re-education, Orthotic/Prosthetic Management ,Patient/Caregiver Education, Self-Care/Home Management, Sensory Integration,Soft Tissue Mobilization,Taping, Therapeutic Activities, Therapeutic Exercises Modalities Cold Pack/Ice Massage,Electric Stimulation,Hot Packs, Ultrasound Next Visit Focus/Plan Next Note Type Treatment Note Next Visit Plan Review HEP if needed. Cont with glute/hip ER ROM and strength. Trial quadruped hip mobility and strengthening ( revisit quadruped hip ext/ possibly add to HEP. Hip joint mobilizations as needed. STM to R hip. MET if needed and pelvic realignment. trial bridge, SL bridge, pelvic mobility, core bracing, hip ER /Ir mobility. begin working into lifting and carrying mechanics for work, squat mechanics/progress depth of squats as able
--- NOTE | 2024-10-12 08:25 | PT-OP ANOTE ---
Phoned patient, left message making patient aware of no show policy and date/time of next appointment, also left phone number for physical therapy assistant front end manager.
--- NOTE | 2024-10-26 15:44 | PT.OTN ---
Current Diagnoses Pain in right hip (10/26/24) Stiffness of right hip, not elsewhere classified (10/26/24) Other lack of coordination (10/26/24) Weakness (10/26/24) Physical Therapy Treatment Note PT-OP-A Visit Information Start: 09/11/24 13:55 Freq: Status: Active Protocol: Document 10/26/24 11:31 NM (Rec: 10/26/24 12:24 NM [id number]) Out-Patient Physical Therapy Visit Information Visit Information Visit Type Progress Note Visit Start Time 11:32 Visit Stop Time 12:15 Visit Number 5 Evaluation Information Evaluation Date 09/14/24 Precautions Precautions Hx L ACL repair PT-OP-B Current Condition Start: 09/11/24 13:55 Freq: Status: Active Protocol: Document 09/14/24 11:28 NM (Rec: 09/14/24 12:24 NM [id number]) Current Condition History of Current Condition Onset Date November 2023 Current Complaints pain, clicking History of Current Condition Pt presents with R hip pain since November 2023, worsening since December-January. Occurred when she began working. Pain is worse with picking up totes from squatting position, then has to carry. She states that the R leg occasionally feels like will give out. Reports pain with R SIJ, travels to front of hip to front of leg. Usually just SIJ pain, but when flared will get the radicular pain. She has had to use wall for support. She reports tightness, relief with L lateral flex but has to have a crack in her back before gets relief. She states that worse day, report that has difficulty with ambulating . Hx of falling down the stairs at age 14, injured coccyx. Reports did have back pain. She has chronic neck and back tightness. She reports clicking with walking w/ extension, worse with walking fast. No numbness/tingling. 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 Pt reports that RLE slightly longer, has been measured and has radiographs to support Prior Treatments and Tests Radiograph R hip 06/2024: Impression- No radiographic evidence of acute abnormality as discussed above ('4 mm round calcific density at level of R ischial superior- laterally commonly my represent enostosis/bone island vs soft tissue or other calcification'). If symptoms persist or worsen, MRI could be performed. PT-OP-C Subjective Start: 09/11/24 13:55 Freq: Status: Active Protocol: Document 10/26/24 11:31 NM (Rec: 10/26/24 12:24 NM [id number]) OP-PT Subjective Patient Comments Patient Comments Pt reports hips are better. She feels less of a need to pop her hips, states feels less clicking her hips (less intense). Did not have hip pain on her trip. She reports no instances of her hip giving out. Still gets most relief from figure 4. States has not had the tingling/sharp pain from hip to front of her hips. PT-OP-E Functional Tests Start: 09/11/24 13:55 Freq: Status: Active Protocol: Document 09/14/24 11:28 NM (Rec: 09/14/24 12:57 NM [id number]) Functional Tests Squat Test Score 5 (AROM and w/ 20#) Comments buttock pain reproduced in buttock w/ lifting PT-OP-F Manual Assessment Start: 09/11/24 13:55 Freq: Status: Active Protocol: Document 09/14/24 11:28 NM (Rec: 09/14/24 12:57 NM [id number]) Manual Assessments Soft Tissue Assessment Soft Tissue Mobility Assessment Tightness of hip flexors, glutes, TFL, ITB Joint Mobility Assessment Joint Mobility Assessment Clicking at R hip during hip ext in stance- felt ant hip No clicking or reproduction with labral or scour testing at joint. Less R hip mobility into IR, ext PT-OP-G Mobility & Gait Start: 09/11/24 13:55 Freq: Status: Active Protocol: Document 09/14/24 11:28 NM (Rec: 09/14/24 12:24 NM [id number]) OP Gait Assessment Gait Gait Assistance Required: Independent Distance (Feet) 200 Assistive Devices Assistive Device None Comments Gait Comments Demos more trunk ext with R stance, as pt moves into R hip ext and has audible and palpable clicking with R hip ext but only if pt is ambulating quickly PT-OP-J Posture/Palpation/Skin Start: 09/11/24 13:55 Freq: Status: Active Protocol: Document 09/14/24 11:28 NM (Rec: 12/02/24 12:24 NM [id number]) Posture Evaluation Position Standing Head/C-Spine Posture Forward Head Pelvis Posture Anteriorly Tilted,(R) PSIS Posterior Palpation Assessment Location R hip Palpation Details No tenderness to palpation at groin, glute, hip flexors, piriformis Mild tenderness over R SIJ, TFL. No tenderness at lumbar spinous processes PT-OP-K Range of Motion Start: 09/11/24 13:55 Freq: Status: Active Protocol: Document 10/26/24 11:31 NM (Rec: 10/26/24 12:24 NM [id number]) Lumbar Spine Range of Motion Lumbar Spine Active Percentage Flexion 100 Extension 75 Rotation Left 100 Rotation Right 100 Lateral Flexion Left 100 Lateral Flexion Right 100 Comments tightness w/ flex, mild pain with flex and R LF, R rot 10/26/24: less tightness Hip Goniometric Range of Motion Hip Right Flexion w/Knee Flexed 120 Extension 10 Abduction 25 Internal Rotation 35 External Rotation 40 Comments tightness with IR and flexion; no pain reproduction with AROM 150 deg HS Left Flexion w/Knee Flexed 112 Abduction 25 Internal Rotation 38 External Rotation 40 Comments 160 deg HS PT-OP-L Special Tests Start: 09/11/24 13:55 Freq: Status: Active Protocol: Document 09/14/24 11:28 NM (Rec: 09/14/24 12:24 NM [id number]) Special Tests Lumbar Spine Special Tests Prone Instability Test Test Results - Hip Special Tests Scour Test Results - Labral tests Test Results - FADIR Test Results + KEN Test Results + PT-OP-M Strength Start: 09/11/24 13:55 Freq: Status: Active Protocol: Document 10/26/24 11:31 NM (Rec: 10/26/24 12:24 NM [id number]) Hip Strength Hip Manual Muscle Testing Right Flexion (L2) 4 Good Extension (S1) 4 Good Abduction 4- Good- Adduction 4 Good External Rotation 4 Good Internal Rotation 4- Good- Left Flexion (L2) 4 Good Extension (S1) 4 Good Abduction 4 Good Adduction 4 Good External Rotation 4 Good Internal Rotation 4 Good PT-OP-Q Treatments Start: 09/17/24 12:58 Freq: Status: Active Protocol: Document 10/26/24 11:31 NM (Rec: 10/26/24 12:24 NM [id number]) Therapeutic Exercises Prone Exercises hip ER>IR Prone Exercise Name end range IR from ER frog position- HEP Side right Reps/Minutes 2x10 Comments pain free, reports tension at same point Standing Exercises hip extension Side bilateral Resistance AROM > level 1 band at ankles Reps/Minutes 8 ea Comments pain free; cued for no trunk comp mini squat Standing Exercise Name progressed to squat Side bilateral Equipment Used to crate for visual cues Reps/Minutes 10 Comments pain free; prn L knee flex ROM limit, WS to R hip Other Exercises hip ext mobilization Other Exercise Name 1/2 kneel Side right Equipment Used tensioned at plinth for hip ext mob PA glide Reps/Minutes 10x2 child's pose Other Exercise Name rock backs for hip flexion Side bilateral Equipment Used mat on floor Reps/Minutes 15 Comments pre squat; cued for pelvic position Therapeutic Activity Therapeutic Activity body mechanics Comments 1. lifting crate via squat poultry picker 2. lifting crate 10#> 20# Educated on core bracing, lat engagement, and body mechanics . No pain in hips with squatting. Cueing to push weight away from floor vs relying on UE and trunk extensors primarily for lifting and control; will continue to monitor and progress in future Manual Therapy Treatment Consent Patient gave verbal consent for manual Yes treatment Soft Tissue Mobilization R hip Body Location hip flexors, iliopsoas, TFL Mobilization Type Cross-Friction,Rolling, Sustained Pressure Intensity/Depth Moderate Body Position Hooklying Comments Monitored for pain. Joint Mobilizations bilateral hips Joint R hip only Direction inf, PA Grade IV Reps/Duration 2x10 ea Comments hooklying and prone, sidelying PT-OP-T Assessment and Plan Start: 09/11/24 13:55 Freq: Status: Active Protocol: Document 10/26/24 11:31 NM (Rec: 10/26/24 12:24 NM [id number]) Physical Therapy Assessment Goals Four Impairment R hip IR 20 deg Swing Manager Goal (LTG) Pt will improve R hip IR to at least 30 deg in order to increase hip mobility 10/26/24: R hip IR 35 deg LTG Duration 10 weeks MET 10/26/24 Three Impairment pain with lifting Impairment . Short Term Goal (STG) Pt will be educated on lifting mechanics and core bracing in order to improve stability during work related tasks 10/26/24: educated on lifting mechanics for work tasks STG Duration 4 weeks MET 10/26/24 Swing Manager Goal (LTG) Pt will be able to lift at least 20# while demonstrating core bracing for at least 7/10 reps in order to demonstrate improved stability during work -related tasks LTG Duration 10 weeks Two Impairment pain with squatting and lifting Impairment . Short Term Goal (STG) Pt will report pain <3/10 in R hip with squatting at least 10 reps in order to demonstrate improved tolerance for work-related tasks 10/26/24: no pain with squatting, limited by L knee flexion ROM prn STG Duration 6 weeks PROGRESSING Correction Goal (LTG) Pt will be able to squat and carry at least 20# for 5/10 reps without increase R hip pain in order to demonstrate improved tolerance for work- related tasks LTG Duration 10 weeks One Impairment not performing HEP due to pain Impairment . Swing Manager Goal (LTG) Pt will report compliance with HEP and be IND in order to maximize progression with PT to transition to maintenance program upon discharge 10/26/24: compliant with HEP LTG Duration 10 weeks Progress Towards Goals Progress Towards Goals Progressing Toward Goals,Slow Progress due to Activity Tolerance,Goals Met Assessment Summary Assessment Pt has no pain during session or at end of session with squats. Educated on lifting mechanics and form, particularly with lat and core engagement to limit trunk extension compensation. Periodic clicking in R hip reported with fast ambulation but improved following hip extension self mobilization. Continued to address end range hip ROM as pt will need to strengthen into remaining ROM in order to maintain new mobility. Recommended that pt continue with L knee flexion exercises from previous PT episode of care to improve restrictions at hip related to knee flexion ROM. Physical Therapy Plan Frequency and Duration Frequency of Treatment 1-2x/wk Duration of treatment (weeks) 10 Plan of Care Start Date 09/14/24 Plan of Care End Date 11/27/24 Therapeutic Interventions Therapeutic Interventions Balance Training,Gait Training ,Home Exercise Program,Joint Mobilizations,Manual Therapy, Neuromuscular Re-education, Orthotic/Prosthetic Management ,Patient/Caregiver Education, Self-Care/Home Management, Sensory Integration,Soft Tissue Mobilization,Taping, Therapeutic Activities, Therapeutic Exercises Modalities Cold Pack/Ice Massage,Electric Stimulation,Hot Packs, Ultrasound Next Visit Focus/Plan Next Note Type Treatment Note Next Visit Plan Hip ER from neutral to end range in prone AROM > strengthening. Cont with lifting and body mechanics, especially with squat. Assess josefina to self mobilization for hip ext. Progress hip extension strength. Look at gait mechanics d/t clicking in hip.
--- NOTE | 2024-11-05 16:26 | PT.OTN ---
Current Diagnoses Pain in right hip (11/05/24) Stiffness of right hip, not elsewhere classified (11/05/24) Other lack of coordination (11/05/24) Weakness (11/05/24) Physical Therapy Treatment Note PT-OP-A Visit Information Start: 09/11/24 13:55 Freq: Status: Active Protocol: Document 11/05/24 15:17 AB (Rec: 11/05/24 16:26 AB [id number]) Out-Patient Physical Therapy Visit Information Visit Information Visit Type Treatment Note Visit Start Time 15:19 Visit Stop Time 16:09 Visit Number 6 Number of SUSTAINABILITY ANALYST Visits 1 Evaluation Information Evaluation Date 09/14/24 Precautions Precautions Hx L ACL repair PT-OP-B Current Condition Start: 09/11/24 13:55 Freq: Status: Active Protocol: Document 09/14/24 11:28 NM (Rec: 09/14/24 12:24 NM [id number]) Current Condition History of Current Condition Onset Date November 2023 Current Complaints pain, clicking History of Current Condition Pt presents with R hip pain since November 2023, worsening since December-January. Occurred when she began working. Pain is worse with picking up totes from squatting position, then has to carry. She states that the R leg occasionally feels like will give out. Reports pain with R SIJ, travels to front of hip to front of leg. Usually just SIJ pain, but when flared will get the radicular pain. She has had to use wall for support. She reports tightness, relief with L lateral flex but has to have a crack in her back before gets relief. She states that worse day, report that has difficulty with ambulating . Hx of falling down the stairs at age 14, injured coccyx. Reports did have back pain. She has chronic neck and back tightness. She reports clicking with walking w/ extension, worse with walking fast. No numbness/tingling. 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 Pt reports that RLE slightly longer, has been measured and has radiographs to support Prior Treatments and Tests Radiograph R hip 06/2024: Impression- No radiographic evidence of acute abnormality as discussed above ('4 mm round calcific density at level of R ischial superior- laterally commonly my represent enostosis/bone island vs soft tissue or other calcification'). If symptoms persist or worsen, MRI could be performed. PT-OP-C Subjective Start: 09/11/24 13:55 Freq: Status: Active Protocol: Document 11/05/24 15:17 AB (Rec: 11/05/24 16:26 AB [id number]) OP-PT Subjective Patient Comments Patient Comments Patient reports she is better, clicking is not happening as much and hasn't had the pain the wraps around the hip has not occured prior to October ( estimates) Patient reports the pain tranfers to left side ( yesterday, but this hasn't happened since prior to yesterday/ rating pain 11/23 attributes to a long day at work) PT-OP-E Functional Tests Start: 09/11/24 13:55 Freq: Status: Active Protocol: Document 09/14/24 11:28 NM (Rec: 09/14/24 12:57 NM [id number]) Functional Tests Squat Test Score 5 (AROM and w/ 20#) Comments buttock pain reproduced in buttock w/ lifting PT-OP-F Manual Assessment Start: 09/11/24 13:55 Freq: Status: Active Protocol: Document 09/14/24 11:28 NM (Rec: 09/14/24 12:57 NM [id number]) Manual Assessments Soft Tissue Assessment Soft Tissue Mobility Assessment Tightness of hip flexors, glutes, TFL, ITB Joint Mobility Assessment Joint Mobility Assessment Clicking at R hip during hip ext in stance- felt ant hip No clicking or reproduction with labral or scour testing at joint. Less R hip mobility into IR, ext PT-OP-G Mobility & Gait Start: 09/11/24 13:55 Freq: Status: Active Protocol: Document 09/14/24 11:28 NM (Rec: 09/14/24 12:24 NM [id number]) OP Gait Assessment Gait Gait Assistance Required: Independent Distance (Feet) 200 Assistive Devices Assistive Device None Comments Gait Comments Demos more trunk ext with R stance, as pt moves into R hip ext and has audible and palpable clicking with R hip ext but only if pt is ambulating quickly PT-OP-J Posture/Palpation/Skin Start: 09/11/24 13:55 Freq: Status: Active Protocol: Document 09/14/24 11:28 NM (Rec: 09/14/24 12:24 NM [id number]) Posture Evaluation Position Standing Head/C-Spine Posture Forward Head Pelvis Posture Anteriorly Tilted,(R) PSIS Posterior Palpation Assessment Location R hip Palpation Details No tenderness to palpation at groin, glute, hip flexors, piriformis Mild tenderness over R SIJ, TFL. No tenderness at lumbar spinous processes PT-OP-K Range of Motion Start: 09/11/24 13:55 Freq: Status: Active Protocol: Document 10/26/24 11:31 NM (Rec: 10/26/24 12:24 NM [id number]) Lumbar Spine Range of Motion Lumbar Spine Active Percentage Flexion 100 Extension 75 Rotation Left 100 Rotation Right 100 Lateral Flexion Left 100 Lateral Flexion Right 100 Comments tightness w/ flex, mild pain with flex and R LF, R rot 10/26/24: less tightness Hip Goniometric Range of Motion Hip Right Flexion w/Knee Flexed 120 Extension 10 Abduction 25 Internal Rotation 35 External Rotation 40 Comments tightness with IR and flexion; no pain reproduction with AROM 150 deg HS Left Flexion w/Knee Flexed 112 Abduction 25 Internal Rotation 38 External Rotation 40 Comments 160 deg HS PT-OP-L Special Tests Start: 09/11/24 13:55 Freq: Status: Active Protocol: Document 09/14/24 11:28 NM (Rec: 09/14/24 12:24 NM [id number]) Special Tests Lumbar Spine Special Tests Prone Instability Test Test Results - Hip Special Tests Scour Test Results - Labral tests Test Results - FADIR Test Results + KEN Test Results + PT-OP-M Strength Start: 09/11/24 13:55 Freq: Status: Active Protocol: Document 10/26/24 11:31 NM (Rec: 10/26/24 12:24 NM [id number]) Hip Strength Hip Manual Muscle Testing Right Flexion (L2) 4 Good Extension (S1) 4 Good Abduction 4- Good- Adduction 4 Good External Rotation 4 Good Internal Rotation 4- Good- Left Flexion (L2) 4 Good Extension (S1) 4 Good Abduction 4 Good Adduction 4 Good External Rotation 4 Good Internal Rotation 4 Good PT-OP-Q Treatments Start: 09/17/24 12:58 Freq: Status: Active Protocol: Document 11/05/24 15:17 AB (Rec: 11/05/24 16:26 AB [id number]) Therapeutic Exercises Supine Exercises Modified Chaitanya stretch Side bilateral Reps/Minutes 60 sec X 1 Comments verbal cues knee to chest with gapping Supine Exercise Name towel roll at groin Side bilateral Reps/Minutes 60 seconds X 1 each Comments assist for towel roll postioning, VC, monitored for loc of sens of stretch sciatic nerve glide Supine Exercise Name 1. ankle AP only, 2. knee flex /ext w/ ankles HEP Side bilateral Reps/Minutes 20 ea Prone Exercises hip ER>IR Prone Exercise Name prone IR AROM and ER AROM Side bilateral Reps/Minutes X10 Comments L IR with dec AROM compared to left Standing Exercises glute med isometric Side bilateral Reps/Minutes one min each LE Comments Verbal cues and visual cues hip extension Side bilateral Resistance AROM > level 2 band at ankles Reps/Minutes X10 Comments VC for ant hip touching plinth Level 2 band to HEP Other Exercises hip ext mobilization Other Exercise Name 1/2 kneel Side right Equipment Used tensioned at plinth for hip ext mob PA glide Reps/Minutes 10x2 Therapeutic Activity Therapeutic Activity body mechanics Comments 1. lifting crate via squat pickling drum operator 2. lifting crate 10#, with kinesio tape Manual Therapy Treatment Taping LS for posture for lifting/body mech Type of Tape Kinesio Tape Comments for tactile cues to avoid mvt back and increase mvt hip/hip florence Y scapula to to I strips along spine PT-OP-T Assessment and Plan Start: 09/11/24 13:55 Freq: Status: Active Protocol: Document 11/05/24 15:17 AB (Rec: 11/05/24 16:26 AB [id number]) Physical Therapy Assessment Goals Four Impairment R hip IR 20 deg Door To Door Salesman Goal (LTG) Pt will improve R hip IR to at least 30 deg in order to increase hip mobility 10/26/24: R hip IR 35 deg LTG Duration 10 weeks MET 10/26/24 Three Impairment pain with lifting Impairment . Short Term Goal (STG) Pt will be educated on lifting mechanics and core bracing in order to improve stability during work related tasks 10/26/24: educated on lifting mechanics for work tasks STG Duration 4 weeks MET 10/26/24 Door To Door Salesman Goal (LTG) Pt will be able to lift at least 20# while demonstrating core bracing for at least 7/10 reps in order to demonstrate improved stability during work -related tasks LTG Duration 10 weeks Two Impairment pain with squatting and lifting Impairment . Short Term Goal (STG) Pt will report pain <3/10 in R hip with squatting at least 10 reps in order to demonstrate improved tolerance for work-related tasks 10/26/24: no pain with squatting, limited by L knee flexion ROM prn STG Duration 6 weeks PROGRESSING Skilled Nursing Goal (LTG) Pt will be able to squat and carry at least 20# for 5/10 reps without increase R hip pain in order to demonstrate improved tolerance for work- related tasks LTG Duration 10 weeks One Impairment not performing HEP due to pain Impairment . Door To Door Salesman Goal (LTG) Pt will report compliance with HEP and be IND in order to maximize progression with PT to transition to maintenance program upon discharge 10/26/24: compliant with HEP LTG Duration 10 weeks Assessment Summary Assessment Patient reports she as the same sensation ant hip with knee to chest during her lifts of 10 lb crates, ie improved hip hinge. Clicking, but not pain persists with ambulation end of session, less post hip extension with band compared to trials post other exercises and activities. Physical Therapy Plan Frequency and Duration Frequency of Treatment 1-2x/wk Duration of treatment (weeks) 10 Plan of Care Start Date 09/14/24 Plan of Care End Date 11/27/24 Next Visit Focus/Plan Next Note Type Treatment Note Next Visit Plan Hip ER from neutral to end range in prone AROM > strengthening. Cont with lifting and body mechanics, especially with squat. Assess josefina to self mobilization for hip ext. Progress hip extension strength. Look at gait mechanics d/t clicking in hip.
--- NOTE | 2024-11-05 16:27 | PT.OTN ---
Current Diagnoses Pain in right hip (11/05/24) Stiffness of right hip, not elsewhere classified (11/05/24) Other lack of coordination (11/05/24) Weakness (11/05/24) Physical Therapy Treatment Note PT-OP-A Visit Information Start: 09/11/24 13:55 Freq: Status: Active Protocol: Document 11/05/24 15:17 AB (Rec: 11/05/24 16:26 AB [id number]) Out-Patient Physical Therapy Visit Information Visit Information Visit Type Treatment Note Visit Start Time 15:19 Visit Stop Time 16:09 Visit Number 6 Number of EVENT COORDINATOR Visits 1 Evaluation Information Evaluation Date 09/14/24 Precautions Precautions Hx L ACL repair PT-OP-B Current Condition Start: 09/11/24 13:55 Freq: Status: Active Protocol: Document 09/14/24 11:28 NM (Rec: 09/14/24 12:24 NM [id number]) Current Condition History of Current Condition Onset Date November 2023 Current Complaints pain, clicking History of Current Condition Pt presents with R hip pain since November 2023, worsening since December-January. Occurred when she began working. Pain is worse with picking up totes from squatting position, then has to carry. She states that the R leg occasionally feels like will give out. Reports pain with R SIJ, travels to front of hip to front of leg. Usually just SIJ pain, but when flared will get the radicular pain. She has had to use wall for support. She reports tightness, relief with L lateral flex but has to have a crack in her back before gets relief. She states that worse day, report that has difficulty with ambulating . Hx of falling down the stairs at age 14, injured coccyx. Reports did have back pain. She has chronic neck and back tightness. She reports clicking with walking w/ extension, worse with walking fast. No numbness/tingling. 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 Pt reports that RLE slightly longer, has been measured and has radiographs to support Prior Treatments and Tests Radiograph R hip 06/2024: Impression- No radiographic evidence of acute abnormality as discussed above ('4 mm round calcific density at level of R ischial superior- laterally commonly my represent enostosis/bone island vs soft tissue or other calcification'). If symptoms persist or worsen, MRI could be performed. PT-OP-C Subjective Start: 09/11/24 13:55 Freq: Status: Active Protocol: Document 11/05/24 15:17 AB (Rec: 11/05/24 16:26 AB [id number]) OP-PT Subjective Patient Comments Patient Comments Patient reports she is better, clicking is not happening as much and hasn't had the pain the wraps around the hip has not occured prior to October ( estimates) Patient reports the pain tranfers to left side ( yesterday, but this hasn't happened since prior to yesterday/ rating pain 11/23 attributes to a long day at work) PT-OP-E Functional Tests Start: 09/11/24 13:55 Freq: Status: Active Protocol: Document 09/14/24 11:28 NM (Rec: 09/14/24 12:57 NM [id number]) Functional Tests Squat Test Score 5 (AROM and w/ 20#) Comments buttock pain reproduced in buttock w/ lifting PT-OP-F Manual Assessment Start: 09/11/24 13:55 Freq: Status: Active Protocol: Document 09/14/24 11:28 NM (Rec: 09/14/24 12:57 NM [id number]) Manual Assessments Soft Tissue Assessment Soft Tissue Mobility Assessment Tightness of hip flexors, glutes, TFL, ITB Joint Mobility Assessment Joint Mobility Assessment Clicking at R hip during hip ext in stance- felt ant hip No clicking or reproduction with labral or scour testing at joint. Less R hip mobility into IR, ext PT-OP-G Mobility & Gait Start: 09/11/24 13:55 Freq: Status: Active Protocol: Document 09/14/24 11:28 NM (Rec: 09/14/24 12:24 NM [id number]) OP Gait Assessment Gait Gait Assistance Required: Independent Distance (Feet) 200 Assistive Devices Assistive Device None Comments Gait Comments Demos more trunk ext with R stance, as pt moves into R hip ext and has audible and palpable clicking with R hip ext but only if pt is ambulating quickly PT-OP-J Posture/Palpation/Skin Start: 09/11/24 13:55 Freq: Status: Active Protocol: Document 09/14/24 11:28 NM (Rec: 09/14/24 12:24 NM [id number]) Posture Evaluation Position Standing Head/C-Spine Posture Forward Head Pelvis Posture Anteriorly Tilted,(R) PSIS Posterior Palpation Assessment Location R hip Palpation Details No tenderness to palpation at groin, glute, hip flexors, piriformis Mild tenderness over R SIJ, TFL. No tenderness at lumbar spinous processes PT-OP-K Range of Motion Start: 09/11/24 13:55 Freq: Status: Active Protocol: Document 10/26/24 11:31 NM (Rec: 10/26/24 12:24 NM [id number]) Lumbar Spine Range of Motion Lumbar Spine Active Percentage Flexion 100 Extension 75 Rotation Left 100 Rotation Right 100 Lateral Flexion Left 100 Lateral Flexion Right 100 Comments tightness w/ flex, mild pain with flex and R LF, R rot 10/26/24: less tightness Hip Goniometric Range of Motion Hip Right Flexion w/Knee Flexed 120 Extension 10 Abduction 25 Internal Rotation 35 External Rotation 40 Comments tightness with IR and flexion; no pain reproduction with AROM 150 deg HS Left Flexion w/Knee Flexed 112 Abduction 25 Internal Rotation 38 External Rotation 40 Comments 160 deg HS PT-OP-L Special Tests Start: 09/11/24 13:55 Freq: Status: Active Protocol: Document 09/14/24 11:28 NM (Rec: 09/14/24 12:24 NM [id number]) Special Tests Lumbar Spine Special Tests Prone Instability Test Test Results - Hip Special Tests Scour Test Results - Labral tests Test Results - FADIR Test Results + KEN Test Results + PT-OP-M Strength Start: 09/11/24 13:55 Freq: Status: Active Protocol: Document 10/26/24 11:31 NM (Rec: 10/26/24 12:24 NM [id number]) Hip Strength Hip Manual Muscle Testing Right Flexion (L2) 4 Good Extension (S1) 4 Good Abduction 4- Good- Adduction 4 Good External Rotation 4 Good Internal Rotation 4- Good- Left Flexion (L2) 4 Good Extension (S1) 4 Good Abduction 4 Good Adduction 4 Good External Rotation 4 Good Internal Rotation 4 Good PT-OP-Q Treatments Start: 09/17/24 12:58 Freq: Status: Active Protocol: Document 11/05/24 15:17 AB (Rec: 11/05/24 16:26 AB [id number]) Therapeutic Exercises Supine Exercises Modified Chaitanya stretch Side bilateral Reps/Minutes 60 sec X 1 Comments verbal cues knee to chest with gapping Supine Exercise Name towel roll at groin Side bilateral Reps/Minutes 60 seconds X 1 each Comments assist for towel roll postioning, VC, monitored for loc of sens of stretch sciatic nerve glide Supine Exercise Name 1. ankle AP only, 2. knee flex /ext w/ ankles HEP Side bilateral Reps/Minutes 20 ea Prone Exercises hip ER>IR Prone Exercise Name prone IR AROM and ER AROM Side bilateral Reps/Minutes X10 Comments L IR with dec AROM compared to left Standing Exercises glute med isometric Side bilateral Reps/Minutes one min each LE Comments Verbal cues and visual cues hip extension Side bilateral Resistance AROM > level 2 band at ankles Reps/Minutes X10 Comments VC for ant hip touching plinth Level 2 band to HEP Other Exercises hip ext mobilization Other Exercise Name 1/2 kneel Side right Equipment Used tensioned at plinth for hip ext mob PA glide Reps/Minutes 10x2 Therapeutic Activity Therapeutic Activity body mechanics Comments 1. lifting crate via squat [employer] 2. lifting crate 10#, with kinesio tape Manual Therapy Treatment Taping LS for posture for lifting/body mech Type of Tape Kinesio Tape Comments for tactile cues to avoid mvt back and increase mvt hip/hip florence Y scapula to to I strips along spine PT-OP-T Assessment and Plan Start: 09/11/24 13:55 Freq: Status: Active Protocol: Document 11/05/24 15:17 AB (Rec: 11/05/24 16:26 AB [id number]) Physical Therapy Assessment Goals Four Impairment R hip IR 20 deg [place] Goal (LTG) Pt will improve R hip IR to at least 30 deg in order to increase hip mobility 10/26/24: R hip IR 35 deg LTG Duration 10 weeks MET 10/26/24 Three Impairment pain with lifting Impairment . Short Term Goal (STG) Pt will be educated on lifting mechanics and core bracing in order to improve stability during work related tasks 10/26/24: educated on lifting mechanics for work tasks STG Duration 4 weeks MET 10/26/24 [place] Farmer Goal (LTG) Pt will be able to lift at least 20# while demonstrating core bracing for at least 7/10 reps in order to demonstrate improved stability during work -related tasks LTG Duration 10 weeks Two Impairment pain with squatting and lifting Impairment . Short Term Goal (STG) Pt will report pain <3/10 in R hip with squatting at least 10 reps in order to demonstrate improved tolerance for work-related tasks 10/26/24: no pain with squatting, limited by L knee flexion ROM prn STG Duration 6 weeks PROGRESSING Senior Care Goal (LTG) Pt will be able to squat and carry at least 20# for 5/10 reps without increase R hip pain in order to demonstrate improved tolerance for work- related tasks LTG Duration 10 weeks One Impairment not performing HEP due to pain Impairment . [place] Goal (LTG) Pt will report compliance with HEP and be IND in order to maximize progression with PT to transition to maintenance program upon discharge 10/26/24: compliant with HEP LTG Duration 10 weeks Assessment Summary Assessment Patient reports she as the same sensation ant hip with knee to chest during her lifts of 10 lb crates, ie improved hip hinge. Clicking, but not pain persists with ambulation end of session, less post hip extension with band compared to trials post other exercises and activities. Physical Therapy Plan Frequency and Duration Frequency of Treatment 1-2x/wk Duration of treatment (weeks) 10 Plan of Care Start Date 09/14/24 Plan of Care End Date 11/27/24 Next Visit Focus/Plan Next Note Type Treatment Note Next Visit Plan Hip ER from neutral to end range in prone AROM > strengthening. Cont with lifting and body mechanics, especially with squat. Assess josefina to self mobilization for hip ext. Progress hip extension strength. Look at gait mechanics d/t clicking in hip.
--- NOTE | 2024-11-09 12:20 | PT.OTN ---
Current Diagnoses Pain in right hip (11/09/24) Stiffness of right hip, not elsewhere classified (11/09/24) Other lack of coordination (11/09/24) Weakness (11/09/24) Physical Therapy Treatment Note PT-OP-A Visit Information Start: 09/11/24 13:55 Freq: Status: Active Protocol: Document 11/09/24 11:35 NM (Rec: 11/09/24 12:20 NM [id number]) Out-Patient Physical Therapy Visit Information Visit Information Visit Type Treatment Note Visit Start Time 11:35 Visit Stop Time 12:15 Visit Number 7 Evaluation Information Evaluation Date 09/14/24 Precautions Precautions Hx L ACL repair PT-OP-B Current Condition Start: 09/11/24 13:55 Freq: Status: Active Protocol: Document 09/14/24 11:28 NM (Rec: 09/14/24 12:24 NM [id number]) Current Condition History of Current Condition Onset Date November 2023 Current Complaints pain, clicking History of Current Condition Pt presents with R hip pain since November 2023, worsening since December-January. Occurred when she began working. Pain is worse with picking up totes from squatting position, then has to carry. She states that the R leg occasionally feels like will give out. Reports pain with R SIJ, travels to front of hip to front of leg. Usually just SIJ pain, but when flared will get the radicular pain. She has had to use wall for support. She reports tightness, relief with L lateral flex but has to have a crack in her back before gets relief. She states that worse day, report that has difficulty with ambulating . Hx of falling down the stairs at age 14, injured coccyx. Reports did have back pain. She has chronic neck and back tightness. She reports clicking with walking w/ extension, worse with walking fast. No numbness/tingling. 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 Pt reports that RLE slightly longer, has been measured and has radiographs to support Prior Treatments and Tests Radiograph R hip 06/2024: Impression- No radiographic evidence of acute abnormality as discussed above ('4 mm round calcific density at level of R ischial superior- laterally commonly my represent enostosis/bone island vs soft tissue or other calcification'). If symptoms persist or worsen, MRI could be performed. PT-OP-C Subjective Start: 09/11/24 13:55 Freq: Status: Active Protocol: Document 11/09/24 11:35 NM (Rec: 11/09/24 12:20 NM [id number]) OP-PT Subjective Patient Comments Patient Comments Pt reports that her hips are continuing to improve. She reports that last week, she had an instance where her L buttcheek went numb (was working), this is a first instance; did stretches. R hip has been better, reports no pain at work. She reports that clicking is still present but does not bother her. 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 Lifting and carrying going well at work, states that pushing methods. Reports some clicking L hip PT-OP-E Functional Tests Start: 09/11/24 13:55 Freq: Status: Active Protocol: Document 09/14/24 11:28 NM (Rec: 09/14/24 12:57 NM [id number]) Functional Tests Squat Test Score 5 (AROM and w/ 20#) Comments buttock pain reproduced in buttock w/ lifting PT-OP-F Manual Assessment Start: 09/11/24 13:55 Freq: Status: Active Protocol: Document 09/14/24 11:28 NM (Rec: 09/14/24 12:57 NM [id number]) Manual Assessments Soft Tissue Assessment Soft Tissue Mobility Assessment Tightness of hip flexors, glutes, TFL, ITB Joint Mobility Assessment Joint Mobility Assessment Clicking at R hip during hip ext in stance- felt ant hip No clicking or reproduction with labral or scour testing at joint. Less R hip mobility into IR, ext PT-OP-G Mobility & Gait Start: 09/11/24 13:55 Freq: Status: Active Protocol: Document 09/14/24 11:28 NM (Rec: 09/14/24 12:24 NM [id number]) OP Gait Assessment Gait Gait Assistance Required: Independent Distance (Feet) 200 Assistive Devices Assistive Device None Comments Gait Comments Demos more trunk ext with R stance, as pt moves into R hip ext and has audible and palpable clicking with R hip ext but only if pt is ambulating quickly PT-OP-J Posture/Palpation/Skin Start: 09/11/24 13:55 Freq: Status: Active Protocol: Document 09/14/24 11:28 NM (Rec: 09/14/24 12:24 NM [id number]) Posture Evaluation Position Standing Head/C-Spine Posture Forward Head Pelvis Posture Anteriorly Tilted,(R) PSIS Posterior Palpation Assessment Location R hip Palpation Details No tenderness to palpation at groin, glute, hip flexors, piriformis Mild tenderness over R SIJ, TFL. No tenderness at lumbar spinous processes PT-OP-K Range of Motion Start: 09/11/24 13:55 Freq: Status: Active Protocol: Document 10/26/24 11:31 NM (Rec: 10/26/24 12:24 NM [id number]) Lumbar Spine Range of Motion Lumbar Spine Active Percentage Flexion 100 Extension 75 Rotation Left 100 Rotation Right 100 Lateral Flexion Left 100 Lateral Flexion Right 100 Comments tightness w/ flex, mild pain with flex and R LF, R rot 10/26/24: less tightness Hip Goniometric Range of Motion Hip Right Flexion w/Knee Flexed 120 Extension 10 Abduction 25 Internal Rotation 35 External Rotation 40 Comments tightness with IR and flexion; no pain reproduction with AROM 150 deg HS Left Flexion w/Knee Flexed 112 Abduction 25 Internal Rotation 38 External Rotation 40 Comments 160 deg HS PT-OP-L Special Tests Start: 09/11/24 13:55 Freq: Status: Active Protocol: Document 09/14/24 11:28 NM (Rec: 09/14/24 12:24 NM [id number]) Special Tests Lumbar Spine Special Tests Prone Instability Test Test Results - Hip Special Tests Scour Test Results - Labral tests Test Results - FADIR Test Results + KEN Test Results + PT-OP-M Strength Start: 09/11/24 13:55 Freq: Status: Active Protocol: Document 10/26/24 11:31 NM (Rec: 10/26/24 12:24 NM [id number]) Hip Strength Hip Manual Muscle Testing Right Flexion (L2) 4 Good Extension (S1) 4 Good Abduction 4- Good- Adduction 4 Good External Rotation 4 Good Internal Rotation 4- Good- Left Flexion (L2) 4 Good Extension (S1) 4 Good Abduction 4 Good Adduction 4 Good External Rotation 4 Good Internal Rotation 4 Good PT-OP-Q Treatments Start: 09/17/24 12:58 Freq: Status: Active Protocol: Document 11/09/24 11:35 NM (Rec: 11/09/24 12:20 NM [id number]) Therapeutic Exercises Sidelying Exercises beached seal Sidelying Exercise Name full ROM hip IR/ER (HEP no HO provided) Side bilateral Equipment Used LE off of plinth Reps/Minutes 15 ea Comments pain free; L side harder Standing Exercises single leg RDL Standing Exercise Name foot supported on wall: 1. neutral stance, 2. hip IR- HEP Side bilateral Resistance level 2 band under foot Reps/Minutes 1. 2x8 ea, 2. 10 ea w/o band under foot Comments pain free; prn cues for form; demos good hip hinge wall clam Standing Exercise Name isometric hold Side bilateral Resistance level 2 band at thighs Equipment Used hip hinge and squat hold Reps/Minutes 2x30 Therapeutic Activity Therapeutic Activity body mechanics Reps/Minutes 15 min Comments 1. lunge c/ 10# wt ea hand 2. carries 10#, 2x50 ft ea: 1. suitcase, 2. asymmetrical, 3. unilateral 3. carries 20#, 2x50 ft ea: 1. suitcase, 2. unilateral 4. squat: 2x5 20# db in crate Min cues form, no back pain or hip pain. 20# Manual Therapy Treatment Consent Patient gave verbal consent for manual Yes treatment Soft Tissue Mobilization R hip Body Location glute, piriformis Mobilization Type Rolling,Strumming,Sustained Pressure Intensity/Depth Moderate Body Position Sidelying Comments No tenderness PT-OP-T Assessment and Plan Start: 09/11/24 13:55 Freq: Status: Active Protocol: Document 11/09/24 11:35 NM (Rec: 11/09/24 12:20 NM [id number]) Physical Therapy Assessment Goals Four Impairment R hip IR 20 deg Care Home Goal (LTG) Pt will improve R hip IR to at least 30 deg in order to increase hip mobility 10/26/24: R hip IR 35 deg LTG Duration 10 weeks MET 10/26/24 Three Impairment pain with lifting Impairment . Short Term Goal (STG) Pt will be educated on lifting mechanics and core bracing in order to improve stability during work related tasks 10/26/24: educated on lifting mechanics for work tasks STG Duration 4 weeks MET 10/26/24 Bench Molder Apprentice Goal (LTG) Pt will be able to lift at least 20# while demonstrating core bracing for at least 7/10 reps in order to demonstrate improved stability during work -related tasks 11/09/24: 20#, 10 2x5 reps, min cues form; no hip or back pain LTG Duration 10 weeks PROGRESSING Two Impairment pain with squatting and lifting Impairment . Short Term Goal (STG) Pt will report pain <3/10 in R hip with squatting at least 10 reps in order to demonstrate improved tolerance for work-related tasks 10/26/24: no pain with squatting, limited by L knee flexion ROM prn STG Duration 6 weeks PROGRESSING Bench Molder Apprentice Goal (LTG) Pt will be able to squat and carry at least 20# for 5/10 reps without increase R hip pain in order to demonstrate improved tolerance for work- related tasks 11/09/24: carries 20# x50 ft without back or hip pain LTG Duration 10 weeks One Impairment not performing HEP due to pain Impairment . Care Home Goal (LTG) Pt will report compliance with HEP and be IND in order to maximize progression with PT to transition to maintenance program upon discharge 10/26/24: compliant with HEP LTG Duration 10 weeks Assessment Summary Assessment Pt continues to progress toward indepedence with managing symptoms in R hip. No pain during session. Progressed to full ROM hip IR/ ER strengthening and glute strengthening at wall. Pt has no hip pain during exercises; does report possible clicking in L hip following wall exercises but pt states unsure . Continued with lifting, carrying, squatting. Progressed up to 20# with minimal cues for form. Pt would continue to benefit from skilled PT for progressive strengthening and flexibility to improve symptom management. Physical Therapy Plan Frequency and Duration Frequency of Treatment 1-2x/wk Duration of treatment (weeks) 10 Plan of Care Start Date 09/14/24 Plan of Care End Date 11/27/24 Therapeutic Interventions Therapeutic Interventions Balance Training,Gait Training ,Home Exercise Program,Joint Mobilizations,Manual Therapy, Neuromuscular Re-education, Orthotic/Prosthetic Management ,Patient/Caregiver Education, Self-Care/Home Management, Sensory Integration,Soft Tissue Mobilization,Taping, Therapeutic Activities, Therapeutic Exercises Modalities Cold Pack/Ice Massage,Electric Stimulation,Hot Packs, Ultrasound Next Visit Focus/Plan Next Note Type Treatment Note Next Visit Plan assess josefina to RDL, hip IR. Cont with lifting and body mechanics, especially with squat progress up to 20# as able. assess readiness for discharge from PT
--- NOTE | 2024-11-16 13:45 | PT.OTN ---
Current Diagnoses Pain in right hip (11/16/24) Stiffness of right hip, not elsewhere classified (11/16/24) Other lack of coordination (11/16/24) Weakness (11/16/24) Physical Therapy Treatment Note PT-OP-A Visit Information Start: 09/11/24 13:55 Freq: Status: Active Protocol: Document 11/16/24 13:00 NM (Rec: 11/16/24 13:45 NM [id number]) Out-Patient Physical Therapy Visit Information Visit Information Visit Type Treatment Note Visit Start Time 13:09 Visit Stop Time 13:45 Visit Number 8 Evaluation Information Evaluation Date 09/14/24 Precautions Precautions Hx L ACL repair PT-OP-B Current Condition Start: 09/11/24 13:55 Freq: Status: Active Protocol: Document 09/14/24 11:28 NM (Rec: 09/14/24 12:24 NM [id number]) Current Condition History of Current Condition Onset Date November 2023 Current Complaints pain, clicking History of Current Condition Pt presents with R hip pain since November 2023, worsening since December-January. Occurred when she began working. Pain is worse with picking up totes from squatting position, then has to carry. She states that the R leg occasionally feels like will give out. Reports pain with R SIJ, travels to front of hip to front of leg. Usually just SIJ pain, but when flared will get the radicular pain. She has had to use wall for support. She reports tightness, relief with L lateral flex but has to have a crack in her back before gets relief. She states that worse day, report that has difficulty with ambulating . Hx of falling down the stairs at age 14, injured coccyx. Reports did have back pain. She has chronic neck and back tightness. She reports clicking with walking w/ extension, worse with walking fast. No numbness/tingling. 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 Pt reports that RLE slightly longer, has been measured and has radiographs to support Prior Treatments and Tests Radiograph R hip 06/2024: Impression- No radiographic evidence of acute abnormality as discussed above ('4 mm round calcific density at level of R ischial superior- laterally commonly my represent enostosis/bone island vs soft tissue or other calcification'). If symptoms persist or worsen, MRI could be performed. PT-OP-C Subjective Start: 09/11/24 13:55 Freq: Status: Active Protocol: Document 11/16/24 13:00 NM (Rec: 11/16/24 13:45 NM [id number]) OP-PT Subjective Patient Comments Patient Comments Pt reports that she does not notice clicking in her hips, does not bother her. She felt okay after last session, reports soreness in thighs. No pain with lifting. Wants to d /c next session as last one scheduled. PT-OP-E Functional Tests Start: 09/11/24 13:55 Freq: Status: Active Protocol: Document 09/14/24 11:28 NM (Rec: 09/14/24 12:57 NM [id number]) Functional Tests Squat Test Score 5 (AROM and w/ 20#) Comments buttock pain reproduced in buttock w/ lifting PT-OP-F Manual Assessment Start: 09/11/24 13:55 Freq: Status: Active Protocol: Document 09/14/24 11:28 NM (Rec: 09/14/24 12:57 NM [id number]) Manual Assessments Soft Tissue Assessment Soft Tissue Mobility Assessment Tightness of hip flexors, glutes, TFL, ITB Joint Mobility Assessment Joint Mobility Assessment Clicking at R hip during hip ext in stance- felt ant hip No clicking or reproduction with labral or scour testing at joint. Less R hip mobility into IR, ext PT-OP-G Mobility & Gait Start: 09/11/24 13:55 Freq: Status: Active Protocol: Document 09/14/24 11:28 NM (Rec: 09/14/24 12:24 NM [id number]) OP Gait Assessment Gait Gait Assistance Required: Independent Distance (Feet) 200 Assistive Devices Assistive Device None Comments Gait Comments Demos more trunk ext with R stance, as pt moves into R hip ext and has audible and palpable clicking with R hip ext but only if pt is ambulating quickly PT-OP-J Posture/Palpation/Skin Start: 09/11/24 13:55 Freq: Status: Active Protocol: Document 09/14/24 11:28 NM (Rec: 09/14/24 12:24 NM [id number]) Posture Evaluation Position Standing Head/C-Spine Posture Forward Head Pelvis Posture Anteriorly Tilted,(R) PSIS Posterior Palpation Assessment Location R hip Palpation Details No tenderness to palpation at groin, glute, hip flexors, piriformis Mild tenderness over R SIJ, TFL. No tenderness at lumbar spinous processes PT-OP-K Range of Motion Start: 09/11/24 13:55 Freq: Status: Active Protocol: Document 11/16/24 13:00 NM (Rec: 11/16/24 13:45 NM [id number]) Hip Goniometric Range of Motion Hip Right Flexion w/Knee Flexed 120 Extension 10 Abduction 25 Internal Rotation 35 External Rotation 40 Comments tightness with IR and flexion; no pain reproduction with AROM 150 deg HS 11/16/24: 165 deg HS length Left Flexion w/Knee Flexed 112 Abduction 25 Internal Rotation 38 External Rotation 40 Comments 160 deg HS 11/16/24: 165 deg HS length PT-OP-L Special Tests Start: 09/11/24 13:55 Freq: Status: Active Protocol: Document 09/14/24 11:28 NM (Rec: 09/14/24 12:24 NM [id number]) Special Tests Lumbar Spine Special Tests Prone Instability Test Test Results - Hip Special Tests Scour Test Results - Labral tests Test Results - FADIR Test Results + KEN Test Results + PT-OP-M Strength Start: 09/11/24 13:55 Freq: Status: Active Protocol: Document 10/26/24 11:31 NM (Rec: 10/26/24 12:24 NM [id number]) Hip Strength Hip Manual Muscle Testing Right Flexion (L2) 4 Good Extension (S1) 4 Good Abduction 4- Good- Adduction 4 Good External Rotation 4 Good Internal Rotation 4- Good- Left Flexion (L2) 4 Good Extension (S1) 4 Good Abduction 4 Good Adduction 4 Good External Rotation 4 Good Internal Rotation 4 Good PT-OP-Q Treatments Start: 09/17/24 12:58 Freq: Status: Active Protocol: Document 11/16/24 13:00 NM (Rec: 11/16/24 13:45 NM [id number]) Therapeutic Exercises Supine Exercises happy baby Side bilateral Reps/Minutes 2x60 Comments mat on floor; for hip mobility , relaxation single leg bridge Side bilateral Reps/Minutes 2x10 ea Comments cued for form Sidelying Exercises side plank Sidelying Exercise Name c/ glute med hold (top leg abducted and extended) Side bilateral Equipment Used mat on floor Reps/Minutes 2x30 ea side welsh ball Sidelying Exercise Name lateral flexion Side bilateral Equipment Used med orange welsh ball Reps/Minutes 10 ea Comments cued set up and form Standing Exercises captain lyman Standing Exercise Name with ball support on wall, single leg squat Side bilateral Equipment Used small blue kickball at wall Reps/Minutes 8 ea Comments cued set up, form single leg RDL Standing Exercise Name foot support @ wall: 1. hip IR (HEP) review, 2. w/o band, no foot on wall Side bilateral Resistance level 2 band under foot Reps/Minutes 1. 10 ea, 2. 5 ea (balance challenged) Comments no pain; no clicking at hips wall clam Standing Exercise Name isotonic clam ER Side bilateral Resistance level 3 sun'aq band Equipment Used foot at wall for support Reps/Minutes 15 ea Comments no pain PT-OP-T Assessment and Plan Start: 09/11/24 13:55 Freq: Status: Active Protocol: Document 11/16/24 13:00 NM (Rec: 11/16/24 13:45 NM [id number]) Physical Therapy Assessment Goals Four Impairment R hip IR 20 deg Deputy County Counsel Goal (LTG) Pt will improve R hip IR to at least 30 deg in order to increase hip mobility 10/26/24: R hip IR 35 deg LTG Duration 10 weeks MET 10/26/24 Three Impairment pain with lifting Impairment . Short Term Goal (STG) Pt will be educated on lifting mechanics and core bracing in order to improve stability during work related tasks 10/26/24: educated on lifting mechanics for work tasks STG Duration 4 weeks MET 10/26/24 [employer] Counsel Goal (LTG) Pt will be able to lift at least 20# while demonstrating core bracing for at least 7/10 reps in order to demonstrate improved stability during work -related tasks 11/09/24: 20#, 10 2x5 reps, min cues form; no hip or back pain LTG Duration 10 weeks PROGRESSING Two Impairment pain with squatting and lifting Impairment . Short Term Goal (STG) Pt will report pain <3/10 in R hip with squatting at least 10 reps in order to demonstrate improved tolerance for work-related tasks 10/26/24: no pain with squatting, limited by L knee flexion ROM prn STG Duration 6 weeks PROGRESSING [employer] Goal (LTG) Pt will be able to squat and carry at least 20# for 5/10 reps without increase R hip pain in order to demonstrate improved tolerance for work- related tasks 11/09/24: carries 20# x50 ft without back or hip pain LTG Duration 10 weeks One Impairment not performing HEP due to pain Impairment . [employer] Goal (LTG) Pt will report compliance with HEP and be IND in order to maximize progression with PT to transition to maintenance program upon discharge 10/26/24: compliant with HEP LTG Duration 10 weeks Assessment Summary Assessment Pt continuing to advance with progressive glute/rotator strengthening. Able to initiate returning to prior HEP for ACL maintenance home rehab with more advanced glute exercises. Progressed to captain morgans at wall and hip airplanes. Cues needed for form, correct execution. Continues to demo some core and trunk/hip abductor weakness; initiated planking to address limitations. Demos improved hip rotator ROM and hamstring length. Pt and PT discussed discharge at next session as pt has met PT goals and is progressing well. Pt and PT in agreement. Physical Therapy Plan Frequency and Duration Frequency of Treatment 1-2x/wk Duration of treatment (weeks) 10 Plan of Care Start Date 09/14/24 Plan of Care End Date 11/27/24 Therapeutic Interventions Therapeutic Interventions Balance Training,Gait Training ,Home Exercise Program,Joint Mobilizations,Manual Therapy, Neuromuscular Re-education, Orthotic/Prosthetic Management ,Patient/Caregiver Education, Self-Care/Home Management, Sensory Integration,Soft Tissue Mobilization,Taping, Therapeutic Activities, Therapeutic Exercises Modalities Cold Pack/Ice Massage,Electric Stimulation,Hot Packs, Ultrasound Next Visit Focus/Plan Next Note Type Discharge Summary Next Visit Plan Progress glute/hip rotator strengthening. Est maintenance program. Review lifting and body mechanics as needed, especially with squat progress up to 20# as able.
--- NOTE | 2024-11-23 15:40 | PT.OTN ---
Current Diagnoses Pain in right hip (11/23/24) Stiffness of right hip, not elsewhere classified (11/23/24) Other lack of coordination (11/23/24) Weakness (11/23/24) Physical Therapy Treatment Note PT-OP-A Visit Information Start: 09/11/24 13:55 Freq: Status: Active Protocol: Document 11/23/24 13:00 NM (Rec: 11/23/24 13:47 NM [id number]) Out-Patient Physical Therapy Visit Information Visit Information Visit Type Discharge Summary Visit Start Time 13:09 Visit Stop Time 13:45 Visit Number 9 Evaluation Information Evaluation Date 09/14/24 Precautions Precautions Hx L ACL repair PT-OP-B Current Condition Start: 09/11/24 13:55 Freq: Status: Active Protocol: Document 09/14/24 11:28 NM (Rec: 09/14/24 12:24 NM [id number]) Current Condition History of Current Condition Onset Date November 2023 Current Complaints pain, clicking History of Current Condition Pt presents with R hip pain since November 2023, worsening since December-January. Occurred when she began working. Pain is worse with picking up totes from squatting position, then has to carry. She states that the R leg occasionally feels like will give out. Reports pain with R SIJ, travels to front of hip to front of leg. Usually just SIJ pain, but when flared will get the radicular pain. She has had to use wall for support. She reports tightness, relief with L lateral flex but has to have a crack in her back before gets relief. She states that worse day, report that has difficulty with ambulating . Hx of falling down the stairs at age 14, injured coccyx. Reports did have back pain. She has chronic neck and back tightness. She reports clicking with walking w/ extension, worse with walking fast. No numbness/tingling. 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 Pt reports that RLE slightly longer, has been measured and has radiographs to support Prior Treatments and Tests Radiograph R hip 06/2024: Impression- No radiographic evidence of acute abnormality as discussed above ('4 mm round calcific density at level of R ischial superior- laterally commonly my represent enostosis/bone island vs soft tissue or other calcification'). If symptoms persist or worsen, MRI could be performed. PT-OP-C Subjective Start: 09/11/24 13:55 Freq: Status: Active Protocol: Document 11/23/24 13:00 NM (Rec: 11/23/24 13:47 NM [id number]) OP-PT Subjective Patient Comments Patient Comments Pt reports that things have shifted over to her L side. However, PT-OP-E Functional Tests Start: 09/11/24 13:55 Freq: Status: Active Protocol: Document 09/14/24 11:28 NM (Rec: 09/14/24 12:57 NM [id number]) Functional Tests Squat Test Score 5 (AROM and w/ 20#) Comments buttock pain reproduced in buttock w/ lifting PT-OP-F Manual Assessment Start: 09/11/24 13:55 Freq: Status: Active Protocol: Document 09/14/24 11:28 NM (Rec: 09/14/24 12:57 NM [id number]) Manual Assessments Soft Tissue Assessment Soft Tissue Mobility Assessment Tightness of hip flexors, glutes, TFL, ITB Joint Mobility Assessment Joint Mobility Assessment Clicking at R hip during hip ext in stance- felt ant hip No clicking or reproduction with labral or scour testing at joint. Less R hip mobility into IR, ext PT-OP-G Mobility & Gait Start: 09/11/24 13:55 Freq: Status: Active Protocol: Document 09/14/24 11:28 NM (Rec: 09/14/24 12:24 NM [id number]) OP Gait Assessment Gait Gait Assistance Required: Independent Distance (Feet) 200 Assistive Devices Assistive Device None Comments Gait Comments Demos more trunk ext with R stance, as pt moves into R hip ext and has audible and palpable clicking with R hip ext but only if pt is ambulating quickly PT-OP-J Posture/Palpation/Skin Start: 09/11/24 13:55 Freq: Status: Active Protocol: Document 09/14/24 11:28 NM (Rec: 09/14/24 12:24 NM [id number]) Posture Evaluation Position Standing Head/C-Spine Posture Forward Head Pelvis Posture Anteriorly Tilted,(R) PSIS Posterior Palpation Assessment Location R hip Palpation Details No tenderness to palpation at groin, glute, hip flexors, piriformis Mild tenderness over R SIJ, TFL. No tenderness at lumbar spinous processes PT-OP-K Range of Motion Start: 09/11/24 13:55 Freq: Status: Active Protocol: Document 11/23/24 13:00 NM (Rec: 11/23/24 13:47 NM [id number]) Hip Goniometric Range of Motion Hip Right Flexion w/Knee Flexed 120 Extension 10 Abduction 25 Internal Rotation 35 External Rotation 40 Comments tightness with IR and flexion; no pain reproduction with AROM 150 deg HS 11/16/24: 165 deg HS length Left Flexion w/Knee Flexed 112 Abduction 25 Internal Rotation 38 External Rotation 40 Comments 160 deg HS 11/16/24: 165 deg HS length PT-OP-L Special Tests Start: 09/11/24 13:55 Freq: Status: Active Protocol: Document 09/14/24 11:28 NM (Rec: 09/14/24 12:24 NM [id number]) Special Tests Lumbar Spine Special Tests Prone Instability Test Test Results - Hip Special Tests Scour Test Results - Labral tests Test Results - FADIR Test Results + KEN Test Results + PT-OP-M Strength Start: 09/11/24 13:55 Freq: Status: Active Protocol: Document 11/23/24 13:00 NM (Rec: 11/23/24 13:47 NM [id number]) Hip Strength Hip Manual Muscle Testing Right Flexion (L2) 4+ Good+ Extension (S1) 4+ Good+ Abduction 4+ Good+ Adduction 4+ Good+ External Rotation 4+ Good+ Internal Rotation 4+ Good+ Left Flexion (L2) 4 Good Extension (S1) 4 Good Abduction 4 Good Adduction 4 Good External Rotation 4 Good Internal Rotation 4 Good PT-OP-Q Treatments Start: 09/17/24 12:58 Freq: Status: Active Protocol: Document 11/23/24 13:00 NM (Rec: 11/23/24 13:47 NM [id number]) Therapeutic Exercises Standing Exercises step downs Standing Exercise Name lateral tap downs- HEP Side bilateral Equipment Used 8 Reps/Minutes 10 ea side steps Standing Exercise Name HEP Side bilateral Resistance level 1 band > level 2 band at toes Equipment Used squat position Reps/Minutes 2x25 ft ea single leg RDL Standing Exercise Name 1. airplane (no wall), 2. single leg RDL Side bilateral Reps/Minutes 8 ea Therapeutic Activity Therapeutic Activity body mechanics Reps/Minutes 15 min Comments 1. education on body mechanics for lifting, carrying tasks at work. recommendation for changing of crates and limiting lifting of heavier loads (>25# from increased heights d/t pt reports of challenge and poor body mechanics) 2. lifting 20# from floor to chest height and over head 3. 8 step up c/ 20# to over head reach on shelf Self-Care/Home Management Treatment Education Patient Education Home Exercise Program,Joint Protection,Pain Management Other Education Recommended that pt research free online strength training or exercise programs (e.g. pilates) vs going to gym to supplement PT exercises and for progressions, multijoint training PT-OP-T Assessment and Plan Start: 09/11/24 13:55 Freq: Status: Active Protocol: Document 11/23/24 13:00 NM (Rec: 11/23/24 13:47 NM [id number]) Physical Therapy Assessment Goals Four Impairment R hip IR 20 deg Spinning Mule Tender Goal (LTG) Pt will improve R hip IR to at least 30 deg in order to increase hip mobility 10/26/24: R hip IR 35 deg LTG Duration 10 weeks MET 10/26/24 Three Impairment pain with lifting Impairment . Short Term Goal (STG) Pt will be educated on lifting mechanics and core bracing in order to improve stability during work related tasks 10/26/24: educated on lifting mechanics for work tasks STG Duration 4 weeks MET 10/26/24 [facility] Goal (LTG) Pt will be able to lift at least 20# while demonstrating core bracing for at least 7/10 reps in order to demonstrate improved stability during work -related tasks 11/09/24: 20#, 10 2x5 reps, min cues form; no hip or back pain 11/23/24: 10 reps from floor, good core bracing, no compensations LTG Duration 10 weeks MET Two Impairment pain with squatting and lifting Impairment . Short Term Goal (STG) Pt will report pain <3/10 in R hip with squatting at least 10 reps in order to demonstrate improved tolerance for work-related tasks 10/26/24: no pain with squatting, limited by L knee flexion ROM prn STG Duration 6 weeks PROGRESSING Spinning Mule Tender Goal (LTG) Pt will be able to squat and carry at least 20# for 5/10 reps without increase R hip pain in order to demonstrate improved tolerance for work- related tasks 11/09/24: carries 20# x50 ft without back or hip pain 11/23/24: 10 squats c/ 20# and carries several feet c/ lifts LTG Duration 10 weeks MET One Impairment not performing HEP due to pain Impairment . Spinning Mule Tender Goal (LTG) Pt will report compliance with HEP and be IND in order to maximize progression with PT to transition to maintenance program upon discharge 10/26/24: compliant with HEP LTG Duration 10 weeks MET Progress Towards Goals Progress Towards Goals Goals Met Assessment Summary Assessment Pt late to session so decreased time. Increased time spent on body mechanics, with pt both demo 20# lifts with good form and with PT education for pt tasks based on pt questions. Performed 8 step up with 20#, no pain or compensation followed by lift above head for further job requirement training. Continued with advanced hip mobility and glute strength. Better stability on hip airplanes, progressed to single leg RDL with resistance . Physical Therapy Plan Frequency and Duration Frequency of Treatment 1-2x/wk Duration of treatment (weeks) 10 Plan of Care Start Date 09/14/24 Plan of Care End Date 11/27/24 Therapeutic Interventions Therapeutic Interventions Balance Training,Gait Training ,Home Exercise Program,Joint Mobilizations,Manual Therapy, Neuromuscular Re-education, Orthotic/Prosthetic Management ,Patient/Caregiver Education, Self-Care/Home Management, Sensory Integration,Soft Tissue Mobilization,Taping, Therapeutic Activities, Therapeutic Exercises Modalities Cold Pack/Ice Massage,Electric Stimulation,Hot Packs, Ultrasound Discharge Physical Therapy Discharge Reasons Goals Met Discharge Comments All goals met. Pt progressed well, no pain in R hip. Prn L hip pain but will need new referral to return to PT to treat L hip. Recommend trial early rehab exercises before getting new referral. Education on performing maintenance program at least 3x/wk. PT educated pt ot follow up with PCP if symptoms return, change, or worsen. Pt verbalizes understanding and will be discharged to maintenance program. Next Visit Focus/Plan Next Note Type Discharge Summary Next Visit Plan discharge from PT
== END 2024-11-26 15:15 | disposition home or self-care (01) ==
LOC: PHYS 13:00
PROVIDERS: Family Provider Family Medicine; PCP Family Medicine; Referring Provider Family Medicine; Visit Provider Family Medicine
DX: M25.551 Pain in right hip (principal); M25.651 Stiffness of right hip, not elsewhere classified; R53.1 Weakness; R27.8 Other lack of coordination
CPT/HCPCS: 97110; 97140; 97161; 97530

== ENCOUNTER → 2024-12-24 11:07 | Outpatient (CLI) | payer OTHER, SELFPAY ==
[2024-12-24 12:10] LABS: Alanine Aminotransferase 22 IU/L (<35); Albumin Globulin Ratio 1.4 (1.0-2.8); Alkaline Phosphatase 59 U/L (38-126); Aspartate Aminotransferase 31 IU/L (14-36); BUN Creatinine Ratio 14.1 (6-22); Bilirubin Total 0.7 mg/dL (0.2-1.3); Blood Urea Nitrogen 10 mg/dL (7-17); Calcium 9.8 mg/dL (8.4-10.2); Carbon Dioxide 27 mmol/L (22-32); Chloride 102 mmol/L (98-107); Estimated Glomerular Filt Rate > 60 mL/min (>60); Globulin 3.6 g/dL (1.7-4.1); Glucose 92 mg/dL (70-100); HEMOLYSIS < 15 (0-50); Potassium 4.2 mmol/L (3.4-5.1); Sodium 140 mmol/L (137-145); Total Protein 8.6 g/dL (6.3-8.2)
[2024-12-24 12:25] LABS: Erythrocyte Sedimentation Rate 18 MM/HR (0-20)
[2024-12-24 12:26] LABS: Prolactin 23.3 ng/mL (3.0-18.6)
== END ==
PROVIDERS: Family Provider Family Medicine; PCP Family Medicine; Referring Provider Family Medicine; Visit Provider Family Medicine
DX: E04.1 Nontoxic single thyroid nodule (principal); R79.89 Other specified abnormal findings of blood chemistry; R70.0 Elevated erythrocyte sedimentation rate; R41.0 Disorientation, unspecified; R42 Dizziness and giddiness
CPT/HCPCS: 36415; 80053; 84146; 84443; 85651

== ENCOUNTER → 2025-05-06 13:47 | Outpatient (CLI) | payer OTHER, SELFPAY ==
[2025-05-06 14:58] LABS: Hemoglobin A1C% w Est Avg Glu 5.2 % (4.0-6.0)
== END ==
PROVIDERS: Family Provider Family Medicine; PCP Family Medicine; Referring Provider Family Medicine; Visit Provider Family Medicine
DX: R79.89 Other specified abnormal findings of blood chemistry (principal); E04.1 Nontoxic single thyroid nodule; L68.0 Hirsutism
CPT/HCPCS: 36415; 83036; 84403

== ENCOUNTER → 2025-07-13 14:16 | Outpatient (CLI) | payer OTHER, SELFPAY ==
[2025-07-13 15:48] LABS: Blood Urea Nitrogen 12 mg/dL (7-17); Calcium 9.7 mg/dL (8.4-10.2); Carbon Dioxide 26 mmol/L (22-32); Chloride 102 mmol/L (98-107); Estimated Glomerular Filt Rate > 60 mL/min (>60); Glucose 91 mg/dL (70-99); HEMOLYSIS < 15 (0-50); Potassium 4.2 mmol/L (3.4-5.1); Sodium 137 mmol/L (137-145)
== END ==
PROVIDERS: Family Provider Family Medicine; PCP Family Medicine; Referring Provider Family Medicine; Visit Provider Family Medicine
DX: L70.8 Other acne (principal); Z79.899 Other long term (current) drug therapy
CPT/HCPCS: 36415; 80048